=== PATIENT | male | born 1940 | race Hispanic/Latino ===

== ENCOUNTER 2017-03-30 19:59 | Inpatient (IN) | payer MEDICARE, BC ==
[2017-03-30 22:00] VITALS: BMI 27.8
[2017-03-31] MEDS ORDERED: Oxycodone/Acetaminophen 5/325 mg Tab PO PRN (00:30)
[2017-03-31] MEDS ORDERED: Albuterol-Ipratrop 3 mg / 0.5 (3 ml) UD IH SCH (02:15)
[2017-03-31] MEDS: Albuterol-Ipratrop 3 mg / 0.5 (3 ml) UD IH SCH ×5 (03:10→19:28)
[2017-03-31 06:35] LABS: MEAN CELL VOLUME 83.4 fl (80.0-94.0); MEAN CORPUSCULAR HEMOGLOBIN 27.3 pg (27.0-31.0); MEAN CORPUSCULAR HGB CONC 32.7 g/dL (33.0-37.0); RED CELL DISTRIBUTION WIDTH 19.2 % (11.5-14.5); WHITE BLOOD COUNT 9.2 K/uL (4.8-10.8)
[2017-03-31] MEDS: Santyl Collagenase OINTMENT TOP SCH ×2 (06:41→08:56)
[2017-03-31] MEDS: Insulin Lispro (humaLOG) 100 Units/ml Inj SC SCH ×4 (06:42→21:25)
[2017-03-31] MEDS: Pantoprazole 40 mg EC Tab PO SCH (08:59)
[2017-03-31] MEDS ORDERED: Patient's Own Med (Dorzolamide Hcl/Timolol Maleat [Dorzolamide-Timolol Eye Drops] 1 DROP) OU SCH (09:00)
[2017-03-31] MEDS: Dorzolamide 2% Ophth Soln OU SCH ×3 (09:02→16:52)
[2017-03-31] MEDS: Pilocarpine 1% Opht Soln OU SCH ×4 (09:03→21:26)
--- NOTE | 2017-03-31 17:15 | CP.PCM.HP ---
History of Present Illness - History of Present Illness History of Present Illness: CC: Unable to sit and transfer by himsel, and Generalized Weakness History of Present Illness: A 76yoM H/O Incarcerated hernia S/P 2 surgeries with an Ileostomy, and the hospital course was complicated with septic shock with Acute Respiratory failure requiring Intubation. 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 Unable to elevate B/L shoulders partly due to stiffness and partly pain. Currently patient C/O Feeling down and not fully cooperating for blood test and participating in PT. Has done some OT today Denied Chest pain, cough, fever or chills. Present on Admission - Present on Admission Any Indicators Present on Admission: Yes History of DVT/PE: No History of Uncontrolled Diabetes: No Urinary Catheter: No Decubitus Ulcer Present: No Decubitus Ulcer Stage: II Review of Systems - Review of Systems All systems: reviewed and no additional remarkable complaints except Past Patient History - Infectious Disease Hx of Infectious Diseases: None, C.diff - Past Medical History & Family History Past Medical History?: Yes Past Family History: Reviewed and not pertinent - Past Social History Smoking Status: Never Smoked Alcohol: None Drugs: Denies - CARDIAC Hx Cardiac Disorders: Yes Hx Hypertension: Yes - PULMONARY Hx Respiratory Disorders: No - NEUROLOGICAL HX Cerebrovascular Accident: Yes - HEENT Hx HEENT Problems: No Hx Glaucoma: Yes - RENAL Hx Chronic Kidney Disease: No - ENDOCRINE/METABOLIC Hx Diabetes Mellitus Type 2: Yes - HEMATOLOGICAL/ONCOLOGICAL Hx AIDS: No Hx Human Immunodeficiency Virus (HIV): No - INTEGUMENTARY Other/Comment: RIGHT TEMPORAL LESION - MUSCULOSKELETAL/RHEUMATOLOGICAL Hx Falls: No - GASTROINTESTINAL Hx Gastrointestinal Disorders: Yes Hx Bowel Surgery: Yes Hx Colostomy: Yes Other/Comment: 03/17/2017 - exploratory lap, small bowel resection. 03/18/2017 - returned to OR for washout, end ileostomy, abdominal closure with bridging strattice mesh. h/o abdominal hernia - GENITOURINARY/GYNECOLOGICAL Hx Genitourinary Disorders: No - PSYCHIATRIC Hx Anxiety: Yes Hx Depression: Yes Hx Substance Use: No - SURGICAL HISTORY Hx Coronary Stent: Yes Other/Comment: RIGHT HIP FX with surgery - ANESTHESIA Hx Anesthesia: Yes Hx Anesthesia Reactions: No Hx Malignant Hyperthermia: No Meds Allergies/Adverse Reactions: Allergies Allergy/AdvReac Type Severity Reaction Status Date / Time Penicillins Allergy URTICARIA Verified 03/30/17 22:34 Sulfa (Sulfonamide Allergy URTICARIA Verified 03/30/17 22:34 Antibiotics) Physical Exam - Constitutional Appears: Well - Head Exam Head Exam: ATRAUMATIC, NORMAL INSPECTION, NORMOCEPHALIC - Eye Exam Eye Exam: EOMI, Normal appearance, PERRL Pupil Exam: NORMAL ACCOMODATION, PERRL - ENT Exam ENT Exam: Mucous Membranes Moist, Normal Exam - Neck Exam Neck exam: Positive for: Normal Inspection - Respiratory Exam Respiratory Exam: Clear to Auscultation Bilateral, NORMAL BREATHING PATTERN - Cardiovascular Exam Cardiovascular Exam: REGULAR RHYTHM, +S1, +S2 - GI/Abdominal Exam GI & Abdominal Exam: Normal Bowel Sounds, Soft. absent: Tenderness - Extremities Exam Extremities exam: Positive for: normal inspection - Back Exam Back exam: NORMAL INSPECTION. absent: CVA tenderness (L), CVA tenderness (R) - Neurological Exam Neurological exam: Alert, CN II-XII Intact, Normal Gait, Oriented x3, Reflexes Normal - Psychiatric Exam Psychiatric exam: Normal Affect, Normal Mood - Skin Skin Exam: Dry, Intact, Normal Color, Warm Results - Vital Signs Recent Vital Signs: Last Vital Signs Temp 97.7 F 03/31/17 08:44 Pulse 68 03/31/17 13:48 Resp 19 03/31/17 08:44 BP 131/77 03/31/17 09:01 Pulse Ox 98 03/31/17 13:48 - Labs Result Diagrams: 04/03/17 05:36 04/01/17 06:00 Labs: Laboratory Results - last 24 hr 03/31/17 03/31/17 03/31/17 05:10 05:10 12:49 WBC 9.2 RBC 3.48 L Hgb 9.5 L Hct 29.0 L MCV 83.4 MCH 27.3 MCHC 32.7 L RDW 19.2 H Plt Count 557 H POC Glucose (mg/dL) 92 103 Assessment & Plan (1) Shoulder pain, bilateral Status: Acute
[2017-03-31] MEDS ORDERED: Silver Sulfadiazine 1% Cream (20 gm) TOP SCH (19:15)
--- NOTE | 2017-03-31 19:18 | CP.PCM.PN ---
Subjective - Date & Time of Evaluation Date of Evaluation: 03/31/17 Time of Evaluation: 19:17 - Subjective Subjective: debility Objective - Vital Signs/Intake and Output Vital Signs (last 24 hours): Temp Pulse Resp BP Pulse Ox 97.7 F 68 19 131/77 98 03/31/17 08:44 03/31/17 13:48 03/31/17 08:44 03/31/17 09:01 03/31/17 13:48 - Medications Medications: Current Medications Acetaminophen (Tylenol 325mg Tab) 650 mg PO Q6H PRN PRN Reason: Pain, moderate (4-7) Last Admin: 03/31/17 06:46 Dose: 650 mg Albuterol/Ipratropium (Duoneb 3 Mg/0.5 Mg (3 Ml) Ud) 3 ml IH RQ4 [facility] Last Admin: 03/31/17 15:52 Dose: Not Given Alprazolam (Xanax) 0.25 mg PO HS PRN PRN Reason: Anxiety Stop: 04/07/17 00:32 Last Admin: 03/31/17 11:32 Dose: 0.25 mg Atorvastatin Calcium (Lipitor) 50 mg PO HS [facility] Dorzolamide HCl (Trusopt) 1 drop OU TID [facility] Last Admin: 03/31/17 16:52 Dose: 1 drop Enoxaparin Sodium (Lovenox) 40 mg SC DAILY [facility] PRN Reason: Protocol Escitalopram Oxalate (Lexapro) 10 mg PO HS [facility] Furosemide (Lasix) 20 mg PO DAILY [facility] Insulin Human Lispro (Humalog) 0 units SC ACHS [facility] PRN Reason: Protocol Last Admin: 03/31/17 16:52 Dose: Not Given Latanoprost (Xalatan Opht) 1 drop OU HS [facility] Lisinopril (Zestril) 5 mg PO HS [facility] Metoprolol Tartrate (Lopressor) 50 mg PO DAILY [facility] Last Admin: 03/31/17 09:01 Dose: 50 mg Miconazole Nitrate (Critic-Aid Clear Af) 1 applic TOP BID [facility] Oxycodone/Acetaminophen (Percocet 5/325 Mg Tab) 1 tab PO Q6 PRN PRN Reason: Pain, severe (8-10) Stop: 04/03/17 00:31 Pantoprazole Sodium (Protonix Ec Tab) 40 mg PO DAILY [facility] Last Admin: 03/31/17 08:59 Dose: 40 mg Pilocarpine HCl (Isopto Carpine 1% Opht Soln) 1 drop OU QID [facility] Last Admin: 03/31/17 16:52 Dose: 1 drop Silver Sulfadiazine (Silvadene 1% 20 Gm) 1 ea TOP QSHIFT [facility] Timolol Maleate (Timoptic 0.5% Ophth Soln) 1 drop OU BID [facility] Last Admin: 03/31/17 16:52 Dose: 1 drop - Labs Labs: 03/31/17 05:10 Physiatry Overall Plan of Care - Overall Plan of Care Estimated Length of Stay in Weeks: 3 Rehab Impairment: Mobility, Gait, Balance, Coordination Etiologic Diagnosis: Other Rehab/Medical Prognosis: Guarded - Anticipated Interventions Physical Therapy:: Yes Occupational Therapy:: Yes Speech Therapy:: Yes Recreational Therapy:: Yes - Therapy Goals Bed Mobility: Contact Guard Ambulation: Contact Guard Functional Positional Changes:: Contact Guard - Discharge Plan Discharge Destination: Subacute
--- NOTE | 2017-03-31 19:21 | CP.PCM.CON ---
History of Present Illness - History of Present Illness History of Present Illness: Dr Campa PMR consultation on Clarence Roberts, born 1940, who has been admitted to [facility] for acute inpatient rehabilitation following SBO with surgery and ileostomy and drain with abdominal closure. Multiple medical comorbidities Had a CVA last year, with left HP, but was able to get around with a walker Review of Systems - Review of Systems Systems not reviewed;Unavailable: Other (weak) - Constitutional Constitutional: Anorexia, Fatigue, Weakness - Cardiovascular Cardiovascular: absent: Chest Pain - Respiratory Respiratory: absent: Dyspnea - Gastrointestinal Gastrointestinal: absent: Bloating - Musculoskeletal Musculoskeletal: Back Pain (pain is on sacral wound) - Neurological Neurological: Focal Weakness (left HP). absent: Abnormal Movements - Psychiatric Psychiatric: Depression Past Patient History - Infectious Disease Hx of Infectious Diseases: None, C.diff - Past Medical History & Family History Past Medical History?: Yes - Past Social History Smoking Status: Never Smoked Home Situation {Lives}: With Family (outside steps) - CARDIAC Hx Cardiac Disorders: Yes Hx Hypertension: Yes - PULMONARY Hx Respiratory Disorders: No - NEUROLOGICAL HX Cerebrovascular Accident: Yes - HEENT Hx HEENT Problems: No Hx Glaucoma: Yes - RENAL Hx Chronic Kidney Disease: No - ENDOCRINE/METABOLIC Hx Diabetes Mellitus Type 2: Yes - HEMATOLOGICAL/ONCOLOGICAL Hx AIDS: No Hx Human Immunodeficiency Virus (HIV): No - INTEGUMENTARY Other/Comment: RIGHT TEMPORAL LESION - MUSCULOSKELETAL/RHEUMATOLOGICAL Hx Falls: No - GASTROINTESTINAL Hx Gastrointestinal Disorders: Yes Hx Bowel Surgery: Yes Hx Colostomy: Yes Other/Comment: 03/17/2017 - exploratory lap, small bowel resection. 03/18/2017 - returned to OR for washout, end ileostomy, abdominal closure with bridging strattice mesh. h/o abdominal hernia - GENITOURINARY/GYNECOLOGICAL Hx Genitourinary Disorders: No - PSYCHIATRIC Hx Anxiety: Yes Hx Depression: Yes Hx Substance Use: No - SURGICAL HISTORY Hx Coronary Stent: Yes Other/Comment: RIGHT HIP FX with surgery - ANESTHESIA Hx Anesthesia: Yes Hx Anesthesia Reactions: No Hx Malignant Hyperthermia: No Meds Allergies/Adverse Reactions: Allergies Allergy/AdvReac Type Severity Reaction Status Date / Time Penicillins Allergy URTICARIA Verified 03/30/17 22:34 Sulfa (Sulfonamide Allergy URTICARIA Verified 03/30/17 22:34 Antibiotics) - Medications Medications: Current Medications Acetaminophen (Tylenol 325mg Tab) 650 mg PO Q6H PRN PRN Reason: Pain, moderate (4-7) Last Admin: 03/31/17 06:46 Dose: 650 mg Albuterol/Ipratropium (Duoneb 3 Mg/0.5 Mg (3 Ml) Ud) 3 ml IH RQ4 [facility] Last Admin: 03/31/17 15:52 Dose: Not Given Alprazolam (Xanax) 0.25 mg PO HS PRN PRN Reason: Anxiety Stop: 04/07/17 00:32 Last Admin: 03/31/17 11:32 Dose: 0.25 mg Atorvastatin Calcium (Lipitor) 50 mg PO HS [facility] Dorzolamide HCl (Trusopt) 1 drop OU TID [facility] Last Admin: 03/31/17 16:52 Dose: 1 drop Enoxaparin Sodium (Lovenox) 40 mg SC DAILY [facility] PRN Reason: Protocol Escitalopram Oxalate (Lexapro) 10 mg PO HS [facility] Furosemide (Lasix) 20 mg PO DAILY [facility] Insulin Human Lispro (Humalog) 0 units SC ACHS [facility] PRN Reason: Protocol Last Admin: 03/31/17 16:52 Dose: Not Given Latanoprost (Xalatan Opht) 1 drop OU HS [facility] Lisinopril (Zestril) 5 mg PO HS [facility] Metoprolol Tartrate (Lopressor) 50 mg PO DAILY [facility] Last Admin: 03/31/17 09:01 Dose: 50 mg Miconazole Nitrate (Critic-Aid Clear Af) 1 applic TOP BID [facility] Oxycodone/Acetaminophen (Percocet 5/325 Mg Tab) 1 tab PO Q6 PRN PRN Reason: Pain, severe (8-10) Stop: 04/03/17 00:31 Pantoprazole Sodium (Protonix Ec Tab) 40 mg PO DAILY [facility] Last Admin: 03/31/17 08:59 Dose: 40 mg Pilocarpine HCl (Isopto Carpine 1% Opht Soln) 1 drop OU QID [facility] Last Admin: 03/31/17 16:52 Dose: 1 drop Silver Sulfadiazine (Silvadene 1% 20 Gm) 1 ea TOP QSHIFT [facility] Timolol Maleate (Timoptic 0.5% Ophth Soln) 1 drop OU BID [facility] Last Admin: 03/31/17 16:52 Dose: 1 drop Physical Exam - Constitutional Appears: Non-toxic, Chronically Ill - Head Exam Head Exam: ATRAUMATIC, NORMAL INSPECTION - Eye Exam Eye Exam: EOMI - Respiratory Exam Respiratory Exam: NORMAL BREATHING PATTERN - Cardiovascular Exam Cardiovascular Exam: REGULAR RHYTHM - GI/Abdominal Exam GI & Abdominal Exam: absent: Firm (has long central incision. + ileostomy and drain) - Extremities Exam Extremities exam: Negative for: calf tenderness (no significant swelling. has heel cushions in place) - Neurological Exam Neurological exam: Alert, CN II-XII Intact, Oriented x3 - Psychiatric Exam Psychiatric exam: Depressed - Skin Skin Exam: Warm (has larger sacral erythema with a central sacral unstageable area that is approx 3cm) Results - Vital Signs Recent Vital Signs: Last Vital Signs Temp 97.7 F 03/31/17 08:44 Pulse 68 03/31/17 13:48 Resp 19 03/31/17 08:44 BP 131/77 03/31/17 09:01 Pulse Ox 98 03/31/17 13:48 - Labs Result Diagrams: 03/31/17 05:10 Labs: Laboratory Results - last 24 hr 03/31/17 03/31/17 03/31/17 05:10 05:10 12:49 WBC 9.2 RBC 3.48 L Hgb 9.5 L Hct 29.0 L MCV 83.4 MCH 27.3 MCHC 32.7 L RDW 19.2 H Plt Count 557 H POC Glucose (mg/dL) 92 103 Assessment & Plan - Assessment and Plan (Free Text) Assessment: PT/OT to continue to help increase functional independence Team conference for d/c planning Pain: controlled Vascular: no evidence of DVT GI: has ileosomty Skin: Will use critic aid AF cream on periwound and collagenase on the unstageable aspect impairment code: 16 Patient is an excellent acute rehabilitation candidate and will have focused pain management, wound care, PT, OT and recreational therapy to help facilitate a safe and appropriate d/c plan
[2017-03-31] MEDS ORDERED: Latanoprost 0.005% Opht SOUTION OU SCH (22:00)
[2017-04-01] MEDS: Albuterol-Ipratrop 3 mg / 0.5 (3 ml) UD IH SCH ×6 (00:07→23:55)
[2017-04-01] MEDS: Insulin Lispro (humaLOG) 100 Units/ml Inj SC SCH ×4 (07:03→22:03)
[2017-04-01 08:34] LABS: BLOOD UREA NITROGEN 13 mg/dl (9-20); CALCIUM 8.2 mg/dL (8.4-10.2); CARBON DIOXIDE 25 mmol/L (22-30); CHLORIDE 104 mmol/L (98-107); GFR AFRICAN-AMERICAN > 60; GLUCOSE,RANDOM 86 mg/dL (75-110); POTASSIUM 4.1 MMOL/L (3.6-5.0); SODIUM 137 mmol/l (132-148)
[2017-04-01] MEDS: Dorzolamide 2% Ophth Soln OU SCH ×3 (09:09→16:45)
[2017-04-01] MEDS: Critic-Aid Clear AF TOP SCH ×2 (09:09→16:43)
[2017-04-01] MEDS: Pilocarpine 1% Opht Soln OU SCH ×3 (09:09→16:44)
[2017-04-01] MEDS: Pantoprazole 40 mg EC Tab PO SCH (09:10)
[2017-04-01] MEDS: Santyl Collagenase OINTMENT TOP SCH (09:10)
[2017-04-01] MEDS: Enoxaparin 40 mg Syringe SC SCH ×2 (11:52→11:53)
--- NOTE | 2017-04-01 13:39 | CP.PCM.PN ---
Subjective - Date & Time of Evaluation Date of Evaluation: 04/01/17 Time of Evaluation: 13:38 - Subjective Subjective: Patient seen in room with family present well positioned anxious denies CP or fever continue with current care Objective - Vital Signs/Intake and Output Vital Signs (last 24 hours): Temp Pulse Resp BP Pulse Ox 96.6 F L 82 18 109/57 L 97 04/01/17 07:33 04/01/17 10:29 04/01/17 07:33 04/01/17 10:29 04/01/17 10:17 Intake and Output: 04/01/17 04/01/17 06:59 18:59 Output Total 420 Balance -420 - Medications Medications: Current Medications Acetaminophen (Tylenol 325mg Tab) 650 mg PO Q6H PRN PRN Reason: Pain, moderate (4-7) Last Admin: 04/01/17 02:24 Dose: 650 mg Albuterol/Ipratropium (Duoneb 3 Mg/0.5 Mg (3 Ml) Ud) 3 ml IH RQ4 [facility] Last Admin: 04/01/17 11:35 Dose: Not Given Alprazolam (Xanax) 0.25 mg PO HS PRN PRN Reason: Anxiety Stop: 04/07/17 00:32 Last Admin: 03/31/17 11:32 Dose: 0.25 mg Atorvastatin Calcium (Lipitor) 50 mg PO HS [facility] Last Admin: 03/31/17 23:09 Dose: 50 mg Collagenase (Santyl) 1 applic TOP DAILY [facility] Last Admin: 04/01/17 09:10 Dose: 1 oin Dorzolamide HCl (Trusopt) 1 drop OU TID [facility] Last Admin: 04/01/17 13:36 Dose: 1 drop Enoxaparin Sodium (Lovenox) 40 mg SC DAILY [facility] PRN Reason: Protocol Last Admin: 04/01/17 11:53 Dose: Not Given Escitalopram Oxalate (Lexapro) 10 mg PO HS [facility] Last Admin: 03/31/17 23:09 Dose: 10 mg Furosemide (Lasix) 20 mg PO DAILY [facility] Insulin Human Lispro (Humalog) 0 units SC ACHS [facility] PRN Reason: Protocol Last Admin: 04/01/17 11:10 Dose: Not Given Latanoprost (Xalatan Opht) 1 drop OU HS [facility] Last Admin: 03/31/17 21:26 Dose: 1 drop Lisinopril (Zestril) 5 mg PO HS [facility] Metoprolol Tartrate (Lopressor) 50 mg PO DAILY [facility] Miconazole Nitrate (Critic-Aid Clear Af) 1 applic TOP BID [facility] Last Admin: 04/01/17 09:09 Dose: 1 applic Nystatin (Nystop Topical Powder) 1 applic TOP TID [facility] Last Admin: 04/01/17 13:27 Dose: 1 pow Oxycodone/Acetaminophen (Percocet 5/325 Mg Tab) 1 tab PO Q6 PRN PRN Reason: Pain, severe (8-10) Stop: 04/03/17 00:31 Pantoprazole Sodium (Protonix Ec Tab) 40 mg PO DAILY [facility] Last Admin: 04/01/17 09:10 Dose: 40 mg Pilocarpine HCl (Isopto Carpine 1% Opht Soln) 1 drop OU QID [facility] Last Admin: 04/01/17 13:36 Dose: 1 drop Timolol Maleate (Timoptic 0.5% Ophth Soln) 1 drop OU BID [facility] Last Admin: 04/01/17 09:12 Dose: 1 drop - Labs Labs: 03/31/17 05:10 04/01/17 06:00
--- NOTE | 2017-04-02 00:20 | CP.PCM.PN ---
Subjective - Date & Time of Evaluation Date of Evaluation: 04/01/17 Time of Evaluation: 18:00 Objective - Vital Signs/Intake and Output Vital Signs (last 24 hours): Temp Pulse Resp BP Pulse Ox 97.4 F L 91 H 20 112/70 99 04/01/17 21:20 04/01/17 22:10 04/01/17 21:20 04/01/17 22:10 04/01/17 21:20 Intake and Output: 04/01/17 04/02/17 18:59 06:59 Output Total 650 Balance -650 - Medications Medications: Current Medications Acetaminophen (Tylenol 325mg Tab) 650 mg PO Q6H PRN PRN Reason: Pain, moderate (4-7) Last Admin: 04/01/17 02:24 Dose: 650 mg Albuterol/Ipratropium (Duoneb 3 Mg/0.5 Mg (3 Ml) Ud) 3 ml IH RQ4 [facility] Last Admin: 04/01/17 23:55 Dose: Not Given Alprazolam (Xanax) 0.25 mg PO HS PRN PRN Reason: Anxiety Stop: 04/07/17 00:32 Last Admin: 03/31/17 11:32 Dose: 0.25 mg Atorvastatin Calcium (Lipitor) 50 mg PO HS [facility] Last Admin: 04/01/17 22:05 Dose: 50 mg Collagenase (Santyl) 1 applic TOP DAILY [facility] Last Admin: 04/01/17 09:10 Dose: 1 oin Enoxaparin Sodium (Lovenox) 40 mg SC DAILY [facility] PRN Reason: Protocol Last Admin: 04/01/17 11:53 Dose: Not Given Escitalopram Oxalate (Lexapro) 10 mg PO HS [facility] Last Admin: 04/01/17 22:05 Dose: 10 mg Furosemide (Lasix) 20 mg PO DAILY [facility] Insulin Human Lispro (Humalog) 0 units SC [facility] PRN Reason: Protocol Last Admin: 04/01/17 22:03 Dose: Not Given Lisinopril (Zestril) 5 mg PO HS [facility] Last Admin: 04/01/17 22:10 Dose: 5 mg Metoprolol Tartrate (Lopressor) 50 mg PO DAILY [facility] Miconazole Nitrate (Critic-Aid Clear Af) 1 applic TOP BID [facility] Last Admin: 04/01/17 16:43 Dose: 1 applic Mupirocin (Bactroban Ointment) 1 applic TOP 0630,1700 [facility] Nystatin (Nystop Topical Powder) 1 applic TOP TID [facility] Last Admin: 04/01/17 16:44 Dose: 1 pow Oxycodone/Acetaminophen (Percocet 5/325 Mg Tab) 1 tab PO Q6 PRN PRN Reason: Pain, severe (8-10) Stop: 04/03/17 00:31 Pantoprazole Sodium (Protonix Ec Tab) 40 mg PO DAILY [facility] Last Admin: 04/01/17 09:10 Dose: 40 mg - Labs Labs: 03/31/17 05:10 04/01/17 06:00
[2017-04-02] MEDS: Albuterol-Ipratrop 3 mg / 0.5 (3 ml) UD IH SCH ×6 (04:43→19:40)
[2017-04-02] MEDS ORDERED: Bacitracin OINT 15GM TOP SCH (06:30)
[2017-04-02] MEDS: Insulin Lispro (humaLOG) 100 Units/ml Inj SC SCH ×4 (06:46→21:17)
[2017-04-02] MEDS: Santyl Collagenase OINTMENT TOP SCH (08:22)
[2017-04-02] MEDS: Pantoprazole 40 mg EC Tab PO SCH (08:22)
[2017-04-02] MEDS: Critic-Aid Clear AF TOP SCH ×2 (08:26→19:20)
[2017-04-02] MEDS: Enoxaparin 40 mg Syringe SC SCH (08:26)
--- NOTE | 2017-04-02 17:27 | CP.PCM.PN ---
Subjective - Date & Time of Evaluation Date of Evaluation: 04/02/17 Time of Evaluation: 17:20 Objective - Vital Signs/Intake and Output Vital Signs (last 24 hours): Temp Pulse Resp BP Pulse Ox 98.1 F 88 20 108/64 99 04/02/17 07:39 04/02/17 08:21 04/02/17 07:39 04/02/17 08:21 04/02/17 07:39 Intake and Output: 04/02/17 04/02/17 06:59 18:59 Intake Total 400 Output Total 660 Balance -260 - Medications Medications: Current Medications Acetaminophen (Tylenol 325mg Tab) 650 mg PO Q6H PRN PRN Reason: Pain, moderate (4-7) Last Admin: 04/01/17 02:24 Dose: 650 mg Albuterol/Ipratropium (Duoneb 3 Mg/0.5 Mg (3 Ml) Ud) 3 ml IH RQ4 [facility] Last Admin: 04/02/17 15:40 Dose: 3 ml Alprazolam (Xanax) 0.25 mg PO HS PRN PRN Reason: Anxiety Stop: 04/07/17 00:32 Last Admin: 03/31/17 11:32 Dose: 0.25 mg Atorvastatin Calcium (Lipitor) 50 mg PO HS [facility] Last Admin: 04/01/17 22:05 Dose: 50 mg Collagenase (Santyl) 1 applic TOP DAILY [facility] Last Admin: 04/02/17 08:22 Dose: 1 oin Enoxaparin Sodium (Lovenox) 40 mg SC DAILY [facility] PRN Reason: Protocol Last Admin: 04/02/17 08:26 Dose: 40 mg Escitalopram Oxalate (Lexapro) 10 mg PO HS [facility] Last Admin: 04/01/17 22:05 Dose: 10 mg Furosemide (Lasix) 20 mg PO DAILY [facility] Last Admin: 04/02/17 08:20 Dose: Not Given Insulin Human Lispro (Humalog) 0 units SC [facility] PRN Reason: Protocol Last Admin: 04/02/17 16:41 Dose: Not Given Lisinopril (Zestril) 5 mg PO HS [facility] Last Admin: 04/01/17 22:10 Dose: 5 mg Metoprolol Tartrate (Lopressor) 50 mg PO DAILY [facility] Last Admin: 04/02/17 08:21 Dose: Not Given Miconazole Nitrate (Critic-Aid Clear Af) 1 applic TOP BID [facility] Last Admin: 04/02/17 08:26 Dose: 1 applic Mupirocin (Bactroban Ointment) 1 applic TOP 0630,1700 [facility] Last Admin: 04/02/17 06:56 Dose: 1 applic Nystatin (Nystop Topical Powder) 1 applic TOP TID [facility] Last Admin: 04/02/17 12:42 Dose: 1 pow Oxycodone/Acetaminophen (Percocet 5/325 Mg Tab) 1 tab PO Q6 PRN PRN Reason: Pain, severe (8-10) Stop: 04/03/17 00:31 Pantoprazole Sodium (Protonix Ec Tab) 40 mg PO DAILY [facility] Last Admin: 04/02/17 08:22 Dose: 40 mg - Labs Labs: 03/31/17 05:10 04/01/17 06:00
[2017-04-02] MEDS ORDERED: Oxycodone/Acetaminophen 5/325 mg Tab PO PRN (18:00)
[2017-04-03] MEDS: Albuterol-Ipratrop 3 mg / 0.5 (3 ml) UD IH SCH ×8 (00:19→23:52)
[2017-04-03 05:44] LABS: BASO # 0.1 K/uL (0.0-0.2); BASO % 1.5 % (0.0-2.0); EOS # 0.3 K/uL (0.0-0.7); EOS % 4.1 % (0.0-4.0); HEMATOCRIT 28.5 % (35.0-51.0); LYMPH % 12.5 % (20.0-40.0); MEAN CELL VOLUME 83.4 fl (80.0-94.0); MEAN CORPUSCULAR HEMOGLOBIN 26.5 pg (27.0-31.0); MEAN CORPUSCULAR HGB CONC 31.7 g/dL (33.0-37.0); MEAN PLATELET VOLUME 7.3 fl (7.2-11.7); NEUT # 5.6 K/uL (1.8-7.0); NEUT % 69.9 % (50.0-75.0); RED CELL DISTRIBUTION WIDTH 18.6 % (11.5-14.5)
[2017-04-03] MEDS: Insulin Lispro (humaLOG) 100 Units/ml Inj SC SCH ×4 (06:33→21:26)
[2017-04-03] MEDS: Critic-Aid Clear AF TOP SCH ×2 (08:59→17:09)
[2017-04-03] MEDS: Pantoprazole 40 mg EC Tab PO SCH (09:01)
[2017-04-03] MEDS: Santyl Collagenase OINTMENT TOP SCH (09:02)
[2017-04-03] MEDS: Enoxaparin 40 mg Syringe SC SCH (09:41)
--- NOTE | 2017-04-03 15:20 | CP.PCM.PN ---
Subjective - Date & Time of Evaluation Date of Evaluation: 04/03/17 Time of Evaluation: 11:00 - Subjective Subjective: patient is very anxious, no acute other complaints at present Objective - Vital Signs/Intake and Output Vital Signs (last 24 hours): Temp Pulse Resp BP Pulse Ox 97.9 F 83 22 98/62 L 99 04/03/17 08:59 04/03/17 12:41 04/03/17 08:59 04/03/17 12:11 04/03/17 08:59 Intake and Output: 04/03/17 04/03/17 06:59 18:59 Intake Total 200 Output Total 660 Balance -460 - Medications Medications: Current Medications Acetaminophen (Tylenol 325mg Tab) 650 mg PO Q6H PRN PRN Reason: Pain, moderate (4-7) Last Admin: 04/03/17 14:45 Dose: 650 mg Albuterol/Ipratropium (Duoneb 3 Mg/0.5 Mg (3 Ml) Ud) 3 ml IH RQ4 [facility] Last Admin: 04/03/17 11:52 Dose: 3 ml Alprazolam (Xanax) 0.25 mg PO BID PRN PRN Reason: Anxiety Stop: 04/09/17 18:01 Last Admin: 04/03/17 01:29 Dose: 0.25 mg Atorvastatin Calcium (Lipitor) 50 mg PO HS [facility] Last Admin: 04/02/17 21:11 Dose: 50 mg Collagenase (Santyl) 1 applic TOP DAILY [facility] Last Admin: 04/03/17 09:02 Dose: 1 oin Enoxaparin Sodium (Lovenox) 40 mg SC DAILY [facility] PRN Reason: Protocol Last Admin: 04/03/17 09:41 Dose: 40 mg Escitalopram Oxalate (Lexapro) 10 mg PO [facility] Last Admin: 04/02/17 21:11 Dose: 10 mg Furosemide (Lasix) 20 mg PO DAILY [facility] Last Admin: 04/03/17 10:56 Dose: Not Given Insulin Human Lispro (Humalog) 0 units SC [facility] PRN Reason: Protocol Last Admin: 04/03/17 12:05 Dose: Not Given Lisinopril (Zestril) 5 mg PO [facility] Last Admin: 04/02/17 21:18 Dose: 5 mg Metoprolol Tartrate (Lopressor) 50 mg PO DAILY [facility] Last Admin: 04/03/17 10:58 Dose: Not Given Miconazole Nitrate (Critic-Aid Clear Af) 1 applic TOP BID [facility] Last Admin: 04/03/17 08:59 Dose: 1 applic Mupirocin (Bactroban Ointment) 1 applic TOP 0630,1700 [facility] Last Admin: 04/03/17 06:32 Dose: 1 applic Nystatin (Nystop Topical Powder) 1 applic TOP TID [facility] Last Admin: 04/03/17 12:20 Dose: 1 pow Oxycodone/Acetaminophen (Percocet 5/325 Mg Tab) 1 tab PO Q6 PRN PRN Reason: Pain, severe (8-10) Stop: 04/05/17 18:01 Pantoprazole Sodium (Protonix Ec Tab) 40 mg PO DAILY@0630 [facility] - Labs Labs: 04/03/17 05:36 04/01/17 06:00 - Head Exam Head Exam: ATRAUMATIC, NORMAL INSPECTION, NORMOCEPHALIC - Eye Exam Eye Exam: EOMI, Normal appearance, PERRL Pupil Exam: NORMAL ACCOMODATION - ENT Exam ENT Exam: Mucous Membranes Moist, Normal Exam - Respiratory Exam Respiratory Exam: NORMAL BREATHING PATTERN - Cardiovascular Exam Cardiovascular Exam: REGULAR RHYTHM - GI/Abdominal Exam GI & Abdominal Exam: Normal Bowel Sounds - Rectal Exam Rectal Exam: NORMAL INSPECTION - Exam External exam: NORMAL EXTERNAL EXAM - Extremities Exam Extremities Exam: Full ROM, Normal Capillary Refill - Back Exam Back Exam: NORMAL INSPECTION - Neurological Exam Neurological Exam: Alert, Awake Neuro motor strength exam: Left Upper Extremity: 3, Right Upper Extremity: 3, Left Lower Extremity: 3, Right Lower Extremity: 3 - Psychiatric Exam Psychiatric exam: Normal Affect, Normal Mood - Skin Skin Exam: Dry, Intact Assessment and Plan (1) Anemia Status: Acute (2) Bradycardia Status: Acute (3) CHF (congestive heart failure) Status: Acute (4) Edema Status: Acute (5) Left knee pain Status: Acute (6) PVD (peripheral vascular disease) Status: Acute (7) Pneumonia Status: Acute (8) Small bowel obstruction Assessment & Plan: plan for physical, occupational, rec therapy consider psychology, psychiarty for anxiety Status: Acute
--- NOTE | 2017-04-03 17:12 | CP.PCM.PN ---
Subjective - Date & Time of Evaluation Date of Evaluation: 04/03/17 Time of Evaluation: 15:10 Objective - Vital Signs/Intake and Output Vital Signs (last 24 hours): Temp Pulse Resp BP Pulse Ox 97.9 F 83 22 98/62 L 99 04/03/17 08:59 04/03/17 12:41 04/03/17 08:59 04/03/17 12:11 04/03/17 08:59 Intake and Output: 04/03/17 04/03/17 06:59 18:59 Intake Total 200 Output Total 660 Balance -460 - Medications Medications: Current Medications Acetaminophen (Tylenol 325mg Tab) 650 mg PO Q6H PRN PRN Reason: Pain, moderate (4-7) Last Admin: 04/03/17 14:45 Dose: 650 mg Albuterol/Ipratropium (Duoneb 3 Mg/0.5 Mg (3 Ml) Ud) 3 ml IH RQ4 [facility] Last Admin: 04/03/17 15:39 Dose: 3 ml Alprazolam (Xanax) 0.25 mg PO BID PRN PRN Reason: Anxiety Stop: 04/09/17 18:01 Last Admin: 04/03/17 01:29 Dose: 0.25 mg Atorvastatin Calcium (Lipitor) 50 mg PO HS [facility] Last Admin: 04/02/17 21:11 Dose: 50 mg Collagenase (Santyl) 1 applic TOP DAILY [facility] Last Admin: 04/03/17 09:02 Dose: 1 oin Enoxaparin Sodium (Lovenox) 40 mg SC DAILY [facility] PRN Reason: Protocol Last Admin: 04/03/17 09:41 Dose: 40 mg Escitalopram Oxalate (Lexapro) 10 mg PO HS [facility] Last Admin: 04/02/17 21:11 Dose: 10 mg Furosemide (Lasix) 20 mg PO DAILY [facility] Last Admin: 04/03/17 10:56 Dose: Not Given Insulin Human Lispro (Humalog) 0 units SC [facility] PRN Reason: Protocol Last Admin: 04/03/17 12:05 Dose: Not Given Lisinopril (Zestril) 5 mg PO HS [facility] Last Admin: 04/02/17 21:18 Dose: 5 mg Metoprolol Tartrate (Lopressor) 50 mg PO DAILY [facility] Last Admin: 04/03/17 10:58 Dose: Not Given Miconazole Nitrate (Critic-Aid Clear Af) 1 applic TOP BID [facility] Last Admin: 04/03/17 08:59 Dose: 1 applic Mupirocin (Bactroban Ointment) 1 applic TOP 0630,1700 [facility] Last Admin: 04/03/17 06:32 Dose: 1 applic Nystatin (Nystop Topical Powder) 1 applic TOP TID [facility] Last Admin: 04/03/17 12:20 Dose: 1 pow Oxycodone/Acetaminophen (Percocet 5/325 Mg Tab) 1 tab PO Q6 PRN PRN Reason: Pain, severe (8-10) Stop: 04/05/17 18:01 Pantoprazole Sodium (Protonix Ec Tab) 40 mg PO DAILY@0630 [facility] - Labs Labs: 04/03/17 05:36 04/01/17 06:00
[2017-04-04] MEDS: Albuterol-Ipratrop 3 mg / 0.5 (3 ml) UD IH SCH ×6 (05:37→23:07)
[2017-04-04] MEDS: Insulin Lispro (humaLOG) 100 Units/ml Inj SC SCH ×2 (06:09→21:13)
[2017-04-04] MEDS: Pantoprazole 40 mg EC Tab PO SCH (06:36)
[2017-04-04] MEDS: Critic-Aid Clear AF TOP SCH ×2 (08:48→16:13)
[2017-04-04] MEDS: Enoxaparin 40 mg Syringe SC SCH (08:49)
[2017-04-04] MEDS: Santyl Collagenase OINTMENT TOP SCH (08:50)
--- NOTE | 2017-04-04 13:17 | CP.PCM.CON ---
History of Present Illness - History of Present Illness History of Present Illness: Psychiatry consult called for worsening paranoia and depression Patient was a poor historian, most history was obtained from the chart. CC: "I can't live like this." HPI: 76yoM H/O Incarcerated hernia S/P 2 surgeries with an Ileostomy, and the hospital course was complicated with septic shock with Acute Respiratory failure requiring Intubation. 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 Patient now reports feeling upset and depressed due to his chronic medical condition. He also has been expressing various paranoia beliefs, like that people are out of harm him and other bizarre statements towards staff. No SI/HI. Patient does express passive ideation to w/o current plan or intent to harm himself. PPHx: As per chart- No prior psychiatric history prior to initial consultation w / Dr. Smith in Dec 2016. Patient was seen by Dr. 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 Hx of tx w/ Lexapro, Klonopin, Atarax, and Ritalin. PMHx: Incarcerated hernia S/P 2 surgeries with an Ileostomy, and the hospital course was complicated with septic shock with Acute Respiratory failure requiring Intubation. 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 Hip replacement. All: PCN, Sulfa FHx: No family h/o mental illness. He Also Has 2 Sisters One Who of a Heart Attack 10 Years Ago and Another Who about 1 Years Ago Also Heart Attack. His Father of a Neurologic Problem in 1984 of ALS Which He Suffered from for 2 Years. His Mother in Her 80s and 1986 of "Old Age" SHx: No significant h/o drugs/etoh. He at age 19 and 1 to his Viola who is the same age. for 56 years. The couple have 2 daughters born in 1962 in 1964, both of described as well. The older is and has 2 children and lives in [facility] this separation is being "heartbreaking". He described himself as having been a better than average student who graduated from high school. 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 The patient is [place] where he grew up. MSE: Calm, cooperative, Thought process- non linear, thought content- +Paranoid delusions. No SI/HI. NO AH/VH. Poor insight/judgment. Impression: 76 yo male w/ h/o adjustment d/o w/ mixed depression and anxiety, h/ o possible somatic delusions, now acutely paranoid w/ reports of depressed mood ; patient's paranoia seems to be of new onset, could be MDD w/ psychotic features vs. psychosis 2/2 general medication condition vs acute delirium. Recommendations: -Continue Lexapro 10 mg PO Daily -Start Seroquel 50 mg PO Daily@1700 -Consider neurology consult given that his acute psychotic symptoms could be secondary to delirium vs acute medical or neurological condition -Avoid benzodiazepines as they can increase confusion and risks of falls Past Patient History - Infectious Disease Hx of Infectious Diseases: None, C.diff - Past Medical History & Family History Past Medical History?: Yes - Past Social History Smoking Status: Never Smoked Home Situation {Lives}: With Family (outside steps) - CARDIAC Hx Cardiac Disorders: Yes Hx Hypertension: Yes - PULMONARY Hx Respiratory Disorders: No - NEUROLOGICAL HX Cerebrovascular Accident: Yes - HEENT Hx HEENT Problems: No Hx Glaucoma: Yes - RENAL Hx Chronic Kidney Disease: No - ENDOCRINE/METABOLIC Hx Diabetes Mellitus Type 2: Yes - HEMATOLOGICAL/ONCOLOGICAL Hx AIDS: No Hx Human Immunodeficiency Virus (HIV): No - INTEGUMENTARY Other/Comment: RIGHT TEMPORAL LESION - MUSCULOSKELETAL/RHEUMATOLOGICAL Hx Falls: No - GASTROINTESTINAL Hx Gastrointestinal Disorders: Yes Hx Bowel Surgery: Yes Hx Colostomy: Yes Other/Comment: 03/17/2017 - exploratory lap, small bowel resection. 03/18/2017 - returned to OR for washout, end ileostomy, abdominal closure with bridging strattice mesh. h/o abdominal hernia - GENITOURINARY/GYNECOLOGICAL Hx Genitourinary Disorders: No - PSYCHIATRIC Hx Anxiety: Yes Hx Depression: Yes Hx Substance Use: No - SURGICAL HISTORY Hx Coronary Stent: Yes Other/Comment: RIGHT HIP FX with surgery - ANESTHESIA Hx Anesthesia: Yes Hx Anesthesia Reactions: No Hx Malignant Hyperthermia: No Meds Allergies/Adverse Reactions: Allergies Allergy/AdvReac Type Severity Reaction Status Date / Time Penicillins Allergy URTICARIA Verified 03/30/17 22:34 Sulfa (Sulfonamide Allergy URTICARIA Verified 03/30/17 22:34 Antibiotics) - Medications Medications: Current Medications Acetaminophen (Tylenol 325mg Tab) 650 mg PO Q6H PRN PRN Reason: Pain, moderate (4-7) Last Admin: 04/03/17 14:45 Dose: 650 mg Albuterol/Ipratropium (Duoneb 3 Mg/0.5 Mg (3 Ml) Ud) 3 ml IH RQ4 [facility] Last Admin: 04/04/17 11:19 Dose: Not Given Alprazolam (Xanax) 0.25 mg PO BID PRN PRN Reason: Anxiety Stop: 04/09/17 18:01 Last Admin: 04/04/17 11:25 Dose: 0.25 mg Atorvastatin Calcium (Lipitor) 50 mg PO HS [facility] Last Admin: 04/03/17 21:18 Dose: 50 mg Collagenase (Santyl) 1 applic TOP DAILY [facility] Last Admin: 04/04/17 08:50 Dose: 1 oin Enoxaparin Sodium (Lovenox) 40 mg SC DAILY [facility] PRN Reason: Protocol Last Admin: 04/04/17 08:49 Dose: 40 mg Escitalopram Oxalate (Lexapro) 10 mg PO HS [facility] Last Admin: 04/03/17 21:19 Dose: 10 mg Ferrous Gluconate (Fergon) 324 mg PO TID [facility] Last Admin: 04/04/17 12:20 Dose: 324 mg Furosemide (Lasix) 20 mg PO DAILY [facility] Last Admin: 04/04/17 08:49 Dose: Not Given Insulin Human Lispro (Humalog) 0 units SC 0630,2100 [facility] PRN Reason: Protocol Last Admin: 04/04/17 06:09 Dose: Not Given Lisinopril (Zestril) 5 mg PO HS [facility] Last Admin: 04/03/17 21:19 Dose: 5 mg Metoprolol Tartrate (Lopressor) 50 mg PO DAILY [facility] Last Admin: 04/04/17 08:49 Dose: Not Given Miconazole Nitrate (Critic-Aid Clear Af) 1 applic TOP BID [facility] Last Admin: 04/04/17 08:48 Dose: 1 applic Mupirocin (Bactroban Ointment) 1 applic TOP 0630,1700 [facility] Last Admin: 04/04/17 06:08 Dose: 1 applic Nystatin (Nystop Topical Powder) 1 applic TOP TID [facility] Last Admin: 04/04/17 12:21 Dose: 1 pow Oxycodone/Acetaminophen (Percocet 5/325 Mg Tab) 1 tab PO Q6 PRN PRN Reason: Pain, severe (8-10) Stop: 04/05/17 18:01 Pantoprazole Sodium (Protonix Ec Tab) 40 mg PO DAILY@0630 [facility] Last Admin: 04/04/17 06:36 Dose: 40 mg Results - Vital Signs Recent Vital Signs: Last Vital Signs Temp 98.4 F 04/04/17 08:47 Pulse 86 04/04/17 08:49 Resp 20 04/04/17 08:47 BP 109/69 04/04/17 08:49 Pulse Ox 97 04/04/17 08:47 - Labs Result Diagrams: 04/03/17 05:36 04/01/17 06:00 Labs: Laboratory Results - last 24 hr 04/03/17 04/03/17 16:56 21:23 POC Glucose (mg/dL) 111 H 90
[2017-04-05] MEDS: Albuterol-Ipratrop 3 mg / 0.5 (3 ml) UD IH SCH ×5 (04:35→19:00)
[2017-04-05] MEDS: Pantoprazole 40 mg EC Tab PO SCH (06:15)
[2017-04-05] MEDS: Insulin Lispro (humaLOG) 100 Units/ml Inj SC SCH ×2 (06:16→21:16)
[2017-04-05] MEDS: Critic-Aid Clear AF TOP SCH ×2 (08:29→17:22)
[2017-04-05] MEDS: Enoxaparin 40 mg Syringe SC SCH (08:31)
[2017-04-05] MEDS: Santyl Collagenase OINTMENT TOP SCH (08:32)
--- NOTE | 2017-04-05 10:33 | CP.PCM.PN ---
Subjective - Date & Time of Evaluation Date of Evaluation: 04/04/17 Time of Evaluation: 19:50 - Subjective Subjective: Matilde and examined at the bed side. participated leatha a therapy, and d/w the irector of rehab and RN to call his elevator repairer helper and lower the parameters for the BP for rehab. Objective - Vital Signs/Intake and Output Vital Signs (last 24 hours): Temp Pulse Resp BP Pulse Ox 98.2 F 76 20 90/66 L 100 04/05/17 08:33 04/05/17 08:33 04/05/17 08:33 04/05/17 08:33 04/05/17 08:33 Intake and Output: 04/05/17 04/05/17 06:59 18:59 Intake Total 400 Output Total 1340 210 Balance -940 -210 - Medications Medications: Current Medications Acetaminophen (Tylenol 325mg Tab) 650 mg PO Q6H PRN PRN Reason: Pain, moderate (4-7) Last Admin: 04/04/17 23:03 Dose: 650 mg Albuterol/Ipratropium (Duoneb 3 Mg/0.5 Mg (3 Ml) Ud) 3 ml IH RQ4 [facility] Last Admin: 04/05/17 08:09 Dose: 3 ml Atorvastatin Calcium (Lipitor) 50 mg PO HS [facility] Last Admin: 04/04/17 21:14 Dose: 50 mg Collagenase (Santyl) 1 applic TOP DAILY [facility] Last Admin: 04/05/17 08:32 Dose: 1 oin Enoxaparin Sodium (Lovenox) 40 mg SC DAILY [facility] PRN Reason: Protocol Last Admin: 04/05/17 08:31 Dose: 40 mg Escitalopram Oxalate (Lexapro) 10 mg PO HS [facility] Last Admin: 04/04/17 21:14 Dose: 10 mg Ferrous Gluconate (Fergon) 324 mg PO TID [facility] Last Admin: 04/05/17 08:29 Dose: 324 mg Furosemide (Lasix) 20 mg PO DAILY [facility] Last Admin: 04/05/17 08:31 Dose: Not Given Insulin Human Lispro (Humalog) 0 units SC 0630,2100 [facility] PRN Reason: Protocol Last Admin: 04/05/17 06:16 Dose: Not Given Lisinopril (Zestril) 5 mg PO HS [facility] Last Admin: 04/04/17 21:15 Dose: Not Given Metoprolol Tartrate (Lopressor) 50 mg PO DAILY [facility] Last Admin: 04/05/17 08:31 Dose: Not Given Miconazole Nitrate (Critic-Aid Clear Af) 1 applic TOP BID [facility] Last Admin: 04/05/17 08:29 Dose: 1 applic Mupirocin (Bactroban Ointment) 1 applic TOP 0630,1700 [facility] Last Admin: 04/05/17 06:17 Dose: 1 applic Nystatin (Nystop Topical Powder) 1 applic TOP TID [facility] Last Admin: 04/05/17 08:32 Dose: 1 pow Oxycodone/Acetaminophen (Percocet 5/325 Mg Tab) 1 tab PO Q6 PRN PRN Reason: Pain, severe (8-10) Stop: 04/05/17 18:01 Pantoprazole Sodium (Protonix Ec Tab) 40 mg PO DAILY@0630 [facility] Last Admin: 04/05/17 06:15 Dose: 40 mg Quetiapine Fumarate (Seroquel) 50 mg PO DAILY@1700 [facility] - Labs Labs: 04/03/17 05:36 04/01/17 06:00 - Constitutional Appears: Well, No Acute Distress - Head Exam Head Exam: ATRAUMATIC, NORMAL INSPECTION, NORMOCEPHALIC - Eye Exam Eye Exam: EOMI, Normal appearance, PERRL Pupil Exam: NORMAL ACCOMODATION, PERRL - ENT Exam ENT Exam: Mucous Membranes Moist, Normal Exam - Neck Exam Neck Exam: Full ROM, Normal Inspection. absent: Lymphadenopathy - Respiratory Exam Respiratory Exam: Clear to Ausculation Bilateral, NORMAL BREATHING PATTERN - Cardiovascular Exam Cardiovascular Exam: REGULAR RHYTHM, +S1, +S2. absent: Murmur - GI/Abdominal Exam GI & Abdominal Exam: Soft, Normal Bowel Sounds. absent: Tenderness - Extremities Exam Extremities Exam: Full ROM, Normal Capillary Refill, Normal Inspection. absent : Joint Swelling, Pedal Edema - Back Exam Back Exam: NORMAL INSPECTION - Neurological Exam Neurological Exam: Alert, Awake, CN II-XII Intact, Normal Gait, Oriented x3 - Psychiatric Exam Psychiatric exam: Normal Affect, Normal Mood - Skin Skin Exam: Dry, Intact, Normal Color, Warm Assessment and Plan (1) Anemia Assessment & Plan: Ferrous Gluconate Status: Acute (2) CHF (congestive heart failure) Assessment & Plan: Continue Lisinopril and metoprolol Status: Acute (3) Small bowel obstruction Assessment & Plan: S/P Bowel Resection and Diversion Colostomy Continue Current Care. Status: Acute (4) Shoulder pain, bilateral Assessment & Plan: Knee pain Pain medication PRN Status: Acute
--- NOTE | 2017-04-05 12:06 | PSY.TMCNF ---
Nursing - Vital Signs Vital Signs (Last 8 hours): Vital Signs 04/05/17 04/05/17 04/05/17 08:31 08:33 11:10 Temperature 98.2 F 98.2 F Pulse Rate 76 76 76 Respiratory 20 20 Rate Blood Pressure 90/66 L 90/66 L 90/66 L O2 Sat by Pulse 100 Oximetry Pain: 2 - Precautions: Precautions: Fall Prevention, Cardiac/Pulmonary, Pressure Ulcer - Medications/Other Issues Comment: Wound care, Hypotension - Consults Comment: Dr. Campa - Skin Incision Site: MID ABDOMEN Drainage: Serous Dressing Status: Clean, Dry, Intact Incision: [facility], [place] Intact Incision Line Treatment: APPLY BACTROBAN AND COVER WITH DRY DRESSING - Toileting Toileting: Dependent - Bladder Management Bladder Pattern: Normal Voiding Method: Urinal, Diaper Bladder Management: Maximal Assistance - Bowel Management Bowel Pattern: Fecal Management System - Transfers Transfers: Maximal Assistance - ADL's ADL's: Maximal Assistance - Pain Management Comments: Denies pain - Patient/Family Teaching Comments: Safety, Wound care - Goals/Time Frame Comments: Per IPOC Physical Therapy - Bed Mobility Bed Mobility: Moderate Assistance, Maximum Assistance Comment: -mod A of 2 (max A for bed/mat mobiltiy). -sitting balacne fluctuates at EOB from min A of 1 to total A of 2 pending patient's motion into extension and willingness to actively participate in session - Transfers Wheelchair to Mat: Maximum Assistance Sit to Stand: Dependent Comment: -max A of 2 for slide board transfers. -D for sit to/from stand; unable to attain 50% stand from edge of chair despite assist of 2 - Ambulation Level of Assistance: Not Tested, Dependent Comment: not appropriate for patient at this time - Stair Negotiation Stairs: Level of Assistance: Not Tested, Dependent Comment: not appropriate for patient at this time - Standing Balance Static Stand: Unable to perform Dynamic Stand: Unable to assess/perform - Pain Management Techniques: Medication, Position Change, Inactivity Comment: total body aches - Insight/Carryover Insight/Carryover: Poor - Patient/Family Education Comment: -patient is resistant to educated provided on benefits of therapy and has poor participation with periods of paranoia/anxiety noted during session. - educated on therapy schedule, therapy goals, POC, safety, use of call dailey, pain management, participation in therapy sessions - Assessment/Plan Assessment: Pt receives daily room visits for social support and encouragement to participate in sessions. Pt refuses to participate in sessions at bedside and will c/o multiple areas of pain or discomfort. Pt would benefit from recreation therapy for diversion; however, pt's participation is limited by fatigue, weakness, and decrease leisure awareness level. - Goals Timeframe: 7 days Goals: -rolling with mod A of 1. -supine to/from sit with mod A of 1. - transfer with slide board with max A of 1 and SBA of 2nd person for safety. - forward flexion in WC for pressure relief with mod A of 1. -sitting balance with consistent min A of 1 person at edge of bed x 10 minutes. -tolerate upright position against gravity with stable vital signs x 60 minutes - Provider License Number: [id number] Occupational Therapy - Arousal/Attention/Orientation Patient Orientation: Person, Place, Appropriate to Age, Appropriate to Situation - ADL/IADL Self Feeding: Dependent Grooming: Dependent Bathing-Upper Extremity: Dependent Bathing-Lower Extremity: Dependent Dressing-Upper Extremity: Dependent Dressing-Lower Extremity: Dependent Homemaking: Dependent - Sitting Balance Static Sitting: Maximal Assistance Dynamic Sitting: Maximal Assistance Comment: Pt fluctuates with static sitting from close S to total A x1 caregiver - Transfers Wheelchair to Bed Transfers: Dependent - Wheelchair Management Level of Assistance: Dependent Distance (ft.): 0 - Upper Extremity Status Right Upper Extremity Comment: R shoulder impaired, pt with limited shoulder flexion or scapular movement, pt appears to be guarding secondary to idea of pain. Left Upper Extremity Comment: LUE grossly impaired, pt unable to fully open L hand - Pain Alleviating Techniques: Medication, Position Change, Inactivity Comment: total body aches - Insight/Carryover Insight/Carryover: Poor - Patient/Family Education Comment: -patient is resistant to educated provided on benefits of therapy and has poor participation with periods of paranoia/anxiety noted during session. - educated on therapy schedule, therapy goals, POC, safety, use of call dailey, pain management, participation in therapy sessions - Assessment/Plan Assessment: Pt receives daily room visits for social support and encouragement to participate in sessions. Pt refuses to participate in sessions at bedside and will c/o multiple areas of pain or discomfort. Pt would benefit from recreation therapy for diversion; however, pt's participation is limited by fatigue, weakness, and decrease leisure awareness level. - Goals Timeframe: 7 days Goals: -rolling with mod A of 1. -supine to/from sit with mod A of 1. - transfer with slide board with max A of 1 and SBA of 2nd person for safety. - forward flexion in WC for pressure relief with mod A of 1. -sitting balance with consistent min A of 1 person at edge of bed x 10 minutes. -tolerate upright position against gravity with stable vital signs x 60 minutes - Provider Therapist: Lupe Guzman Speech Therapy - Plan Assessment: Pt receives daily room visits for social support and encouragement to participate in sessions. Pt refuses to participate in sessions at bedside and will c/o multiple areas of pain or discomfort. Pt would benefit from recreation therapy for diversion; however, pt's participation is limited by fatigue, weakness, and decrease leisure awareness level. Recreational Therapy - Participation Participation: Monitors His/Her Own Leisure Time - Attendance Attendance: Daily - Activities Leisure Activities: Television - Socialization Level of Socialization: Initiates/interacts freely with care givers and peer - Assessment Assessment/Plan: Pt receives daily room visits for social support and encouragement to participate in sessions. Pt refuses to participate in sessions at bedside and will c/o multiple areas of pain or discomfort. Pt would benefit from recreation therapy for diversion; however, pt's participation is limited by fatigue, weakness, and decrease leisure awareness level. Problems Currently Limiting Participation: pain, anxiety, discomfort, decrease leisure awareness level, decrease arousal level Goals and Time Frame: Pt will be encouraged to participate in 1:1 and group recreation therapy sessions 3-5x week to improve arousal level, mood state, pt' s sitting tolerance in wheelchair, and for diversion. - Provider Therapist: Zita Negro, [employer] #[id number] Nutrition - Current Diet Current Diet/ Supplement/ Feedings: Moderate consistent CHO Heart healthy: 2 gram Na diet prostat sugar free 2 per day(200 kcal and 30 grams of protein) - Appetite Percent Meal Consumed: 50-74% - Comments Comments: Safety, Wound care - Assessment/Goals/Time Frame Assessment/Goals/Time Frame: Wound care, Hypotension - Provider Provider: Anna Marie Carbajal RD Case Management - Discharge Plan Discharge Plan: Home with significant other/family Rehabilitation Plan - Treatment Plan Treatment Plan: Physical Therapy, Occupational Therapy, Speech, Dietary, Patient /Family Education - Recommendation Recommendation: Physical Therapy, Occupational Therapy, Speech, Dietary, Patient /Family Education - Discharge Plan Discharge to: Home (27 for dc)
[2017-04-05] MEDS ORDERED: Oxycodone/Acetaminophen 5/325 mg Tab PO PRN (12:24)
--- NOTE | 2017-04-05 13:30 | CP.PCM.PN ---
Subjective - Date & Time of Evaluation Date of Evaluation: 04/05/17 Time of Evaluation: 07:00 - Subjective Subjective: no acute complaints at present Objective - Vital Signs/Intake and Output Vital Signs (last 24 hours): Temp Pulse Resp BP Pulse Ox 98.2 F 76 20 90/66 L 100 04/05/17 11:10 04/05/17 11:10 04/05/17 11:10 04/05/17 11:10 04/05/17 08:33 Intake and Output: 04/05/17 04/05/17 06:59 18:59 Intake Total 400 Output Total 1340 210 Balance -940 -210 - Medications Medications: Current Medications Acetaminophen (Tylenol 325mg Tab) 650 mg PO Q6H PRN PRN Reason: Pain, moderate (4-7) Last Admin: 04/04/17 23:03 Dose: 650 mg Albuterol/Ipratropium (Duoneb 3 Mg/0.5 Mg (3 Ml) Ud) 3 ml IH RQ4 [facility] Last Admin: 04/05/17 11:03 Dose: Not Given Atorvastatin Calcium (Lipitor) 50 mg PO [facility] Last Admin: 04/04/17 21:14 Dose: 50 mg Collagenase (Santyl) 1 applic TOP DAILY [facility] Last Admin: 04/05/17 08:32 Dose: 1 oin Enoxaparin Sodium (Lovenox) 40 mg SC DAILY [facility] PRN Reason: Protocol Last Admin: 04/05/17 08:31 Dose: 40 mg Escitalopram Oxalate (Lexapro) 10 mg PO HS [facility] Last Admin: 04/04/17 21:14 Dose: 10 mg Ferrous Gluconate (Fergon) 324 mg PO TID [facility] Last Admin: 04/05/17 12:38 Dose: 324 mg Furosemide (Lasix) 20 mg PO DAILY [facility] Last Admin: 04/05/17 08:31 Dose: Not Given Home Med (Patient's Own Medication) 1 unit PO 0630,1700 [facility] Insulin Human Lispro (Humalog) 0 units SC 0630,2100 [facility] PRN Reason: Protocol Last Admin: 04/05/17 06:16 Dose: Not Given Lisinopril (Zestril) 5 mg PO HS [facility] Last Admin: 04/04/17 21:15 Dose: Not Given Metoprolol Tartrate (Lopressor) 50 mg PO DAILY [facility] Last Admin: 04/05/17 08:31 Dose: Not Given Miconazole Nitrate (Critic-Aid Clear Af) 1 applic TOP BID [facility] Last Admin: 04/05/17 08:29 Dose: 1 applic Mupirocin (Bactroban Ointment) 1 applic TOP 0630,1700 [facility] Last Admin: 04/05/17 06:17 Dose: 1 applic Nystatin (Nystop Topical Powder) 1 applic TOP TID [facility] Last Admin: 04/05/17 12:38 Dose: 1 pow Oxycodone/Acetaminophen (Percocet 5/325 Mg Tab) 1 tab PO Q6 PRN PRN Reason: Pain, severe (8-10) Stop: 04/08/17 12:25 Quetiapine Fumarate (Seroquel) 50 mg PO DAILY@1700 [facility] - Labs Labs: 04/03/17 05:36 04/01/17 06:00 - Head Exam Head Exam: ATRAUMATIC, NORMAL INSPECTION, NORMOCEPHALIC - Eye Exam Eye Exam: EOMI, Normal appearance, PERRL Pupil Exam: NORMAL ACCOMODATION - ENT Exam ENT Exam: Mucous Membranes Moist, Normal Exam - Neck Exam Neck Exam: Normal Inspection - Respiratory Exam Respiratory Exam: NORMAL BREATHING PATTERN - Cardiovascular Exam Cardiovascular Exam: REGULAR RHYTHM - GI/Abdominal Exam GI & Abdominal Exam: Normal Bowel Sounds - Rectal Exam Rectal Exam: NORMAL INSPECTION - Exam External exam: NORMAL EXTERNAL EXAM - Extremities Exam Extremities Exam: Normal Capillary Refill, Normal Inspection - Back Exam Back Exam: NORMAL INSPECTION - Neurological Exam Neurological Exam: Alert, Awake Neuro motor strength exam: Left Upper Extremity: 3, Right Upper Extremity: 3, Left Lower Extremity: 3, Right Lower Extremity: 3 - Psychiatric Exam Psychiatric exam: Normal Affect, Normal Mood - Skin Skin Exam: Dry, Intact Assessment and Plan (1) Anemia Status: Acute (2) Bradycardia Status: Acute (3) CHF (congestive heart failure) Status: Acute (4) Edema Status: Acute (5) Left knee pain Assessment & Plan: plan for Pt, Ot , REc status post team conference discussed with family Status: Acute (6) PVD (peripheral vascular disease) Status: Acute (7) Pneumonia Status: Acute (8) Small bowel obstruction Status: Acute
[2017-04-05] MEDS ORDERED: RANITIDINE 150 MG PO SCH (17:00)
--- NOTE | 2017-04-05 23:20 | CP.PCM.PN ---
Subjective - Date & Time of Evaluation Date of Evaluation: 04/05/17 Time of Evaluation: 10:15 Objective - Vital Signs/Intake and Output Vital Signs (last 24 hours): Temp Pulse Resp BP Pulse Ox 98.2 F 90 20 102/66 100 04/05/17 11:10 04/05/17 21:40 04/05/17 11:10 04/05/17 21:40 04/05/17 08:33 Intake and Output: 04/05/17 04/06/17 18:59 06:59 Output Total 1230 Balance -1230 - Medications Medications: Current Medications Acetaminophen (Tylenol 325mg Tab) 650 mg PO Q6H PRN PRN Reason: Pain, moderate (4-7) Last Admin: 04/04/17 23:03 Dose: 650 mg Albuterol/Ipratropium (Duoneb 3 Mg/0.5 Mg (3 Ml) Ud) 3 ml IH RQ4 [facility] Last Admin: 04/05/17 19:00 Dose: Not Given Atorvastatin Calcium (Lipitor) 50 mg PO HS [facility] Last Admin: 04/05/17 21:21 Dose: 50 mg Collagenase (Santyl) 1 applic TOP DAILY [facility] Last Admin: 04/05/17 08:32 Dose: 1 oin Enoxaparin Sodium (Lovenox) 40 mg SC DAILY [facility] PRN Reason: Protocol Last Admin: 04/05/17 08:31 Dose: 40 mg Escitalopram Oxalate (Lexapro) 10 mg PO HS [facility] Last Admin: 04/05/17 21:20 Dose: 10 mg Famotidine (Pepcid) 20 mg PO 0630,1700 [facility] Ferrous Gluconate (Fergon) 324 mg PO TID [facility] Last Admin: 04/05/17 17:22 Dose: 324 mg Furosemide (Lasix) 20 mg PO DAILY [facility] Last Admin: 04/05/17 08:31 Dose: Not Given Insulin Human Lispro (Humalog) 0 units SC 0630,2100 [facility] PRN Reason: Protocol Last Admin: 04/05/17 21:16 Dose: Not Given Lisinopril (Zestril) 5 mg PO HS [facility] Last Admin: 04/05/17 21:40 Dose: Not Given Metoprolol Tartrate (Lopressor) 50 mg PO DAILY [facility] Last Admin: 04/05/17 08:31 Dose: Not Given Miconazole Nitrate (Critic-Aid Clear Af) 1 applic TOP BID [facility] Last Admin: 04/05/17 17:22 Dose: 1 applic Mupirocin (Bactroban Ointment) 1 applic TOP 0630,1700 [facility] Last Admin: 04/05/17 17:22 Dose: 1 applic Nystatin (Nystop Topical Powder) 1 applic TOP TID [facility] Last Admin: 04/05/17 17:23 Dose: 1 pow Oxycodone/Acetaminophen (Percocet 5/325 Mg Tab) 1 tab PO Q6 PRN PRN Reason: Pain, severe (8-10) Stop: 04/08/17 12:25 Quetiapine Fumarate (Seroquel) 50 mg PO DAILY@1700 [facility] Last Admin: 04/05/17 17:23 Dose: 50 mg - Labs Labs: 04/03/17 05:36 04/01/17 06:00 Assessment and Plan (1) Shoulder pain, bilateral Status: Acute
[2017-04-06] MEDS: Albuterol-Ipratrop 3 mg / 0.5 (3 ml) UD IH SCH ×4 (00:44→23:34)
[2017-04-06] MEDS: Insulin Lispro (humaLOG) 100 Units/ml Inj SC SCH ×2 (06:30→21:46)
[2017-04-06] MEDS: Santyl Collagenase OINTMENT TOP SCH (09:00)
[2017-04-06] MEDS ORDERED: Enoxaparin 40 mg Syringe ONE (09:00)
[2017-04-06] MEDS: Critic-Aid Clear AF TOP SCH ×2 (09:00→17:00)
[2017-04-06] MEDS: Enoxaparin 40 mg Syringe SC SCH (09:00)
[2017-04-07] MEDS: Albuterol-Ipratrop 3 mg / 0.5 (3 ml) UD IH SCH ×6 (03:38→23:11)
[2017-04-07] MEDS: Insulin Lispro (humaLOG) 100 Units/ml Inj SC SCH ×2 (06:33→21:00)
[2017-04-07] MEDS: Critic-Aid Clear AF TOP SCH ×2 (08:42→16:53)
[2017-04-07] MEDS: Enoxaparin 40 mg Syringe SC SCH (08:46)
[2017-04-07] MEDS: Santyl Collagenase OINTMENT TOP SCH (08:47)
--- NOTE | 2017-04-07 10:28 | CP.PCM.CON ---
History of Present Illness - History of Present Illness History of Present Illness: Pt is a 76 year old male admitted to the [facility] rehab and referred to the credit underwriter for evaluation. Med hx positive for hernia surgery, past CVA anxiety. See medical record for additional medical history and medications. Social History: pt lives with his of 50+ years. He has two children- in [place] and [place]. Pt reported positive relationships with family members. He also had a homemaker/caregiver in the home. 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 Psych: pt reported seeing Dr. Conway prior to surgery years ago with Ritalin prescribed. Xanax was prescribed by his PCP and taken daily over the last 1+ year. Note, patient reported depression when in the home since his increased medical issues. Pt denied a history of alcohol/substance abuse. On interview, pt reported the desire for increased strength, gains, and recovery. Negativity expressed and cognitive strategies introduced to reduce depression. MSE: pt alert, oriented x2, relevant/coherent, no psychosis, affect constricted , mood depressed (mood depressed for 1+ year), no psychosis, no si no hi ideation. Dx: Depression Recurrent Plan: Continued Sup therapy Psychiatric consultation Past Patient History - Infectious Disease Hx of Infectious Diseases: None, C.diff - Past Medical History & Family History Past Medical History?: Yes Past Family History: Reviewed and not pertinent - Past Social History Smoking Status: Never Smoked Alcohol: None Drugs: Denies - CARDIAC Hx Cardiac Disorders: Yes Hx Hypertension: Yes - PULMONARY Hx Respiratory Disorders: No - NEUROLOGICAL HX Cerebrovascular Accident: Yes - HEENT Hx HEENT Problems: No Hx Glaucoma: Yes - RENAL Hx Chronic Kidney Disease: No - ENDOCRINE/METABOLIC Hx Diabetes Mellitus Type 2: Yes - HEMATOLOGICAL/ONCOLOGICAL Hx AIDS: No Hx Human Immunodeficiency Virus (HIV): No - INTEGUMENTARY Other/Comment: RIGHT TEMPORAL LESION - MUSCULOSKELETAL/RHEUMATOLOGICAL Hx Falls: No - GASTROINTESTINAL Hx Gastrointestinal Disorders: Yes Hx Bowel Surgery: Yes Hx Colostomy: Yes Other/Comment: 03/17/2017 - exploratory lap, small bowel resection. 03/18/2017 - returned to OR for washout, end ileostomy, abdominal closure with bridging strattice mesh. h/o abdominal hernia - GENITOURINARY/GYNECOLOGICAL Hx Genitourinary Disorders: No - PSYCHIATRIC Hx Anxiety: Yes Hx Depression: Yes Hx Substance Use: No - SURGICAL HISTORY Hx Coronary Stent: Yes Other/Comment: RIGHT HIP FX with surgery - ANESTHESIA Hx Anesthesia: Yes Hx Anesthesia Reactions: No Hx Malignant Hyperthermia: No Meds Allergies/Adverse Reactions: Allergies Allergy/AdvReac Type Severity Reaction Status Date / Time Penicillins Allergy URTICARIA Verified 03/30/17 22:34 Sulfa (Sulfonamide Allergy URTICARIA Verified 03/30/17 22:34 Antibiotics) - Medications Medications: Current Medications Acetaminophen (Tylenol 325mg Tab) 650 mg PO Q6H PRN PRN Reason: Pain, moderate (4-7) Last Admin: 04/04/17 23:03 Dose: 650 mg Albuterol/Ipratropium (Duoneb 3 Mg/0.5 Mg (3 Ml) Ud) 3 ml IH RQ4 [facility] Last Admin: 04/07/17 09:40 Dose: Not Given Atorvastatin Calcium (Lipitor) 50 mg PO HS [facility] Last Admin: 04/06/17 21:51 Dose: 50 mg Collagenase (Santyl) 1 applic TOP DAILY [facility] Last Admin: 04/07/17 08:47 Dose: 1 oin Enoxaparin Sodium (Lovenox) 40 mg SC DAILY [facility] PRN Reason: Protocol Last Admin: 04/07/17 08:46 Dose: 40 mg Escitalopram Oxalate (Lexapro) 10 mg PO HS [facility] Last Admin: 04/06/17 22:30 Dose: 10 mg Famotidine (Pepcid) 20 mg PO 0630,1700 [facility] Last Admin: 04/07/17 06:33 Dose: 20 mg Ferrous Gluconate (Fergon) 324 mg PO TID [facility] Last Admin: 04/07/17 08:43 Dose: 324 mg Furosemide (Lasix) 20 mg PO DAILY [facility] Last Admin: 04/07/17 08:44 Dose: Not Given Insulin Human Lispro (Humalog) 0 units SC 0630,2100 [facility] PRN Reason: Protocol Last Admin: 04/07/17 06:33 Dose: Not Given Lisinopril (Zestril) 5 mg PO HS [facility] Last Admin: 04/06/17 21:55 Dose: Not Given Metoprolol Tartrate (Lopressor) 50 mg PO DAILY [facility] Last Admin: 04/07/17 08:44 Dose: Not Given Miconazole Nitrate (Critic-Aid Clear Af) 1 applic TOP BID [facility] Last Admin: 04/07/17 08:42 Dose: 1 applic Mupirocin (Bactroban Ointment) 1 applic TOP 0630,1700 [facility] Last Admin: 04/07/17 06:33 Dose: 1 applic Nystatin (Nystop Topical Powder) 1 applic TOP TID [facility] Last Admin: 04/07/17 08:46 Dose: 1 pow Oxycodone/Acetaminophen (Percocet 5/325 Mg Tab) 1 tab PO Q6 PRN PRN Reason: Pain, severe (8-10) Stop: 04/08/17 12:25 Quetiapine Fumarate (Seroquel) 50 mg PO DAILY@1700 [facility] Last Admin: 04/06/17 17:00 Dose: 50 mg Results - Vital Signs Recent Vital Signs: Last Vital Signs Temp 98.2 F 04/07/17 07:48 Pulse 87 04/07/17 08:44 Resp 18 04/07/17 07:48 BP 103/59 L 04/07/17 08:44 Pulse Ox 97 04/07/17 07:48 - Labs Result Diagrams: 04/03/17 05:36 04/01/17 06:00 Labs: Laboratory Results - last 24 hr 04/06/17 21:19 POC Glucose (mg/dL) 97
--- NOTE | 2017-04-07 10:39 | PN ---
DATE: 04/07/2017 The patient seen and examined. Interim events noted. Chart reviewed. The patient seen for Dr. Cheoc aguilar while he is away. The patient remains in acute rehab unit. The patient feels okay. No specific c omplaint. No chest pain, no shortness of breath, but patient does feel overall generalized weakness. PHYSICAL EXAMINATION: GENERAL: The patient is in no acute distress. VITAL SIGNS: Stable. HEART: S1, S2 normal, regular. LUNGS: Good bilateral air entry. ABDOMEN: Soft, nontender. EXTREMITIES: No calf swelling, no tenderness, no acute ischemia. CENTRAL NERVOUS SYSTEM: Essentially unchanged. catheter is in good position and functioning. DIAGNOSTIC DATA: Available reviewed. Overall, patient's general medical condition is stable. PLAN: As ordered. Eros Chowdary MD cc: [id number] TT: 04/07/2017 10:38:24 Confirmation # [id number] Dictation # [id number] en
--- NOTE | 2017-04-07 13:06 | PCM.PYCHPN ---
Psychiatric Progress Note - Psychiatric Progress Note Patient seen today, length of contact: Patient evaluated, case discussed w/ patient's daughter, chart reviewed, 35 Patient Chief Complaint: "I'm in pain" Problems Identified/Issues Discussed: Patient reports that he has low energy and is in chronic pain. He feels upset at his decline in functioning. The patient's daughter was in the room and stated that he is having a difficult time accepting all of his medical problems and limited and often says mean thing to people as a reaction. He denied current paranoid ideation. No AH/VH/SI/HI. As per staff, the patient seems more tired than usual and is not motivated to engage in physical therapy. Medication Change: Yes (Increase Lexapro to 20 mg PO HS, Lower Seroquel to 25 mg PO HS) Medical Record Reviewed: Yes Mental Status Examination - Cognitive Function Orientation: Person, Place, Situation, Time Memory: Impaired (Patient is a poor historian at times, likely has dementia) Association: Loose Decription of patient's judgement and insights: Fair I/J - Mood Mood: Depressed - Affect Affect: Constricted, Depressed - Speech Speech: Appropriate - Formal Thought Process Formal Thought Process: No Impairment Psychotic Thoughts and Behaviors: No AH/VH/paranoia - Suicidal Ideation Suicidal Ideation: No - Homicidal Ideation Homicidal Ideation: No Goal/Treatment Plan - Goal/Treatment Plan Need for Continued Stay: Severe functional impairment Progress Toward Problem(s) and Goals/Treatment Plan: Impression: 76 yo male w/ h/o adjustment d/o w/ mixed depression and anxiety, h/ o possible somatic delusions, continues to report depressed mood w/o any psychosis or paranoia at this time, patient has MDD and likely dementia. Recommendations: -Increase Lexapro to 20 mg PO HS (patient has taken this dosage in the past, as per records) -Lower Seroquel to 25 mg PO HS to reduce risk of sedation -Consider neurology consult as patient may be having periods of confusion and likely has dementia -Avoid benzodiazepines as they can increase confusion and risks of falls
--- NOTE | 2017-04-07 13:46 | CP.PCM.PN ---
Subjective - Date & Time of Evaluation Date of Evaluation: 04/07/17 Time of Evaluation: 10:00 - Subjective Subjective: anna claims he is very tired no complaints of pain Objective - Vital Signs/Intake and Output Vital Signs (last 24 hours): Temp Pulse Resp BP Pulse Ox 98.2 F 87 18 103/59 L 97 04/07/17 07:48 04/07/17 08:44 04/07/17 07:48 04/07/17 08:44 04/07/17 07:48 Intake and Output: 04/07/17 04/07/17 06:59 18:59 Intake Total 400 Output Total 1020 Balance -620 - Medications Medications: Current Medications Acetaminophen (Tylenol 325mg Tab) 650 mg PO Q6H PRN PRN Reason: Pain, moderate (4-7) Last Admin: 04/04/17 23:03 Dose: 650 mg Albuterol/Ipratropium (Duoneb 3 Mg/0.5 Mg (3 Ml) Ud) 3 ml IH RQ4 [facility] Last Admin: 04/07/17 12:00 Dose: 3 ml Atorvastatin Calcium (Lipitor) 50 mg PO [facility] Last Admin: 04/06/17 21:51 Dose: 50 mg Collagenase (Santyl) 1 applic TOP DAILY [facility] Last Admin: 04/07/17 08:47 Dose: 1 oin Enoxaparin Sodium (Lovenox) 40 mg SC DAILY [facility] PRN Reason: Protocol Last Admin: 04/07/17 08:46 Dose: 40 mg Escitalopram Oxalate (Lexapro) 20 mg PO HS [facility] Famotidine (Pepcid) 20 mg PO 0630,1700 [facility] Last Admin: 04/07/17 06:33 Dose: 20 mg Ferrous Gluconate (Fergon) 324 mg PO TID [facility] Last Admin: 04/07/17 12:29 Dose: 324 mg Furosemide (Lasix) 20 mg PO DAILY [facility] Last Admin: 04/07/17 08:44 Dose: Not Given Insulin Human Lispro (Humalog) 0 units SC 0630,2100 [facility] PRN Reason: Protocol Last Admin: 04/07/17 06:33 Dose: Not Given Lisinopril (Zestril) 5 mg PO [facility] Last Admin: 04/06/17 21:55 Dose: Not Given Metoprolol Tartrate (Lopressor) 50 mg PO DAILY [facility] Last Admin: 04/07/17 08:44 Dose: Not Given Miconazole Nitrate (Critic-Aid Clear Af) 1 applic TOP BID [facility] Last Admin: 04/07/17 08:42 Dose: 1 applic Mupirocin (Bactroban Ointment) 1 applic TOP 0630,1700 [facility] Last Admin: 04/07/17 06:33 Dose: 1 applic Nystatin (Nystop Topical Powder) 1 applic TOP TID [facility] Last Admin: 04/07/17 12:30 Dose: 1 pow Oxycodone/Acetaminophen (Percocet 5/325 Mg Tab) 1 tab PO Q6 PRN PRN Reason: Pain, severe (8-10) Stop: 04/08/17 12:25 Quetiapine Fumarate (Seroquel) 25 mg PO HS [facility] - Labs Labs: 04/03/17 05:36 04/01/17 06:00 - Head Exam Head Exam: ATRAUMATIC, NORMAL INSPECTION, NORMOCEPHALIC - Eye Exam Eye Exam: EOMI, Normal appearance, PERRL Pupil Exam: NORMAL ACCOMODATION - ENT Exam ENT Exam: Mucous Membranes Moist, Normal Exam - Respiratory Exam Respiratory Exam: NORMAL BREATHING PATTERN - Cardiovascular Exam Cardiovascular Exam: REGULAR RHYTHM - GI/Abdominal Exam GI & Abdominal Exam: Normal Bowel Sounds - Rectal Exam Rectal Exam: NORMAL INSPECTION - Extremities Exam Extremities Exam: Normal Capillary Refill - Back Exam Back Exam: NORMAL INSPECTION - Neurological Exam Neurological Exam: Alert, Awake Neuro motor strength exam: Left Upper Extremity: 3, Right Upper Extremity: 3, Left Lower Extremity: 3, Right Lower Extremity: 3 - Psychiatric Exam Psychiatric exam: Normal Affect, Normal Mood - Skin Skin Exam: Dry, Intact Assessment and Plan (1) Anemia Status: Acute (2) Bradycardia Status: Acute (3) CHF (congestive heart failure) Status: Acute (4) Edema Status: Acute (5) Left knee pain Assessment & Plan: covering for Dr Katheryn castillo to continue with physcial, occupational and rec therapy Status: Acute (6) PVD (peripheral vascular disease) Status: Acute (7) Pneumonia Status: Acute (8) Small bowel obstruction Status: Acute
[2017-04-07 14:44] LABS: HEMATOCRIT 30.6 % (35.0-51.0); MEAN CELL VOLUME 82.7 fl (80.0-94.0); MEAN CORPUSCULAR HEMOGLOBIN 26.6 pg (27.0-31.0); MEAN CORPUSCULAR HGB CONC 32.2 g/dL (33.0-37.0); RED CELL DISTRIBUTION WIDTH 18.8 % (11.5-14.5); WHITE BLOOD COUNT 11.6 K/uL (4.8-10.8)
[2017-04-08] MEDS: Albuterol-Ipratrop 3 mg / 0.5 (3 ml) UD IH SCH ×6 (03:35→23:18)
[2017-04-08] MEDS: Insulin Lispro (humaLOG) 100 Units/ml Inj SC SCH ×2 (06:13→21:33)
[2017-04-08 08:17] LABS: HEMATOCRIT 29.2 % (35.0-51.0); MEAN CELL VOLUME 81.9 fl (80.0-94.0); MEAN CORPUSCULAR HEMOGLOBIN 26.8 pg (27.0-31.0); MEAN CORPUSCULAR HGB CONC 32.8 g/dL (33.0-37.0); RED CELL DISTRIBUTION WIDTH 18.1 % (11.5-14.5); WHITE BLOOD COUNT 12.8 K/uL (4.8-10.8)
[2017-04-08 08:23] LABS: ALB/GLOB RATIO 0.8 (1.0-2.1); ALKALINE PHOSPHATASE 104 U/L (38-126); ALT/SGPT 26 U/L (21-72); AST/SGOT 45 U/L (17-59); BILIRUBIN,TOTAL 1.2 mg/dl (0.2-1.3); BLOOD UREA NITROGEN 25 mg/dl (9-20); CALCIUM 8.5 mg/dL (8.4-10.2); CARBON DIOXIDE 26 mmol/L (22-30); CHLORIDE 100 mmol/L (98-107); GFR AFRICAN-AMERICAN > 60; GLUCOSE,RANDOM 87 mg/dL (75-110); POTASSIUM 4.1 MMOL/L (3.6-5.0); SODIUM 135 mmol/l (132-148); TOTAL PROTEIN 6.3 G/DL (6.3-8.2)
[2017-04-08 08:52] LABS: THYROID STIMULATING HORMONE 2.36 mIU/ML (0.46-4.68)
[2017-04-08] MEDS: Enoxaparin 40 mg Syringe SC SCH (09:25)
[2017-04-08] MEDS: Santyl Collagenase OINTMENT TOP SCH (09:28)
[2017-04-08] MEDS: Critic-Aid Clear AF TOP SCH ×2 (09:29→16:58)
--- NOTE | 2017-04-08 18:21 | PN ---
DATE: 04/08/2017 The patient seen and examined. Interim events noted. Consults noted, appreciated. and psychi atric consults and followup noted and appreciated. The patient remains in acute rehab unit. The pat ient feels okay. No specific complaint of chest pain or shortness of breath. PHYSICAL EXAMINATION: GENERAL: The patient is in no acute distress. VITAL SIGNS: Stable. Physical exam is essentially unchanged. DIAGNOSTIC DATA: Available diagnostic data reviewed. Overall, the patient's general medical condition is stable. PLAN: As ordered. Eros Chowdary MD cc: [id number] TT: 04/08/2017 18:20:56 Confirmation # [id number] Dictation # [id number] mn
[2017-04-09] MEDS: Albuterol-Ipratrop 3 mg / 0.5 (3 ml) UD IH SCH ×5 (05:08→21:54)
[2017-04-09] MEDS: Insulin Lispro (humaLOG) 100 Units/ml Inj SC SCH ×2 (06:19→21:17)
[2017-04-09 07:46] LABS: HEMATOCRIT 29.7 % (35.0-51.0); MEAN CORPUSCULAR HEMOGLOBIN 26.3 pg (27.0-31.0); MEAN CORPUSCULAR HGB CONC 32.1 g/dL (33.0-37.0); RED CELL DISTRIBUTION WIDTH 18.2 % (11.5-14.5)
[2017-04-09 08:25] LABS: WHITE BLOOD COUNT 15.6 K/uL (4.8-10.8)
[2017-04-09] MEDS: Santyl Collagenase OINTMENT TOP SCH (09:02)
[2017-04-09] MEDS: Enoxaparin 40 mg Syringe SC SCH (09:03)
[2017-04-09] MEDS: Critic-Aid Clear AF TOP SCH ×2 (09:05→16:23)
--- NOTE | 2017-04-09 10:03 | PN ---
DATE: 04/09/2017 The patient is seen and examined. Interim events noted. Podiatry intervention noted and appreciated . The patient remains in acute rehab unit. Feels okay. Denies any specific medical complaint. No chest pain or shortness of breath. PHYSICAL EXAMINATION: GENERAL: The patient is in no acute distress. VITAL SIGNS: Stable. HEART: S1, S2 normal, regular. LUNGS: Good bilateral air exchange. ABDOMEN: Soft, nontender. EXTREMITIES: No calf swelling, no tenderness. No acute ischemia. CENTRAL NERVOUS SYSTEM: Essentially unchanged. DIAGNOSTIC DATA: Available diagnostic data reviewed. Overall, the patient's general medical condition is stable. PLAN: As ordered. Eros Chowdary MD cc: [id number] TT: 04/09/2017 10:02:58 Confirmation # [id number] Dictation # [id number] saba
[2017-04-10] MEDS: Albuterol-Ipratrop 3 mg / 0.5 (3 ml) UD IH SCH ×6 (00:41→19:13)
[2017-04-10] MEDS: Insulin Lispro (humaLOG) 100 Units/ml Inj SC SCH ×2 (06:24→21:30)
[2017-04-10 07:30] LABS: HEMATOCRIT 30.9 % (35.0-51.0); MEAN CELL VOLUME 82.6 fl (80.0-94.0); MEAN CORPUSCULAR HEMOGLOBIN 26.2 pg (27.0-31.0); MEAN CORPUSCULAR HGB CONC 31.7 g/dL (33.0-37.0); RED CELL DISTRIBUTION WIDTH 17.7 % (11.5-14.5); WHITE BLOOD COUNT 12.9 K/uL (4.8-10.8)
--- NOTE | 2017-04-10 07:57 | PN ---
DATE: 04/10/2017 The patient seen and examined. Interim events noted. The patient remains in acute rehab unit. Feel s okay. Denies any specific complaint. No chest pain, no shortness of breath. PHYSICAL EXAMINATION: GENERAL: The patient is in no acute distress. VITAL SIGNS: Stable. Physical exam is essentially unchanged. DIAGNOSTIC DATA: Available reviewed. Overall, patient's general medical condition is stable. PLAN: As ordered. Eros Chowdary MD cc: [id number] TT: 04/10/2017 07:56:53 Confirmation # [id number] Dictation # [id number] en
[2017-04-10] MEDS: Critic-Aid Clear AF TOP SCH (08:28)
[2017-04-10] MEDS: Enoxaparin 40 mg Syringe SC SCH (08:29)
[2017-04-10] MEDS: Santyl Collagenase OINTMENT TOP SCH (08:30)
--- NOTE | 2017-04-10 14:03 | PCM.PYCHPN ---
Psychiatric Progress Note - Psychiatric Progress Note Patient seen today, length of contact: Patient evaluated, case discussed w/ patient's daughter, chart reviewed Patient Chief Complaint: "I want some water" Problems Identified/Issues Discussed: Patient was focused on discussing his niece that got . No hallucinations. Patient told that he talks outloud to himself and he seemed surprised that anyone noticed that. He was pleasant on interview. He denied current paranoid ideation. No AH/VH/SI/HI. Patient has low motivation to participate in physical therapy at times. Medication Change: Yes (Increase Seroquel to 50 mg PO Daily@1700) Medical Record Reviewed: Yes Mental Status Examination - Cognitive Function Orientation: Person, Place, Situation Memory: Impaired (Patient is a poor historian at times, likely has dementia) Association: Loose Decription of patient's judgement and insights: Fair I/J - Mood Mood: Depressed - Affect Affect: Constricted - Speech Speech: Appropriate - Formal Thought Process Formal Thought Process: No Impairment Psychotic Thoughts and Behaviors: No AH/VH/paranoia - Suicidal Ideation Suicidal Ideation: No - Homicidal Ideation Homicidal Ideation: No Goal/Treatment Plan - Goal/Treatment Plan Need for Continued Stay: Severe functional impairment Progress Toward Problem(s) and Goals/Treatment Plan: Impression: 76 yo male w/ h/o adjustment d/o w/ mixed depression and anxiety, continues to report depressed mood w/o any psychosis or paranoia at this time, patient has MDD and likely dementia. *This is the third psychiatric evaluation by this report writer. He does not seem acutely psychotic to the report writer, but may have periods of altered mental status or fluctuations in mentation due to dementia. Recommend a neurology consult prior to calling for psychiatric reevaluation. -Continue Lexapro 20 mg PO HS (recent increase); Increase Seroquel to 50 mg PO Daily @1700, in case patient is "sundowning" (late day confusion). -Avoid benzodiazepines as they can increase confusion and risks of falls
[2017-04-11] MEDS: Albuterol-Ipratrop 3 mg / 0.5 (3 ml) UD IH SCH ×6 (00:10→19:55)
[2017-04-11] MEDS: Insulin Lispro (humaLOG) 100 Units/ml Inj SC SCH ×2 (06:55→21:36)
[2017-04-11] MEDS: Enoxaparin 40 mg Syringe SC SCH (08:53)
--- NOTE | 2017-04-11 12:36 | CP.PCM.PN ---
Subjective - Date & Time of Evaluation Date of Evaluation: 04/11/17 Time of Evaluation: 08:00 - Subjective Subjective: no acute complaints at present , just verbal and asking to go to bed Objective - Vital Signs/Intake and Output Vital Signs (last 24 hours): Temp Pulse Resp BP Pulse Ox 96.6 F L 99 H 20 95/48 L 99 04/11/17 08:13 04/11/17 08:23 04/11/17 08:13 04/11/17 08:23 04/11/17 08:13 Intake and Output: 04/11/17 04/11/17 06:59 18:59 Intake Total 350 Output Total 555 Balance -205 - Medications Medications: Current Medications Acetaminophen (Tylenol 325mg Tab) 650 mg PO Q6H PRN PRN Reason: Pain, moderate (4-7) Last Admin: 04/11/17 06:53 Dose: 650 mg Albuterol/Ipratropium (Duoneb 3 Mg/0.5 Mg (3 Ml) Ud) 3 ml IH RQ4 [facility] Last Admin: 04/11/17 12:02 Dose: Not Given Atorvastatin Calcium (Lipitor) 50 mg PO [facility] Last Admin: 04/10/17 21:29 Dose: 50 mg Enoxaparin Sodium (Lovenox) 40 mg SC DAILY [facility] PRN Reason: Protocol Last Admin: 04/11/17 08:53 Dose: 40 mg Escitalopram Oxalate (Lexapro) 20 mg PO HS [facility] Last Admin: 04/10/17 21:29 Dose: 20 mg Famotidine (Pepcid) 20 mg PO 0630,1700 [facility] Last Admin: 04/11/17 06:55 Dose: 20 mg Ferrous Gluconate (Fergon) 324 mg PO TID [facility] Last Admin: 04/11/17 08:52 Dose: 324 mg Furosemide (Lasix) 20 mg PO DAILY [facility] Last Admin: 04/11/17 08:22 Dose: Not Given Insulin Human Lispro (Humalog) 0 units SC 0630,2100 [facility] PRN Reason: Protocol Last Admin: 04/11/17 06:55 Dose: Not Given Lisinopril (Zestril) 5 mg PO [facility] Last Admin: 04/10/17 22:01 Dose: Not Given Metoprolol Tartrate (Lopressor) 50 mg PO DAILY [facility] Last Admin: 04/11/17 08:23 Dose: Not Given Mupirocin (Bactroban Ointment) 1 applic TOP 0630,1700 [facility] Last Admin: 04/11/17 06:56 Dose: 1 applic Nystatin (Nystop Topical Powder) 1 applic TOP TID [facility] Last Admin: 04/11/17 08:53 Dose: 1 pow Quetiapine Fumarate (Seroquel) 50 mg PO DAILY@1700 [facility] Last Admin: 04/10/17 16:30 Dose: 50 mg - Labs Labs: 04/10/17 06:30 04/08/17 05:30 - Head Exam Head Exam: ATRAUMATIC, NORMAL INSPECTION, NORMOCEPHALIC - Eye Exam Eye Exam: EOMI, Normal appearance, PERRL Pupil Exam: NORMAL ACCOMODATION - ENT Exam ENT Exam: Mucous Membranes Moist, Normal Exam - Respiratory Exam Respiratory Exam: NORMAL BREATHING PATTERN - Cardiovascular Exam Cardiovascular Exam: REGULAR RHYTHM - Exam External exam: NORMAL EXTERNAL EXAM - Extremities Exam Extremities Exam: Normal Capillary Refill - Back Exam Back Exam: NORMAL INSPECTION - Neurological Exam Neurological Exam: Alert, Awake Neuro motor strength exam: Left Upper Extremity: 2/1, Right Upper Extremity: 3, Left Lower Extremity: 2/1, Right Lower Extremity: 3 - Psychiatric Exam Psychiatric exam: Normal Affect, Normal Mood - Skin Skin Exam: Dry, Intact Assessment and Plan (1) Anemia Status: Acute (2) Bradycardia Status: Acute (3) CHF (congestive heart failure) Status: Acute (4) Edema Status: Acute (5) Left knee pain Assessment & Plan: plan for physical, occupatonal, and rec therapy for team conference Status: Acute (6) PVD (peripheral vascular disease) Status: Acute (7) Pneumonia Status: Acute (8) Small bowel obstruction Status: Acute
--- NOTE | 2017-04-11 16:04 | CP.PCM.CON ---
History of Present Illness - History of Present Illness History of Present Illness: Mr. 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 Over the last year, the patient has developed a progressive cognitive dementia for which he is being evaluated for by psychiatry. According to the records, he has been taking Xanax on a daily basis for over one year and has been depressed for about that time. Neurology was consulted to assist with the management and care. The patient complained of pain in the right shoulder and weakness of the left side of the body from the previous stroke. He was slightly agitated, but denied any other discomfort or complaints. He asked to go back to his bed. Review of Systems - Review of Systems All systems: reviewed and no additional remarkable complaints except Past Patient History - Infectious Disease Hx of Infectious Diseases: None, C.diff - Past Medical History & Family History Past Medical History?: Yes Past Family History: Reviewed and not pertinent - Past Social History Smoking Status: Never Smoked Alcohol: None Drugs: Denies - CARDIAC Hx Cardiac Disorders: Yes Hx Hypertension: Yes - PULMONARY Hx Respiratory Disorders: No - NEUROLOGICAL HX Cerebrovascular Accident: Yes - HEENT Hx HEENT Problems: No Hx Glaucoma: Yes - RENAL Hx Chronic Kidney Disease: No - ENDOCRINE/METABOLIC Hx Diabetes Mellitus Type 2: Yes - HEMATOLOGICAL/ONCOLOGICAL Hx AIDS: No Hx Human Immunodeficiency Virus (HIV): No - INTEGUMENTARY Other/Comment: RIGHT TEMPORAL LESION - MUSCULOSKELETAL/RHEUMATOLOGICAL Hx Falls: No - GASTROINTESTINAL Hx Gastrointestinal Disorders: Yes Hx Bowel Surgery: Yes Hx Colostomy: Yes Other/Comment: 03/17/2017 - exploratory lap, small bowel resection. 03/18/2017 - returned to OR for washout, end ileostomy, abdominal closure with bridging strattice mesh. h/o abdominal hernia - GENITOURINARY/GYNECOLOGICAL Hx Genitourinary Disorders: No - PSYCHIATRIC Hx Anxiety: Yes Hx Depression: Yes Hx Substance Use: No - SURGICAL HISTORY Hx Coronary Stent: Yes Other/Comment: RIGHT HIP FX with surgery - ANESTHESIA Hx Anesthesia: Yes Hx Anesthesia Reactions: No Hx Malignant Hyperthermia: No Meds Allergies/Adverse Reactions: Allergies Allergy/AdvReac Type Severity Reaction Status Date / Time Penicillins Allergy URTICARIA Verified 03/30/17 22:34 Sulfa (Sulfonamide Allergy URTICARIA Verified 03/30/17 22:34 Antibiotics) - Medications Medications: Current Medications Acetaminophen (Tylenol 325mg Tab) 650 mg PO Q6H PRN PRN Reason: Pain, moderate (4-7) Last Admin: 04/11/17 06:53 Dose: 650 mg Albuterol/Ipratropium (Duoneb 3 Mg/0.5 Mg (3 Ml) Ud) 3 ml IH RQ4 [facility] Last Admin: 04/11/17 12:02 Dose: Not Given Atorvastatin Calcium (Lipitor) 50 mg PO [facility] Last Admin: 04/10/17 21:29 Dose: 50 mg Enoxaparin Sodium (Lovenox) 40 mg SC DAILY [facility] PRN Reason: Protocol Last Admin: 04/11/17 08:53 Dose: 40 mg Escitalopram Oxalate (Lexapro) 20 mg PO [facility] Last Admin: 04/10/17 21:29 Dose: 20 mg Famotidine (Pepcid) 20 mg PO 0630,1700 [facility] Last Admin: 04/11/17 06:55 Dose: 20 mg Ferrous Gluconate (Fergon) 324 mg PO TID [facility] Last Admin: 04/11/17 12:37 Dose: 324 mg Furosemide (Lasix) 20 mg PO DAILY [facility] Last Admin: 04/11/17 08:22 Dose: Not Given Insulin Human Lispro (Humalog) 0 units SC 0630,2100 [facility] PRN Reason: Protocol Last Admin: 04/11/17 06:55 Dose: Not Given Lisinopril (Zestril) 5 mg PO [facility] Last Admin: 04/10/17 22:01 Dose: Not Given Metoprolol Tartrate (Lopressor) 50 mg PO DAILY [facility] Last Admin: 04/11/17 08:23 Dose: Not Given Mupirocin (Bactroban Ointment) 1 applic TOP 0630,1700 [facility] Last Admin: 04/11/17 06:56 Dose: 1 applic Nystatin (Nystop Topical Powder) 1 applic TOP TID [facility] Last Admin: 04/11/17 12:37 Dose: 1 pow Quetiapine Fumarate (Seroquel) 50 mg PO DAILY@1700 [facility] Last Admin: 04/10/17 16:30 Dose: 50 mg Physical Exam - Constitutional Appears: Cachectic, Chronically Ill - Head Exam Head Exam: ATRAUMATIC, NORMAL INSPECTION, NORMOCEPHALIC - Eye Exam Eye Exam: EOMI, Normal appearance, PERRL - ENT Exam ENT Exam: Mucous Membranes Moist, Normal Exam - Neck Exam Neck exam: Positive for: Normal Inspection - Respiratory Exam Respiratory Exam: Clear to Auscultation Bilateral, NORMAL BREATHING PATTERN - Cardiovascular Exam Cardiovascular Exam: REGULAR RHYTHM, +S1, +S2 - GI/Abdominal Exam GI & Abdominal Exam: Normal Bowel Sounds, Soft. absent: Tenderness - Rectal Exam Rectal Exam: Deferred - Extremities Exam Extremities exam: Positive for: joint swelling - Neurological Exam Neurological exam: Abnormal Gait, CN II-XII Intact Additional comments: Oriented to person, but does not recall his age and gave the wrong date for his date of , he could not spell WORLD backward, he could not complete the subtraction task, he recalled 1/3 objects. 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 Reflexes are brisk throughout. Plantar response is upgoing on the left and equivocal on the right. Gait was not assessed. Romberg could not be assessed. Sensation was intact to LT/P on the right and diminished on the left. 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 I recommend obtaining a CT scan of the head to rule out any overt new injury, and will consider an MRI of the brain based on those results. Furthermore, a work-up should include B12, TSH, heavy metal screen, vitamin D and urinalysis. Status: Acute
[2017-04-12] MEDS: Albuterol-Ipratrop 3 mg / 0.5 (3 ml) UD IH SCH ×7 (00:10→23:42)
[2017-04-12] MEDS: Sodium Chloride 0.9% 500 ML IV SCH ×2 (01:10→02:10)
[2017-04-12] MEDS: Insulin Lispro (humaLOG) 100 Units/ml Inj SC SCH ×2 (07:12→21:13)
[2017-04-12 07:46] LABS: HEMATOCRIT 29.8 % (35.0-51.0); MEAN CELL VOLUME 82.9 fl (80.0-94.0); MEAN CORPUSCULAR HEMOGLOBIN 26.4 pg (27.0-31.0); MEAN CORPUSCULAR HGB CONC 31.8 g/dL (33.0-37.0); RED CELL DISTRIBUTION WIDTH 17.6 % (11.5-14.5)
[2017-04-12 08:00] LABS: ALB/GLOB RATIO 0.8 (1.0-2.1); BILIRUBIN,TOTAL 1.1 mg/dl (0.2-1.3); CALCIUM 8.6 mg/dL (8.4-10.2); POTASSIUM 4.6 MMOL/L (3.6-5.0); TOTAL PROTEIN 7.1 G/DL (6.3-8.2)
[2017-04-12] MEDS: Enoxaparin 40 mg Syringe SC SCH (09:05)
--- NOTE | 2017-04-12 09:38 | CT ---
PROCEDURE: CT HEAD WITHOUT CONTRAST. HISTORY: dementia, previous stroke COMPARISON: None available. TECHNIQUE: Axial computed tomography images were obtained through the head/brain without intravenous contrast. Study slightly limited by motion artifact. Radiation dose: Total exam DLP = 1204.82 mGy-cm. This CT exam was performed using one or more of the following dose reduction techniques: Automated exposure control, adjustment of the mA and/or kV according to patient size, and/or use of iterative reconstruction technique. FINDINGS: HEMORRHAGE: No acute parenchymal, subarachnoid nor extra-axial hemorrhage. BRAIN: There is a chronic infarct involving distal branches of the right MCA. In addition, there is mild chronic periventricular white matter ischemic changes. Chronic ischemic changes are also seen within right basal ganglia. Associated ex vacuo dilatation of the the entire right ventricle. In addition, there is underlying mild to moderate generalized volume loss not withstanding the encephalomalacia and enlarged the right ventricle. Vascular calcifications of the carotid siphons and the vertebral arteries noted. VENTRICLES: No evidence of obstructive hydrocephalus not withstanding ex vacuo dilatation right ventricle. . CALVARIUM: No acute calvarial fractures. PARANASAL SINUSES: Unremarkable as visualized. No significant inflammatory changes. MASTOID AIR CELLS: Unremarkable as visualized. No inflammatory changes. OTHER FINDINGS: None. IMPRESSION: Slightly limited motion degraded study. No acute intracranial hemorrhage. Chronic infarct involving distal branches right MCA. There is also ischemic changes seen involving right basal ganglia. Mild chronic periventricular white matter ischemic changes. Ex vacuo dilatation entire right ventricle with underlying mild to moderate generalized volume loss.
--- NOTE | 2017-04-12 10:25 | PN ---
DATE: 04/12/2017 SUBJECTIVE: The patient seen and examined. noted. Consults noted and appreciated. Neurology followup and intervention noted and appreciated. The patient remains in acute rehab unit. The patient is awake, responsive, feels okay. No specific pain, no chest pain or shortness of breath. PHYSICAL EXAMINATION: GENERAL: The patient is in no acute distress. VITAL SIGNS: Stable. HEART: S1, S2 normal, regular. LUNGS: Good bilateral air entry. ABDOMEN: Soft, nontender. EXTREMITIES: No calf swelling, no tenderness, no acute ischemia. CENTRAL NERVOUS SYSTEM: Essentially unchanged. DIAGNOSTIC DATA: Available diagnostic data reviewed. WBC count is high. IMPRESSION: Overall, the patient is medically stable and does not look septic. PLAN: As ordered. Eros Chowdary MD cc: [id number] TT: 04/12/2017 10:24:39 Confirmation # [id number] Dictation # [id number] kassie SALVADOR
--- NOTE | 2017-04-12 12:01 | CP.PCM.PN ---
Subjective - Date & Time of Evaluation Date of Evaluation: 04/08/17 Time of Evaluation: 13:00 - Subjective Subjective: no acute complaints at present Objective - Vital Signs/Intake and Output Vital Signs (last 24 hours): Temp Pulse Resp BP Pulse Ox 98.1 F 89 18 96/60 L 98 04/12/17 08:09 04/12/17 08:59 04/12/17 08:09 04/12/17 08:59 04/12/17 08:09 Intake and Output: 04/12/17 04/12/17 06:59 18:59 Intake Total 1450 Output Total 655 Balance 795 - Medications Medications: Current Medications Acetaminophen (Tylenol 325mg Tab) 650 mg PO Q6H PRN PRN Reason: Pain, moderate (4-7) Last Admin: 04/11/17 06:53 Dose: 650 mg Albuterol/Ipratropium (Duoneb 3 Mg/0.5 Mg (3 Ml) Ud) 3 ml IH RQ4 [facility] Last Admin: 04/12/17 11:22 Dose: Not Given Atorvastatin Calcium (Lipitor) 50 mg PO [facility] Last Admin: 04/11/17 21:36 Dose: 50 mg Enoxaparin Sodium (Lovenox) 40 mg SC DAILY [facility] PRN Reason: Protocol Last Admin: 04/12/17 09:05 Dose: 40 mg Escitalopram Oxalate (Lexapro) 20 mg PO HS [facility] Last Admin: 04/11/17 21:35 Dose: 20 mg Famotidine (Pepcid) 20 mg PO 0630,1700 [facility] Last Admin: 04/12/17 06:58 Dose: 20 mg Ferrous Gluconate (Fergon) 324 mg PO TID [facility] Last Admin: 04/12/17 09:04 Dose: 324 mg Furosemide (Lasix) 20 mg PO DAILY [facility] Last Admin: 04/12/17 08:59 Dose: Not Given Insulin Human Lispro (Humalog) 0 units SC 0630,2100 [facility] PRN Reason: Protocol Last Admin: 04/12/17 07:12 Dose: Not Given Lisinopril (Zestril) 5 mg PO HS [facility] Last Admin: 04/11/17 22:20 Dose: Not Given Metoprolol Tartrate (Lopressor) 50 mg PO DAILY [facility] Last Admin: 04/12/17 08:59 Dose: Not Given Mupirocin (Bactroban Ointment) 1 applic TOP 0630,1700 [facility] Last Admin: 04/12/17 06:58 Dose: 1 applic Nystatin (Nystop Topical Powder) 1 applic TOP TID [facility] Last Admin: 04/12/17 09:05 Dose: 1 pow Quetiapine Fumarate (Seroquel) 50 mg PO DAILY@1700 [facility] Last Admin: 04/11/17 17:28 Dose: 50 mg - Labs Labs: 04/12/17 06:40 04/12/17 06:40 - Head Exam Head Exam: ATRAUMATIC, NORMAL INSPECTION, NORMOCEPHALIC - Eye Exam Eye Exam: EOMI, Normal appearance, PERRL Pupil Exam: NORMAL ACCOMODATION - ENT Exam ENT Exam: Mucous Membranes Moist, Normal Exam - Respiratory Exam Respiratory Exam: NORMAL BREATHING PATTERN - Cardiovascular Exam Cardiovascular Exam: REGULAR RHYTHM - GI/Abdominal Exam GI & Abdominal Exam: Normal Bowel Sounds - Extremities Exam Extremities Exam: Normal Capillary Refill - Back Exam Back Exam: NORMAL INSPECTION - Neurological Exam Neurological Exam: Alert, Awake Neuro motor strength exam: Left Upper Extremity: 3, Right Upper Extremity: 4, Left Lower Extremity: 3, Right Lower Extremity: 4 - Psychiatric Exam Psychiatric exam: Normal Affect, Normal Mood - Skin Skin Exam: Dry, Intact, Normal Color Assessment and Plan (1) Anemia Status: Acute (2) Bradycardia Status: Acute (3) CHF (congestive heart failure) Assessment & Plan: physical, occupational and rec therapy follow up with wound care Status: Acute (4) Edema Status: Acute (5) Left knee pain Status: Acute (6) PVD (peripheral vascular disease) Status: Acute (7) Pneumonia Status: Acute (8) Small bowel obstruction Status: Acute
--- NOTE | 2017-04-12 12:20 | PSY.TMCNF ---
Nursing - Vital Signs Vital Signs (Last 8 hours): Vital Signs 04/12/17 04/12/17 08:09 08:59 Temperature 98.1 F Pulse Rate 89 89 Respiratory 18 Rate Blood Pressure 96/60 L 96/60 L O2 Sat by Pulse 98 Oximetry Pain: 5 - Precautions: Precautions: Fall Prevention, Aspiration, Pressure Ulcer - Medications/Other Issues Comment: Pt at moderate nutritional risk. goals: 1. Pt to consume 75-100% of meals. 2. Blood glucoses to be between 70-180 mg/ld. Follow-up due on 2016 - Consults Comment: Dr. Campa - Skin Incision Site: abdominal Drainage: Serous Dressing Status: Changed Incision: Healing Well Incision Line Treatment: apply with Bactroban and cover with dry dressing. - Toileting Toileting: Maximal Assistance - Bladder Management Bladder Pattern: Incontinent Voiding Method: Urinal, Diaper - Bowel Management Bowel Pattern: Normal Comment: illeostomy Bowel Management: Dependent - Transfers Transfers: Maximal Assistance - ADL's ADL's: Dependent - Pain Management Comments: Denies pain - Patient/Family Teaching Comments: Safety, Wound care - Goals/Time Frame Comments: Per IPOC Physical Therapy - Bed Mobility Bed Mobility: Moderate Assistance, Maximum Assistance Comment: -mod A for rolling pending patient's willingness to participate. -max A of 2 for supine to/from sit - Transfers Wheelchair to Mat: Maximum Assistance Sit to Stand: Maximum Assistance Comment: no device - Ambulation Level of Assistance: Not Tested, Dependent Orthoses: n/a Comment: pt is non-ambulatory - Stair Negotiation Stairs: Level of Assistance: Not Tested Comment: recommend patient have medical transport to enter/exit home to asc/ desc steps - Standing Balance Static Stand: Maximal Assistance Dynamic Stand: Maximal Assistance, Dependent Comment: -stood on Saturday 04/07 with therapist and RN with use of RW with max A - Pain Pain (assessed during therapy session): 7 Management Techniques: Position Change, Distraction, Inactivity Comment: buttock discomfort - Insight/Carryover Insight/Carryover: Poor - Patient/Family Education Comment: -therapy schedule, importance of OOB mobility, transfers, position changes, therapy goals, POC. - and daughter trained/educated on: POC, therapy schedule, therapy goals, recommended discharge recommendations, recommended DME - Assessment/Plan Assessment: Pt continues to be engaged in independent leisure tasks or rest in bed. Pt c/o pain and discomfort and is seen resting in bed throughout afternoon or mornings. Pt did allow therapy to play music in background of his favorite artist to decrease anxiety as pt reports he feels nervous. Pt has yet to participate in 1:1 bedside leisure task 2' fatigue, discomfort, decrease arousal , or no interest. - Goals Timeframe: 7 days Goals: -rolling with min A of 1. -supine to/from sit with mod A of 1. - transfer with slide board with max A of 1 and SBA of 2nd person for safety. - forward flexion in WC for pressure relief with mod A of 1. -sitting balance with consistent min A of 1 person at edge of bed x 10 minutes. -tolerate upright position against gravity with stable vital signs x 60 minutes - Provider Therapist: Daniel torres PT License Number: [id number] Occupational Therapy - Arousal/Attention/Orientation Patient Orientation: Person, Place - ADL/IADL Self Feeding: Maximum Assistance Grooming: Maximum Assistance Bathing-Upper Extremity: Maximum Assistance Bathing-Lower Extremity: Dependent Dressing-Upper Extremity: Dependent Dressing-Lower Extremity: Dependent - Sitting Balance Static Sitting: Independent without upper extremity support Dynamic Sitting: Maximal Assistance - Transfers Wheelchair to Bed Transfers: Dependent - Wheelchair Management Level of Assistance: Maximum Assistance - Upper Extremity Status Right Upper Extremity Comment: R shoulder impaired, pt with limited shoulder flexion or scapular movement, pt appears to be guarding secondary to idea of pain. Left Upper Extremity Comment: LUE grossly impaired, pt unable to fully open L hand - Pain Pain (assessed during therapy session): 7 Alleviating Techniques: Position Change, Distraction, Inactivity Comment: buttock discomfort - Insight/Carryover Insight/Carryover: Poor - Patient/Family Education Comment: -therapy schedule, importance of OOB mobility, transfers, position changes, therapy goals, POC. - and daughter trained/educated on: POC, therapy schedule, therapy goals, recommended discharge recommendations, recommended DME - Assessment/Plan Assessment: Pt continues to be engaged in independent leisure tasks or rest in bed. Pt c/o pain and discomfort and is seen resting in bed throughout afternoon or mornings. Pt did allow therapy to play music in background of his favorite artist to decrease anxiety as pt reports he feels nervous. Pt has yet to participate in 1:1 bedside leisure task 2' fatigue, discomfort, decrease arousal , or no interest. - Goals Timeframe: 7 days Goals: -rolling with min A of 1. -supine to/from sit with mod A of 1. - transfer with slide board with max A of 1 and SBA of 2nd person for safety. - forward flexion in WC for pressure relief with mod A of 1. -sitting balance with consistent min A of 1 person at edge of bed x 10 minutes. -tolerate upright position against gravity with stable vital signs x 60 minutes - Provider Therapist: Lupe Guzman Speech Therapy - Consult Information Patient on Program: No - Plan Assessment: Pt continues to be engaged in independent leisure tasks or rest in bed. Pt c/o pain and discomfort and is seen resting in bed throughout afternoon or mornings. Pt did allow therapy to play music in background of his favorite artist to decrease anxiety as pt reports he feels nervous. Pt has yet to participate in 1:1 bedside leisure task 2' fatigue, discomfort, decrease arousal , or no interest. Recreational Therapy - Participation Participation: Monitors His/Her Own Leisure Time - Attendance Attendance: Daily - Activities Leisure Activities: Television - Socialization Level of Socialization: Initiates/interacts with caregivers but not with peer - Assessment Assessment/Plan: Pt continues to be engaged in independent leisure tasks or rest in bed. Pt c/o pain and discomfort and is seen resting in bed throughout afternoon or mornings. Pt did allow therapy to play music in background of his favorite artist to decrease anxiety as pt reports he feels nervous. Pt has yet to participate in 1:1 bedside leisure task 2' fatigue, discomfort, decrease arousal, or no interest. Problems Currently Limiting Participation: pain, anxiety, discomfort, decrease leisure awareness level, decrease arousal level Goals and Time Frame: Pt will be encouraged to participate in 1:1 and group recreation therapy sessions 3-5x week to improve arousal level, mood state, pt' s sitting tolerance in wheelchair, and for diversion. - Provider Therapist: Zita Negro, ABALONE FISHERMAN #[id number] Nutrition - Current Diet Current Diet/ Supplement/ Feedings: Moderate consistent CHO 2 gram Na glucerna shake 8 ounces 2 per day. (440 kcal and 20 grams of protein) - Appetite Percent Meal Consumed: 25-49% - Comments Comments: Safety, Wound care - Assessment/Goals/Time Frame Assessment/Goals/Time Frame: Pt at moderate nutritional risk. goals: 1. Pt to consume 75-100% of meals. 2. Blood glucoses to be between 70-180 mg/ld. Follow-up due on 04/13/2017 - Provider Provider: Anna Marie Carbajal RD Case Management - Psychosocial Assessment Support Systems: - Discharge Plan Discharge Plan: Home with significant other/family Rehabilitation Plan - Treatment Plan Treatment Plan: Physical Therapy, Occupational Therapy, Dietary, Patient/Family Education - Recommendation Recommendation: Physical Therapy, Occupational Therapy, Dietary, Patient/Family Education - Discharge Plan Discharge to: Home (27)
--- NOTE | 2017-04-12 12:33 | CP.PCM.PN ---
Subjective - Date & Time of Evaluation Date of Evaluation: 04/12/17 Time of Evaluation: 09:00 - Subjective Subjective: no acute complaints at present, still with anxiety Objective - Vital Signs/Intake and Output Vital Signs (last 24 hours): Temp Pulse Resp BP Pulse Ox 98.1 F 89 18 96/60 L 98 04/12/17 08:09 04/12/17 08:59 04/12/17 08:09 04/12/17 08:59 04/12/17 08:09 Intake and Output: 04/12/17 04/12/17 06:59 18:59 Intake Total 1450 Output Total 655 Balance 795 - Medications Medications: Current Medications Acetaminophen (Tylenol 325mg Tab) 650 mg PO Q6H PRN PRN Reason: Pain, moderate (4-7) Last Admin: 04/11/17 06:53 Dose: 650 mg Albuterol/Ipratropium (Duoneb 3 Mg/0.5 Mg (3 Ml) Ud) 3 ml IH RQ4 [facility] Last Admin: 04/12/17 11:22 Dose: Not Given Atorvastatin Calcium (Lipitor) 50 mg PO [facility] Last Admin: 04/11/17 21:36 Dose: 50 mg Enoxaparin Sodium (Lovenox) 40 mg SC DAILY [facility] PRN Reason: Protocol Last Admin: 04/12/17 09:05 Dose: 40 mg Escitalopram Oxalate (Lexapro) 20 mg PO HS [facility] Last Admin: 04/11/17 21:35 Dose: 20 mg Famotidine (Pepcid) 20 mg PO 0630,1700 [facility] Last Admin: 04/12/17 06:58 Dose: 20 mg Ferrous Gluconate (Fergon) 324 mg PO TID [facility] Last Admin: 04/12/17 09:04 Dose: 324 mg Furosemide (Lasix) 20 mg PO DAILY [facility] Last Admin: 04/12/17 08:59 Dose: Not Given Insulin Human Lispro (Humalog) 0 units SC 0630,2100 [facility] PRN Reason: Protocol Last Admin: 04/12/17 07:12 Dose: Not Given Lisinopril (Zestril) 5 mg PO [facility] Last Admin: 04/11/17 22:20 Dose: Not Given Metoprolol Tartrate (Lopressor) 50 mg PO DAILY [facility] Last Admin: 04/12/17 08:59 Dose: Not Given Mupirocin (Bactroban Ointment) 1 applic TOP 0630,1700 [facility] Last Admin: 04/12/17 06:58 Dose: 1 applic Nystatin (Nystop Topical Powder) 1 applic TOP TID [facility] Last Admin: 04/12/17 09:05 Dose: 1 pow Quetiapine Fumarate (Seroquel) 50 mg PO DAILY@1700 [facility] Last Admin: 04/11/17 17:28 Dose: 50 mg - Labs Labs: 04/12/17 06:40 04/12/17 06:40 - Head Exam Head Exam: ATRAUMATIC, NORMAL INSPECTION, NORMOCEPHALIC - Eye Exam Eye Exam: EOMI, Normal appearance, PERRL Pupil Exam: NORMAL ACCOMODATION - ENT Exam ENT Exam: Mucous Membranes Moist, Normal Exam - Respiratory Exam Respiratory Exam: NORMAL BREATHING PATTERN - Cardiovascular Exam Cardiovascular Exam: REGULAR RHYTHM - GI/Abdominal Exam GI & Abdominal Exam: Normal Bowel Sounds - Rectal Exam Rectal Exam: NORMAL INSPECTION - Exam External exam: NORMAL EXTERNAL EXAM - Extremities Exam Extremities Exam: Normal Capillary Refill, Normal Inspection - Back Exam Back Exam: NORMAL INSPECTION - Neurological Exam Neurological Exam: Alert, Awake Neuro motor strength exam: Left Upper Extremity: 2/1, Right Upper Extremity: 3, Left Lower Extremity: 2/1, Right Lower Extremity: 3 - Psychiatric Exam Psychiatric exam: Normal Affect, Normal Mood - Skin Skin Exam: Dry Assessment and Plan (1) Anemia Status: Acute (2) Bradycardia Status: Acute (3) CHF (congestive heart failure) Status: Acute (4) Edema Status: Acute (5) Left knee pain Status: Acute (6) PVD (peripheral vascular disease) Assessment & Plan: status post team conference, monitor BUN and Creatinine Pt, Ot and rec therapy monitor the pressure ulcer Status: Acute (7) Pneumonia Status: Acute (8) Small bowel obstruction Status: Acute
[2017-04-12] MEDS: Sodium Chloride 0.9% 1,000 ML IV SCH ×2 (15:10→23:47)
[2017-04-13] MEDS: Albuterol-Ipratrop 3 mg / 0.5 (3 ml) UD IH SCH ×5 (04:26→19:56)
[2017-04-13] MEDS: Insulin Lispro (humaLOG) 100 Units/ml Inj SC SCH ×2 (06:46→22:15)
--- NOTE | 2017-04-13 07:40 | PN ---
DATE: 04/13/2017 The patient seen and examined. Interim events noted. Consults noted, appreciated. The patient juliana ins in acute rehab unit. The patient is awake, responsive; not a good historian. Denies any chest p ain or shortness of breath. PHYSICAL EXAMINATION: GENERAL: The patient is in no acute distress. VITAL SIGNS: Stable. HEART: S1, S2 normal, regular. LUNGS: Good bilateral air entry. ABDOMEN: Soft, nontender. Colostomy is in good position. There is a significant amount of ____. EXTREMITIES: No calf swelling, no tenderness, no acute ischemia. CENTRAL NERVOUS SYSTEM: Essentially unchanged. SKIN: Shows the patient has a sacral wound that is 4 x 4 x 2 with some tunneling and serous minimal discharge. Overall, patient's general medical condition is stable. PLAN: As ordered. Eros Chowdary MD cc: [id number] TT: 04/13/2017 07:40:03 Confirmation # [id number] Dictation # [id number] mn
[2017-04-13 07:56] LABS: HEMATOCRIT 29.4 % (35.0-51.0); MEAN CELL VOLUME 82.9 fl (80.0-94.0); MEAN CORPUSCULAR HEMOGLOBIN 26.2 pg (27.0-31.0); MEAN CORPUSCULAR HGB CONC 31.6 g/dL (33.0-37.0); WHITE BLOOD COUNT 17.4 K/uL (4.8-10.8)
[2017-04-13 08:04] LABS: CALCIUM 8.7 mg/dL (8.4-10.2); POTASSIUM 4.7 MMOL/L (3.6-5.0)
[2017-04-13] MEDS: Enoxaparin 40 mg Syringe SC SCH (08:31)
[2017-04-13] MEDS: Sodium Chloride 0.9% 1,000 ML IV SCH ×2 (08:32→18:09)
[2017-04-13 09:11] VITALS: RESP 20
--- NOTE | 2017-04-13 14:53 | RAD ---
HISTORY: to r/o pulmonary infection COMPARISON: No prior. FINDINGS: LUNGS: Poor inspiration with low lung volumes, crowded bronchovascular markings and mild bibasilar atelectasis however more patchy opacity noted in the left lung base that could represent concomitant at infiltrate. There is also slight blunting left CP angle which could be due to patient positioning however small effusion not excluded. . PLEURA: No apparent pneumothorax. CARDIOVASCULAR: Cardiomegaly. OSSEOUS STRUCTURES: Degenerative changes right shoulder girdle with high-riding humeral head consistent with chronic rotator cuff injury. VISUALIZED UPPER ABDOMEN: Normal. OTHER FINDINGS: None. IMPRESSION: Poor inspiration with low lung volumes, crowded bronchovascular markings and mild bibasilar atelectasis however more patchy opacity noted in the left lung base that could represent concomitant at infiltrate. There is also slight blunting left CP angle which could be due to patient positioning however small effusion not excluded. .
--- NOTE | 2017-04-13 14:54 | CP.PCM.PN ---
Subjective - Date & Time of Evaluation Date of Evaluation: 04/13/17 Time of Evaluation: 11:00 - Subjective Subjective: Mr. Roberts was seen and examined today at bedside. He was found in NAD and had no new complaints. There were no acute events overnight. I reviewed the results of the CT head with him. Objective - Vital Signs/Intake and Output Vital Signs (last 24 hours): Temp Pulse Resp BP Pulse Ox 97.3 F L 79 20 105/66 97 04/13/17 09:10 04/13/17 09:10 04/13/17 09:10 04/13/17 09:10 04/13/17 09:10 Intake and Output: 04/13/17 04/13/17 06:59 18:59 Intake Total 1440 Output Total 650 Balance 790 - Medications Medications: Current Medications Acetaminophen (Tylenol 325mg Tab) 650 mg PO Q6H PRN PRN Reason: Pain, moderate (4-7) Last Admin: 04/11/17 06:53 Dose: 650 mg Albuterol/Ipratropium (Duoneb 3 Mg/0.5 Mg (3 Ml) Ud) 3 ml IH RQ4 [facility] Last Admin: 04/13/17 11:09 Dose: 3 ml Atorvastatin Calcium (Lipitor) 50 mg PO HS [facility] Last Admin: 04/12/17 21:12 Dose: 50 mg Enoxaparin Sodium (Lovenox) 40 mg SC DAILY [facility] PRN Reason: Protocol Last Admin: 04/13/17 08:31 Dose: 40 mg Escitalopram Oxalate (Lexapro) 20 mg PO HS [facility] Last Admin: 04/12/17 21:12 Dose: 20 mg Famotidine (Pepcid) 20 mg PO 0630,1700 [facility] Last Admin: 04/13/17 06:46 Dose: 20 mg Ferrous Gluconate (Fergon) 324 mg PO TID [facility] Last Admin: 04/13/17 13:22 Dose: 324 mg Furosemide (Lasix) 20 mg PO DAILY [facility] Last Admin: 04/13/17 08:31 Dose: Not Given Insulin Human Lispro (Humalog) 0 units SC 0630,2100 [facility] PRN Reason: Protocol Last Admin: 04/13/17 06:46 Dose: Not Given Lisinopril (Zestril) 5 mg PO HS [facility] Last Admin: 04/12/17 21:29 Dose: Not Given Metoprolol Tartrate (Lopressor) 50 mg PO DAILY [facility] Last Admin: 04/13/17 08:31 Dose: Not Given Mupirocin (Bactroban Ointment) 1 applic TOP 0630,1700 [facility] Last Admin: 04/13/17 06:45 Dose: 1 applic Nystatin (Nystop Topical Powder) 1 applic TOP TID [facility] Last Admin: 04/13/17 13:22 Dose: 1 pow Quetiapine Fumarate (Seroquel) 50 mg PO DAILY@1700 [facility] Last Admin: 04/12/17 17:10 Dose: 50 mg - Labs Labs: 04/13/17 05:30 04/13/17 05:30 - Neurological Exam Additional comments: Neurologically unchanged compared with previous examination. Assessment and Plan (1) Dementia Assessment & Plan: Continue current medications along with the physical therapy plan and regimen. No further recommendations at this time. Status: Acute
[2017-04-13 17:54] LABS: RBC URINE 7 /hpf (0-3); URINE BACTERIA OCC (<OCC); URINE BILIRUBIN NEGATIVE (NEGATIVE); URINE BLOOD SMALL (NEGATIVE); URINE COLOR YELLOW (YELLOW); URINE GLUCOSE (UA) NEG (Normal); URINE KETONE NEGATIVE (NEGATIVE); URINE LEUKOCYTE ESTERASE NEG Leu/uL (Negative); URINE PROTEIN NEGATIVE (NEGATIVE); URINE UROBILINOGEN 0.2-1.0 mg/dL (0.2-1.0); WBC URINE 6 /hpf (0-5)
[2017-04-13] MEDS ORDERED: Moxifloxacin IV 400mg/250ml NS 400 MG/250 ML BAG IVPB SCH (22:30)
[2017-04-14] MEDS: Albuterol-Ipratrop 3 mg / 0.5 (3 ml) UD IH SCH ×7 (00:24→15:12)
[2017-04-14] MEDS: Sodium Chloride 0.9% 1,000 ML IV SCH ×2 (03:00→14:06)
[2017-04-14] MEDS: Insulin Lispro (humaLOG) 100 Units/ml Inj SC SCH (06:54)
[2017-04-14 07:31] LABS: HEMATOCRIT 27.4 % (35.0-51.0); MEAN CORPUSCULAR HEMOGLOBIN 26.8 pg (27.0-31.0); MEAN CORPUSCULAR HGB CONC 32.7 g/dL (33.0-37.0); RED CELL DISTRIBUTION WIDTH 17.5 % (11.5-14.5); WHITE BLOOD COUNT 16.6 K/uL (4.8-10.8)
--- NOTE | 2017-04-14 07:50 | CP.PCM.CON ---
History of Present Illness - History of Present Illness History of Present Illness: Pt seen for supportive therapy 7:30-7:50. Pt reported decline in his depression , and affect was brighter. Pt spoke of therapy progress though not confirmed/ substantiated by nursing. Pt denied overall distress, pt less negativistic, cognitive status increasingly compromised today. plan: Continued Sup therapy/monitoring Past Patient History - Infectious Disease Hx of Infectious Diseases: None, C.diff - Past Medical History & Family History Past Medical History?: Yes Past Family History: Reviewed and not pertinent - Past Social History Smoking Status: Never Smoked Alcohol: None Drugs: Denies - CARDIAC Hx Cardiac Disorders: Yes Hx Hypertension: Yes - PULMONARY Hx Respiratory Disorders: No - NEUROLOGICAL HX Cerebrovascular Accident: Yes - HEENT Hx HEENT Problems: No Hx Glaucoma: Yes - RENAL Hx Chronic Kidney Disease: No - ENDOCRINE/METABOLIC Hx Diabetes Mellitus Type 2: Yes - HEMATOLOGICAL/ONCOLOGICAL Hx AIDS: No Hx Human Immunodeficiency Virus (HIV): No - INTEGUMENTARY Other/Comment: RIGHT TEMPORAL LESION - MUSCULOSKELETAL/RHEUMATOLOGICAL Hx Falls: No - GASTROINTESTINAL Hx Gastrointestinal Disorders: Yes Hx Bowel Surgery: Yes Hx Colostomy: Yes Other/Comment: 03/17/2017 - exploratory lap, small bowel resection. 03/18/2017 - returned to OR for washout, end ileostomy, abdominal closure with bridging strattice mesh. h/o abdominal hernia - GENITOURINARY/GYNECOLOGICAL Hx Genitourinary Disorders: No - PSYCHIATRIC Hx Anxiety: Yes Hx Depression: Yes Hx Substance Use: No - SURGICAL HISTORY Hx Coronary Stent: Yes Other/Comment: RIGHT HIP FX with surgery - ANESTHESIA Hx Anesthesia: Yes Hx Anesthesia Reactions: No Hx Malignant Hyperthermia: No Meds Allergies/Adverse Reactions: Allergies Allergy/AdvReac Type Severity Reaction Status Date / Time Penicillins Allergy URTICARIA Verified 03/30/17 22:34 Sulfa (Sulfonamide Allergy URTICARIA Verified 03/30/17 22:34 Antibiotics) - Medications Medications: Current Medications Acetaminophen (Tylenol 325mg Tab) 650 mg PO Q6H PRN PRN Reason: Pain, moderate (4-7) Last Admin: 04/11/17 06:53 Dose: 650 mg Albuterol/Ipratropium (Duoneb 3 Mg/0.5 Mg (3 Ml) Ud) 3 ml IH RQ4 [facility] Last Admin: 04/14/17 05:25 Dose: 3 ml Atorvastatin Calcium (Lipitor) 50 mg PO [facility] Last Admin: 04/13/17 22:33 Dose: 50 mg Enoxaparin Sodium (Lovenox) 40 mg SC DAILY [facility] PRN Reason: Protocol Last Admin: 04/13/17 08:31 Dose: 40 mg Escitalopram Oxalate (Lexapro) 20 mg PO [facility] Last Admin: 04/13/17 22:14 Dose: 20 mg Famotidine (Pepcid) 20 mg PO 0630,1700 [facility] Last Admin: 04/14/17 06:53 Dose: 20 mg Ferrous Gluconate (Fergon) 324 mg PO TID [facility] Last Admin: 04/13/17 17:17 Dose: 324 mg Furosemide (Lasix) 20 mg PO DAILY [facility] Last Admin: 04/13/17 08:31 Dose: Not Given Sodium Chloride (Sodium Chloride 0.9%) 1,000 mls @ 100 mls/hr IV .Q10H [facility] Last Admin: 04/14/17 03:00 Dose: 100 mls/hr Moxifloxacin HCl (Avelox Iv 400mg/250ml Ns) 400 mg in 250 mls @ 250 mls/hr IVPB DAILY@2200 [facility] Last Admin: 04/13/17 22:42 Dose: 250 mls/hr Insulin Human Lispro (Humalog) 0 units SC 0630,2100 [facility] PRN Reason: Protocol Last Admin: 04/14/17 06:54 Dose: Not Given Lisinopril (Zestril) 5 mg PO [facility] Last Admin: 04/13/17 22:22 Dose: Not Given Metoprolol Tartrate (Lopressor) 50 mg PO DAILY [facility] Last Admin: 04/13/17 08:31 Dose: Not Given Mupirocin (Bactroban Ointment) 1 applic TOP 0630,1700 [facility] Last Admin: 04/14/17 06:53 Dose: 1 applic Nystatin (Nystop Topical Powder) 1 applic TOP TID [facility] Last Admin: 04/13/17 17:17 Dose: 1 pow Quetiapine Fumarate (Seroquel) 50 mg PO DAILY@1700 [facility] Last Admin: 04/13/17 17:16 Dose: 50 mg Results - Vital Signs Recent Vital Signs: Last Vital Signs Temp 98.1 F 04/13/17 20:00 Pulse 84 04/13/17 22:22 Resp 20 04/13/17 20:00 BP 92/58 L 04/13/17 22:22 Pulse Ox 100 04/13/17 20:00 - Labs Result Diagrams: 04/14/17 05:45 04/13/17 05:30 Labs: Laboratory Results - last 24 hr 04/13/17 04/13/17 04/13/17 05:30 05:30 14:00 WBC 17.4 H RBC 3.55 L Hgb 9.3 L Hct 29.4 L MCV 82.9 MCH 26.2 L MCHC 31.6 L RDW 18.0 H Plt Count 348 Sodium 135 Potassium 4.7 Chloride 100 Carbon Dioxide 20 L Anion Gap 20 BUN 64 H Creatinine 2.8 H Est GFR ( Amer) 27 Est GFR (Non-Af Amer) 22 POC Glucose (mg/dL) Random Glucose 90 Calcium 8.7 Urine Color Urine Clarity Urine pH Ur Specific [place] Urine Protein Urine Glucose (UA) Urine Ketones Urine Blood Urine Nitrate Urine Bilirubin Urine Urobilinogen Ur Leukocyte Esterase Urine RBC (Auto) Urine Microscopic WBC Urine Bacteria Urine Yeast (Budding) Urine Osmolality 455 Ur Random Sodium 34 Ur Random Potassium 65.9 04/13/17 04/13/17 04/14/17 17:23 20:37 05:11 WBC RBC Hgb Hct MCV MCH MCHC RDW Plt Count Sodium Potassium Chloride Carbon Dioxide Anion Gap BUN Creatinine Est GFR ( Amer) Est GFR (Non-Af Amer) POC Glucose (mg/dL) 110 103 Random Glucose Calcium Urine Color Yellow Urine Clarity Clear Urine pH 5.0 Ur Specific [place] 1.010 Urine Protein Negative Urine Glucose (UA) Neg Urine Ketones Negative Urine Blood Small Urine Nitrate Negative Urine Bilirubin Negative Urine Urobilinogen 0.2-1.0 Ur Leukocyte Esterase Neg Urine RBC (Auto) 7 H Urine Microscopic WBC 6 H Urine Bacteria Occ H Urine Yeast (Budding) Many H Urine Osmolality Ur Random Sodium Ur Random Potassium 04/14/17 05:45 WBC 16.6 H RBC 3.34 L Hgb 9.0 L Hct 27.4 L MCV 82.0 MCH 26.8 L MCHC 32.7 L RDW 17.5 H Plt Count 302 Sodium Potassium Chloride Carbon Dioxide Anion Gap BUN Creatinine Est GFR ( Amer) Est GFR (Non-Af Amer) POC Glucose (mg/dL) Random Glucose Calcium Urine Color Urine Clarity Urine pH Ur Specific [place] Urine Protein Urine Glucose (UA) Urine Ketones Urine Blood Urine Nitrate Urine Bilirubin Urine Urobilinogen Ur Leukocyte Esterase Urine RBC (Auto) Urine Microscopic WBC Urine Bacteria Urine Yeast (Budding) Urine Osmolality Ur Random Sodium Ur Random Potassium
[2017-04-14 07:52] LABS: CALCIUM 8.4 mg/dL (8.4-10.2); POTASSIUM 4.1 MMOL/L (3.6-5.0)
--- NOTE | 2017-04-14 08:15 | CP.PCM.CON ---
History of Present Illness - History of Present Illness History of Present Illness: pt seen and examined, full consult is dictated # 1. VIPIN, sec to volume depletion and dehydration 2. dehydration 3. Cardiomayopathy 4. s/p abd surgery and ileostomy 5. hypotension c/w with ivf ns at 100 ml /hr until bmp is available, encourage po intake Past Patient History - Infectious Disease Hx of Infectious Diseases: None, C.diff - Past Medical History & Family History Past Medical History?: Yes Past Family History: Reviewed and not pertinent - Past Social History Smoking Status: Never Smoked Alcohol: None Drugs: Denies - CARDIAC Hx Cardiac Disorders: Yes Hx Hypertension: Yes - PULMONARY Hx Respiratory Disorders: No - NEUROLOGICAL HX Cerebrovascular Accident: Yes - HEENT Hx HEENT Problems: No Hx Glaucoma: Yes - RENAL Hx Chronic Kidney Disease: No - ENDOCRINE/METABOLIC Hx Diabetes Mellitus Type 2: Yes - HEMATOLOGICAL/ONCOLOGICAL Hx AIDS: No Hx Human Immunodeficiency Virus (HIV): No - INTEGUMENTARY Other/Comment: RIGHT TEMPORAL LESION - MUSCULOSKELETAL/RHEUMATOLOGICAL Hx Falls: No - GASTROINTESTINAL Hx Gastrointestinal Disorders: Yes Hx Bowel Surgery: Yes Hx Colostomy: Yes Other/Comment: 03/17/2017 - exploratory lap, small bowel resection. 03/18/2017 - returned to OR for washout, end ileostomy, abdominal closure with bridging strattice mesh. h/o abdominal hernia - GENITOURINARY/GYNECOLOGICAL Hx Genitourinary Disorders: No - PSYCHIATRIC Hx Anxiety: Yes Hx Depression: Yes Hx Substance Use: No - SURGICAL HISTORY Hx Coronary Stent: Yes Other/Comment: RIGHT HIP FX with surgery - ANESTHESIA Hx Anesthesia: Yes Hx Anesthesia Reactions: No Hx Malignant Hyperthermia: No Meds Allergies/Adverse Reactions: Allergies Allergy/AdvReac Type Severity Reaction Status Date / Time Penicillins Allergy URTICARIA Verified 03/30/17 22:34 Sulfa (Sulfonamide Allergy URTICARIA Verified 03/30/17 22:34 Antibiotics) - Medications Medications: Current Medications Acetaminophen (Tylenol 325mg Tab) 650 mg PO Q6H PRN PRN Reason: Pain, moderate (4-7) Last Admin: 04/11/17 06:53 Dose: 650 mg Albuterol/Ipratropium (Duoneb 3 Mg/0.5 Mg (3 Ml) Ud) 3 ml IH RQ4 [facility] Last Admin: 04/14/17 05:25 Dose: 3 ml Atorvastatin Calcium (Lipitor) 50 mg PO HS [facility] Last Admin: 04/13/17 22:33 Dose: 50 mg Enoxaparin Sodium (Lovenox) 40 mg SC DAILY [facility] PRN Reason: Protocol Last Admin: 04/13/17 08:31 Dose: 40 mg Escitalopram Oxalate (Lexapro) 20 mg PO [facility] Last Admin: 04/13/17 22:14 Dose: 20 mg Famotidine (Pepcid) 20 mg PO 0630,1700 [facility] Last Admin: 04/14/17 06:53 Dose: 20 mg Ferrous Gluconate (Fergon) 324 mg PO TID [facility] Last Admin: 04/13/17 17:17 Dose: 324 mg Furosemide (Lasix) 20 mg PO DAILY [facility] Last Admin: 04/13/17 08:31 Dose: Not Given Sodium Chloride (Sodium Chloride 0.9%) 1,000 mls @ 100 mls/hr IV .Q10H [facility] Last Admin: 04/14/17 03:00 Dose: 100 mls/hr Moxifloxacin HCl (Avelox Iv 400mg/250ml Ns) 400 mg in 250 mls @ 250 mls/hr IVPB DAILY@2200 [facility] Last Admin: 04/13/17 22:42 Dose: 250 mls/hr Insulin Human Lispro (Humalog) 0 units SC 0630,2100 [facility] PRN Reason: Protocol Last Admin: 04/14/17 06:54 Dose: Not Given Lisinopril (Zestril) 5 mg PO [facility] Last Admin: 04/13/17 22:22 Dose: Not Given Metoprolol Tartrate (Lopressor) 50 mg PO DAILY [facility] Last Admin: 04/13/17 08:31 Dose: Not Given Mupirocin (Bactroban Ointment) 1 applic TOP 0630,1700 [facility] Last Admin: 04/14/17 06:53 Dose: 1 applic Nystatin (Nystop Topical Powder) 1 applic TOP TID [facility] Last Admin: 04/13/17 17:17 Dose: 1 pow Quetiapine Fumarate (Seroquel) 50 mg PO DAILY@1700 [facility] Last Admin: 04/13/17 17:16 Dose: 50 mg Results - Vital Signs Recent Vital Signs: Last Vital Signs Temp 98.1 F 04/13/17 20:00 Pulse 84 04/13/17 22:22 Resp 20 04/13/17 20:00 BP 92/58 L 04/13/17 22:22 Pulse Ox 100 04/13/17 20:00 - Labs Result Diagrams: 04/14/17 05:45 04/14/17 05:45 Labs: Laboratory Results - last 24 hr 04/13/17 04/13/17 04/13/17 14:00 17:23 20:37 WBC RBC Hgb Hct MCV MCH MCHC RDW Plt Count Sodium Potassium Chloride Carbon Dioxide Anion Gap BUN Creatinine Est GFR ( Amer) Est GFR (Non-Af Amer) POC Glucose (mg/dL) 110 Random Glucose Calcium Urine Color Yellow Urine Clarity Clear Urine pH 5.0 Ur Specific [place] 1.010 Urine Protein Negative Urine Glucose (UA) Neg Urine Ketones Negative Urine Blood Small Urine Nitrate Negative Urine Bilirubin Negative Urine Urobilinogen 0.2-1.0 Ur Leukocyte Esterase Neg Urine RBC (Auto) 7 H Urine Microscopic WBC 6 H Urine Bacteria Occ H Urine Yeast (Budding) Many H Urine Osmolality 455 Ur Random Sodium 34 Ur Random Potassium 65.9 04/14/17 04/14/17 04/14/17 05:11 05:45 05:45 WBC 16.6 H RBC 3.34 L Hgb 9.0 L Hct 27.4 L MCV 82.0 MCH 26.8 L MCHC 32.7 L RDW 17.5 H Plt Count 302 Sodium 135 Potassium 4.1 Chloride 102 Carbon Dioxide 20 L Anion Gap 17 BUN 58 H Creatinine 2.2 H Est GFR ( Amer) 35 Est GFR (Non-Af Amer) 29 POC Glucose (mg/dL) 103 Random Glucose 85 Calcium 8.4 Urine Color Urine Clarity Urine pH Ur Specific [place] Urine Protein Urine Glucose (UA) Urine Ketones Urine Blood Urine Nitrate Urine Bilirubin Urine Urobilinogen Ur Leukocyte Esterase Urine RBC (Auto) Urine Microscopic WBC Urine Bacteria Urine Yeast (Budding) Urine Osmolality Ur Random Sodium Ur Random Potassium
[2017-04-14] MEDS ORDERED: Moxifloxacin IV 400mg/250ml NS 400 MG/250 ML BAG IVPB SCH (09:00)
[2017-04-14] MEDS: Enoxaparin 40 mg Syringe SC SCH (09:15)
[2017-04-14 09:17] VITALS: BP 98/56
[2017-04-14 10:48] VITALS: PULSE 82; TEMP 98.6; O2SAT 99
--- NOTE | 2017-04-14 11:34 | CP.PCM.PN ---
Subjective - Date & Time of Evaluation Date of Evaluation: 04/14/17 Time of Evaluation: 07:00 - Subjective Subjective: no acute complaints at present, although still anxious Objective - Vital Signs/Intake and Output Vital Signs (last 24 hours): Temp Pulse Resp BP Pulse Ox 98.6 F 82 20 98/56 L 99 04/14/17 10:00 04/14/17 10:00 04/14/17 10:00 04/14/17 10:00 04/14/17 10:00 Intake and Output: 04/14/17 04/14/17 06:59 18:59 Intake Total 1450 Output Total 800 Balance 650 - Medications Medications: Current Medications Acetaminophen (Tylenol 325mg Tab) 650 mg PO Q6H PRN PRN Reason: Pain, moderate (4-7) Last Admin: 04/11/17 06:53 Dose: 650 mg Albuterol/Ipratropium (Duoneb 3 Mg/0.5 Mg (3 Ml) Ud) 3 ml IH RQ4 [facility] Last Admin: 04/14/17 11:25 Dose: Not Given Atorvastatin Calcium (Lipitor) 50 mg PO [facility] Last Admin: 04/13/17 22:33 Dose: 50 mg Enoxaparin Sodium (Lovenox) 40 mg SC DAILY [facility] PRN Reason: Protocol Last Admin: 04/14/17 09:15 Dose: 40 mg Escitalopram Oxalate (Lexapro) 20 mg PO HS [facility] Last Admin: 04/13/17 22:14 Dose: 20 mg Famotidine (Pepcid) 20 mg PO 0630,1700 [facility] Last Admin: 04/14/17 06:53 Dose: 20 mg Ferrous Gluconate (Fergon) 324 mg PO TID [facility] Last Admin: 04/14/17 09:16 Dose: 324 mg Furosemide (Lasix) 20 mg PO DAILY [facility] [place] Last Admin: 04/14/17 09:16 Dose: Not Given Sodium Chloride (Sodium Chloride 0.9%) 1,000 mls @ 100 mls/hr IV .Q10H [facility] Last Admin: 04/14/17 03:00 Dose: 100 mls/hr Moxifloxacin HCl (Avelox Iv 400mg/250ml Ns) 400 mg in 250 mls @ 250 mls/hr IVPB DAILY@2200 [facility] Last Admin: 04/13/17 22:42 Dose: 250 mls/hr Insulin Human Lispro (Humalog) 0 units SC 0630,2100 [facility] PRN Reason: Protocol Last Admin: 04/14/17 06:54 Dose: Not Given Lisinopril (Zestril) 5 mg PO HS [facility] Last Admin: 04/13/17 22:22 Dose: Not Given Metoprolol Tartrate (Lopressor) 50 mg PO DAILY [facility] Last Admin: 04/14/17 09:16 Dose: Not Given Mupirocin (Bactroban Ointment) 1 applic TOP 0630,1700 [facility] Last Admin: 04/14/17 06:53 Dose: 1 applic Nystatin (Nystop Topical Powder) 1 applic TOP TID [facility] Last Admin: 04/14/17 09:17 Dose: 1 pow Quetiapine Fumarate (Seroquel) 50 mg PO DAILY@1700 [facility] Last Admin: 04/13/17 17:16 Dose: 50 mg - Labs Labs: 04/14/17 05:45 04/14/17 05:45 - Head Exam Head Exam: ATRAUMATIC, NORMAL INSPECTION, NORMOCEPHALIC - Eye Exam Eye Exam: EOMI, Normal appearance, PERRL Pupil Exam: NORMAL ACCOMODATION - ENT Exam ENT Exam: Mucous Membranes Moist, Normal Exam - Respiratory Exam Respiratory Exam: NORMAL BREATHING PATTERN - Cardiovascular Exam Cardiovascular Exam: REGULAR RHYTHM - GI/Abdominal Exam GI & Abdominal Exam: Normal Bowel Sounds - Rectal Exam Rectal Exam: NORMAL INSPECTION - Exam External exam: NORMAL EXTERNAL EXAM - Extremities Exam Extremities Exam: Normal Capillary Refill, Normal Inspection - Back Exam Back Exam: NORMAL INSPECTION - Neurological Exam Neurological Exam: Alert, Awake Neuro motor strength exam: Left Upper Extremity: 3, Right Upper Extremity: 3, Left Lower Extremity: 3, Right Lower Extremity: 3 - Psychiatric Exam Psychiatric exam: Normal Affect, Normal Mood Assessment and Plan (1) Anemia Status: Acute (2) Bradycardia Status: Acute (3) CHF (congestive heart failure) Status: Acute (4) Edema Status: Acute (5) Left knee pain Status: Acute (6) PVD (peripheral vascular disease) Assessment & Plan: plan for physical, occupational, rec therapy, consider medical transfer if needed discussed with Tonio Land, on avelox, Iv treatment,Dr Ny is following up Status: Acute (7) Pneumonia Status: Acute (8) Small bowel obstruction Status: Acute
[2017-04-14] MEDS ORDERED: Santyl Collagenase OINTMENT TOP SCH (12:00)
--- NOTE | 2017-04-14 12:50 | CP.PCM.CON ---
History of Present Illness - History of Present Illness History of Present Illness: admitted to [facility] for acute inpatient rehabilitation following SBO with surgery and ileostomy WAS BEDRIDDEN AAT HOME PRIOR TO [facility] ANDF HAD DECUBITUS ON ADMISSION IN FEBRUARY AT THAT TIME IN [facility] [place] WAS MORIBUND AND IN SEPTIC SHOCK ID CALLED TO EVAL FOR LEUKOCYTOSIS , R/O SEPSIS Multiple medical comorbidities: HTN, CAD, CHF WITH LVEF 20, CVA WITH LEFT WEAKNESS, OBS, HLD Review of Systems - Review of Systems Systems not reviewed;Unavailable: Altered Mental Status - Constitutional Constitutional: As Per HPI - EENT Eyes: absent: As Per HPI, Blind Spots, Blurred Vision, Change in Vision, Decreased Night Vision, Diplopia, Discharge, Dry Eye, Exophthalmos, Floaters, Irritation, Itchy Eyes, Loss of Peripheral Vision, Pain, Photophobia, Requires Corrective Lenses, Sees Flashes, Spots in Vision, Tunnel Vision, Other Visual Disturbances, Loss of Vision, Other Ears: absent: As Per HPI, Decreased Hearing, Ear Discharge, Ear Pain, Tinnitus, Abnormal Hearing, Disequilibrium, Dizziness, Other Nose/Mouth/Throat: absent: As Per HPI, Epistaxis, Nasal Congestion, Nasal Discharge, Nasal Obstruction, Nasal Trauma, Nose Pain, Post Nasal Drip, Sinus Pain, Sinus Pressure, Bleeding Gums, Change in Voice, Dental Pain, Dry Mouth, Dysphagia, Halitosis, Hoarsness, Lip Swelling, Mouth Lesions, Mouth Pain, Odynophagia, Sore Throat, Throat Swelling, Tongue Swelling, Facial Pain, Neck Pain, Neck Mass, Other - Cardiovascular Cardiovascular: absent: As Per HPI, Acrocyanosis, Chest Pain, Chest Pain at Rest , Chest Pain with Activity, Claudication, Diaphoresis, Dyspnea, Dyspnea on Exertion, Edema, Irregular Heart Rhythm, Pain Radiating to Arm/Neck/Jaw, Leg Edema, Leg Ulcers, Lightheadedness, Orthopnea, Palpitations, Paroxysmal Nocturnal Dyspnea, Pedal Edema, Radiating Pain, Rapid Heart Rate, Slow Heart Rate, Syncope, Other - Respiratory Respiratory: absent: As Per HPI, Cough, Dyspnea, Hemoptysis, Dyspnea on Exertion , Wheezing, Snoring, Stridor, Pain on Inspiration, Chest Congestion, Excessive Mucous Production, Change in Mucous Color, Pain with Coughing, Other - Gastrointestinal Gastrointestinal: absent: As Per HPI, Abdominal Pain, Belching, Bloating, Change in Bowel Habits, Change in Stool Character, Coffee Ground Emesis, Constipation, Cramping, Diarrhea, Dyspepsia, Dysphagia, Early Satiety, Excessive Flatus, Fecal Incontinence, Heartburn, Hematemesis, Hematochezia, Loose Stools, Melena, Nausea, Odynophagia, Temesmus, Vomiting, Other - Genitourinary Genitourinary: absent: As Per HPI, Change in Urinary Stream, Difficulty Urinating, Dysuria, Flank Pain, Hematuria, Pyuria, Nocturia, Urinary Incontinence, Urinary Frequency, Urinary Hesitance, Urinary Urgency, Voiding Freq/Small Amts, Freq UTI, Hx Renal/Bladder Calculi, Hx /Renal Surgery, Bladder Distension, Other - Musculoskeletal Musculoskeletal: absent: As Per HPI, Abnormal Gait, Arthralgias, Atrophy, Back Pain, Deformity, Joint Swelling, Limited Range of Motion, Loss of Height, Muscle Cramps, Muscle Weakness, Myalgias, Neck Pain, Numbness, Radiating Pain into Limb, Stiffness, Tingling, Other - Integumentary Integumentary: absent: As Per HPI, Acne, Alopecia, Bleeding Lesions, Change in Hair, Change in Nails, Change in Pigmentation, Changing Lesions, Dry Skin, Erythema, Furuncle, Hirsutism, Lesions, New Lesions, Non-Healing Lesions, Photosensitivity, Pruritus, Rash, Skin Pain, Skin Ulcer, Sores, Striae, Swelling , Unusual Bruising, Wounds, Jaundice, Other - Neurological Neurological: absent: As Per HPI, Abnormal Gait, Abnormal Hearing, Abnormal Movements, Abnormal Speech, Behavioral Changes, Burning Sensations, Confusion, Convulsions, Disequilibrium, Dizziness, Numbness, Focal Weakness, Frequent Falls , Headaches, Lack of Coordination, Loss of Vision, Memory Loss, Paresthesias, Radicular Pain, Restless Legs, Sensory Deficit, Syncope, Tingling, Tremor, Vertigo, Weakness, Other Visual Disturbances, Other - Psychiatric Psychiatric: absent: As Per HPI, Abnormal Sleep Pattern, Anhedonia, Anxiety, Auditory Hallucinations, Behavioral Changes, Change in Appetite, Change in Libido, Confusion, Depression, Difficulty Concentrating, Hallucinations, Homicidal Ideation, Hopelessness, Irritability, Memory Loss, Mood Swings, Panic Attacks, Paranoia, Suicidal Ideation, Visual Hallucinations, Tactile Hallucinations, Other - Endocrine Endocrine: absent: As Per HPI, Change in Body Appearance, Change in Libido, Cold Intolorance, Deepening of Voice, Excessive Sweating, Fatigue, Flushing, Heat Intolorance, Increase in Ring/Shoe/Hat Size, Palpitations, Polydipsia, Polyphagia, Polyuria, Other - Hematologic/Lymphatic Hematologic: absent: As Per HPI, Easy Bleeding, Easy Bruising, Lymphadenopathy, Other Past Patient History - Infectious Disease Hx of Infectious Diseases: None, C.diff - Past Medical History & Family History Past Medical History?: Yes Past Family History: Reviewed and not pertinent - Past Social History Smoking Status: Never Smoked Alcohol: None Drugs: Denies - CARDIAC Hx Cardiac Disorders: Yes Hx Hypertension: Yes - PULMONARY Hx Respiratory Disorders: No - NEUROLOGICAL HX Cerebrovascular Accident: Yes - HEENT Hx HEENT Problems: No Hx Glaucoma: Yes - RENAL Hx Chronic Kidney Disease: No - ENDOCRINE/METABOLIC Hx Diabetes Mellitus Type 2: Yes - HEMATOLOGICAL/ONCOLOGICAL Hx AIDS: No Hx Human Immunodeficiency Virus (HIV): No - INTEGUMENTARY Other/Comment: RIGHT TEMPORAL LESION - MUSCULOSKELETAL/RHEUMATOLOGICAL Hx Falls: No - GASTROINTESTINAL Hx Gastrointestinal Disorders: Yes Hx Bowel Surgery: Yes Hx Colostomy: Yes Other/Comment: 03/17/2017 - exploratory lap, small bowel resection. 03/18/2017 - returned to OR for washout, end ileostomy, abdominal closure with bridging strattice mesh. h/o abdominal hernia - GENITOURINARY/GYNECOLOGICAL Hx Genitourinary Disorders: No - PSYCHIATRIC Hx Anxiety: Yes Hx Depression: Yes Hx Substance Use: No - SURGICAL HISTORY Hx Coronary Stent: Yes Other/Comment: RIGHT HIP FX with surgery - ANESTHESIA Hx Anesthesia: Yes Hx Anesthesia Reactions: No Hx Malignant Hyperthermia: No Meds Allergies/Adverse Reactions: Allergies Allergy/AdvReac Type Severity Reaction Status Date / Time Penicillins Allergy URTICARIA Verified 03/30/17 22:34 Sulfa (Sulfonamide Allergy URTICARIA Verified 03/30/17 22:34 Antibiotics) - Medications Medications: Current Medications Acetaminophen (Tylenol 325mg Tab) 650 mg PO Q6H PRN PRN Reason: Pain, moderate (4-7) Last Admin: 04/11/17 06:53 Dose: 650 mg Albuterol/Ipratropium (Duoneb 3 Mg/0.5 Mg (3 Ml) Ud) 3 ml IH RQ4 [facility] Last Admin: 04/14/17 11:25 Dose: Not Given Atorvastatin Calcium (Lipitor) 50 mg PO [facility] Last Admin: 04/13/17 22:33 Dose: 50 mg Collagenase (Santyl) 1 applic TOP DAILY [facility] Enoxaparin Sodium (Lovenox) 40 mg SC DAILY [facility] PRN Reason: Protocol Last Admin: 04/14/17 09:15 Dose: 40 mg Escitalopram Oxalate (Lexapro) 20 mg PO [facility] Last Admin: 04/13/17 22:14 Dose: 20 mg Famotidine (Pepcid) 20 mg PO 0630,1700 [facility] Last Admin: 04/14/17 06:53 Dose: 20 mg Ferrous Gluconate (Fergon) 324 mg PO TID [facility] Last Admin: 04/14/17 09:16 Dose: 324 mg Furosemide (Lasix) 20 mg PO DAILY [facility] Last Admin: 04/14/17 09:16 Dose: Not Given Sodium Chloride (Sodium Chloride 0.9%) 1,000 mls @ 100 mls/hr IV .Q10H [facility] Last Admin: 04/14/17 03:00 Dose: 100 mls/hr Moxifloxacin HCl (Avelox Iv 400mg/250ml Ns) 400 mg in 250 mls @ 250 mls/hr IVPB DAILY@2200 [facility] Last Admin: 04/13/17 22:42 Dose: 250 mls/hr Insulin Human Lispro (Humalog) 0 units SC 0630,2100 [facility] PRN Reason: Protocol Last Admin: 04/14/17 06:54 Dose: Not Given Lisinopril (Zestril) 5 mg PO [facility] Last Admin: 04/13/17 22:22 Dose: Not Given Metoprolol Tartrate (Lopressor) 50 mg PO DAILY [facility] Last Admin: 04/14/17 09:16 Dose: Not Given Miconazole Nitrate (Critic-Aid Clear Af) 1 applic TOP DAILY [facility] Mupirocin (Bactroban Ointment) 1 applic TOP 0630,1700 [facility] Last Admin: 04/14/17 06:53 Dose: 1 applic Nystatin (Nystop Topical Powder) 1 applic TOP TID [facility] Last Admin: 04/14/17 09:17 Dose: 1 pow Quetiapine Fumarate (Seroquel) 50 mg PO DAILY@1700 [facility] Last Admin: 04/13/17 17:16 Dose: 50 mg Physical Exam - Constitutional Appears: Confused, Cachectic, Chronically Ill - Head Exam Head Exam: ATRAUMATIC, NORMAL INSPECTION, NORMOCEPHALIC - Eye Exam Eye Exam: PERRL. absent: Scleral icterus - ENT Exam ENT Exam: Mucous Membranes Dry, Normal External Ear Exam - Neck Exam Neck exam: Negative for: Lymphadenopathy, Thyromegaly - Respiratory Exam Respiratory Exam: Decreased Breath Sounds, Rhonchi - Cardiovascular Exam Cardiovascular Exam: REGULAR RHYTHM, +S1, +S2 - GI/Abdominal Exam GI & Abdominal Exam: Diminished Bowel Sounds, Distended, Soft. absent: Guarding , Rebound, Rigid, Tenderness Additional comments: ILEOSTOMY + - Rectal Exam Rectal Exam: Deferred Additional comments: LARGE UNSTAGEABLE SACRAL DECUBITUS - Exam Exam: NORMAL INSPECTION - Extremities Exam Extremities exam: Positive for: pedal pulses present. Negative for: calf tenderness, pedal edema, tenderness - Back Exam Back exam: absent: CVA tenderness (L), CVA tenderness (R), paraspinal tenderness - Neurological Exam Neurological exam: Alert, Altered, CN II-XII Intact - Psychiatric Exam Psychiatric exam: Normal Mood - Skin Skin Exam: Dry, Intact Results - Vital Signs Recent Vital Signs: Last Vital Signs Temp 98.6 F 04/14/17 10:00 Pulse 82 04/14/17 10:00 Resp 20 04/14/17 10:00 BP 98/56 L 04/14/17 10:00 Pulse Ox 99 04/14/17 10:00 - Labs Result Diagrams: 04/14/17 05:45 04/14/17 05:45 Labs: Laboratory Results - last 24 hr 04/13/17 04/13/17 04/13/17 14:00 17:23 20:37 WBC RBC Hgb Hct MCV MCH MCHC RDW Plt Count Sodium Potassium Chloride Carbon Dioxide Anion Gap BUN Creatinine Est GFR ( Amer) Est GFR (Non-Af Amer) POC Glucose (mg/dL) 110 Random Glucose Calcium Urine Color Yellow Urine Clarity Clear Urine pH 5.0 Ur Specific [place] 1.010 Urine Protein Negative Urine Glucose (UA) Neg Urine Ketones Negative Urine Blood Small Urine Nitrate Negative Urine Bilirubin Negative Urine Urobilinogen 0.2-1.0 Ur Leukocyte Esterase Neg Urine RBC (Auto) 7 H Urine Microscopic WBC 6 H Urine Bacteria Occ H Urine Yeast (Budding) Many H Urine Osmolality 455 Ur Random Sodium 34 Ur Random Potassium 65.9 04/14/17 04/14/17 04/14/17 05:11 05:45 05:45 WBC 16.6 H RBC 3.34 L Hgb 9.0 L Hct 27.4 L MCV 82.0 MCH 26.8 L MCHC 32.7 L RDW 17.5 H Plt Count 302 Sodium 135 Potassium 4.1 Chloride 102 Carbon Dioxide 20 L Anion Gap 17 BUN 58 H Creatinine 2.2 H Est GFR ( Amer) 35 Est GFR (Non-Af Amer) 29 POC Glucose (mg/dL) 103 Random Glucose 85 Calcium 8.4 Urine Color Urine Clarity Urine pH Ur Specific [place] Urine Protein Urine Glucose (UA) Urine Ketones Urine Blood Urine Nitrate Urine Bilirubin Urine Urobilinogen Ur Leukocyte Esterase Urine RBC (Auto) Urine Microscopic WBC Urine Bacteria Urine Yeast (Budding) Urine Osmolality Ur Random Sodium Ur Random Potassium Assessment & Plan (1) Dementia Status: Acute (2) CHF (congestive heart failure) Status: Acute (3) PVD (peripheral vascular disease) Status: Acute - Assessment and Plan (Free Text) Assessment: SEPTIC WORK UP PENDING IV RX IN PROGRESS AWIT CULTURES POSSIBLE PNEUMONIA MAY NEED ACUTE CARE WITH PULM EVAL
[2017-04-14] MEDS ORDERED: metroNIDAZOLE 500mg/100ml NS 100 ML IVPB SCH (14:00)
--- NOTE | 2017-04-14 19:19 | PN ---
DATE: 04/14/2017 HISTORY OF PRESENT ILLNESS: The patient seen and examined. Interim events noted. Consults noted, ap preciated. The patient remains in acute rehab unit. Denies any specific complaints, although the renard william is not a good historian. PHYSICAL EXAMINATION: GENERAL: The patient is in no acute distress. VITAL SIGNS: Stable. HEART: S1, S2 normal, regular. LUNGS: Good bilateral air exchange. ABDOMEN: Soft, nontender. EXTREMITIES: No edema, no calf swelling, no tenderness, no acute ischemia. CENTRAL NERVOUS SYSTEM: Unchanged. ASSESSMENT: Colostomy is functioning fine. The patient has poor urinary output. PLAN: As ordered. Eros Chowdary MD cc: [id number] TT: 04/14/2017 19:18:53 Confirmation # [id number] Dictation # [id number]
--- NOTE | 2017-04-14 22:58 | CON ---
DATE: 04/14/2017 REQUESTING PHYSICIAN: Dr. Cleveland Wiseman. REASON FOR RENAL CONSULTATION: Acute renal failure for further evaluation. 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 Subseq uently the patient was admitted to [facility] 1 week later with abdominal pain, nause a, vomiting, and underwent exploratory lap and small bowel resection on 03/17/2017. On 03/18/2017 jammie ent underwent again surgery for an abdominal washout and ileostomy placement. From there, the patinegrito t was sent to the acute rehabilitation for debility and physical therapy. Now renal consult is reque sted for acute renal failure. The patient denies any chest pain, palpitation. The patient has decre ased p.o. intake and poor appetite. Denies any chest pain, palpitation. Denies any nausea, vomiting . Denies any abdominal pain. Denies any dysuria or frequency. PAST MEDICAL HISTORY: Significant for hypertension, longstanding coronary artery disease, CVA, CHF a nd cardiomyopathy, ejection fraction about 24%. PAST SURGICAL HISTORY: Status post small bowel surgery, exploratory lap and ileostomy. ALLERGIES: PENICILLIN AND SULFA. SOCIAL HISTORY: Denies any smoking, alcohol or drugs. PERSONAL HISTORY: Not significant. FAMILY HISTORY: Not significant. REVIEW OF SYSTEMS: Significant for decreased p.o. intake and dehydration and poor appetite. All oth er review of systems are reviewed and are negative. PHYSICAL EXAMINATION: VITAL SIGNS: This morning, blood pressure is 98/56, pulse 82, respiration 20, temperature 98.6, satu ration 99% on 2 liters nasal cannula. Height 5 feet 6 inches and weight is 127 pounds, BMI 20.5 kg/m 2. GENERAL: In summary, the patient is a 76-year-old elderly male, very cachectic, thin build, not in d istress. HEENT: Pupils normal, reactive to light and accommodation. Conjunctivae pink. Sclerae anicteric. Tongue is dry. NECK: Trachea is midline. LUNGS: Symmetric on both sides. Bilateral breath sounds present. Clear on auscultation. CARDIOVASCULAR: [place] at the fifth intercostal space midclavicular line. S1 and S2 audible. No murm ur, no gallop. ABDOMEN: Normal in appearance, soft, tympanic. The patient has ileostomy. CENTRAL NERVOUS SYSTEM: The patient is awake, following commands appropriately. Cranial nerves II-X II grossly intact. Sensory and motor system is within normal limits. EXTREMITIES: No cyanosis, no clubbing, no edema. SKIN: Turgor is very poor. CURRENT MEDICATIONS: Include as follows Approximately 400 mg daily, Bactroban ointment topical b.i.d ., DuoNeb inhaler q. 4 hours, ferrous gluconate 324 mg p.o. t.i.d. and Flagyl 500 mg IV q. 8 hours an d Humalog for sliding scale, Lasix 20 mg p.o. daily, Lexapro 20 mg p.o. at bedtime, Lipitor 50 mg p.o . at bedtime, Lopressor 50 mg p.o. daily, Lovenox 40 mg subQ daily, Pepcid 20 mg p.o. b.i.d., Seroque l 50 mg p.o. daily, IV fluids normal saline at 100 mL per hour, and Zestril 5 mg p.o. daily on hold s yenny yesterday. LABORATORY DATA: Include as follows as of 04/13/2017: WBC 17.4, hemoglobin 9.3, hematocrit is 29.4, platelets 348. Sodium 135, potassium 4.7, chloride 100, CO2 20, BUN 64, creatinine 2.8, glucose 90, calcium 8.7. Urinalysis: Yellow, clear, pH 5, specific gravity 1.010, protein negative, glucose neg ative, ketones negative, blood small, nitrites negative, urobilinogen is negative and leukocyte pat ase negative, RBC 7, WBC 6 and bacteria occasional, yeast is many, urine osmolality 455. Urine sodiu m is 34, urine potassium 65.9. As of 04/14/2017 WBC 16.6, hemoglobin 9, hematocrit is 27.4, platelets 302. Sodium 135, potassium 4.1, chloride 102, CO2 20, BUN 58, creatinine 2.2, glucose 85, calcium 8 .4. His other laboratory data as of 04/08/2017 BUN and creatinine 25/1.2 and TSH is 2.36 and B12 is m ore than 1000. SUMMARY: The patient is a 76-year-old elderly male, very cachectic with a history of hypert ension, diabetes, congestive heart failure, coronary artery disease, cardiomyopathy, cerebrovascular accident with left-sided mild residual weakness, hernias and small bowel obstruction, status post galo jayson, exploratory lap and ileostomy, questionable depression, was admitted from [facility] to acute rehab on 03/30/2017 for debility and physical therapy and now the patient was found to have increased BUN and creatinine with decreased p.o. intake, on Lasix and MENDEZ inhibitor. 1. Nonoliguric acute renal failure, most likely secondary to intravascular volume depletion secondar y to decreased p.o. intake, on Lasix and MENDEZ inhibitors. 2. Hypotension secondary to dehydration. 3. Cardiomyopathy. 4. Hypertension. 5. Diabetes. 6. Depression. 7. Status post exploratory lap with ileostomy. PLAN: Continue IV fluids, normal saline at 100 mL per hour and monitor for volume overload and repea t BMP in a.m. and monitor I's and O's. Renal function is slightly better today and hold Lasix and ho ld MENDEZ inhibitors at this time. We will follow with you. Thank you for allowing me to participate in your patient's care. Grzegorz Mulligan MD cc: [id number] TT: 04/14/2017 22:58:22 Confirmation # [id number] Dictation # [id number] saba
[2017-04-15] MEDS ORDERED: Critic-Aid Clear AF TOP SCH (09:00)
== END 2017-04-14 16:20 | disposition home or self-care (01) | DRG 948 ==
PROVIDERS: ADMIT Internal Medicine; ATTEND Internal Medicine
DX: R53.1 Weakness (principal); L89.152 Pressure ulcer of sacral region, stage 2; N17.9 Acute kidney failure, unspecified; R64 Cachexia; I95.9 Hypotension, unspecified; I11.0 Hypertensive heart disease with heart failure; I42.9 Cardiomyopathy, unspecified; F33.9 Major depressive disorder, recurrent, unspecified; I69.354 Hemiplegia and hemiparesis following cerebral infarction affecting left non-dominant side; I50.9 Heart failure, unspecified; F03.90 Unspecified dementia, unspecified severity, without behavioral disturbance, psychotic disturbance, mood disturbance, and anxiety; E11.9 Type 2 diabetes mellitus without complications; E86.0 Dehydration; I25.10 Atherosclerotic heart disease of native coronary artery without angina pectoris; H40.9 Unspecified glaucoma; Z93.3 Colostomy status; F41.9 Anxiety disorder, unspecified; F22 Delusional disorders; Z95.5 Presence of coronary angioplasty implant and graft; Z96.641 Presence of right artificial hip joint; Z88.0 Allergy status to penicillin; Z88.2 Allergy status to sulfonamides; M25.511 Pain in right shoulder; M25.512 Pain in left shoulder; Z93.2 Ileostomy status; G89.29 Other chronic pain; L98.9 Disorder of the skin and subcutaneous tissue, unspecified; I73.9 Peripheral vascular disease, unspecified; Z82.49 Family history of ischemic heart disease and other diseases of the circulatory system; Z82.0 Family history of epilepsy and other diseases of the nervous system; Z68.20 Body mass index [BMI] 20.0-20.9, adult

== ENCOUNTER 2017-04-14 16:16 | Inpatient (IN) | payer MEDICARE, BC ==
[2017-04-14 16:16] VITALS: BMI 27.8
--- NOTE | 2017-04-14 17:27 | ED PDOC ---
HPI: General Adult Time Seen by Provider: 04/14/17 16:26 Chief Complaint (Nursing): Abnormal Labs Chief Complaint (Provider): Dehydration History Per: Family () History/Exam Limitations: no limitations Have you had recent travel within the past 21 days to any of the following countries: [place], [place], [place] or [place]?: No Current Symptoms Are (Timing): Still Present Severity: Moderate Context: patient transferred from rehabilitation center for elevated blood results Similar Symptoms Previously: extensive past medical history, inclusive of hypertension Recently: Seen In ED, Treated By A Physician, Hospitalized Additional History Per: Prior Records Additional Complaint(s): Clarence Roberts is a 76 year old male, with a past medical history of hypertension who is brought from the 6th floor because of fever and elevated WBC since yesterday. As per PMD, his biggest issue is that he has a stage 4 decubitus ulcer. Patient was initially admitted at [facility]. Patient admits to having shortness of breath. Of note, patient is allergic to penicillin and sulfonamide. PMD: Cleveland Stearns Past Medical History Reviewed: Historical Data, Nursing Documentation, Vital Signs Vital Signs: Last Vital Signs Temp 101.1 F H 04/14/17 16:25 Pulse 100 H 04/14/17 16:25 Resp 18 04/14/17 16:25 BP 150/88 04/14/17 16:25 Pulse Ox 96 04/14/17 17:48 - Medical History PMH: Anemia, Anxiety, Arthritis, CAD, CHF, COPD, CVA, Depression, Diabetes ( type II), Fractures (R hip), GERD, HTN, Hypercholesterolemia, Hyperlipidemia, Kidney Stones, Peripheral Edema (LLE +1, pitting), Pneumonia Denies: HIV, Chronic Kidney Disease Other PMH: Myocardial Infarction, Ulcer (perforated), Glaucoma - Surgical History Surgical History: Coronary Stent, Hernia Repair (abdominal herniorrhaphy) Denies: Pacemaker Other surgeries: Colostomy, Small Bowel Resection, R Hip Replacement (x5-6 years ago), Exploratory Laparoscopy - Family History Family History: States: No Known Family Hx - Living Arrangements Living Arrangements: With Family (with ) - Social History Current smoker - smoking cessation education provided: No Ex-Smoker (has not smoked in the last 12 months): No Alcohol: None Drugs: Denies - Home Medications Home Medications: Ambulatory Orders Medication Instructions Recorded Metoprolol Tartrate [Lopressor] 50 mg PO DAILY #0 tab 12/27/16 Acetaminophen [Tylenol 325mg tab] 650 mg PO Q6H PRN 03/30/17 Atorvastatin [Lipitor] 50 mg PO HS 03/30/17 Collagenase [Santyl] 1 appl TOP DAILY 03/30/17 Enoxaparin [Lovenox] 40 mg SQ DAILY 03/30/17 Albuterol/Ipratropium [Duoneb 3 3 ml IH Q4H 03/31/17 MG/3 Ml-0.5 MG/3 Ml 3 Ml] Escitalopram [Lexapro] 20 mg PO HS 04/14/17 Famotidine [Pepcid] 20 mg PO 0630,17004/14/17 Ferrous Gluconate [Fergon] 324 mg PO TID 04/14/17 Furosemide [Lasix] 20 mg PO DAILY 04/14/17 Insulin Lispro [humALOG] See Protocol SC 0630,2100 04/14/17 Lisinopril [Zestril] 5 mg PO HS 04/14/17 Miconazole Nitrate [Critic-Aid 1 appl TOP DAILY 04/14/17 Clear AF] Moxifloxacin IV 400mg/250ml NS 400 mg IV DAILY@2200 04/14/17 [Avelox IV 400mg/250ml NS] Mupirocin 2% Ointment [Bactroban 1 appl TOP 0630,17004/14/17 Ointment] Nystatin [Nystop Topical Powder] 1 appl TOP TID 04/14/17 QUEtiapine [SEROquel] 50 mg PO DAILY@17004/14/17 metroNIDAZOLE 500mg/100ml NS 500 mg IV Q8H 04/14/17 [Flagyl 500MG/100ML NS] - Allergies Allergies/Adverse Reactions: Allergies Allergy/AdvReac Type Severity Reaction Status Date / Time Penicillins Allergy URTICARIA Verified 03/30/17 22:34 Sulfa (Sulfonamide Allergy URTICARIA Verified 03/30/17 22:34 Antibiotics) Review of Systems ROS Statement: Except As Marked, All Systems Reviewed And Found Negative Constitutional: Positive for: Other (dehydration) Respiratory: Positive for: Shortness of Breath Physical Exam - Reviewed Nursing Documentation Reviewed: Yes Vital Signs Reviewed: Yes - Physical Exam Appears: Positive for: Non-toxic, No Acute Distress Head Exam: Positive for: ATRAUMATIC, NORMOCEPHALIC Skin: Positive for: Warm, Dry, Pallor (mild) ENT: Positive for: Normal ENT Inspection, Other (dry mucous membranes, dry lips) . Negative for: Pharyngeal Erythema, Tonsillar Exudate, Tonsillar Swelling Cardiovascular/Chest: Positive for: Regular Rate, Rhythm, Murmur (3/6 systolic murmur to L sternal border radiating to aorta) Respiratory: Positive for: Normal Breath Sounds. Negative for: Accessory Muscle Use, Wheezing, Respiratory Distress Gastrointestinal/Abdominal: Positive for: Normal Exam, Soft, Other (colostomy placed to R side, which is draining normal stool; midline scar down abdominal wall, proximal incision is dehiscence). Negative for: Tenderness, Distended Extremity: Positive for: Normal ROM, Other (upper and lower extremities are extraordinarily thin and emaciated appearing). Negative for: Tenderness, Swelling Neurologic/Psych: Positive for: Alert, Oriented - ECG O2 Sat by Pulse Oximetry: 96 (RA) Pulse Ox Interpretation: Normal Medical Decision Making Medical Decision Makin:26 Initial Impression: Dehydration r/o renal insufficiency Initial Plan: * Chest X-Ray * Venous Blood Gas Shock Panel * Urine Dip * Urinalysis * Blood Culture * Urine Culture * Reevaluation Scribe Attestation: Documented by Wade Shultz, acting as a scribe for Brianna Cline MD. Provider Scribe Attestation: All medical record entries made by the Scribe were at my direction and personally dictated by me. I have reviewed the chart and agree that the record accurately reflects my personal performance of the history, physical exam, medical decision making, and the department course for this patient. I have also personally directed, reviewed, and agree with the discharge instructions and disposition. Disposition - Clinical Impression Clinical Impression: Fever - Patient ED Disposition Is Patient to be Admitted: Yes Doctor Will See Patient In The: Hospital - Disposition Disposition: Transfer of Care Disposition Time: 17:50 Condition: GUARDED - Pt Status Changed To: Hospital Disposition Of: Inpatient - Admit Certification Admit to Inpatient:: After my assessment, the patient will require hospitalization for at least two midnights. This is because of the severity of symptoms shown, intensity of services needed, and/or the medical risk in this patient being treated as an outpatient. - POA Present On Arrival: None
[2017-04-14 17:46] LABS: VENOUS BLOOD GAS BASE EXCESS -3.4 mmol/L (0.0-2.0); VENOUS BLOOD GAS PCO2 22 mmHg (40-60); VENOUS BLOOD PH 7.52 (7.32-7.43)
[2017-04-14] MEDS ORDERED: Hydrogen Peroxide 3% Soln (480ml) TP ONE (17:53)
[2017-04-14 17:56] LABS: RBC URINE 1 /hpf (0-3); URINE BACTERIA RARE (<OCC); URINE BILIRUBIN NEGATIVE (NEGATIVE); URINE BLOOD SMALL (NEGATIVE); URINE COLOR YELLOW (YELLOW); URINE GLUCOSE (UA) NEG (Normal); URINE KETONE NEGATIVE (NEGATIVE); URINE LEUKOCYTE ESTERASE SMALL Leu/uL (Negative); URINE PROTEIN 30 mg/dL (NEGATIVE); URINE UROBILINOGEN 0.2-1.0 mg/dL (0.2-1.0); WBC URINE 7 /hpf (0-5)
--- NOTE | 2017-04-14 18:12 | RAD ---
HISTORY: Fever. COMPARISON: April 13, 2017. FINDINGS: LUNGS: No active pulmonary disease. PLEURA: No significant pleural effusion identified, no pneumothorax apparent. CARDIOVASCULAR: No radiographic findings to suggest acute or significant cardiovascular disease. OSSEOUS STRUCTURES: No significant abnormalities. VISUALIZED UPPER ABDOMEN: Normal. OTHER FINDINGS: None. IMPRESSION: No active disease. No significant interval change compared to the prior examination(s).
[2017-04-14] MEDS: Sodium Chloride 0.9% 1,000 ML IV SCH (21:40)
[2017-04-15] MEDS: Aztreonam 1 GM in Sodium Chloride 0.9% 100 ML IVPB SCH ×4 (02:37→16:43)
[2017-04-15] MEDS: Enoxaparin 30 mg Syringe SC SCH (08:58)
--- NOTE | 2017-04-15 09:14 | HP ---
The patient is not able to provide any informative history or review of systems. History is obtained from chart. CHIEF COMPLAINT: The patient was transferred from acute rehab unit for suspected sepsis. HISTORY OF PRESENT ILLNESS: This is a 76-year-old man, known case of hypertension, coronary artery d isease, status post CVA, who also underwent recent surgery for incarcerated hernia and ileostomy, dur ing which patient also developed septic shock, acute respiratory failure requiring mechanical ventila tion after which the patient was transferred to acute rehab unit for recuperation where the patient's condition started getting worse, so patient was sent to the Emergency Room and was admitted for furt her management. REVIEW OF SYSTEMS: Positive for agitation, fever and generalized weakness. Review of systems otherw ise is very hard to obtain from this patient, but is negative for headache, dizziness, syncope, loss of consciousness, chest pain, shortness of breath, nausea, vomiting, diarrhea, constipation, any new joint or extremity pain, although as mentioned earlier, review of systems is not reliable. PAST MEDICAL HISTORY: Significant for hypertension, coronary artery disease, CVA, recent hospitaliza tion for incarcerated hernia. PAST SURGICAL HISTORY: Remarkable for recent ileostomy and incarcerated hernia. PERSONAL HISTORY: The patient is nonsmoker, nondrinker, no substance abuse. MEDICATIONS: The patient is on multiple medications which are as per reconciliation sheet, which was reviewed in order. ALLERGIES: THE PATIENT IS ALLERGIC TO PENICILLIN AND SULFA. FAMILY HISTORY: Noncontributory. PHYSICAL EXAMINATION: GENERAL: Elderly sick-looking male in no acute distress. VITAL SIGNS: Temperature 97.5, pulse 85, respirations 18, blood pressure 111/63. HEENT: Pupils reacting to light. No JVD, no thyromegaly, no lymphadenopathy, no nystagmus. Normoce phalic, atraumatic skull. HEART: S1, S2 tachycardic. No significant murmur, gallop or rub is heard. LUNGS: Show good bilateral air exchange. No rales or rhonchi. ABDOMEN: Soft, nontender, no organomegaly, no fluid. Bowel sounds are plus. The patient has a righ t lower quadrant ileostomy which seems to be functioning fine with liquidy stool. EXTREMITIES: No edema, no calf swelling, no tenderness, no acute ischemia. CENTRAL NERVOUS SYSTEM: Essentially unchanged from patient's usual exam and there is no sign of any acute gross focal motor or sensory neurological deficit, although thorough PRESSURE STEAMER TENDER exam is not possible t o be done on this patient. SKIN: The patient has sacral unstageable decubitus. DIAGNOSTIC DATA: Available diagnostic data reviewed. Urinalysis shows 7 WBC. Venous blood gas show s pH 7.52, pCO2 of 35, pCO2 of 22. WBC is done in acute rehab, shows white count of 16.6, hemoglobin 9, hematocrit 27, platelets 302. Sodium 135, potassium 4.1, chloride 102, bicarb 20, BUN 58, creati nine 2.2. ADMITTING IMPRESSION: Sepsis syndrome, infected decubitus, prerenal azotemia secondary to sepsis. I leostomy status, hypertension, coronary artery disease, status post cerebrovascular accident, dementi a. PLAN: As ordered. Case and plan discussed with patient. Eros Chowdary MD cc: [id number] TT: 04/15/2017 09:13:46 tn
[2017-04-15] MEDS: Insulin Lispro (humaLOG) 100 Units/ml Inj SC SCH ×3 (15:56→22:02)
[2017-04-15] MEDS: Sodium Chloride 0.9% 1,000 ML IV SCH (17:40)
[2017-04-16] MEDS: Aztreonam 1 GM in Sodium Chloride 0.9% 100 ML IVPB SCH ×3 (01:07→16:05)
--- NOTE | 2017-04-16 05:06 | PCM.RRTMUL ---
QUALITY CONTROL ASSOCIATE Nurse Assessment - Vital Signs Blood Pressure:: 108/52 Pulse Rate:: 45 Respiratory Rate:: 16 Temperature:: 97.9 F I.Reason for QUALITY CONTROL ASSOCIATE - A) Acute Change in Patient: (Select all that apply): Acute change in heart rate less than 50 or greater than 120, Acute change in SBP below Subjective: QUALITY CONTROL ASSOCIATE Reason: QUALITY CONTROL ASSOCIATE called by RN beause patient with low blood pressure QUALITY CONTROL ASSOCIATE Location: [facility] QUALITY CONTROL ASSOCIATE Vitals: T-97.9 BP-108/52 HR-45 RR-16 O2- 96% Repeat BP shows 83/53 CC/HPI: Pt. examined at bedside. Pt. is not responding to verbal, tactile, or painful stimuli. Pt. is however noted to be opening eye spontaneously. Pt. with no apparent complaints at this time. ROS: Unable to assess General: No apparent distress Resp: CTAB Cardio: s1-s2, RRR Abdomen: soft, non-tender Neuro: Unable to asses QUALITY CONTROL ASSOCIATE Intervention: 1- I.V. Bolus NS of 1000cc 2- CBC, CMP, Lactic Acid, Blood cultures QUALITY CONTROL ASSOCIATE Outcome: A/P: 76 y.o. male with multiple co-morbid conditions with Hypotension 1- Transfer to ICU 2- Continue I.V. Bolus NS 3- Follow labs - B) Neurological Status (Select all that apply): Responsive. absent: Alert, Oriented - C) Respiratory Oxygen Delivery Method: Room Air - Constitutional Appears: No Acute Distress - Head Head Exam: ATRAUMATIC, NORMOCEPHALIC - Eyes Eye Exam: PERRL. absent: Scleral icterus - Respiratory Exam Respiratory Exam: Clear to Ausculation Bilateral, NORMAL BREATHING PATTERN - Cardiovascular Exam Cardiovascular Exam: REGULAR RHYTHM, +S1, +S2 - GI/Abdominal Exam GI & Abdominal Exam: Soft, Hypoactive Bowel Sounds. absent: Tenderness - Neurological Exam Neurological Exam: absent: Alert, Awake, Oriented x3 - Extremities Exam Extremities Exam: absent: Calf Tenderness
[2017-04-16 05:08] LABS: HEMATOCRIT 29.5 % (35.0-51.0); MEAN CORPUSCULAR HEMOGLOBIN 26.2 pg (27.0-31.0); MEAN CORPUSCULAR HGB CONC 31.2 g/dL (33.0-37.0); RED CELL DISTRIBUTION WIDTH 17.9 % (11.5-14.5); WHITE BLOOD COUNT 26.1 K/uL (4.8-10.8)
[2017-04-16 05:16] LABS: ALB/GLOB RATIO 0.8 (1.0-2.1); CALCIUM 8.5 mg/dL (8.4-10.2); POTASSIUM 3.9 MMOL/L (3.6-5.0); TOTAL PROTEIN 6.5 G/DL (6.3-8.2)
[2017-04-16] MEDS ORDERED: Sodium Chloride 0.9% 500 ML IV ONE ×3 (06:16→15:00)
[2017-04-16] MEDS: Sodium Chloride 0.9% 1,000 ML IV SCH ×2 (06:38→14:00)
[2017-04-16] MEDS: Insulin Lispro (humaLOG) 100 Units/ml Inj SC SCH ×4 (06:42→22:20)
[2017-04-16] MEDS: Enoxaparin 30 mg Syringe SC SCH (08:45)
--- NOTE | 2017-04-16 09:51 | PN ---
DATE: 04/16/2017 The patient seen and examined. Interim events noted. 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 Currently, patient is in intensive care unit. The patient is not able to provide any informative history or review of systems. PHYSICAL EXAMINATION: GENERAL: The patient is in intensive care unit, not in any acute distress. VITAL SIGNS: Stable. Blood pressure 138/72. HEENT: Pupils reacting to light. HEART: S1, S2 normal, regular. LUNGS: Good bilateral air exchange. ABDOMEN: Soft, nontender. Ileostomy tube is in good position and functioning. EXTREMITIES: No calf swelling, no tenderness, no acute ischemia. CENTRAL NERVOUS SYSTEM: Essentially unchanged. The patient does seem a little less responsive than yesterday. SKIN: The patient has unstageable sacral decubitus present on admission. DIAGNOSTIC DATA: Available reviewed. Telemetry monitoring does not reveal significant arrhythmia. Overall, patient's general condition is , but hemodynamically stable at this time. PLAN: As ordered. Eros Chowdary MD cc: [id number] TT: 04/16/2017 09:50:20 Confirmation # [id number] Dictation # [id number]
--- NOTE | 2017-04-16 14:58 | CP.PCM.CON ---
History of Present Illness - History of Present Illness History of Present Illness: 76 year old male, with a complex PMH who is brought from the 6th floor because of fever and elevated WBC since yesterday.Recently d/c'd from [facility] s/p Ileostomy for incarcerated hernia with septic shock / peritonitis at [facility]. Had decubiti on adm to [facility] as per ER report Recently transferred here for rehab which had been successful but pt recently became septic and was transferreed to ICU via ER Of note, patient is allergic to penicillin and sulfonamide. PMD: [place] [facility] - Medical History PMH: Anemia, Anxiety, Arthritis, CAD, CHF, COPD, CVA, Depression, Diabetes ( type II), Fractures (R hip), GERD, HTN, Hypercholesterolemia, Hyperlipidemia, Kidney Stones, Peripheral Edema (LLE +1, pitting), Pneumonia Denies: HIV, Chronic Kidney Disease Other PMH: Myocardial Infarction, Ulcer (perforated), Glaucoma Review of Systems - Review of Systems Systems not reviewed;Unavailable: Altered Mental Status - Constitutional Constitutional: As Per HPI - EENT Eyes: absent: As Per HPI, Blind Spots, Blurred Vision, Change in Vision, Decreased Night Vision, Diplopia, Discharge, Dry Eye, Exophthalmos, Floaters, Irritation, Itchy Eyes, Loss of Peripheral Vision, Pain, Photophobia, Requires Corrective Lenses, Sees Flashes, Spots in Vision, Tunnel Vision, Other Visual Disturbances, Loss of Vision, Other Ears: absent: As Per HPI, Decreased Hearing, Ear Discharge, Ear Pain, Tinnitus, Abnormal Hearing, Disequilibrium, Dizziness, Other Nose/Mouth/Throat: absent: As Per HPI, Epistaxis, Nasal Congestion, Nasal Discharge, Nasal Obstruction, Nasal Trauma, Nose Pain, Post Nasal Drip, Sinus Pain, Sinus Pressure, Bleeding Gums, Change in Voice, Dental Pain, Dry Mouth, Dysphagia, Halitosis, Hoarsness, Lip Swelling, Mouth Lesions, Mouth Pain, Odynophagia, Sore Throat, Throat Swelling, Tongue Swelling, Facial Pain, Neck Pain, Neck Mass, Other - Cardiovascular Cardiovascular: absent: As Per HPI, Acrocyanosis, Chest Pain, Chest Pain at Rest , Chest Pain with Activity, Claudication, Diaphoresis, Dyspnea, Dyspnea on Exertion, Edema, Irregular Heart Rhythm, Pain Radiating to Arm/Neck/Jaw, Leg Edema, Leg Ulcers, Lightheadedness, Orthopnea, Palpitations, Paroxysmal Nocturnal Dyspnea, Pedal Edema, Radiating Pain, Rapid Heart Rate, Slow Heart Rate, Syncope, Other - Respiratory Respiratory: absent: As Per HPI, Cough, Dyspnea, Hemoptysis, Dyspnea on Exertion , Wheezing, Snoring, Stridor, Pain on Inspiration, Chest Congestion, Excessive Mucous Production, Change in Mucous Color, Pain with Coughing, Other - Gastrointestinal Gastrointestinal: absent: As Per HPI, Abdominal Pain, Belching, Bloating, Change in Bowel Habits, Change in Stool Character, Coffee Ground Emesis, Constipation, Cramping, Diarrhea, Dyspepsia, Dysphagia, Early Satiety, Excessive Flatus, Fecal Incontinence, Heartburn, Hematemesis, Hematochezia, Loose Stools, Melena, Nausea, Odynophagia, Temesmus, Vomiting, Other - Genitourinary Genitourinary: absent: As Per HPI, Change in Urinary Stream, Difficulty Urinating, Dysuria, Flank Pain, Hematuria, Pyuria, Nocturia, Urinary Incontinence, Urinary Frequency, Urinary Hesitance, Urinary Urgency, Voiding Freq/Small Amts, Freq UTI, Hx Renal/Bladder Calculi, Hx /Renal Surgery, Bladder Distension, Other - Musculoskeletal Musculoskeletal: absent: As Per HPI, Abnormal Gait, Arthralgias, Atrophy, Back Pain, Deformity, Joint Swelling, Limited Range of Motion, Loss of Height, Muscle Cramps, Muscle Weakness, Myalgias, Neck Pain, Numbness, Radiating Pain into Limb, Stiffness, Tingling, Other - Integumentary Integumentary: As Per HPI, Skin Pain, Wounds - Neurological Neurological: absent: As Per HPI, Abnormal Gait, Abnormal Hearing, Abnormal Movements, Abnormal Speech, Behavioral Changes, Burning Sensations, Confusion, Convulsions, Disequilibrium, Dizziness, Numbness, Focal Weakness, Frequent Falls , Headaches, Lack of Coordination, Loss of Vision, Memory Loss, Paresthesias, Radicular Pain, Restless Legs, Sensory Deficit, Syncope, Tingling, Tremor, Vertigo, Weakness, Other Visual Disturbances, Other - Psychiatric Psychiatric: absent: As Per HPI, Abnormal Sleep Pattern, Anhedonia, Anxiety, Auditory Hallucinations, Behavioral Changes, Change in Appetite, Change in Libido, Confusion, Depression, Difficulty Concentrating, Hallucinations, Homicidal Ideation, Hopelessness, Irritability, Memory Loss, Mood Swings, Panic Attacks, Paranoia, Suicidal Ideation, Visual Hallucinations, Tactile Hallucinations, Other - Endocrine Endocrine: absent: As Per HPI, Change in Body Appearance, Change in Libido, Cold Intolorance, Deepening of Voice, Excessive Sweating, Fatigue, Flushing, Heat Intolorance, Increase in Ring/Shoe/Hat Size, Palpitations, Polydipsia, Polyphagia, Polyuria, Other - Hematologic/Lymphatic Hematologic: absent: As Per HPI, Easy Bleeding, Easy Bruising, Lymphadenopathy, Other Past Patient History - Infectious Disease Hx of Infectious Diseases: None - Past Medical History & Family History Past Medical History?: Yes - Past Social History Smoking Status: Never Smoked - CARDIAC Hx Cardiac Disorders: Yes Hx Congestive Heart Failure: Yes Hx Hypercholesterolemia: Yes Hx Hypertension: Yes Hx Pacemaker: No Hx Peripheral Edema: Yes (LLE +1, pitting) - PULMONARY Hx Respiratory Disorders: Yes Hx Chronic Obstructive Pulmonary Disease (COPD): Yes Hx Pneumonia: Yes - NEUROLOGICAL Hx Neurological Disorder: Yes (CVA) HX Cerebrovascular Accident: Yes - HEENT Hx HEENT Problems: Yes Hx Glaucoma: Yes - RENAL Hx Chronic Kidney Disease: Yes Hx Kidney Stones: Yes - ENDOCRINE/METABOLIC Hx Endocrine Disorders: Yes (DM) Hx Diabetes Mellitus Type 1: Yes - HEMATOLOGICAL/ONCOLOGICAL Hx Anemia: Yes Hx Human Immunodeficiency Virus (HIV): No - INTEGUMENTARY Hx Dermatological Problems: Yes (sacral ulcer) - MUSCULOSKELETAL/RHEUMATOLOGICAL Hx Musculoskeletal Disorders: Yes Hx Arthritis: Yes Hx Falls: No Hx Fractures: Yes (R hip) - GASTROINTESTINAL Hx Gastrointestinal Disorders: Yes Hx Bowel Surgery: Yes Hx Colostomy: Yes Other/Comment: 03/17/2017 - exploratory lap, small bowel resection. 03/18/2017 - returned to OR for washout, end ileostomy, abdominal closure with bridging strattice mesh. h/o abdominal hernia - GENITOURINARY/GYNECOLOGICAL Hx Genitourinary Disorders: No - PSYCHIATRIC Hx Psychophysiologic Disorder: Yes Hx Anxiety: Yes Hx Depression: Yes - SURGICAL HISTORY Hx Surgeries: Yes Hx Coronary Stent: Yes Hx Joint Replacement: Yes (hip) - ANESTHESIA Hx Anesthesia: Yes Hx Anesthesia Reactions: No (took 1 week to wake up from sx per child) Hx Malignant Hyperthermia: No Meds Allergies/Adverse Reactions: Allergies Allergy/AdvReac Type Severity Reaction Status Date / Time Penicillins Allergy URTICARIA Verified 03/30/17 22:34 Sulfa (Sulfonamide Allergy URTICARIA Verified 03/30/17 22:34 Antibiotics) - Medications Medications: Current Medications Acetaminophen (Tylenol 325mg Tab) 650 mg PO Q6 PRN PRN Reason: Pain, moderate (4-7) Last Admin: 04/15/17 00:41 Dose: 650 mg Alprazolam (Xanax) 0.25 mg PO Q12 PRN PRN Reason: Anxiety Stop: 04/21/17 20:22 Last Admin: 04/15/17 13:20 Dose: 0.25 mg Atorvastatin Calcium (Lipitor) 50 mg PO DAILY [facility] Last Admin: 04/16/17 08:50 Dose: Not Given Enoxaparin Sodium (Lovenox) 30 mg SC DAILY [facility] PRN Reason: Protocol Last Admin: 04/16/17 08:45 Dose: 30 mg Famotidine (Pepcid) 20 mg PO BID [facility] Last Admin: 04/16/17 08:50 Dose: Not Given Ferrous Gluconate (Fergon) 324 mg PO TID [facility] Last Admin: 04/16/17 12:22 Dose: Not Given Aztreonam 1 gm/ Sodium (Chloride) 100 mls @ 100 mls/hr IVPB Q8 [facility] Last Admin: 04/16/17 08:26 Dose: 100 mls/hr Sodium Chloride (Sodium Chloride 0.9%) 1,000 mls @ 150 mls/hr IV .Q6H40M [facility] Stop: 04/16/17 19:49 Last Admin: 04/16/17 06:38 Dose: 150 mls/hr Vancomycin HCl 1,000 mg/ (Sodium Chloride) 250 mls @ 250 mls/hr IVPB Q24H [facility] Insulin Human Lispro (Humalog) 0 units SC ACHS [facility] PRN Reason: Protocol Last Admin: 04/16/17 12:17 Dose: Not Given Lisinopril (Zestril) 5 mg PO DAILY [facility] Last Admin: 04/16/17 08:46 Dose: Not Given Metoprolol Tartrate (Lopressor) 50 mg PO DAILY [facility] Last Admin: 04/16/17 08:26 Dose: Not Given Quetiapine Fumarate (Seroquel) 50 mg PO HS [facility] Last Admin: 04/15/17 22:01 Dose: 50 mg Physical Exam - Constitutional Appears: Toxic, Confused, Cachectic, Chronically Ill - Head Exam Head Exam: ATRAUMATIC, NORMAL INSPECTION, NORMOCEPHALIC - Eye Exam Eye Exam: absent: Scleral icterus - ENT Exam ENT Exam: Mucous Membranes Dry, Normal External Ear Exam, Normal Oropharynx - Neck Exam Neck exam: Negative for: Lymphadenopathy, Thyromegaly - Respiratory Exam Respiratory Exam: Decreased Breath Sounds, Rhonchi - Cardiovascular Exam Cardiovascular Exam: REGULAR RHYTHM, +S1, +S2 - GI/Abdominal Exam GI & Abdominal Exam: Diminished Bowel Sounds, Distended, Guarding, Soft. absent : Hernia, Rebound, Rigid, Tenderness Additional comments: + ileostomy - Rectal Exam Rectal Exam: Deferred - Exam Exam: NORMAL INSPECTION - Extremities Exam Extremities exam: Positive for: pedal edema, pedal pulses present. Negative for : calf tenderness, tenderness - Back Exam Back exam: absent: CVA tenderness (L), CVA tenderness (R), paraspinal tenderness - Neurological Exam Neurological exam: Altered, CN II-XII Intact - Psychiatric Exam Psychiatric exam: Depressed - Skin Additional comments: as noted - large sacral decub unstageable Results - Vital Signs Recent Vital Signs: Last Vital Signs Temp 98.1 F 04/16/17 12:01 Pulse 87 04/16/17 12:01 Resp 30 H 04/16/17 12:01 BP 94/67 L 04/16/17 12:01 Pulse Ox 98 04/16/17 12:01 - Labs Result Diagrams: 04/16/17 05:04 04/16/17 05:04 Labs: Laboratory Results - last 24 hr 04/15/17 04/15/17 04/16/17 16:03 21:40 05:04 WBC 26.1 H D RBC 3.52 L Hgb 9.2 L Hct 29.5 L MCV 84.0 D MCH 26.2 L MCHC 31.2 L RDW 17.9 H Plt Count 353 Sodium Potassium Chloride Carbon Dioxide Anion Gap BUN Creatinine Est GFR ( Amer) Est GFR (Non-Af Amer) POC Glucose (mg/dL) 95 136 H Random Glucose Lactic Acid Calcium Total Bilirubin AST ALT Alkaline Phosphatase Total Protein Albumin Globulin Albumin/Globulin Ratio 04/16/17 04/16/17 04/16/17 05:04 05:04 06:33 WBC RBC Hgb Hct MCV MCH MCHC RDW Plt Count Sodium 140 Potassium 3.9 Chloride 107 Carbon Dioxide 16 L Anion Gap 21 H BUN 65 H Creatinine 2.6 H Est GFR ( Amer) 29 Est GFR (Non-Af Amer) 24 POC Glucose (mg/dL) 152 H Random Glucose 125 H Lactic Acid 1.5 Calcium 8.5 Total Bilirubin 1.0 AST 30 ALT 33 Alkaline Phosphatase 128 H Total Protein 6.5 Albumin 2.9 L Globulin 3.6 Albumin/Globulin Ratio 0.8 L 04/16/17 10:58 WBC RBC Hgb Hct MCV MCH MCHC RDW Plt Count Sodium Potassium Chloride Carbon Dioxide Anion Gap BUN Creatinine Est GFR ( Amer) Est GFR (Non-Af Amer) POC Glucose (mg/dL) 125 H Random Glucose Lactic Acid Calcium Total Bilirubin AST ALT Alkaline Phosphatase Total Protein Albumin Globulin Albumin/Globulin Ratio Assessment & Plan (1) Septic shock Status: Acute (2) Bacteremia Status: Acute (3) Bacteremia Status: Acute (4) Fever Status: Acute (5) CHF (congestive heart failure) Status: Acute (6) Dementia Status: Acute (7) PVD (peripheral vascular disease) Status: Acute - Assessment and Plan (Free Text) Assessment: cont iv antibiotics, pressors and wound care poor prognosis
[2017-04-16] MEDS ORDERED: Micafungin 100 MG in Sodium Chloride 0.9% 100 ML IV SCH ×2 (15:15→18:00)
--- NOTE | 2017-04-16 15:48 | CP.CCUPN ---
CCU Subjective - Physician Review Events Since Last Encounter (Free Text): 04/16/17 15:46 Patient lethargic, respond only to touch, no fever, no vomiting, on O2 supple by nasal canula, sat 100%, no distress, events reviewed CCU Objective - Vital Signs / Intake & Output Vital Signs (Last 4 hours): Vital Signs Temp Pulse Resp BP Pulse Ox 04/16/17 12:01 98.1 F 87 30 H 94/67 L 98 Intake and Output (Last 8hrs): Intake & Output 04/16/17 04/16/17 04/16/17 06:59 14:59 22:59 Intake Total 1500 1000 Output Total 250 500 Balance 1250 500 Intake: IV 1500 900 Intake, Piggyback 100 Output: Gastric Amount 200 Right Lower Stomach 200 Drainage 300 Right Lower Abdomen 300 Stool 250 - Physical Exam Head: Positive for: Atraumatic, Normocephalic Pupils: Positive for: PERRL Conjunctiva: Positive for: Normal Mouth: Positive for: Dry Nose (External): Positive for: Atraumatic Neck: Positive for: Normal Range of Motion Respiratory/Chest: Positive for: Clear to Auscultation Cardiovascular: Positive for: Regular Rate and Rhythm Abdomen: Positive for: Other (iliostomy) Back: Positive for: Other (decubitus ulcer) Upper Extremity: Positive for: Normal Inspection Lower Extremity: Positive for: Normal Inspection Psychiatric: Positive for: Lethargic, Other (respond only to touch) - Medications Active Medications: Active Medications Generic Name Dose Route Start Last Admin Trade Name Freq PRN Reason Stop Dose Admin Acetaminophen 650 mg 04/14/17 20:25 04/15/17 00:41 Tylenol 325mg Tab PO 650 mg Q6 PRN Administration Pain, moderate (4-7) Alprazolam 0.25 mg 04/14/17 20:21 04/15/17 13:20 Xanax PO 04/21/17 20:22 0.25 mg Q12 PRN Administration Anxiety Atorvastatin Calcium 50 mg 04/15/17 09:00 04/16/17 08:50 Lipitor PO Not Given DAILY [facility] Enoxaparin Sodium 30 mg 04/15/17 09:00 04/16/17 08:45 Lovenox SC 30 mg DAILY [facility] Administration Protocol Famotidine 20 mg 04/15/17 09:00 04/16/17 08:50 Pepcid PO Not Given BID [facility] Ferrous Gluconate 324 mg 04/15/17 09:00 04/16/17 12:22 Fergon PO Not Given TID [facility] Aztreonam 1 gm/ Sodium 100 mls @ 100 mls/hr 04/14/17 23:00 04/16/17 08:26 Chloride IVPB 100 mls/hr Q8 [facility] Administration Sodium Chloride 1,000 mls @ 150 mls/hr 04/16/17 06:30 04/16/17 06:38 Sodium Chloride 0.9% IV 04/16/17 19:49 150 mls/hr .Q6H40M [facility] Administration Vancomycin HCl 1 gm/ Sodium 250 mls @ 166.667 mls/hr 04/16/17 15:00 Chloride IVPB Q24H [facility] Micafungin Sodium 100 mg/ 100 mls @ 100 mls/hr 04/16/17 15:15 Sodium Chloride IV 04/16/17 16:14 DAILY [facility] Insulin Human Lispro 0 units 04/15/17 07:30 04/16/17 12:17 Humalog SC Not Given ACHS [facility] Protocol Lisinopril 5 mg 04/15/17 21:00 04/16/17 08:46 Zestril PO Not Given DAILY [facility] Metoprolol Tartrate 50 mg 04/15/17 09:00 04/16/17 08:26 Lopressor PO Not Given DAILY [facility] Quetiapine Fumarate 50 mg 04/15/17 17:00 04/15/17 22:01 Seroquel PO 50 mg HS [facility] Administration - Patient Studies Lab Studies: Microbiology Studies 04/14/17 17:30 S.aureus & Coag-Neg Staph PNA FISH - Final Blood Blood Culture - Preliminary Gram Positive Cocci Gram Stain - Final Lab Studies 04/16/17 04/16/17 04/16/17 Range/Units 10:58 06:33 05:04 WBC (4.8-10.8) K/uL RBC (4.40-5.90) Mil/uL Hgb (12.0-18.0) g/dL Hct (35.0-51.0) % MCV (80.0-94.0) fl MCH (27.0-31.0) pg MCHC (33.0-37.0) g/dL RDW (11.5-14.5) % Plt Count (130-400) K/uL Sodium (132-148) mmol/l Potassium (3.6-5.0) MMOL/L Chloride (98-107) mmol/L Carbon Dioxide (22-30) mmol/L Anion Gap (10-20) BUN (9-20) mg/dl Creatinine (0.8-1.5) mg/dL Est GFR ( Amer) Est GFR (Non-Af Amer) POC Glucose (mg/dL) 125 H 152 H (65-110) mg/dL Random Glucose (75-110) mg/dL Lactic Acid 1.5 (0.7-2.1) MMOL/L Calcium (8.4-10.2) mg/dL Total Bilirubin (0.2-1.3) mg/dl AST (17-59) U/L ALT (21-72) U/L Alkaline Phosphatase (38-126) U/L Total Protein (6.3-8.2) G/DL Albumin (3.5-5.0) g/dL Globulin (2.2-3.9) gm/dL Albumin/Globulin Ratio (1.0-2.1) 04/16/17 04/16/17 04/15/17 Range/Units 05:04 05:04 21:40 WBC 26.1 H D (4.8-10.8) K/uL RBC 3.52 L (4.40-5.90) Mil/uL Hgb 9.2 L (12.0-18.0) g/dL Hct 29.5 L (35.0-51.0) % MCV 84.0 D (80.0-94.0) fl MCH 26.2 L (27.0-31.0) pg MCHC 31.2 L (33.0-37.0) g/dL RDW 17.9 H (11.5-14.5) % Plt Count 353 (130-400) K/uL Sodium 140 (132-148) mmol/l Potassium 3.9 (3.6-5.0) MMOL/L Chloride 107 (98-107) mmol/L Carbon Dioxide 16 L (22-30) mmol/L Anion Gap 21 H (10-20) BUN 65 H (9-20) mg/dl Creatinine 2.6 H (0.8-1.5) mg/dL Est GFR ( Amer) 29 Est GFR (Non-Af Amer) 24 POC Glucose (mg/dL) 136 H (65-110) mg/dL Random Glucose 125 H (75-110) mg/dL Lactic Acid (0.7-2.1) MMOL/L Calcium 8.5 (8.4-10.2) mg/dL Total Bilirubin 1.0 (0.2-1.3) mg/dl AST 30 (17-59) U/L ALT 33 (21-72) U/L Alkaline Phosphatase 128 H (38-126) U/L Total Protein 6.5 (6.3-8.2) G/DL Albumin 2.9 L (3.5-5.0) g/dL Globulin 3.6 (2.2-3.9) gm/dL Albumin/Globulin Ratio 0.8 L (1.0-2.1) // Range/Units 16:03 WBC (4.8-10.8) K/uL RBC (4.40-5.90) Mil/uL Hgb (12.0-18.0) g/dL Hct (35.0-51.0) % MCV (80.0-94.0) fl MCH (27.0-31.0) pg MCHC (33.0-37.0) g/dL RDW (11.5-14.5) % Plt Count (130-400) K/uL Sodium (132-148) mmol/l Potassium (3.6-5.0) MMOL/L Chloride (98-107) mmol/L Carbon Dioxide (22-30) mmol/L Anion Gap (10-20) BUN (9-20) mg/dl Creatinine (0.8-1.5) mg/dL Est GFR ( Amer) Est GFR (Non-Af Amer) POC Glucose (mg/dL) 95 (65-110) mg/dL Random Glucose (75-110) mg/dL Lactic Acid (0.7-2.1) MMOL/L Calcium (8.4-10.2) mg/dL Total Bilirubin (0.2-1.3) mg/dl AST (17-59) U/L ALT (21-72) U/L Alkaline Phosphatase (38-126) U/L Total Protein (6.3-8.2) G/DL Albumin (3.5-5.0) g/dL Globulin (2.2-3.9) gm/dL Albumin/Globulin Ratio (1.0-2.1) Laboratory Results - last 24 hr 04/15/17 04/15/17 04/16/17 16:03 21:40 05:04 WBC 26.1 H D RBC 3.52 L Hgb 9.2 L Hct 29.5 L MCV 84.0 D MCH 26.2 L MCHC 31.2 L RDW 17.9 H Plt Count 353 Sodium Potassium Chloride Carbon Dioxide Anion Gap BUN Creatinine Est GFR ( Amer) Est GFR (Non-Af Amer) POC Glucose (mg/dL) 95 136 H Random Glucose Lactic Acid Calcium Total Bilirubin AST ALT Alkaline Phosphatase Total Protein Albumin Globulin Albumin/Globulin Ratio 04/16/17 04/16/17 04/16/17 05:04 05:04 06:33 WBC RBC Hgb Hct MCV MCH MCHC RDW Plt Count Sodium 140 Potassium 3.9 Chloride 107 Carbon Dioxide 16 L Anion Gap 21 H BUN 65 H Creatinine 2.6 H Est GFR ( Amer) 29 Est GFR (Non-Af Amer) 24 POC Glucose (mg/dL) 152 H Random Glucose 125 H Lactic Acid 1.5 Calcium 8.5 Total Bilirubin 1.0 AST 30 ALT 33 Alkaline Phosphatase 128 H Total Protein 6.5 Albumin 2.9 L Globulin 3.6 Albumin/Globulin Ratio 0.8 L 04/16/17 10:58 WBC RBC Hgb Hct MCV MCH MCHC RDW Plt Count Sodium Potassium Chloride Carbon Dioxide Anion Gap BUN Creatinine Est GFR ( Amer) Est GFR (Non-Af Amer) POC Glucose (mg/dL) 125 H Random Glucose Lactic Acid Calcium Total Bilirubin AST ALT Alkaline Phosphatase Total Protein Albumin Globulin Albumin/Globulin Ratio Fingerstick Blood Sugar Results: 125 Assessment/Plan - Assessment and Plan (Free Text) Assessment: A/P Hypotension, CAD, h/o CHF, sepsis, decubitus ulcer, COPD, GERD, CVA, DM, dehydration, s/p iliostomy, renal insufficiency - IV fluid - Antibiotics - ID follow up - O2 supplement - Mac culture - Poor prognosis Critical care 40 min
[2017-04-17] MEDS: Aztreonam 1 GM in Sodium Chloride 0.9% 100 ML IVPB SCH ×3 (00:49→16:58)
[2017-04-17] MEDS ORDERED: Sodium Chloride 0.9% 500 ML IV ONE (03:13)
[2017-04-17 05:57] LABS: BASO % 0.1 % (0.0-2.0); EOS # 0.1 K/uL (0.0-0.7); EOS % 0.3 % (0.0-4.0); HEMATOCRIT 27.7 % (35.0-51.0); LYMPH # 0.8 K/uL (1.0-4.3); LYMPH % 3.1 % (20.0-40.0); MEAN CELL VOLUME 83.2 fl (80.0-94.0); MEAN CORPUSCULAR HEMOGLOBIN 26.2 pg (27.0-31.0); MEAN CORPUSCULAR HGB CONC 31.5 g/dL (33.0-37.0); MEAN PLATELET VOLUME 7.4 fl (7.2-11.7); MONO # 1.3 K/uL (0.0-0.8); NEUT # 24.4 K/uL (1.8-7.0); NEUT % 91.5 % (50.0-75.0); PLATELET COUNT 308 K/uL (130-400); RED CELL DISTRIBUTION WIDTH 17.7 % (11.5-14.5); WHITE BLOOD COUNT 26.7 K/uL (4.8-10.8)
[2017-04-17 06:10] LABS: ALB/GLOB RATIO 0.8 (1.0-2.1); BILIRUBIN,TOTAL 0.7 mg/dl (0.2-1.3); CALCIUM 8.3 mg/dL (8.4-10.2); POTASSIUM 3.4 MMOL/L (3.6-5.0); TOTAL PROTEIN 6.4 G/DL (6.3-8.2)
[2017-04-17 06:42] LABS: NEUTROPHIL 91 % (42-75); TOTAL CELLS COUNTED 100
[2017-04-17] MEDS: Insulin Lispro (humaLOG) 100 Units/ml Inj SC SCH ×4 (07:30→21:54)
[2017-04-17] MEDS: Enoxaparin 30 mg Syringe SC SCH (09:58)
--- NOTE | 2017-04-17 11:44 | PN ---
DATE: 04/17/2017 SUBJECTIVE: The patient is seen and examined. Interim events noted. Consults noted and appreciated . The patient remains in intensive care, not able to provide informative history or review of system s. Case was discussed with the patient's daughter yesterday ____. PHYSICAL EXAMINATION: GENERAL: The patient remains in intensive care unit, essentially noncommunicative, in no acute respi ratory distress. VITAL SIGNS: Temperature afebrile, pulse 80, respirations 18, blood pressure ____/77. HEENT: Pupils reacting to light. HEART: S1, S2 normal, regular. LUNGS: Good bilateral air exchange. ABDOMEN: Soft, nontender. EXTREMITIES: No edema, no calf swelling, no tenderness, no acute ischemia. CENTRAL NERVOUS SYSTEM: Exam is essentially unchanged. SKIN: The patient's ____. Sacral decubitus remains essentially unchanged. DIAGNOSTIC DATA: Available diagnostic data reviewed. Telemetry monitoring does not reveal significa nt arrhythmias. ____ positive. The patient probably has ____ edema and ischemia. The patient's prognosis is poor. Case, plan, and prognosis were discussed with the patient's family yesterday. PLAN: As ordered. Eros Chowdary MD cc: [id number] TT: 04/17/2017 10:47:12 Confirmation # [id number] Dictation # [id number] saba
[2017-04-17] MEDS ORDERED: DOPamine 400mg/250ml D5W 400 MG/250 ML BAG IV ONE (13:39)
--- NOTE | 2017-04-17 13:39 | CP.PCM.CON ---
History of Present Illness - History of Present Illness History of Present Illness: I was asked to see patient by Dr. Chowdary. Patient is a 76 year old male who is s/p recent intrabdominal surgery. The patient has an ileoostomy bag. He was on the rehab floor, but developed dyspnea and hypotension. He was transferred to ICU. The patient does not givne a hisotry. Troponin is elevated. Review of Systems - Review of Systems Systems not reviewed;Unavailable: Dementia, Uncooperative - Respiratory Respiratory: Wheezing Past Patient History - Infectious Disease Hx of Infectious Diseases: None - Past Medical History & Family History Past Medical History?: Yes - Past Social History Smoking Status: Never Smoked - CARDIAC Hx Cardiac Disorders: Yes Hx Congestive Heart Failure: Yes Hx Hypercholesterolemia: Yes Hx Hypertension: Yes Hx Pacemaker: No Hx Peripheral Edema: Yes (LLE +1, pitting) - PULMONARY Hx Respiratory Disorders: Yes Hx Chronic Obstructive Pulmonary Disease (COPD): Yes Hx Pneumonia: Yes - NEUROLOGICAL Hx Neurological Disorder: Yes (CVA) HX Cerebrovascular Accident: Yes - HEENT Hx HEENT Problems: Yes Hx Glaucoma: Yes - RENAL Hx Chronic Kidney Disease: Yes Hx Kidney Stones: Yes - ENDOCRINE/METABOLIC Hx Endocrine Disorders: Yes (DM) Hx Diabetes Mellitus Type 1: Yes - HEMATOLOGICAL/ONCOLOGICAL Hx Anemia: Yes Hx Human Immunodeficiency Virus (HIV): No - INTEGUMENTARY Hx Dermatological Problems: Yes (sacral ulcer) - MUSCULOSKELETAL/RHEUMATOLOGICAL Hx Musculoskeletal Disorders: Yes Hx Arthritis: Yes Hx Falls: No Hx Fractures: Yes (R hip) - GASTROINTESTINAL Hx Gastrointestinal Disorders: Yes Hx Bowel Surgery: Yes Hx Colostomy: Yes Other/Comment: 03/17/2017 - exploratory lap, small bowel resection. 03/18/2017 - returned to OR for washout, end ileostomy, abdominal closure with bridging strattice mesh. h/o abdominal hernia - GENITOURINARY/GYNECOLOGICAL Hx Genitourinary Disorders: No - PSYCHIATRIC Hx Psychophysiologic Disorder: Yes Hx Anxiety: Yes Hx Depression: Yes - SURGICAL HISTORY Hx Surgeries: Yes Hx Coronary Stent: Yes Hx Joint Replacement: Yes (hip) - ANESTHESIA Hx Anesthesia: Yes Hx Anesthesia Reactions: No (took 1 week to wake up from sx per child) Hx Malignant Hyperthermia: No Meds Allergies/Adverse Reactions: Allergies Allergy/AdvReac Type Severity Reaction Status Date / Time Penicillins Allergy URTICARIA Verified 03/30/17 22:34 Sulfa (Sulfonamide Allergy URTICARIA Verified 03/30/17 22:34 Antibiotics) - Medications Medications: Current Medications Acetaminophen (Tylenol 325mg Tab) 650 mg PO Q6 PRN PRN Reason: Pain, moderate (4-7) Last Admin: 04/15/17 00:41 Dose: 650 mg Alprazolam (Xanax) 0.25 mg PO Q12 PRN PRN Reason: Anxiety Stop: 04/21/17 20:22 Last Admin: 04/15/17 13:20 Dose: 0.25 mg Aspirin (Aspirin) 325 mg PO DAILY [facility] Last Admin: 04/17/17 09:55 Dose: Not Given Aspirin (Aspirin) 325 mg PO DAILY [facility] Last Admin: 04/17/17 09:56 Dose: Not Given Atorvastatin Calcium (Lipitor) 50 mg PO DAILY [facility] Last Admin: 04/17/17 09:57 Dose: Not Given Enoxaparin Sodium (Lovenox) 30 mg SC DAILY [facility] PRN Reason: Protocol Last Admin: 04/17/17 09:58 Dose: 30 mg Famotidine (Pepcid) 20 mg PO BID [facility] Last Admin: 04/17/17 09:58 Dose: Not Given Ferrous Gluconate (Fergon) 324 mg PO TID [facility] Last Admin: 04/17/17 12:21 Dose: 324 mg Aztreonam 1 gm/ Sodium (Chloride) 100 mls @ 100 mls/hr IVPB Q8 [facility] Last Admin: 04/17/17 09:56 Dose: 100 mls/hr Vancomycin HCl 1 gm/ Sodium (Chloride) 250 mls @ 166.667 mls/hr IVPB DAILY@ 1800 [facility] Last Admin: 04/16/17 18:30 Dose: 166.667 mls/hr Insulin Human Lispro (Humalog) 0 units SC ACHS [facility] PRN Reason: Protocol Last Admin: 04/17/17 12:21 Dose: Not Given Lisinopril (Zestril) 5 mg PO DAILY [facility] Last Admin: 04/17/17 09:58 Dose: Not Given Metoprolol Tartrate (Lopressor) 50 mg PO DAILY [facility] Last Admin: 04/17/17 09:57 Dose: Not Given Quetiapine Fumarate (Seroquel) 50 mg PO [facility] Physical Exam - Constitutional Appears: Cachectic - Head Exam Head Exam: NORMAL INSPECTION - Eye Exam Eye Exam: Normal appearance - ENT Exam ENT Exam: Mucous Membranes Dry - Neck Exam Neck exam: Positive for: Normal Inspection - Respiratory Exam Respiratory Exam: Decreased Breath Sounds - Cardiovascular Exam Cardiovascular Exam: REGULAR RHYTHM - GI/Abdominal Exam GI & Abdominal Exam: Diminished Bowel Sounds Additional comments: ostomy bag CDI - Rectal Exam Rectal Exam: Deferred - Extremities Exam Additional comments: erythema of the legs bilaterally - Psychiatric Exam Psychiatric exam: Flat Affect - Skin Skin Exam: Normal Color Results - Vital Signs Recent Vital Signs: Last Vital Signs Temp 98.2 F 04/17/17 12:00 Pulse 88 04/17/17 12:00 Resp 21 04/17/17 12:00 BP 65/38 L 04/17/17 12:00 Pulse Ox 94 L 04/17/17 12:00 - Labs Result Diagrams: 04/17/17 05:41 04/17/17 05:41 Labs: Laboratory Results - last 24 hr 04/16/17 04/16/17 04/16/17 16:12 16:45 17:04 WBC RBC Hgb Hct MCV MCH MCHC RDW Plt Count MPV Neut % (Auto) Lymph % (Auto) Wood % (Auto) Eos % (Auto) Baso % (Auto) Neut # Lymph # Wood # Eos # Baso # Neutrophils % (Manual) Lymphocytes % (Manual) Monocytes % (Manual) Platelet Estimate Hypochromasia (manual) Anisocytosis (manual) Macrocytosis (manual) Sodium Potassium Chloride Carbon Dioxide Anion Gap BUN Creatinine Est GFR ( Amer) Est GFR (Non-Af Amer) POC Glucose (mg/dL) 145 H 151 H Random Glucose Lactic Acid Calcium Total Bilirubin AST ALT Alkaline Phosphatase Troponin I Total Protein Albumin Globulin Albumin/Globulin Ratio Random Vancomycin C. difficile Ag & Toxin Negative 04/16/17 04/16/17 04/17/17 17:15 22:02 01:09 WBC RBC Hgb Hct MCV MCH MCHC RDW Plt Count MPV Neut % (Auto) Lymph % (Auto) Wood % (Auto) Eos % (Auto) Baso % (Auto) Neut # Lymph # Wood # Eos # Baso # Neutrophils % (Manual) Lymphocytes % (Manual) Monocytes % (Manual) Platelet Estimate Hypochromasia (manual) Anisocytosis (manual) Macrocytosis (manual) Sodium Potassium Chloride Carbon Dioxide Anion Gap BUN Creatinine Est GFR ( Amer) Est GFR (Non-Af Amer) POC Glucose (mg/dL) 115 H Random Glucose Lactic Acid Calcium Total Bilirubin AST ALT Alkaline Phosphatase Troponin I 0.2360 H* 0.2580 H* Total Protein Albumin Globulin Albumin/Globulin Ratio Random Vancomycin C. difficile Ag & Toxin 04/17/17 04/17/17 04/17/17 04:30 05:24 05:41 WBC 26.7 H RBC 3.33 L Hgb 8.7 L Hct 27.7 L MCV 83.2 MCH 26.2 L MCHC 31.5 L RDW 17.7 H Plt Count 308 MPV 7.4 Neut % (Auto) 91.5 H Lymph % (Auto) 3.1 L Wood % (Auto) 5.0 Eos % (Auto) 0.3 Baso % (Auto) 0.1 Neut # 24.4 H Lymph # 0.8 L Wood # 1.3 H Eos # 0.1 Baso # 0.0 Neutrophils % (Manual) 91 H Lymphocytes % (Manual) 4 L Monocytes % (Manual) 5 Platelet Estimate Normal Hypochromasia (manual) Slight Anisocytosis (manual) Slight Macrocytosis (manual) Slight Sodium Potassium Chloride Carbon Dioxide Anion Gap BUN Creatinine Est GFR ( Amer) Est GFR (Non-Af Amer) POC Glucose (mg/dL) 106 Random Glucose Lactic Acid 0.9 Calcium Total Bilirubin AST ALT Alkaline Phosphatase Troponin I Total Protein Albumin Globulin Albumin/Globulin Ratio Random Vancomycin C. difficile Ag & Toxin 04/17/17 04/17/17 04/17/17 05:41 05:41 12:02 WBC RBC Hgb Hct MCV MCH MCHC RDW Plt Count MPV Neut % (Auto) Lymph % (Auto) Wood % (Auto) Eos % (Auto) Baso % (Auto) Neut # Lymph # Wood # Eos # Baso # Neutrophils % (Manual) Lymphocytes % (Manual) Monocytes % (Manual) Platelet Estimate Hypochromasia (manual) Anisocytosis (manual) Macrocytosis (manual) Sodium 142 Potassium 3.4 L Chloride 111 H Carbon Dioxide 16 L Anion Gap 18 BUN 66 H Creatinine 3.1 H Est GFR ( Amer) 24 Est GFR (Non-Af Amer) 20 POC Glucose (mg/dL) 106 Random Glucose 99 Lactic Acid Calcium 8.3 L Total Bilirubin 0.7 AST 79 H D ALT 41 Alkaline Phosphatase 136 H Troponin I Total Protein 6.4 Albumin 2.8 L Globulin 3.7 Albumin/Globulin Ratio 0.8 L Random Vancomycin 21.5 C. difficile Ag & Toxin - EKG Data EKG Interpreted by: Myself Assessment & Plan (1) Elevated troponin Assessment and Plan: The patient's likely has a small amount of myocardial necrosis from hypoperfusion due to septic shock. conservative therapy. would no start anticoagulation at this time. Status: Acute (2) Septic shock Assessment and Plan: antibiotic therapy. may need pressor support. Status: Acute
[2017-04-17] MEDS ORDERED: Sodium Chloride 0.9% 1,000 ML IV SCH (13:45)
--- NOTE | 2017-04-17 13:59 | CP.PCM.PN ---
Subjective - Date & Time of Evaluation Date of Evaluation: 04/17/17 Time of Evaluation: 07:00 - Subjective Subjective: lethargic but arousable responds when name called weak/ NAD Objective - Vital Signs/Intake and Output Vital Signs (last 24 hours): Temp Pulse Resp BP Pulse Ox 98.2 F 88 21 65/38 L 94 L 04/17/17 12:00 04/17/17 12:00 04/17/17 12:00 04/17/17 12:00 04/17/17 12:00 Intake and Output: 04/17/17 04/17/17 06:59 18:59 Intake Total 1800 340 Output Total 1200 400 Balance 600 -60 - Medications Medications: Current Medications Acetaminophen (Tylenol 325mg Tab) 650 mg PO Q6 PRN PRN Reason: Pain, moderate (4-7) Last Admin: 04/15/17 00:41 Dose: 650 mg Alprazolam (Xanax) 0.25 mg PO Q12 PRN PRN Reason: Anxiety Stop: 04/21/17 20:22 Last Admin: 04/15/17 13:20 Dose: 0.25 mg Aspirin (Aspirin) 325 mg PO DAILY [facility] Last Admin: 04/17/17 09:55 Dose: Not Given Aspirin (Aspirin) 325 mg PO DAILY [facility] Last Admin: 04/17/17 09:56 Dose: Not Given Atorvastatin Calcium (Lipitor) 50 mg PO DAILY [facility] Last Admin: 04/17/17 09:57 Dose: Not Given Enoxaparin Sodium (Lovenox) 30 mg SC DAILY [facility] PRN Reason: Protocol Last Admin: 04/17/17 09:58 Dose: 30 mg Famotidine (Pepcid) 20 mg PO BID [facility] Last Admin: 04/17/17 09:58 Dose: Not Given Ferrous Gluconate (Fergon) 324 mg PO TID [facility] Last Admin: 04/17/17 12:21 Dose: 324 mg Aztreonam 1 gm/ Sodium (Chloride) 100 mls @ 100 mls/hr IVPB Q8 [facility] Last Admin: 04/17/17 09:56 Dose: 100 mls/hr Vancomycin HCl 1 gm/ Sodium (Chloride) 250 mls @ 166.667 mls/hr IVPB DAILY@ 1800 [facility] Last Admin: 04/16/17 18:30 Dose: 166.667 mls/hr Dopamine HCl/Dextrose (Dopamine 400mg/250ml D5w) 400 mg in 250 mls @ 4.32 mls/ hr IV .Q24H ONE; 2 MCG/KG/MIN PRN Reason: Protocol Stop: 04/17/17 13:40 Sodium Chloride (Sodium Chloride 0.9%) 1,000 mls @ 100 mls/hr IV .Q10H [facility] Stop: 04/18/17 13:40 Insulin Human Lispro (Humalog) 0 units SC ACHS [facility] PRN Reason: Protocol Last Admin: 04/17/17 12:21 Dose: Not Given Lisinopril (Zestril) 5 mg PO DAILY [facility] Last Admin: 04/17/17 09:58 Dose: Not Given Metoprolol Tartrate (Lopressor) 50 mg PO DAILY [facility] Last Admin: 04/17/17 09:57 Dose: Not Given Quetiapine Fumarate (Seroquel) 50 mg PO HS [facility] - Labs Labs: 04/17/17 05:41 04/17/17 05:41 - Constitutional Appears: Cachectic, Chronically Ill - Head Exam Head Exam: ATRAUMATIC, NORMAL INSPECTION, NORMOCEPHALIC - Eye Exam Eye Exam: PERRL. absent: Scleral icterus - ENT Exam ENT Exam: Mucous Membranes Dry, Normal External Ear Exam - Neck Exam Neck Exam: absent: Lymphadenopathy - Respiratory Exam Respiratory Exam: Decreased Breath Sounds, Rhonchi - Cardiovascular Exam Cardiovascular Exam: REGULAR RHYTHM, +S1, +S2 - GI/Abdominal Exam GI & Abdominal Exam: Distended, Soft - Rectal Exam Rectal Exam: Deferred - Extremities Exam Extremities Exam: absent: Pedal Edema - Back Exam Back Exam: absent: CVA tenderness (L), CVA tenderness (R) - Neurological Exam Neurological Exam: Alert, Altered, Awake - Psychiatric Exam Psychiatric exam: Depressed - Skin Additional comments: large sacral decubitus Assessment and Plan (1) Septic shock Status: Acute (2) Bacteremia Status: Acute (3) Bacteremia Status: Acute (4) Fever Status: Acute (5) CHF (congestive heart failure) Status: Acute (6) Dementia Status: Acute (7) PVD (peripheral vascular disease) Status: Acute - Assessment and Plan (Free Text) Assessment: renew iv rx check cultures
--- NOTE | 2017-04-17 14:34 | CP.CCUPN ---
CCU Subjective - Physician Review Events Since Last Encounter (Free Text): 04/17/17 The Patient was seen and examined at the bedside, Medical records reviewed, all clinical/lab/hemodynamic/radiographic data were reviewed and management issues were discussed and formulated, Events reviewed 76-year-old male with a pertinent medical history of Anemia, Anxiety, Arthritis , CAD, CHF, COPD, CVA, Depression, Diabetes (type II), Fractures (R hip), GERD, HTN, Hypercholesterolemia, Hyperlipidemia, Kidney Stones, Peripheral Edema), Pneumonia and stage 4 Decubitus ulcer Who was initially admitted from the Rehab on 6th floor because of fever and elevated WBC on 04/14, Patient was transferred to ICU after RAIL SWITCH OPERATOR called by RN because patient with low blood pressure, received I.V. Bolus NS of 1000cc Continued on IV hydrations and Antibiotics with IV Vancomycin, Micafungin and Aztreonam Awake, does not follow commands Afebrile overnight, Persistant leucocytosis Remains hypotensive, and he started on Dopamine drip, BP better now with MAP>60 Still with low urine output. On O2 supple by nasal cannula, sat 100% Patient awake, confused and no distress. Poor PO intake, only sips of water and some pudding taken, will be seen by gas pumping station supervisor today. Last 24H I&O 4550/3000 (+1.5L) CCU Objective - Vital Signs / Intake & Output Vital Signs (Last 4 hours): Vital Signs Temp Pulse Resp BP Pulse Ox 04/17/17 14:00 99 H 29 H 67/45 L 97 04/17/17 12:00 98.2 F 88 21 65/38 L 94 L Intake and Output (Last 8hrs): Intake & Output 04/16/17 04/17/17 04/17/17 22:59 06:59 14:59 Intake Total 1750 1500 340 Output Total 1400 600 525 Balance 350 900 -185 Intake: IV 1100 1400 Intake, Piggyback 250 100 100 Oral 400 240 Output: Drainage 1400 600 Right Lower Abdomen 1400 600 Urine 25 Urine, Voided 25 Stool 500 - Physical Exam Physical Exam Limitations: Positive for: Altered Mental Status Head: Positive for: Atraumatic, Normocephalic Pupils: Positive for: PERRL Extroacular Muscles: Positive for: EOMI Conjunctiva: Positive for: Normal. Negative for: Injected, Icteric Mouth: Positive for: Moist Mucous Membranes. Negative for: Dry, Drooling Pharnyx: Positive for: Normal. Negative for: ERYTHEMA Nose (External): Positive for: Atraumatic. Negative for: Abrasion, Contusion Neck: Positive for: Normal Range of Motion Respiratory/Chest: Positive for: Clear to Auscultation, Good Air Exchange. Negative for: Respiratory Distress, Accessory Muscle Use, Rales, Rhonchi, Tachypneic, Tender to Palpation Cardiovascular: Positive for: Regular Rate and Rhythm, Normal S1, S2, Peripheal Pulses Present. Negative for: Murmurs, Tachycardic, Bradycardic Abdomen: Positive for: Distention, Normal Bowel Sounds, Ostomy Tubes, Other ( iliostomy). Negative for: Tenderness Back: Positive for: Other (Stage 4 decubitus ulcer) Upper Extremity: Positive for: Normal Inspection Lower Extremity: Positive for: Normal Inspection Psychiatric: Positive for: Alert, Lethargic, Other (respond only to touch). Negative for: Anxious, Agitated - Medications Active Medications: Active Medications Generic Name Dose Route Start Last Admin Trade Name Freq PRN Reason Stop Dose Admin Acetaminophen 650 mg 04/14/17 20:25 04/15/17 00:41 Tylenol 325mg Tab PO 650 mg Q6 PRN Administration Pain, moderate (4-7) Alprazolam 0.25 mg 04/14/17 20:21 04/15/17 13:20 Xanax PO 04/21/17 20:22 0.25 mg Q12 PRN Administration Anxiety Aspirin 325 mg 04/17/17 09:00 04/17/17 09:55 Aspirin PO Not Given DAILY [facility] Aspirin 325 mg 04/16/17 18:15 04/17/17 09:56 Aspirin PO Not Given DAILY [facility] Atorvastatin Calcium 50 mg 04/15/17 09:00 04/17/17 09:57 Lipitor PO Not Given DAILY [facility] Enoxaparin Sodium 30 mg 04/15/17 09:00 04/17/17 09:58 Lovenox SC 30 mg DAILY [facility] Administration Protocol Famotidine 20 mg 04/15/17 09:00 04/17/17 09:58 Pepcid PO Not Given BID [facility] Ferrous Gluconate 324 mg 04/15/17 09:00 04/17/17 12:21 Fergon PO 324 mg TID SUBHASH Administration Aztreonam 1 gm/ Sodium 100 mls @ 100 mls/hr 04/14/17 23:00 04/17/17 09:56 Chloride IVPB 100 mls/hr Q8 SUBHASH Administration Dopamine HCl/Dextrose 400 mg in 250 mls @ 4.32 mls/hr 04/17/17 13:39 Dopamine 400mg/250ml D5w IV 04/17/17 13:40 .Q24H ONE Protocol 2 MCG/KG/MIN Sodium Chloride 1,000 mls @ 100 mls/hr 04/17/17 13:45 Sodium Chloride 0.9% IV 04/18/17 13:40 .Q10H SUBHASH Insulin Human Lispro 0 units 04/15/17 07:30 04/17/17 12:21 Humalog SC Not Given ACHS [facility] Protocol Lisinopril 5 mg 04/15/17 21:00 04/17/17 09:58 Zestril PO Not Given DAILY [facility] Metoprolol Tartrate 50 mg 04/15/17 09:00 04/17/17 09:57 Lopressor PO Not Given DAILY [facility] Quetiapine Fumarate 50 mg 04/17/17 22:00 Seroquel PO HS [facility] - Patient Studies Lab Studies: Microbiology Studies 04/16/17 11:00 MRSA Culture (Admit) - Final Naris MRSA NOT DETECTED 04/16/17 05:30 Blood Culture - Preliminary Blood-Venous NO GROWTH AFTER 24 HOURS 04/16/17 04:00 Blood Culture - Preliminary Blood-Venous NO GROWTH AFTER 24 HOURS 04/14/17 17:30 Urine Culture - Final Urine,Catheterized Yeast Species 04/14/17 17:30 S.aureus & Coag-Neg Staph PNA FISH - Final Blood Blood Culture - Preliminary Gram Positive Cocci Gram Stain - Final Lab Studies 04/17/17 04/17/17 04/17/17 Range/Units 12:02 05:41 05:41 WBC (4.8-10.8) K/uL RBC (4.40-5.90) Mil/uL Hgb (12.0-18.0) g/dL Hct (35.0-51.0) % MCV (80.0-94.0) fl MCH (27.0-31.0) pg MCHC (33.0-37.0) g/dL RDW (11.5-14.5) % Plt Count (130-400) K/uL MPV (7.2-11.7) fl Neut % (Auto) (50.0-75.0) % Lymph % (Auto) (20.0-40.0) % Kinney % (Auto) (0.0-10.0) % Eos % (Auto) (0.0-4.0) % Baso % (Auto) (0.0-2.0) % Neut # (1.8-7.0) K/uL Lymph # (1.0-4.3) K/uL Kinney # (0.0-0.8) K/uL Eos # (0.0-0.7) K/uL Baso # (0.0-0.2) K/uL Neutrophils % (Manual) (42-75) % Lymphocytes % (Manual) (20-50) % Monocytes % (Manual) (0-10) % Platelet Estimate (NORMAL) Hypochromasia (manual) Anisocytosis (manual) Macrocytosis (manual) Sodium 142 (132-148) mmol/l Potassium 3.4 L (3.6-5.0) MMOL/L Chloride 111 H (98-107) mmol/L Carbon Dioxide 16 L (22-30) mmol/L Anion Gap 18 (10-20) BUN 66 H (9-20) mg/dl Creatinine 3.1 H (0.8-1.5) mg/dL Est GFR ( Amer) 24 Est GFR (Non-Af Amer) 20 POC Glucose (mg/dL) 106 (65-110) mg/dL Random Glucose 99 (75-110) mg/dL Lactic Acid (0.7-2.1) MMOL/L Calcium 8.3 L (8.4-10.2) mg/dL Total Bilirubin 0.7 (0.2-1.3) mg/dl AST 79 H D (17-59) U/L ALT 41 (21-72) U/L Alkaline Phosphatase 136 H (38-126) U/L Troponin I (0.00-0.120) ng/mL Total Protein 6.4 (6.3-8.2) G/DL Albumin 2.8 L (3.5-5.0) g/dL Globulin 3.7 (2.2-3.9) gm/dL Albumin/Globulin Ratio 0.8 L (1.0-2.1) Random Vancomycin 21.5 ug/mL C. difficile Ag & Toxin (NEGATIVE) 04/17/17 04/17/17 04/17/17 Range/Units 05:41 05:24 04:30 WBC 26.7 H (4.8-10.8) K/uL RBC 3.33 L (4.40-5.90) Mil/uL Hgb 8.7 L (12.0-18.0) g/dL Hct 27.7 L (35.0-51.0) % MCV 83.2 (80.0-94.0) fl MCH 26.2 L (27.0-31.0) pg MCHC 31.5 L (33.0-37.0) g/dL RDW 17.7 H (11.5-14.5) % Plt Count 308 (130-400) K/uL MPV 7.4 (7.2-11.7) fl Neut % (Auto) 91.5 H (50.0-75.0) % Lymph % (Auto) 3.1 L (20.0-40.0) % Kinney % (Auto) 5.0 (0.0-10.0) % Eos % (Auto) 0.3 (0.0-4.0) % Baso % (Auto) 0.1 (0.0-2.0) % Neut # 24.4 H (1.8-7.0) K/uL Lymph # 0.8 L (1.0-4.3) K/uL Kinney # 1.3 H (0.0-0.8) K/uL Eos # 0.1 (0.0-0.7) K/uL Baso # 0.0 (0.0-0.2) K/uL Neutrophils % (Manual) 91 H (42-75) % Lymphocytes % (Manual) 4 L (20-50) % Monocytes % (Manual) 5 (0-10) % Platelet Estimate Normal (NORMAL) Hypochromasia (manual) Slight Anisocytosis (manual) Slight Macrocytosis (manual) Slight Sodium (132-148) mmol/l Potassium (3.6-5.0) MMOL/L Chloride (98-107) mmol/L Carbon Dioxide (22-30) mmol/L Anion Gap (10-20) BUN (9-20) mg/dl Creatinine (0.8-1.5) mg/dL Est GFR ( Amer) Est GFR (Non-Af Amer) POC Glucose (mg/dL) 106 (65-110) mg/dL Random Glucose (75-110) mg/dL Lactic Acid 0.9 (0.7-2.1) MMOL/L Calcium (8.4-10.2) mg/dL Total Bilirubin (0.2-1.3) mg/dl AST (17-59) U/L ALT (21-72) U/L Alkaline Phosphatase (38-126) U/L Troponin I (0.00-0.120) ng/mL Total Protein (6.3-8.2) G/DL Albumin (3.5-5.0) g/dL Globulin (2.2-3.9) gm/dL Albumin/Globulin Ratio (1.0-2.1) Random Vancomycin ug/mL C. difficile Ag & Toxin (NEGATIVE) 04/17/17 04/16/17 04/16/17 Range/Units 01:09 22:02 17:15 WBC (4.8-10.8) K/uL RBC (4.40-5.90) Mil/uL Hgb (12.0-18.0) g/dL Hct (35.0-51.0) % MCV (80.0-94.0) fl MCH (27.0-31.0) pg MCHC (33.0-37.0) g/dL RDW (11.5-14.5) % Plt Count (130-400) K/uL MPV (7.2-11.7) fl Neut % (Auto) (50.0-75.0) % Lymph % (Auto) (20.0-40.0) % Kinney % (Auto) (0.0-10.0) % Eos % (Auto) (0.0-4.0) % Baso % (Auto) (0.0-2.0) % Neut # (1.8-7.0) K/uL Lymph # (1.0-4.3) K/uL Kinney # (0.0-0.8) K/uL Eos # (0.0-0.7) K/uL Baso # (0.0-0.2) K/uL Neutrophils % (Manual) (42-75) % Lymphocytes % (Manual) (20-50) % Monocytes % (Manual) (0-10) % Platelet Estimate (NORMAL) Hypochromasia (manual) Anisocytosis (manual) Macrocytosis (manual) Sodium (132-148) mmol/l Potassium (3.6-5.0) MMOL/L Chloride (98-107) mmol/L Carbon Dioxide (22-30) mmol/L Anion Gap (10-20) BUN (9-20) mg/dl Creatinine (0.8-1.5) mg/dL Est GFR ( Amer) Est GFR (Non-Af Amer) POC Glucose (mg/dL) 115 H (65-110) mg/dL Random Glucose (75-110) mg/dL Lactic Acid (0.7-2.1) MMOL/L Calcium (8.4-10.2) mg/dL Total Bilirubin (0.2-1.3) mg/dl AST (17-59) U/L ALT (21-72) U/L Alkaline Phosphatase (38-126) U/L Troponin I 0.2580 H* 0.2360 H* (0.00-0.120) ng/mL Total Protein (6.3-8.2) G/DL Albumin (3.5-5.0) g/dL Globulin (2.2-3.9) gm/dL Albumin/Globulin Ratio (1.0-2.1) Random Vancomycin ug/mL C. difficile Ag & Toxin (NEGATIVE) 04/16/17 04/16/17 04/16/17 Range/Units 17:04 16:45 16:12 WBC (4.8-10.8) K/uL RBC (4.40-5.90) Mil/uL Hgb (12.0-18.0) g/dL Hct (35.0-51.0) % MCV (80.0-94.0) fl MCH (27.0-31.0) pg MCHC (33.0-37.0) g/dL RDW (11.5-14.5) % Plt Count (130-400) K/uL MPV (7.2-11.7) fl Neut % (Auto) (50.0-75.0) % Lymph % (Auto) (20.0-40.0) % Kinney % (Auto) (0.0-10.0) % Eos % (Auto) (0.0-4.0) % Baso % (Auto) (0.0-2.0) % Neut # (1.8-7.0) K/uL Lymph # (1.0-4.3) K/uL Kinney # (0.0-0.8) K/uL Eos # (0.0-0.7) K/uL Baso # (0.0-0.2) K/uL Neutrophils % (Manual) (42-75) % Lymphocytes % (Manual) (20-50) % Monocytes % (Manual) (0-10) % Platelet Estimate (NORMAL) Hypochromasia (manual) Anisocytosis (manual) Macrocytosis (manual) Sodium (132-148) mmol/l Potassium (3.6-5.0) MMOL/L Chloride (98-107) mmol/L Carbon Dioxide (22-30) mmol/L Anion Gap (10-20) BUN (9-20) mg/dl Creatinine (0.8-1.5) mg/dL Est GFR ( Amer) Est GFR (Non-Af Amer) POC Glucose (mg/dL) 151 H 145 H (65-110) mg/dL Random Glucose (75-110) mg/dL Lactic Acid (0.7-2.1) MMOL/L Calcium (8.4-10.2) mg/dL Total Bilirubin (0.2-1.3) mg/dl AST (17-59) U/L ALT (21-72) U/L Alkaline Phosphatase (38-126) U/L Troponin I (0.00-0.120) ng/mL Total Protein (6.3-8.2) G/DL Albumin (3.5-5.0) g/dL Globulin (2.2-3.9) gm/dL Albumin/Globulin Ratio (1.0-2.1) Random Vancomycin ug/mL C. difficile Ag & Toxin Negative (NEGATIVE) Laboratory Results - last 24 hr 04/16/17 04/16/17 04/16/17 16:12 16:45 17:04 WBC RBC Hgb Hct MCV MCH MCHC RDW Plt Count MPV Neut % (Auto) Lymph % (Auto) Kinney % (Auto) Eos % (Auto) Baso % (Auto) Neut # Lymph # Kinney # Eos # Baso # Neutrophils % (Manual) Lymphocytes % (Manual) Monocytes % (Manual) Platelet Estimate Hypochromasia (manual) Anisocytosis (manual) Macrocytosis (manual) Sodium Potassium Chloride Carbon Dioxide Anion Gap BUN Creatinine Est GFR ( Amer) Est GFR (Non-Af Amer) POC Glucose (mg/dL) 145 H 151 H Random Glucose Lactic Acid Calcium Total Bilirubin AST ALT Alkaline Phosphatase Troponin I Total Protein Albumin Globulin Albumin/Globulin Ratio Random Vancomycin C. difficile Ag & Toxin Negative 04/16/17 04/16/17 04/17/17 17:15 22:02 01:09 WBC RBC Hgb Hct MCV MCH MCHC RDW Plt Count MPV Neut % (Auto) Lymph % (Auto) Kinney % (Auto) Eos % (Auto) Baso % (Auto) Neut # Lymph # Kinney # Eos # Baso # Neutrophils % (Manual) Lymphocytes % (Manual) Monocytes % (Manual) Platelet Estimate Hypochromasia (manual) Anisocytosis (manual) Macrocytosis (manual) Sodium Potassium Chloride Carbon Dioxide Anion Gap BUN Creatinine Est GFR ( Amer) Est GFR (Non-Af Amer) POC Glucose (mg/dL) 115 H Random Glucose Lactic Acid Calcium Total Bilirubin AST ALT Alkaline Phosphatase Troponin I 0.2360 H* 0.2580 H* Total Protein Albumin Globulin Albumin/Globulin Ratio Random Vancomycin C. difficile Ag & Toxin 04/17/17 04/17/17 04/17/17 04:30 05:24 05:41 WBC 26.7 H RBC 3.33 L Hgb 8.7 L Hct 27.7 L MCV 83.2 MCH 26.2 L MCHC 31.5 L RDW 17.7 H Plt Count 308 MPV 7.4 Neut % (Auto) 91.5 H Lymph % (Auto) 3.1 L Kinney % (Auto) 5.0 Eos % (Auto) 0.3 Baso % (Auto) 0.1 Neut # 24.4 H Lymph # 0.8 L Kinney # 1.3 H Eos # 0.1 Baso # 0.0 Neutrophils % (Manual) 91 H Lymphocytes % (Manual) 4 L Monocytes % (Manual) 5 Platelet Estimate Normal Hypochromasia (manual) Slight Anisocytosis (manual) Slight Macrocytosis (manual) Slight Sodium Potassium Chloride Carbon Dioxide Anion Gap BUN Creatinine Est GFR ( Amer) Est GFR (Non-Af Amer) POC Glucose (mg/dL) 106 Random Glucose Lactic Acid 0.9 Calcium Total Bilirubin AST ALT Alkaline Phosphatase Troponin I Total Protein Albumin Globulin Albumin/Globulin Ratio Random Vancomycin C. difficile Ag & Toxin 04/17/17 04/17/17 04/17/17 05:41 05:41 12:02 WBC RBC Hgb Hct MCV MCH MCHC RDW Plt Count MPV Neut % (Auto) Lymph % (Auto) Kinney % (Auto) Eos % (Auto) Baso % (Auto) Neut # Lymph # Kinney # Eos # Baso # Neutrophils % (Manual) Lymphocytes % (Manual) Monocytes % (Manual) Platelet Estimate Hypochromasia (manual) Anisocytosis (manual) Macrocytosis (manual) Sodium 142 Potassium 3.4 L Chloride 111 H Carbon Dioxide 16 L Anion Gap 18 BUN 66 H Creatinine 3.1 H Est GFR ( Amer) 24 Est GFR (Non-Af Amer) 20 POC Glucose (mg/dL) 106 Random Glucose 99 Lactic Acid Calcium 8.3 L Total Bilirubin 0.7 AST 79 H D ALT 41 Alkaline Phosphatase 136 H Troponin I Total Protein 6.4 Albumin 2.8 L Globulin 3.7 Albumin/Globulin Ratio 0.8 L Random Vancomycin 21.5 C. difficile Ag & Toxin Fingerstick Blood Sugar Results: 111 Review of Systems - Review of Systems Systems not reviewed;Unavailable: Acuity of Condition All systems: reviewed and no additional remarkable complaints except (lethargic , confused) Critical Care Progress Note - Extremities/Vascular Does the Patient have a Central Venous Catheter?: No Does the Patient need a Central Venous Catheter?: No Does the Patient have a Diaz Catheter?: No Does the Patient need a Diaz Catheter?: No Assessment/Plan (1) Septic shock Current Visit: Yes Status: Acute Priority: High Comment: Secondary to UTI or infected stage 4 decubitus ulcer Continue with Antibiotics with IV Vancomycin, Micafungin and Aztreonam Patient is allergic to penicillin and sulfonamide. Dopamine, Keep MAP 65-75 Frequent LABS/LYTES/CBC, XR, EKG IV HYDRATION Monitor Urine output (2) Bacteremia Current Visit: Yes Status: Acute Priority: High Comment: As per septic shock Trend WBC and temperature curve (3) Elevated troponin Current Visit: Yes Status: Acute Priority: High Comment: Demand ischemia Vs NSTEMI Cardiology evaluation appretiated Conservative measures No AC (4) CHF (congestive heart failure) Current Visit: No Status: Acute Priority: Medium Comment: Compensated ASA Strict I/O's Monitor Urine output (5) PVD (peripheral vascular disease) Current Visit: No Status: Acute Priority: Low (6) Dementia Current Visit: No Status: Acute Priority: Low (7) Decubitus skin ulcer Current Visit: Yes Status: Acute Priority: Medium Comment: Continue IV Antibiotics Local wound care Surgical consult for possible debridement - Assessment and Plan (Free Text) Assessment: Total critical care time 56 minute discussed with the family in details diagnosis, treatment plans and alternatives family is considering DNR
[2017-04-17] MEDS: Micafungin 100 MG in Sodium Chloride 0.9% 100 ML IVPB SCH (17:47)
[2017-04-18] MEDS: Aztreonam 1 GM in Sodium Chloride 0.9% 100 ML IVPB SCH ×3 (01:20→17:38)
[2017-04-18] MEDS: DOPamine 400mg/250ml D5W 400 MG/250 ML BAG IV ONE ×2 (05:15→18:43)
[2017-04-18 05:29] LABS: HEMATOCRIT 28.4 % (35.0-51.0); MEAN CELL VOLUME 84.9 fl (80.0-94.0); MEAN CORPUSCULAR HEMOGLOBIN 26.5 pg (27.0-31.0); MEAN CORPUSCULAR HGB CONC 31.2 g/dL (33.0-37.0); RED CELL DISTRIBUTION WIDTH 17.8 % (11.5-14.5); WHITE BLOOD COUNT 33.7 K/uL (4.8-10.8)
[2017-04-18 05:43] LABS: ALB/GLOB RATIO 0.8 (1.0-2.1); BILIRUBIN,TOTAL 0.8 mg/dl (0.2-1.3); CALCIUM 8.3 mg/dL (8.4-10.2); POTASSIUM 3.4 MMOL/L (3.6-5.0); TOTAL PROTEIN 6.3 G/DL (6.3-8.2)
[2017-04-18] MEDS: Insulin Lispro (humaLOG) 100 Units/ml Inj SC SCH ×4 (06:56→21:44)
[2017-04-18] MEDS: Enoxaparin 30 mg Syringe SC SCH (10:11)
[2017-04-18] MEDS ORDERED: Chlorhexidine Gluconate 1 APPL/PKT TP ONE (10:31)
--- NOTE | 2017-04-18 10:36 | CP.PCM.PN ---
Subjective - Date & Time of Evaluation Date of Evaluation: 04/18/17 Time of Evaluation: 08:00 - Subjective Subjective: remains hypotensive no new positive cultures consider CT abd when stable recc: SURGICAL EVAL FOR DEBRIDEMENT Objective - Vital Signs/Intake and Output Vital Signs (last 24 hours): Temp Pulse Resp BP Pulse Ox 98.5 F 109 H 23 91/67 L 96 04/18/17 07:41 04/18/17 09:00 04/18/17 09:00 04/18/17 09:00 04/18/17 09:00 Intake and Output: 04/18/17 04/18/17 06:59 18:59 Intake Total 1483 100 Output Total 1325 Balance 158 100 - Medications Medications: Current Medications Acetaminophen (Tylenol 325mg Tab) 650 mg PO Q6 PRN PRN Reason: Pain, moderate (4-7) Last Admin: 04/15/17 00:41 Dose: 650 mg Aspirin (Aspirin) 325 mg PO DAILY [facility] Last Admin: 04/18/17 09:59 Dose: Not Given Aspirin (Aspirin) 325 mg PO DAILY [facility] Last Admin: 04/18/17 09:59 Dose: Not Given Atorvastatin Calcium (Lipitor) 50 mg PO DAILY [facility] Last Admin: 04/18/17 10:10 Dose: Not Given Enoxaparin Sodium (Lovenox) 30 mg SC DAILY [facility] PRN Reason: Protocol Last Admin: 04/18/17 10:11 Dose: 30 mg Famotidine (Pepcid) 20 mg PO BID [facility] Last Admin: 04/18/17 10:12 Dose: Not Given Ferrous Gluconate (Fergon) 324 mg PO TID [facility] Last Admin: 04/18/17 10:10 Dose: Not Given Aztreonam 1 gm/ Sodium (Chloride) 100 mls @ 100 mls/hr IVPB Q8 [facility] Last Admin: 04/18/17 10:00 Dose: 100 mls/hr Sodium Chloride (Sodium Chloride 0.9%) 1,000 mls @ 100 mls/hr IV .Q10H [facility] Stop: 04/18/17 13:40 Last Admin: 04/17/17 14:35 Dose: 100 mls/hr Micafungin Sodium 100 mg/ (Sodium Chloride) 100 mls @ 100 mls/hr IVPB DAILY [facility] Last Admin: 04/17/17 17:47 Dose: 100 mls/hr Insulin Human Lispro (Humalog) 0 units SC ACHS [facility] PRN Reason: Protocol Last Admin: 04/18/17 06:56 Dose: 1 unit Quetiapine Fumarate (Seroquel) 50 mg PO HS [facility] Last Admin: 04/17/17 21:47 Dose: Not Given - Labs Labs: 04/18/17 04:45 04/18/17 04:45 - Constitutional Appears: Toxic, Cachectic, Chronically Ill - Head Exam Head Exam: NORMOCEPHALIC - Eye Exam Eye Exam: absent: Scleral icterus - ENT Exam ENT Exam: Mucous Membranes Dry - Neck Exam Neck Exam: absent: Lymphadenopathy - Respiratory Exam Respiratory Exam: Decreased Breath Sounds, Rhonchi - Cardiovascular Exam Cardiovascular Exam: Tachycardia, REGULAR RHYTHM, +S1, +S2 - GI/Abdominal Exam GI & Abdominal Exam: Distended, Soft Additional comments: ILEOSTOMY - Rectal Exam Rectal Exam: Deferred - Extremities Exam Extremities Exam: absent: Pedal Edema - Back Exam Back Exam: absent: CVA tenderness (L), CVA tenderness (R) - Neurological Exam Neurological Exam: Altered Assessment and Plan (1) Septic shock Status: Acute (2) Bacteremia Status: Acute (3) Bacteremia Status: Acute (4) Fever Status: Acute (5) CHF (congestive heart failure) Status: Acute (6) Dementia Status: Acute (7) PVD (peripheral vascular disease) Status: Acute
--- NOTE | 2017-04-18 10:54 | PQF GENQUE ---
Chronic systolic congestive heart failure, Compensated Dr. Beltran, Please clarify the Type and Acuity of CHF: (1) Acute or Chronic or Acute on Chronic (2) Systolic or Diastolic: if known ;or document type unknown OR:Other explanation of clinical finding Dr. Beltran: Critical Care progress note of 04/17: ) CHF (congestive heart failure ) Current Visit: NO-- Status: ACUTE-- Priority: Medium ---Comment: COMPENSATED ASA Strict I/O's Monitor Urine output 04/14:cxr: portable: Impresion: No active disease. No significant interval change compared to the prior examination(s). This form is a permanent part of the medical record Clarification of your documentation is requested to better reflect the severity of illness and intensity of treatment of your patient. Indicators present [] Specify: [] [] Specify: [] [] Specify: [] [] Specify: [] Location in the medical record that reflects the above clinical findings: [] Treatment Provided: [] PHYSICIAN'S RESPONSE Based on your medical judgment of the clinical indicators outlined above please clarify the following: [] Practitioner response [] If unable to determine, please check the box, sign and date. Present On Admission (POA) Indicator: [] Present at the time of admission [] Not present at the time of admission [] Clinically Undetermined In responding to this query, please exercise your independent professional judgment. The fact that a question is asked does not imply that any particular answer is desired or expected. Thank you for your clarification on this documentation. If you have any questions please call. * Thank you, Leticia Valenzuela RN BSN ext. #[phone] MTDD
[2017-04-18] MEDS: Micafungin 100 MG in Sodium Chloride 0.9% 100 ML IVPB SCH (11:00)
--- NOTE | 2017-04-18 11:05 | PN ---
DATE: 04/18/2017 The patient seen and examined. Interim events noted. Consults noted and appreciated. Intervention, coronary care unit nurse, infectious disease, cardiology consult and followup and interventions noted and appreci ated. The patient remains in intensive care unit. The patient is not able to provide informative hi story or review of systems. PHYSICAL EXAMINATION: GENERAL: The patient is in intensive care unit in no acute distress. VITAL SIGNS: Stable. HEART: S1, S2 normal, regular. LUNGS: Good bilateral air exchange. ABDOMEN: Soft, nontender. EXTREMITIES: No calf swelling, no tenderness, no acute ischemia. CENTRAL NERVOUS SYSTEM: Essentially unchanged. SKIN: The patient has a sacral decubitus which was ____ the source of infection. DIAGNOSTIC DATA: Available diagnostic data reviewed. Telemetry monitoring does not reveal significa nt arrhythmia. ____. WBC count is elevated to 33,000. The patient's overall medical condition is critically sick. Case and plan was discussed with the beatriz webb's family. PLAN: As ordered. Eros Chowdary MD cc: [id number] TT: 04/18/2017 11:05:02 Confirmation # [id number] Dictation # [id number] tn
--- NOTE | 2017-04-18 11:35 | PQF GENQUE ---
Dr. Chowdary, Please document suspected or confirmed causative organism of Sepsis if known after the work up is completed OR: Unable to determine 04/14/17: Blood culture report :coagulase negative staphylococcus: (by PNA FISH) 04/14/17: Urine culture:Yeast species 04/16/17@04:00: Blood culture: Preliminary: Gram stain-Final: Gram positive Bacilli: Anaerobic Bottle Positive only @05:30: Blood culture report: Preliminary: no growth after 24 hours 04/16/17:Naris:MRSA: not detected This form is a permanent part of the medical record Clarification of your documentation is requested to better reflect the severity of illness and intensity of treatment of your patient. Indicators present [] Specify: [] [] Specify: [] [] Specify: [] [] Specify: [] Location in the medical record that reflects the above clinical findings: [] Treatment Provided: [] PHYSICIAN'S RESPONSE Based on your medical judgment of the clinical indicators outlined above please clarify the following: [] Practitioner response [] If unable to determine, please check the box, sign and date. Present On Admission (POA) Indicator: [] Present at the time of admission [] Not present at the time of admission [] Clinically Undetermined In responding to this query, please exercise your independent professional judgment. The fact that a question is asked does not imply that any particular answer is desired or expected. Thank you for your clarification on this documentation. If you have any questions please call. * Thank you, Leticia Valenzuela RN BSN ext. #[phone] MTDD
--- NOTE | 2017-04-18 11:38 | CP.CCUPN ---
CCU Subjective - Physician Review Events Since Last Encounter (Free Text): 04/18/17 11:40 The Patient was seen and examined at the bedside, Medical records reviewed, all clinical/lab/hemodynamic/radiographic data were reviewed and management issues were discussed and formulated, Events reviewed 76-year-old male with a pertinent medical history of HTN, Hypercholesterolemia, Anemia, Anxiety, Arthritis, CAD, CHF, COPD, CVA, Depression, Diabetes (type II) , Fractures (R hip), GERD, Kidney Stones, Peripheral Edema), Pneumonia and stage 4 Decubitus ulcer Who was initially admitted from the Rehab on 6th floor because of fever and elevated WBC on 04/14, Patient was transferred to ICU after [employer] called by RN because patient with low blood pressure, He received I.V. Bolus NS of 1000cc Continued on IV hydrations and Antibiotics with IV Vancomycin, Micafungin and Aztreonam Yesterday he remained hypotensive, and he was started on Dopamine drip, BP better now with MAP mid 60s Still with low urine output. On O2 supple by nasal cannula, sat 100% Patient slightly more awake today, confused and no distress. Poor PO intake, only sips of water and some pudding taken, He was seen by cotton bag sewer, started on Glucerna Shake 8 oz 3 times per day Last 24H I&O 3525/1850 (+1.6 L) Scheduled for PICC line placement today, will possibly start Levophed since he is borderline hypotensive despite being on large dose of Dopmine Worsening of Evaluated by wound care and surgery today, CCU Objective - Vital Signs / Intake & Output Vital Signs (Last 4 hours): Vital Signs Temp Pulse Resp BP Pulse Ox 04/18/17 10:00 109 H 22 93/49 L 98 04/18/17 09:00 109 H 23 91/67 L 96 04/18/17 07:41 98.5 F 111 H 21 107/52 L 98 Intake and Output (Last 8hrs): Intake & Output 04/17/17 04/18/17 04/18/17 22:59 06:59 14:59 Intake Total 2174 1009 100 Output Total 350 975 Balance 1824 34 100 Intake: IV 2074 909 Intake, Piggyback 100 100 100 Output: Drainage 350 825 Right Lower Abdomen 350 825 Urine 150 Urine, Voided 150 Other: # Voids Urine, Voided 1 - Physical Exam Physical Exam Limitations: Positive for: Clinical Condition Head: Positive for: Atraumatic, Normocephalic Pupils: Positive for: PERRL Extroacular Muscles: Positive for: EOMI Conjunctiva: Positive for: Normal. Negative for: Injected, Icteric Mouth: Positive for: Moist Mucous Membranes. Negative for: Dry, Drooling Pharnyx: Positive for: Normal. Negative for: ERYTHEMA Nose (External): Positive for: Atraumatic. Negative for: Abrasion, Contusion Neck: Positive for: Normal Range of Motion Respiratory/Chest: Positive for: Clear to Auscultation, Good Air Exchange. Negative for: Respiratory Distress, Accessory Muscle Use, Rales, Rhonchi, Tachypneic, Tender to Palpation Cardiovascular: Positive for: Regular Rate and Rhythm, Normal S1, S2, Peripheal Pulses Present. Negative for: Murmurs, Tachycardic, Bradycardic Abdomen: Positive for: Distention, Normal Bowel Sounds, Ostomy Tubes, Other ( iliostomy). Negative for: Tenderness Back: Positive for: Other (Stage 4 decubitus ulcer) Upper Extremity: Positive for: Normal Inspection Lower Extremity: Positive for: Normal Inspection Psychiatric: Positive for: Alert, Oriented x 3, Lethargic, Other (respond only to touch). Negative for: Anxious, Agitated - Medications Active Medications: Active Medications Generic Name Dose Route Start Last Admin Trade Name Freq PRN Reason Stop Dose Admin Acetaminophen 650 mg 04/14/17 20:25 04/15/17 00:41 Tylenol 325mg Tab PO 650 mg Q6 PRN Administration Pain, moderate (4-7) Aspirin 325 mg 04/17/17 09:00 04/18/17 09:59 Aspirin PO Not Given DAILY [facility] Aspirin 325 mg 04/16/17 18:15 04/18/17 09:59 Aspirin PO Not Given DAILY [facility] Atorvastatin Calcium 50 mg 04/15/17 09:00 04/18/17 10:10 Lipitor PO Not Given DAILY [facility] Enoxaparin Sodium 30 mg 04/15/17 09:00 04/18/17 10:11 Lovenox SC 30 mg DAILY [facility] Administration Protocol Famotidine 20 mg 04/15/17 09:00 04/18/17 10:12 Pepcid PO Not Given BID [facility] Ferrous Gluconate 324 mg 04/15/17 09:00 04/18/17 10:10 Fergon PO Not Given TID [facility] Aztreonam 1 gm/ Sodium 100 mls @ 100 mls/hr 04/14/17 23:00 04/18/17 10:00 Chloride IVPB 100 mls/hr Q8 [facility] Administration Sodium Chloride 1,000 mls @ 100 mls/hr 04/17/17 13:45 04/17/17 14:35 Sodium Chloride 0.9% IV 04/18/17 13:40 100 mls/hr .Q10H [facility] Administration Micafungin Sodium 100 mg/ 100 mls @ 100 mls/hr 04/17/17 15:45 04/17/17 17:47 Sodium Chloride IVPB 100 mls/hr DAILY [facility] Administration Insulin Human Lispro 0 units 04/15/17 07:30 04/18/17 06:56 Humalog SC 1 unit ACHS [facility] Administration Protocol Quetiapine Fumarate 50 mg 04/17/17 22:00 04/17/17 21:47 Seroquel PO Not Given HS [facility] - Patient Studies Lab Studies: Microbiology Studies 04/16/17 05:30 Blood Culture - Preliminary Blood-Venous NO GROWTH AFTER 48 HOURS 04/16/17 04:00 Blood Culture - Preliminary Blood-Venous Gram Stain - Final 04/14/17 17:30 S.aureus & Coag-Neg Staph PNA FISH - Final Blood Blood Culture - Final Coagulase Neg Staphylococcus Gram Stain - Final 04/16/17 11:00 MRSA Culture (Admit) - Final Naris MRSA NOT DETECTED Lab Studies 04/18/17 04/18/17 04/18/17 Range/Units 11:15 06:48 04:45 WBC (4.8-10.8) K/uL RBC (4.40-5.90) Mil/uL Hgb (12.0-18.0) g/dL Hct (35.0-51.0) % MCV (80.0-94.0) fl MCH (27.0-31.0) pg MCHC (33.0-37.0) g/dL RDW (11.5-14.5) % Plt Count (130-400) K/uL Sodium (132-148) mmol/l Potassium (3.6-5.0) MMOL/L Chloride (98-107) mmol/L Carbon Dioxide (22-30) mmol/L Anion Gap (10-20) BUN (9-20) mg/dl Creatinine (0.8-1.5) mg/dL Est GFR ( Amer) Est GFR (Non-Af Amer) POC Glucose (mg/dL) 165 H 171 H (65-110) mg/dL Random Glucose (75-110) mg/dL Calcium (8.4-10.2) mg/dL Total Bilirubin (0.2-1.3) mg/dl AST (17-59) U/L ALT (21-72) U/L Alkaline Phosphatase (38-126) U/L Total Protein (6.3-8.2) G/DL Albumin (3.5-5.0) g/dL Globulin (2.2-3.9) gm/dL Albumin/Globulin Ratio (1.0-2.1) Random Vancomycin 17.5 ug/mL 04/18/17 04/18/17 04/17/17 Range/Units 04:45 04:45 21:52 WBC 33.7 H (4.8-10.8) K/uL RBC 3.34 L (4.40-5.90) Mil/uL Hgb 8.9 L (12.0-18.0) g/dL Hct 28.4 L (35.0-51.0) % MCV 84.9 (80.0-94.0) fl MCH 26.5 L (27.0-31.0) pg MCHC 31.2 L (33.0-37.0) g/dL RDW 17.8 H (11.5-14.5) % Plt Count 363 (130-400) K/uL Sodium 138 (132-148) mmol/l Potassium 3.4 L (3.6-5.0) MMOL/L Chloride 108 H (98-107) mmol/L Carbon Dioxide 14 L (22-30) mmol/L Anion Gap 19 (10-20) BUN 73 H (9-20) mg/dl Creatinine 3.1 H (0.8-1.5) mg/dL Est GFR ( Amer) 24 Est GFR (Non-Af Amer) 20 POC Glucose (mg/dL) 161 H (65-110) mg/dL Random Glucose 139 H (75-110) mg/dL Calcium 8.3 L (8.4-10.2) mg/dL Total Bilirubin 0.8 (0.2-1.3) mg/dl AST 89 H (17-59) U/L ALT 55 (21-72) U/L Alkaline Phosphatase 120 (38-126) U/L Total Protein 6.3 (6.3-8.2) G/DL Albumin 2.7 L (3.5-5.0) g/dL Globulin 3.6 (2.2-3.9) gm/dL Albumin/Globulin Ratio 0.8 L (1.0-2.1) Random Vancomycin ug/mL 04/17/17 04/17/17 04/17/17 Range/Units 20:09 15:56 12:02 WBC (4.8-10.8) K/uL RBC (4.40-5.90) Mil/uL Hgb (12.0-18.0) g/dL Hct (35.0-51.0) % MCV (80.0-94.0) fl MCH (27.0-31.0) pg MCHC (33.0-37.0) g/dL RDW (11.5-14.5) % Plt Count (130-400) K/uL Sodium (132-148) mmol/l Potassium (3.6-5.0) MMOL/L Chloride (98-107) mmol/L Carbon Dioxide (22-30) mmol/L Anion Gap (10-20) BUN (9-20) mg/dl Creatinine (0.8-1.5) mg/dL Est GFR ( Amer) Est GFR (Non-Af Amer) POC Glucose (mg/dL) 137 H 121 H 106 (65-110) mg/dL Random Glucose (75-110) mg/dL Calcium (8.4-10.2) mg/dL Total Bilirubin (0.2-1.3) mg/dl AST (17-59) U/L ALT (21-72) U/L Alkaline Phosphatase (38-126) U/L Total Protein (6.3-8.2) G/DL Albumin (3.5-5.0) g/dL Globulin (2.2-3.9) gm/dL Albumin/Globulin Ratio (1.0-2.1) Random Vancomycin ug/mL Laboratory Results - last 24 hr 04/17/17 04/17/17 04/17/17 12:02 15:56 20:09 WBC RBC Hgb Hct MCV MCH MCHC RDW Plt Count Sodium Potassium Chloride Carbon Dioxide Anion Gap BUN Creatinine Est GFR ( Amer) Est GFR (Non-Af Amer) POC Glucose (mg/dL) 106 121 H 137 H Random Glucose Calcium Total Bilirubin AST ALT Alkaline Phosphatase Total Protein Albumin Globulin Albumin/Globulin Ratio Random Vancomycin 04/17/17 04/18/17 04/18/17 21:52 04:45 04:45 WBC 33.7 H RBC 3.34 L Hgb 8.9 L Hct 28.4 L MCV 84.9 MCH 26.5 L MCHC 31.2 L RDW 17.8 H Plt Count 363 Sodium 138 Potassium 3.4 L Chloride 108 H Carbon Dioxide 14 L Anion Gap 19 BUN 73 H Creatinine 3.1 H Est GFR ( Amer) 24 Est GFR (Non-Af Amer) 20 POC Glucose (mg/dL) 161 H Random Glucose 139 H Calcium 8.3 L Total Bilirubin 0.8 AST 89 H ALT 55 Alkaline Phosphatase 120 Total Protein 6.3 Albumin 2.7 L Globulin 3.6 Albumin/Globulin Ratio 0.8 L Random Vancomycin 04/18/17 04/18/17 04/18/17 04:45 06:48 11:15 WBC RBC Hgb Hct MCV MCH MCHC RDW Plt Count Sodium Potassium Chloride Carbon Dioxide Anion Gap BUN Creatinine Est GFR ( Amer) Est GFR (Non-Af Amer) POC Glucose (mg/dL) 171 H 165 H Random Glucose Calcium Total Bilirubin AST ALT Alkaline Phosphatase Total Protein Albumin Globulin Albumin/Globulin Ratio Random Vancomycin 17.5 Fingerstick Blood Sugar Results: 171 Review of Systems - Review of Systems Systems not reviewed;Unavailable: Acuity of Condition Assessment/Plan (1) Septic shock Current Visit: Yes Status: Acute Priority: High Comment: Secondary to UTI or infected stage 4 decubitus ulcer Continue with Antibiotics with IV Vancomycin, Micafungin and Aztreonam Patient is allergic to penicillin and sulfonamide. Dopamine, transition to Levophed if needed, Keep MAP 65-75 Frequent LABS/LYTES/CBC, XR, EKG IV HYDRATION Monitor Urine output (2) Bacteremia Current Visit: Yes Status: Acute Priority: High Comment: As per septic shock Trend WBC and temperature curve (3) Elevated troponin Current Visit: Yes Status: Acute Priority: High Comment: Demand ischemia Vs NSTEMI Cardiology evaluation appretiated Conservative measures No AC (4) CHF (congestive heart failure) Current Visit: No Status: Acute Priority: Medium Comment: Compensated ASA Strict I/O's Monitor Urine output (5) PVD (peripheral vascular disease) Current Visit: No Status: Acute Priority: Low (6) Dementia Current Visit: No Status: Acute Priority: Low (7) Decubitus skin ulcer Current Visit: Yes Status: Acute Priority: Medium Comment: Continue IV Antibiotics Local wound care Surgical consult for possible debridement
[2017-04-18] MEDS ORDERED: Lidocaine 1% Inj (20ml) ONE (12:43)
--- NOTE | 2017-04-18 13:27 | PCM.SURG1 ---
Surgeon's Initial Post Op Note - Surgeon's Notes Surgeon: Nathan Yeung MD Resource Efficiency Manager: NONE Type of Anesthesia: Local Pre-Operative Diagnosis: Poor venous access Operative Findings: US showed patent left basilic vein. Post-Operative Diagnosis: Poor venous access Operation Performed: Dual lumen picc placement left basilic vein, 37 cm. Tip in SVC. Specimen/Specimens Removed: NONE Estimated Blood Loss: EBL {In ML}: 2 Blood Products Given: N/A Drains Used: No Drains Post-Op Condition: Fair Date of Surgery/Procedure: 04/18/17 Time of Surgery/Procedure: 13:25
--- NOTE | 2017-04-18 16:01 | CP.PCM.CON ---
<Abel Mcarthur - Last Filed: 04/18/17 15:56> History of Present Illness - History of Present Illness History of Present Illness: SURGERY CONSULT NOTE FOR DR. BECKER 76M presents to [facility] for rehab 20 days ago after spending two week at "[facility]" for an emergency repair of two abdominal incarcerated hernia. Patient currently has an ileostomy. History was taken from . She states while in rehab up at [place], the patients blood pressure began to decline and that was when patient was taken to ICU. Surgery is consulted for sacral decubitus stage 4. She states 20 days ago when he came here the nurse noted to her that the patient had early signs of sacral ulcer. She states it was a small circular size that was red on the sacral region. states she has not seen the ulcer seens (as not been checking it). She states patient is usually in the bed all day every since the operation which was done towards the end of February. PMH: HTN, CAD, CVA, incarcerated hernia PSH: Ileostomy (poss bowel resection) Social: denies tobacco, alcohol and illicit drugs Allergies: PCN, Sulfa Past Patient History - Infectious Disease Hx of Infectious Diseases: None - Past Medical History & Family History Past Medical History?: Yes - Past Social History Smoking Status: Never Smoked - CARDIAC Hx Cardiac Disorders: Yes Hx Congestive Heart Failure: Yes Hx Hypercholesterolemia: Yes Hx Hypertension: Yes Hx Pacemaker: No Hx Peripheral Edema: Yes (LLE +1, pitting) - PULMONARY Hx Respiratory Disorders: Yes Hx Chronic Obstructive Pulmonary Disease (COPD): Yes Hx Pneumonia: Yes - NEUROLOGICAL Hx Neurological Disorder: Yes (CVA) HX Cerebrovascular Accident: Yes - HEENT Hx HEENT Problems: Yes Hx Glaucoma: Yes - RENAL Hx Chronic Kidney Disease: Yes Hx Kidney Stones: Yes - ENDOCRINE/METABOLIC Hx Endocrine Disorders: Yes (DM) Hx Diabetes Mellitus Type 1: Yes - HEMATOLOGICAL/ONCOLOGICAL Hx Anemia: Yes Hx Human Immunodeficiency Virus (HIV): No - INTEGUMENTARY Hx Dermatological Problems: Yes (sacral ulcer) - MUSCULOSKELETAL/RHEUMATOLOGICAL Hx Musculoskeletal Disorders: Yes Hx Arthritis: Yes Hx Falls: No Hx Fractures: Yes (R hip) - GASTROINTESTINAL Hx Gastrointestinal Disorders: Yes Hx Bowel Surgery: Yes Hx Colostomy: Yes Other/Comment: 03/17/2017 - exploratory lap, small bowel resection. 03/18/2017 - returned to OR for washout, end ileostomy, abdominal closure with bridging strattice mesh. h/o abdominal hernia - GENITOURINARY/GYNECOLOGICAL Hx Genitourinary Disorders: No - PSYCHIATRIC Hx Psychophysiologic Disorder: Yes Hx Anxiety: Yes Hx Depression: Yes - SURGICAL HISTORY Hx Surgeries: Yes Hx Coronary Stent: Yes Hx Joint Replacement: Yes (hip) - ANESTHESIA Hx Anesthesia: Yes Hx Anesthesia Reactions: No (took 1 week to wake up from sx per child) Hx Malignant Hyperthermia: No Meds Allergies/Adverse Reactions: Allergies Allergy/AdvReac Type Severity Reaction Status Date / Time Penicillins Allergy URTICARIA Verified 03/30/17 22:34 Sulfa (Sulfonamide Allergy URTICARIA Verified 03/30/17 22:34 Antibiotics) - Medications Medications: Current Medications Acetaminophen (Tylenol 325mg Tab) 650 mg PO Q6 PRN PRN Reason: Pain, moderate (4-7) Last Admin: 04/15/17 00:41 Dose: 650 mg Aspirin (Aspirin) 325 mg PO DAILY [facility] Last Admin: 04/18/17 09:59 Dose: Not Given Aspirin (Aspirin) 325 mg PO DAILY [facility] Last Admin: 04/18/17 09:59 Dose: Not Given Atorvastatin Calcium (Lipitor) 50 mg PO DAILY [facility] Last Admin: 04/18/17 10:10 Dose: Not Given Enoxaparin Sodium (Lovenox) 30 mg SC DAILY [facility] PRN Reason: Protocol Last Admin: 04/18/17 10:11 Dose: 30 mg Famotidine (Pepcid) 20 mg PO BID [facility] Last Admin: 04/18/17 10:12 Dose: Not Given Ferrous Gluconate (Fergon) 324 mg PO TID [facility] Last Admin: 04/18/17 10:10 Dose: Not Given Aztreonam 1 gm/ Sodium (Chloride) 100 mls @ 100 mls/hr IVPB Q8 [facility] Last Admin: 04/18/17 10:00 Dose: 100 mls/hr Micafungin Sodium 100 mg/ (Sodium Chloride) 100 mls @ 100 mls/hr IVPB DAILY [facility] Last Admin: 04/17/17 17:47 Dose: 100 mls/hr Norepinephrine Bitartrate 4 mg (/ Dextrose) 254 mls @ 9.52 mls/hr IV .Q24H [facility] ; 2.5 MCG/MIN PRN Reason: Protocol Insulin Human Lispro (Humalog) 0 units SC ACHS [facility] PRN Reason: Protocol Last Admin: 04/18/17 06:56 Dose: 1 unit Quetiapine Fumarate (Seroquel) 50 mg PO HS [facility] Last Admin: 04/17/17 21:47 Dose: Not Given Sodium Hypochlorite (Dakins Solution 0.25%) 0 ml TOP DAILY [facility] Physical Exam - Constitutional Appears: Cachectic, Chronically Ill - Head Exam Head Exam: ATRAUMATIC - Eye Exam Eye Exam: EOMI, PERRL - ENT Exam ENT Exam: Mucous Membranes Moist - Respiratory Exam Respiratory Exam: Clear to Auscultation Bilateral, NORMAL BREATHING PATTERN - Cardiovascular Exam Cardiovascular Exam: REGULAR RHYTHM, +S1, +S2 - GI/Abdominal Exam GI & Abdominal Exam: Soft. absent: Distended, Firm, Guarding, Rebound, Rigid, Tenderness Additional comments: ileostomy in place with bilious output. surgical scar noted - Extremities Exam Extremities exam: Negative for: pedal edema, tenderness, pedal pulses present Additional comments: Non palpable pulses bilaterally. Non doppler-able pulse bilaterally, heel ulcer. discolorations on lower leg - Back Exam Additional comments: stage 4 sacral decubitus, bone is exposed. - Neurological Exam Neurological exam: Alert, Oriented x3 - Psychiatric Exam Psychiatric exam: Normal Affect, Normal Mood - Skin Skin Exam: Dry, Intact, Normal Color, Warm Results - Vital Signs Recent Vital Signs: Last Vital Signs Temp 98 F 04/18/17 13:46 Pulse 111 H 04/18/17 13:46 Resp 20 04/18/17 13:46 BP 108/90 04/18/17 13:46 Pulse Ox 96 04/18/17 13:46 - Labs Result Diagrams: 04/18/17 04:45 04/18/17 04:45 Labs: Laboratory Results - last 24 hr 04/17/17 04/17/17 04/17/17 15:56 20:09 21:52 WBC RBC Hgb Hct MCV MCH MCHC RDW Plt Count Sodium Potassium Chloride Carbon Dioxide Anion Gap BUN Creatinine Est GFR ( Amer) Est GFR (Non-Af Amer) POC Glucose (mg/dL) 121 H 137 H 161 H Random Glucose Calcium Total Bilirubin AST ALT Alkaline Phosphatase Total Protein Albumin Globulin Albumin/Globulin Ratio Random Vancomycin 05/30/17 05/30/17 05/30/17 04:45 04:45 04:45 WBC 33.7 H RBC 3.34 L Hgb 8.9 L Hct 28.4 L MCV 84.9 MCH 26.5 L MCHC 31.2 L RDW 17.8 H Plt Count 363 Sodium 138 Potassium 3.4 L Chloride 108 H Carbon Dioxide 14 L Anion Gap 19 BUN 73 H Creatinine 3.1 H Est GFR ( Amer) 24 Est GFR (Non-Af Amer) 20 POC Glucose (mg/dL) Random Glucose 139 H Calcium 8.3 L Total Bilirubin 0.8 AST 89 H ALT 55 Alkaline Phosphatase 120 Total Protein 6.3 Albumin 2.7 L Globulin 3.6 Albumin/Globulin Ratio 0.8 L Random Vancomycin 17.5 04/18/17 04/18/17 06:48 11:15 WBC RBC Hgb Hct MCV MCH MCHC RDW Plt Count Sodium Potassium Chloride Carbon Dioxide Anion Gap BUN Creatinine Est GFR ( Amer) Est GFR (Non-Af Amer) POC Glucose (mg/dL) 171 H 165 H Random Glucose Calcium Total Bilirubin AST ALT Alkaline Phosphatase Total Protein Albumin Globulin Albumin/Globulin Ratio Random Vancomycin Assessment & Plan - Assessment and Plan (Free Text) Assessment: 76M with stage 4 sacral decubitus and severe PVD Plan: - Antibiotics, fluids, pain control - LE arterial PVR/GAMA - Patient booked and consented for debridement of sacral ulcer tomorrow Discussed with Dr. Rosita Mcarthur, PGY1 <Adolfo Becker - Last Filed: 04/23/17 18:30> Meds - Medications Medications: Current Medications Acetaminophen (Tylenol 325mg Tab) 650 mg PO Q6 PRN PRN Reason: Pain, moderate (4-7) Last Admin: 04/22/17 17:07 Dose: 650 mg Albuterol/Ipratropium (Duoneb 3 Mg/0.5 Mg (3 Ml) Ud) 3 ml INH RQ6 [facility] Last Admin: 04/23/17 13:00 Dose: 3 ml Aspirin (Aspirin) 325 mg PO DAILY [facility] Last Admin: 04/23/17 09:38 Dose: 325 mg Atorvastatin Calcium (Lipitor) 50 mg PO DAILY [facility] Last Admin: 04/23/17 09:42 Dose: 50 mg Famotidine (Pepcid) 20 mg PO BID [facility] Last Admin: 06/04/17 17:05 Dose: Not Given Ferrous Gluconate (Fergon) 324 mg PO TID [facility] Last Admin: 04/23/17 17:03 Dose: Not Given Aztreonam 1 gm/ Sodium (Chloride) 100 mls @ 100 mls/hr IVPB Q8 [facility] Last Admin: 04/23/17 17:03 Dose: 100 mls/hr Micafungin Sodium 100 mg/ (Sodium Chloride) 100 mls @ 100 mls/hr IVPB DAILY [facility] Last Admin: 04/23/17 09:42 Dose: 100 mls/hr Metronidazole (Flagyl 500mg/100ml Ns) 100 mls @ 100 mls/hr IVPB Q8 [facility] Last Admin: 04/23/17 17:04 Dose: 100 mls/hr Vancomycin HCl 1 gm/ Sodium (Chloride) 250 mls @ 250 mls/hr IVPB Q24H [facility] Last Admin: 04/22/17 17:17 Dose: 250 mls/hr Lacosamide 200mg/20ml 100 mg/ (Sodium Chloride) 110 mls @ 110 mls/hr IVPB BID [facility] Last Admin: 04/23/17 17:47 Dose: 110 mls/hr Norepinephrine Bitartrate 8 mg (/ Dextrose) 508 mls @ 38.1 mls/hr IV .[id number] ONE; 10 MCG/MIN PRN Reason: Protocol Stop: 04/23/17 21:38 Last Admin: 04/23/17 09:40 Dose: 7.5 mcg/min, 28.57 mls/hr Insulin Human Lispro (Humalog) 0 units SC ACHS [facility] PRN Reason: Protocol Last Admin: 04/23/17 17:04 Dose: Not Given Loperamide HCl (Imodium) 2 mg PO QID PRN PRN Reason: profuse ileostomy output Last Admin: 04/23/17 09:40 Dose: 2 mg Lorazepam (Ativan) 1 mg IVP Q6 PRN PRN Reason: seizures Pantoprazole Sodium (Protonix Ec Tab) 40 mg PO DAILY [facility] Last Admin: 04/23/17 09:42 Dose: 40 mg Results - Vital Signs Recent Vital Signs: Last Vital Signs Temp 97.8 F 04/23/17 16:00 Pulse 78 04/23/17 18:00 Resp 27 H 04/23/17 18:00 BP 99/63 L 04/23/17 18:00 Pulse Ox 100 04/23/17 18:00 - Labs Result Diagrams: 04/23/17 05:30 04/23/17 05:30 Labs: Laboratory Results - last 24 hr 04/22/17 04/23/17 04/23/17 20:45 05:30 05:30 WBC 19.1 H RBC 2.91 L Hgb 8.3 L Hct 25.2 L MCV 86.8 MCH 28.6 MCHC 32.9 L RDW 17.0 H Plt Count 348 Sodium 135 Potassium 4.1 Chloride 110 H Carbon Dioxide 15 L Anion Gap 14 BUN 89 H Creatinine 1.6 H Est GFR ( Amer) 51 Est GFR (Non-Af Amer) 42 POC Glucose (mg/dL) 125 H Random Glucose 103 Calcium 8.3 L Total Bilirubin 0.6 AST 33 ALT 36 Alkaline Phosphatase 95 Total Protein 5.6 L Albumin 2.3 L Globulin 3.4 Albumin/Globulin Ratio 0.7 L 04/23/17 04/23/17 04/23/17 06:00 10:13 16:16 WBC RBC Hgb Hct MCV MCH MCHC RDW Plt Count Sodium Potassium Chloride Carbon Dioxide Anion Gap BUN Creatinine Est GFR ( Amer) Est GFR (Non-Af Amer) POC Glucose (mg/dL) 107 110 108 Random Glucose Calcium Total Bilirubin AST ALT Alkaline Phosphatase Total Protein Albumin Globulin Albumin/Globulin Ratio Attending/Attestation - Attestation I have personally seen and examined this patient.: Yes I have fully participated in the care of the patient.: Yes I have reviewed all pertinent clinical information: Yes Notes (Text): 04/23/17 18:28 Pt was seen and examined at bedside on 04/19/17 Agree with above note and assessment Pt with sepsis and Stage 4 Sacral decubitus ulcer OR for Excisional debridement and wound vac placement Consent NPO, IVF Labs and radiology reviewed Plan d/w pt in detail Risk and benefit explained in detail. .
[2017-04-18] MEDS: Dakin's Topical 0.25%-Half Strength (480 ml) TOP SCH (17:39)
[2017-04-18] MEDS: Sodium Chloride 0.9% 1,000 ML IV SCH (17:52)
--- NOTE | 2017-04-18 18:47 | CP.PCM.PN ---
Subjective - Date & Time of Evaluation Date of Evaluation: 04/18/17 Time of Evaluation: 17:10 - Subjective Subjective: patient seen/examined. is at the bedside. Objective - Vital Signs/Intake and Output Vital Signs (last 24 hours): Temp Pulse Resp BP Pulse Ox 98.2 F 109 H 25 H 79/24 L 100 04/18/17 16:00 04/18/17 18:00 04/18/17 18:00 04/18/17 18:00 04/18/17 18:00 Intake and Output: 04/18/17 04/18/17 06:59 18:59 Intake Total 1483 2194 Output Total 1325 500 Balance 158 1694 - Medications Medications: Current Medications Acetaminophen (Tylenol 325mg Tab) 650 mg PO Q6 PRN PRN Reason: Pain, moderate (4-7) Last Admin: 04/15/17 00:41 Dose: 650 mg Aspirin (Aspirin) 325 mg PO DAILY [facility] Last Admin: 04/18/17 09:59 Dose: Not Given Aspirin (Aspirin) 325 mg PO DAILY [facility] Last Admin: 04/18/17 09:59 Dose: Not Given Atorvastatin Calcium (Lipitor) 50 mg PO DAILY [facility] Last Admin: 04/18/17 10:10 Dose: Not Given Enoxaparin Sodium (Lovenox) 30 mg SC DAILY [facility] PRN Reason: Protocol Last Admin: 04/18/17 10:11 Dose: 30 mg Famotidine (Pepcid) 20 mg PO BID [facility] Last Admin: 04/18/17 17:46 Dose: 20 mg Ferrous Gluconate (Fergon) 324 mg PO TID [facility] Last Admin: 04/18/17 17:39 Dose: 324 mg Aztreonam 1 gm/ Sodium (Chloride) 100 mls @ 100 mls/hr IVPB Q8 [facility] Last Admin: 04/18/17 17:38 Dose: 100 mls/hr Micafungin Sodium 100 mg/ (Sodium Chloride) 100 mls @ 100 mls/hr IVPB DAILY [facility] Last Admin: 04/18/17 11:00 Dose: 100 mls/hr Norepinephrine Bitartrate 4 mg (/ Dextrose) 254 mls @ 9.52 mls/hr IV .Q24H [facility] ; 2.5 MCG/MIN PRN Reason: Protocol Last Admin: 04/18/17 17:44 Dose: 2.5 mcg/min, 9.52 mls/hr Sodium Chloride (Sodium Chloride 0.9%) 1,000 mls @ 100 mls/hr IV .Q10H [facility] Stop: 04/19/17 16:20 Last Admin: 04/18/17 17:52 Dose: 100 mls/hr Insulin Human Lispro (Humalog) 0 units SC ACHS [facility] PRN Reason: Protocol Last Admin: 04/18/17 17:40 Dose: Not Given Quetiapine Fumarate (Seroquel) 50 mg PO HS [facility] Last Admin: 04/17/17 21:47 Dose: Not Given Sodium Hypochlorite (Dakins Solution 0.25%) 0 ml TOP DAILY [facility] Last Admin: 04/18/17 17:39 Dose: 1 applic - Labs Labs: 04/18/17 04:45 04/18/17 04:45 - Constitutional Appears: Toxic - Head Exam Head Exam: NORMAL INSPECTION - Eye Exam Eye Exam: Normal appearance - ENT Exam ENT Exam: Mucous Membranes Dry - Neck Exam Neck Exam: absent: Lymphadenopathy - Respiratory Exam Respiratory Exam: Decreased Breath Sounds - Cardiovascular Exam Cardiovascular Exam: Irregular Rhythm - GI/Abdominal Exam GI & Abdominal Exam: Hypoactive Bowel Sounds - Rectal Exam Rectal Exam: Deferred - Extremities Exam Extremities Exam: absent: Pedal Edema Additional comments: extremities erythematous - Skin Skin Exam: Normal Color Assessment and Plan (1) Elevated troponin Assessment & Plan: conservative therapy Status: Acute (2) Septic shock Assessment & Plan: pressor support is necessary. consider the addition of neosynephrine Status: Acute
[2017-04-19] MEDS: Aztreonam 1 GM in Sodium Chloride 0.9% 100 ML IVPB SCH ×3 (00:47→18:02)
[2017-04-19] MEDS: Albuterol-Ipratrop 3 mg / 0.5 (3 ml) UD INH SCH ×4 (01:01→19:46)
[2017-04-19] MEDS ORDERED: DOPamine 400mg/250ml D5W 400 MG/250 ML BAG IV ONE (02:10)
[2017-04-19] MEDS: Insulin Lispro (humaLOG) 100 Units/ml Inj SC SCH ×4 (06:33→23:14)
[2017-04-19 06:56] LABS: HEMATOCRIT 28.2 % (35.0-51.0); MEAN CELL VOLUME 83.7 fl (80.0-94.0); MEAN CORPUSCULAR HEMOGLOBIN 26.3 pg (27.0-31.0); MEAN CORPUSCULAR HGB CONC 31.5 g/dL (33.0-37.0); RED CELL DISTRIBUTION WIDTH 17.8 % (11.5-14.5); WHITE BLOOD COUNT 34.5 K/uL (4.8-10.8)
[2017-04-19 07:08] LABS: PARTIAL THROMBOPLASTIN TIME 46.9 SECONDS (23.3-32.5)
[2017-04-19 07:19] LABS: ALB/GLOB RATIO 0.7 (1.0-2.1); CALCIUM 8.4 mg/dL (8.4-10.2); POTASSIUM 3.5 MMOL/L (3.6-5.0); TOTAL PROTEIN 6.6 G/DL (6.3-8.2)
--- NOTE | 2017-04-19 08:51 | CP.PCM.PN ---
<Woodrow Lee - Last Filed: 04/19/17 08:49> Subjective - Date & Time of Evaluation Date of Evaluation: 04/19/17 Time of Evaluation: 08:49 - Subjective Subjective: General Surgery Progress Note for Dr. Becker This 76M was seen and examined by me this AM at bedside. Nurse reports no acute events overnight. Patient is drowsy and only responds to noxious stimuli. Patient was tachycardic at 126 bpm. Patient remains on levophed and dopamine drip. Objective - Vital Signs/Intake and Output Vital Signs (last 24 hours): Temp Pulse Resp BP Pulse Ox 98.9 F 122 H 23 94/56 L 100 04/19/17 08:00 04/19/17 08:00 04/19/17 08:00 04/19/17 08:00 04/19/17 08:00 Intake and Output: 04/19/17 04/19/17 06:59 18:59 Intake Total 1645 Output Total 300 Balance 1345 - Medications Medications: Current Medications Acetaminophen (Tylenol 325mg Tab) 650 mg PO Q6 PRN PRN Reason: Pain, moderate (4-7) Last Admin: 04/15/17 00:41 Dose: 650 mg Albuterol/Ipratropium (Duoneb 3 Mg/0.5 Mg (3 Ml) Ud) 3 ml INH RQ6 [facility] Last Admin: 04/19/17 07:53 Dose: 3 ml Aspirin (Aspirin) 325 mg PO DAILY [facility] Last Admin: 04/18/17 09:59 Dose: Not Given Aspirin (Aspirin) 325 mg PO DAILY [facility] Last Admin: 04/18/17 09:59 Dose: Not Given Atorvastatin Calcium (Lipitor) 50 mg PO DAILY [facility] Last Admin: 04/18/17 10:10 Dose: Not Given Enoxaparin Sodium (Lovenox) 30 mg SC DAILY [facility] PRN Reason: Protocol Last Admin: 04/18/17 10:11 Dose: 30 mg Famotidine (Pepcid) 20 mg PO BID [facility] Last Admin: 04/18/17 17:46 Dose: 20 mg Ferrous Gluconate (Fergon) 324 mg PO TID [facility] Last Admin: 04/18/17 17:39 Dose: 324 mg Aztreonam 1 gm/ Sodium (Chloride) 100 mls @ 100 mls/hr IVPB Q8 [facility] Last Admin: 04/19/17 00:47 Dose: 100 mls/hr Micafungin Sodium 100 mg/ (Sodium Chloride) 100 mls @ 100 mls/hr IVPB DAILY [facility] Last Admin: 04/18/17 11:00 Dose: 100 mls/hr Norepinephrine Bitartrate 4 mg (/ Dextrose) 254 mls @ 9.52 mls/hr IV .Q24H [facility] ; 2.5 MCG/MIN PRN Reason: Protocol Last Titration: 04/19/17 06:25 Dose: 15 mcg/min, 57.15 mls/hr Sodium Chloride (Sodium Chloride 0.9%) 1,000 mls @ 100 mls/hr IV .Q10H [facility] Stop: 04/19/17 16:20 Last Admin: 04/18/17 17:52 Dose: 100 mls/hr Insulin Human Lispro (Humalog) 0 units SC ACHS [facility] PRN Reason: Protocol Last Admin: 04/19/17 06:33 Dose: 1 unit Quetiapine Fumarate (Seroquel) 50 mg PO HS [facility] Last Admin: 04/18/17 21:03 Dose: 50 mg Sodium Hypochlorite (Dakins Solution 0.25%) 0 ml TOP DAILY [facility] Last Admin: 04/18/17 17:39 Dose: 1 applic - Labs Labs: 04/19/17 06:00 04/19/17 06:00 PT 15.1 SECONDS (9.6-11.2) H 04/19/17 06:00 INR 1.45 (0.92-1.08) H 04/19/17 06:00 APTT 46.9 SECONDS (23.3-32.5) H 04/19/17 06:00 - Constitutional Appears: Non-toxic, No Acute Distress - Head Exam Head Exam: ATRAUMATIC - Eye Exam Eye Exam: EOMI - ENT Exam ENT Exam: Mucous Membranes Moist - Respiratory Exam Respiratory Exam: NORMAL BREATHING PATTERN - Cardiovascular Exam Cardiovascular Exam: REGULAR RHYTHM - GI/Abdominal Exam Additional comments: Midline inscison well aproximated non erythematous, iliostomy patent with maroon liquid fluid output. Assessment and Plan - Assessment and Plan (Free Text) Assessment: This is a 76M with a stage 4 decubitous ulcer F/U PVR, GAMA NPO OR at 3pm continue medical managment per primary team Will Discuss with Dr. Rosita Lee PGY-1 <Adolfo Becker B - Last Filed: 04/23/17 18:35> Objective - Vital Signs/Intake and Output Vital Signs (last 24 hours): Temp Pulse Resp BP Pulse Ox 97.8 F 78 27 H 99/63 L 100 04/23/17 16:00 04/23/17 18:00 04/23/17 18:00 04/23/17 18:00 04/23/17 18:00 Intake and Output: 04/23/17 04/23/17 06:59 18:59 Intake Total 2192 2256 Output Total 1550 1720 Balance 642 536 - Medications Medications: Current Medications Acetaminophen (Tylenol 325mg Tab) 650 mg PO Q6 PRN PRN Reason: Pain, moderate (4-7) Last Admin: 04/22/17 17:07 Dose: 650 mg Albuterol/Ipratropium (Duoneb 3 Mg/0.5 Mg (3 Ml) Ud) 3 ml INH RQ6 [facility] Last Admin: 04/23/17 13:00 Dose: 3 ml Aspirin (Aspirin) 325 mg PO DAILY [facility] Last Admin: 04/23/17 09:38 Dose: 325 mg Atorvastatin Calcium (Lipitor) 50 mg PO DAILY [facility] Last Admin: 04/23/17 09:42 Dose: 50 mg Famotidine (Pepcid) 20 mg PO BID [facility] Last Admin: 04/23/17 17:05 Dose: Not Given Ferrous Gluconate (Fergon) 324 mg PO TID [facility] Last Admin: 04/23/17 17:03 Dose: Not Given Aztreonam 1 gm/ Sodium (Chloride) 100 mls @ 100 mls/hr IVPB Q8 [facility] Last Admin: 04/23/17 17:03 Dose: 100 mls/hr Micafungin Sodium 100 mg/ (Sodium Chloride) 100 mls @ 100 mls/hr IVPB DAILY [facility] Last Admin: 04/23/17 09:42 Dose: 100 mls/hr Metronidazole (Flagyl 500mg/100ml Ns) 100 mls @ 100 mls/hr IVPB Q8 [facility] Last Admin: 04/23/17 17:04 Dose: 100 mls/hr Vancomycin HCl 1 gm/ Sodium (Chloride) 250 mls @ 250 mls/hr IVPB Q24H [facility] Last Admin: 04/22/17 17:17 Dose: 250 mls/hr Lacosamide 200mg/20ml 100 mg/ (Sodium Chloride) 110 mls @ 110 mls/hr IVPB BID [facility] Last Admin: 04/23/17 17:47 Dose: 110 mls/hr Norepinephrine Bitartrate 8 mg (/ Dextrose) 508 mls @ 38.1 mls/hr IV .[id number] ONE; 10 MCG/MIN PRN Reason: Protocol Stop: 04/23/17 21:38 Last Admin: 04/23/17 09:40 Dose: 7.5 mcg/min, 28.57 mls/hr Insulin Human Lispro (Humalog) 0 units SC ACHS [facility] PRN Reason: Protocol Last Admin: 04/23/17 17:04 Dose: Not Given Loperamide HCl (Imodium) 2 mg PO QID PRN PRN Reason: profuse ileostomy output Last Admin: 04/23/17 09:40 Dose: 2 mg Lorazepam (Ativan) 1 mg IVP Q6 PRN PRN Reason: seizures Pantoprazole Sodium (Protonix Ec Tab) 40 mg PO DAILY [facility] Last Admin: 04/23/17 09:42 Dose: 40 mg - Labs Labs: 04/23/17 05:30 04/23/17 05:30 PT 15.3 SECONDS (9.6-11.2) H 04/22/17 05:30 INR 1.47 (0.92-1.08) H 04/22/17 05:30 APTT 41.8 SECONDS (23.3-32.5) H 04/22/17 05:30 Attending/Attestation - Attestation I have personally seen and examined this patient.: Yes I have fully participated in the care of the patient.: Yes I have reviewed all pertinent clinical information, including history, physical exam and plan: Yes Notes (Text): 04/23/17 18:35 Pt was seen and examined at bedside on 04/19/17 Agree with above note and assessment Pt with sepsis and Stage 4 Sacral decubitus ulcer OR for Excisional debridement and wound vac placement Consent NPO, IVF Labs and radiology reviewed Plan d/w pt in detail Risk and benefit explained in detail.
--- NOTE | 2017-04-19 09:41 | CARD ---
APPROVED REPORT EKG Measurement Heart [id number] <Conclusion> Atrial fibrillation with rapid ventricular response (?? Multifacal Atrial Tach) Possible Inferior infarct, age undetermined Cannot rule out Anterior infarct, age undetermined ST & T wave abnormality, consider lateral ischemia Abnormal ECG
--- NOTE | 2017-04-19 09:53 | CP.PCM.PN ---
Subjective - Date & Time of Evaluation Date of Evaluation: 04/19/17 Time of Evaluation: 09:51 - Subjective Subjective: d/w attending. no overnight events. denies pain. Feeling tired. NPO currently for OR today for surgical debridement. Objective - Vital Signs/Intake and Output Vital Signs (last 24 hours): Temp Pulse Resp BP Pulse Ox 98.9 F 122 H 23 94/56 L 100 04/19/17 08:00 04/19/17 08:00 04/19/17 08:00 04/19/17 08:00 04/19/17 08:00 Intake and Output: 04/19/17 04/19/17 06:59 18:59 Intake Total 1645 Output Total 300 Balance 1345 - Medications Medications: Current Medications Acetaminophen (Tylenol 325mg Tab) 650 mg PO Q6 PRN PRN Reason: Pain, moderate (4-7) Last Admin: 04/15/17 00:41 Dose: 650 mg Albuterol/Ipratropium (Duoneb 3 Mg/0.5 Mg (3 Ml) Ud) 3 ml INH RQ6 [facility] Last Admin: 04/19/17 07:53 Dose: 3 ml Aspirin (Aspirin) 325 mg PO DAILY [facility] Last Admin: 04/18/17 09:59 Dose: Not Given Aspirin (Aspirin) 325 mg PO DAILY [facility] Last Admin: 04/18/17 09:59 Dose: Not Given Atorvastatin Calcium (Lipitor) 50 mg PO DAILY [facility] Last Admin: 04/18/17 10:10 Dose: Not Given Enoxaparin Sodium (Lovenox) 30 mg SC DAILY [facility] PRN Reason: Protocol Last Admin: 04/18/17 10:11 Dose: 30 mg Famotidine (Pepcid) 20 mg PO BID [facility] Last Admin: 04/18/17 17:46 Dose: 20 mg Ferrous Gluconate (Fergon) 324 mg PO TID [facility] Last Admin: 04/18/17 17:39 Dose: 324 mg Aztreonam 1 gm/ Sodium (Chloride) 100 mls @ 100 mls/hr IVPB Q8 [facility] Last Admin: 04/19/17 00:47 Dose: 100 mls/hr Micafungin Sodium 100 mg/ (Sodium Chloride) 100 mls @ 100 mls/hr IVPB DAILY [facility] Last Admin: 04/18/17 11:00 Dose: 100 mls/hr Norepinephrine Bitartrate 4 mg (/ Dextrose) 254 mls @ 9.52 mls/hr IV .Q24H [facility] ; 2.5 MCG/MIN PRN Reason: Protocol Last Titration: 04/19/17 06:25 Dose: 15 mcg/min, 57.15 mls/hr Sodium Chloride (Sodium Chloride 0.9%) 1,000 mls @ 100 mls/hr IV .Q10H [facility] Stop: 04/19/17 16:20 Last Admin: 04/18/17 17:52 Dose: 100 mls/hr Insulin Human Lispro (Humalog) 0 units SC ACHS [facility] PRN Reason: Protocol Last Admin: 04/19/17 06:33 Dose: 1 unit Sodium Hypochlorite (Dakins Solution 0.25%) 0 ml TOP DAILY [facility] Last Admin: 04/18/17 17:39 Dose: 1 applic - Labs Labs: 04/19/17 06:00 04/19/17 06:00 PT 15.1 SECONDS (9.6-11.2) H 04/19/17 06:00 INR 1.45 (0.92-1.08) H 04/19/17 06:00 APTT 46.9 SECONDS (23.3-32.5) H 04/19/17 06:00 - Constitutional Appears: Non-toxic, No Acute Distress - Head Exam Head Exam: NORMAL INSPECTION - Eye Exam Eye Exam: Normal appearance - ENT Exam ENT Exam: Mucous Membranes Moist - Neck Exam Neck Exam: Normal Inspection - Respiratory Exam Respiratory Exam: Clear to Ausculation Bilateral, NORMAL BREATHING PATTERN - Cardiovascular Exam Cardiovascular Exam: REGULAR RHYTHM (regularly irregular) - GI/Abdominal Exam GI & Abdominal Exam: Soft - Extremities Exam Extremities Exam: Normal Inspection. absent: Pedal Edema - Neurological Exam Neurological Exam: Alert, Awake - Skin Skin Exam: Dry, Warm Assessment and Plan (1) Bacteremia Status: Acute (2) Septic shock Status: Acute (3) CHF (congestive heart failure) Status: Acute (4) Dementia Status: Acute (5) PVD (peripheral vascular disease) Status: Acute (6) Hypokalemia Status: Acute - Assessment and Plan (Free Text) Assessment: -Blood cx: s. aureus -urine cx: yeast -NPO -surgical debridement today -c/w IV abx -c/w pressors -monitor/replete electrolytes -c/w home meds -surgery on board, appreciate input -ID on board, appreciate input -Cardio on board, appreciate input -machine milker on board, appreciate input
--- NOTE | 2017-04-19 10:06 | CARD ---
APPROVED REPORT EKG Measurement Heart [id number] <Conclusion> Atrial fibrillation with rapid ventricular response Possible Inferior infarct, age undetermined Cannot rule out Anterior infarct, age undetermined ST & T wave abnormality, consider lateral ischemia Abnormal ECG
[2017-04-19] MEDS: Dakin's Topical 0.25%-Half Strength (480 ml) TOP SCH (10:09)
--- NOTE | 2017-04-19 10:37 | CARD ---
APPROVED REPORT EKG Measurement Heart [id number] IN 200P [id number] <Conclusion> Sinus tachycardia Incomplete LBBB Inferior infarct, age undetermined T wave abnormality, consider lateral ischemia Abnormal ECG
[2017-04-19] MEDS: Micafungin 100 MG in Sodium Chloride 0.9% 100 ML IVPB SCH (11:14)
[2017-04-19] MEDS ORDERED: Sodium Chloride 0.9% 1,000 ML IV SCH (11:15)
[2017-04-19] MEDS: Sodium Chloride 0.9% 1,000 ML IV SCH (14:05)
--- NOTE | 2017-04-19 14:46 | CP.PCM.PN ---
Subjective - Date & Time of Evaluation Date of Evaluation: 04/19/17 Time of Evaluation: 08:00 - Subjective Subjective: OBTUNDED CONFUSED MOTTLED LOWER EXTREM Objective - Vital Signs/Intake and Output Vital Signs (last 24 hours): Temp Pulse Resp BP Pulse Ox 98.2 F 102 H 25 H 105/61 100 04/19/17 12:00 04/19/17 14:00 04/19/17 14:00 04/19/17 14:00 04/19/17 14:00 Intake and Output: 04/19/17 04/19/17 06:59 18:59 Intake Total 1645 1825 Output Total 300 400 Balance 1345 1425 - Medications Medications: Current Medications Acetaminophen (Tylenol 325mg Tab) 650 mg PO Q6 PRN PRN Reason: Pain, moderate (4-7) Last Admin: 04/15/17 00:41 Dose: 650 mg Albuterol/Ipratropium (Duoneb 3 Mg/0.5 Mg (3 Ml) Ud) 3 ml INH RQ6 [facility] Last Admin: 04/19/17 13:36 Dose: 3 ml Aspirin (Aspirin) 325 mg PO DAILY [facility] Last Admin: 04/18/17 09:59 Dose: Not Given Aspirin (Aspirin) 325 mg PO DAILY [facility] Last Admin: 04/18/17 09:59 Dose: Not Given Atorvastatin Calcium (Lipitor) 50 mg PO DAILY [facility] Last Admin: 04/19/17 10:10 Dose: Not Given Enoxaparin Sodium (Lovenox) 30 mg SC DAILY [facility] PRN Reason: Protocol Last Admin: 04/18/17 10:11 Dose: 30 mg Famotidine (Pepcid) 20 mg PO BID [facility] Last Admin: 04/19/17 10:10 Dose: Not Given Ferrous Gluconate (Fergon) 324 mg PO TID [facility] Last Admin: 04/19/17 12:52 Dose: Not Given Aztreonam 1 gm/ Sodium (Chloride) 100 mls @ 100 mls/hr IVPB Q8 [facility] Last Admin: 04/19/17 10:00 Dose: 100 mls/hr Micafungin Sodium 100 mg/ (Sodium Chloride) 100 mls @ 100 mls/hr IVPB DAILY [facility] Last Admin: 04/19/17 11:14 Dose: 100 mls/hr Norepinephrine Bitartrate 4 mg (/ Dextrose) 254 mls @ 9.52 mls/hr IV .Q24H [facility] ; 2.5 MCG/MIN PRN Reason: Protocol Last Titration: 04/19/17 12:52 Dose: 22.5 mcg/min, 85.72 mls/hr Sodium Chloride (Sodium Chloride 0.9%) 1,000 mls @ 100 mls/hr IV .Q10H [facility] Stop: 04/19/17 16:20 Last Admin: 04/19/17 14:05 Dose: 100 mls/hr Insulin Human Lispro (Humalog) 0 units SC ACHS [facility] PRN Reason: Protocol Last Admin: 04/19/17 12:52 Dose: Not Given Potassium Chloride (K-Dur 20 Meq Er Tab) 20 meq PO ONCE [facility] Stop: 04/19/17 17:01 Sodium Hypochlorite (Dakins Solution 0.25%) 0 ml TOP DAILY [facility] Last Admin: 04/19/17 10:09 Dose: 1 applic - Labs Labs: 04/19/17 06:00 04/19/17 06:00 PT 15.1 SECONDS (9.6-11.2) H 04/19/17 06:00 INR 1.45 (0.92-1.08) H 04/19/17 06:00 APTT 46.9 SECONDS (23.3-32.5) H 04/19/17 06:00 - Constitutional Appears: Toxic, Cachectic, Chronically Ill - Head Exam Head Exam: NORMOCEPHALIC - Eye Exam Eye Exam: absent: Scleral icterus - ENT Exam ENT Exam: Mucous Membranes Dry - Neck Exam Neck Exam: absent: Lymphadenopathy - Respiratory Exam Respiratory Exam: Decreased Breath Sounds, Rhonchi - Cardiovascular Exam Cardiovascular Exam: REGULAR RHYTHM, +S1, +S2 - GI/Abdominal Exam GI & Abdominal Exam: Distended, Soft. absent: Tenderness - Rectal Exam Rectal Exam: Deferred - Exam Exam: NORMAL INSPECTION - Extremities Exam Extremities Exam: absent: Pedal Edema - Back Exam Back Exam: absent: CVA tenderness (L), CVA tenderness (R) - Neurological Exam Neurological Exam: Alert, Altered, Awake - Psychiatric Exam Psychiatric exam: Depressed - Skin Skin Exam: Dry, Intact Assessment and Plan (1) Septic shock Status: Acute (2) Bacteremia Status: Acute (3) Bacteremia Status: Acute (4) Fever Status: Acute (5) CHF (congestive heart failure) Status: Acute (6) Dementia Status: Acute (7) PVD (peripheral vascular disease) Status: Acute - Assessment and Plan (Free Text) Assessment: POOR PROGNOSIS CONSIDER SURGICAL DEBRIDEMENT AND VASCULAR EVAL
[2017-04-19] MEDS ORDERED: Bupivacaine 0.5% Inj(30mL) ONE (16:09)
[2017-04-19] MEDS ORDERED: Lidocaine 1% Inj (20ml) ONE (16:09)
--- NOTE | 2017-04-19 16:24 | CP.CCUPN ---
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 Ongoing IVF challenges given. Dopamine stopped due to excessive tachycardia. Returned from OR procedure today for debridement of decubitus wounds / ulcers and placement of a wound vac; done under local. Ileostomy continues to leak significant amounts of brown stool. Afebrile, no fever spikes; BP 120/62 HR 89, 100% SPO2 on nasal cannula. 24H I/O's= 1925/400ml ROS: as above, no other pertinent negs or positives on 10 system review. PMFSH: all nursing and historical notes reviewed, no new pertinent data relevant to current problems. No other distress noted: EXAM- HEENT: no icterus, pupils equal and reactive NECK: no visible JVD, supple, carotids equal upstroke bilat/no bruits CHEST: decreased BS bases, no wheezes HEART: regular, distant, S1S2, no murmur audible, no rubs. ABD: soft, no increased distention, no focal tenderness, no HSM. BS hypoactive , EXT: LUE PICC; no edema, multiple bilateral areas of pressure-induced appearing - skin ulcerated wounds that some are located circumferentially and along the anterior tibial line, no peripheral/ digital cyanosis, no calf tenderness or palpable cords, distal pulses (PT and DP) non-palpable. NEURO: no gross focal motor deficits SKIN: no rashes LABS: WBC= 34.5 HGB= 8.9 PLTs= 434K INR= 1.45, PTT= 46.9 Na= 135 K= 3.5 HCO3= 17 BUN/Cr= 98/2.9 BS= 176 Trops positive x2 on 04/16- + Cultures; Blood with Corynebacterium, Urine with yeast blood with coag neg staph. CXR: (my interp) chronic interstitial changes RLL, small bore catheter seen traversing R basilar lung area. Even smaller catheter seen traversing along outer apical lung periphery area, ending in an unforeseen catheter port that is not visualizable. Dual pacer lead PPM seen overlying L chest. EKG: sinus tachy 104 with PACs, old IWMI, T inversions I, L MAJOR PROBLEMS NOW: 1. Septic Shock with Gram + bacteremia 2 Skin Wounds 2. s/p Ileostomy after repair of Incarc hernia 3. ACS, r/o NSTEMI 4. Azotemia, r/o acute on CKD, versus VIPIN 5. Multiple Decubiti / Pressure Wounds / Cellulitis of LEs 6. Anemia of chronic Disease PLAN: 1. Dopamine stopped for excessive tachycardia, now on Levophed solely, fluid challenges prn for oliguria / hypotension. Check ECHO for LV fx, check SVO2. Monitor serial Lactates if hypotensive. 2. Empiric abx coverage noted. Consider changing Diaz. 3. Consider PRBCs given vasopressor dependency. 4. BUN elevation noted out of proportion to Cr, r/o occult GI bleed. 5. Check for any Advance Directives.
[2017-04-19] MEDS ORDERED: Lidocaine 1% Inj (20ml) IJ ONE (16:27)
[2017-04-19] MEDS ORDERED: Bupivacaine 0.5% 50 ML IJ ONE (16:27)
[2017-04-19] MEDS ORDERED: Liquid Adhesive TOP ONE (16:31)
--- NOTE | 2017-04-19 16:49 | PCM.SURG1 ---
Surgeon's Initial Post Op Note - Surgeon's Notes Surgeon: Dr. Becker Director Of [employer] Applications: Dr. Lee PGY-1 Type of Anesthesia: Local Pre-Operative Diagnosis: Stage 4 Sacral Decubitous with Sepsis Operative Findings: See operative note Post-Operative Diagnosis: Stage 4 Sacral Decubitous with Sepsis Operation Performed: Sacral decubitous ulcer debribment and wound vac placement Specimen/Specimens Removed: Necrotic tissue Estimated Blood Loss: EBL {In ML}: 5 Blood Products Given: N/A Drains Used: No Drains Post-Op Condition: Poor Date of Surgery/Procedure: 04/19/17 Time of Surgery/Procedure: 16:49
[2017-04-19] MEDS ORDERED: Potassium Chloride 20 mEq ER Tab PO ONE (17:00)
[2017-04-19] MEDS: metroNIDAZOLE 500mg/100ml NS 100 ML IVPB SCH (18:03)
--- NOTE | 2017-04-19 19:05 | OP ---
PROCEDURE DATE: 04/19/2017 PREOPERATIVE DIAGNOSES: 1. Stage IV sacral decubitus ulcer. 2. Sepsis and septic shock. PROCEDURES: 1. Excisional debridement of sacral decubitus ulcer of approximately 10 x 8 x 4 cm in size. 2. Incision and drainage of underlying multiple abscesses. 3. Negative pressure wound VAC therapy > 50 cm square area. SURGEON: Adolfo Becker MD. SPECIMEN BOSS: Ian Bustamante, PGY 1 ANESTHESIA: Local plus standby sedation. ESTIMATED BLOOD LOSS: Around 10 mL. DRAINS: The wound VAC was placed as a drain. PATHOLOGY: The debrided tissue was sent for pathology. COMPLICATIONS: None. INTRAOPERATIVE FINDINGS: The patient had approximately 10 x 8 x 4 cm sacral wound with exposed sacral bone. The patient also had necrotic tissue as well as the underlying pus. INTRAOPERATIVE STEPS: This is a 76-year-old male who was diagnosed with stage IV sacral decubitus ulcer with sepsis and the patient was consented for the excisional debridement of the sacral decubitus ulcer. Brought to the OR, placed in the left lateral position. The sacral area was prepped and draped in a usual sterile fashion. An incision was made surrounding the necrotic tissue as well as normal tissue after injecting local anesthesia. The wound was debrided up to the bone with knife as well as with electrocautery. The tissue was sent to the table for the pathology. The wound was extended superiorly, there was underlying pus and the pus was drained and more debridement was done for the necrotic tissue. After proper debridement, the irrigation of the wound was done and the wound was dressed with negative pressure wound VAC and foam was placed and attached to suction. After proper seal of the wound VAC, the patient was sent to the ICU for further treatment. Adolfo Becker MD cc: [id number] TT: 04/19/2017 19:05:21 [id number] [id number]
[2017-04-19] MEDS ORDERED: Norepinephrine 8 MG in Dextrose 5% In Water 500 ML IV ONE (20:30)
[2017-04-19] MEDS: Norepinephrine 8 MG in Dextrose 5% In Water 500 ML IV ONE (21:38)
[2017-04-20] MEDS: Albuterol-Ipratrop 3 mg / 0.5 (3 ml) UD INH SCH ×4 (01:05→18:59)
[2017-04-20] MEDS: metroNIDAZOLE 500mg/100ml NS 100 ML IVPB SCH ×3 (01:36→16:17)
[2017-04-20] MEDS: Aztreonam 1 GM in Sodium Chloride 0.9% 100 ML IVPB SCH ×3 (01:36→16:17)
[2017-04-20] MEDS: Norepinephrine 8 MG in Dextrose 5% In Water 500 ML IV ONE ×3 (03:34→18:23)
[2017-04-20 05:29] LABS: HEMATOCRIT 21.2 % (35.0-51.0); MEAN CELL VOLUME 83.1 fl (80.0-94.0); MEAN CORPUSCULAR HEMOGLOBIN 25.9 pg (27.0-31.0); MEAN CORPUSCULAR HGB CONC 31.2 g/dL (33.0-37.0); RED CELL DISTRIBUTION WIDTH 17.3 % (11.5-14.5); WHITE BLOOD COUNT 24.9 K/uL (4.8-10.8)
[2017-04-20 05:48] LABS: ALB/GLOB RATIO 0.7 (1.0-2.1); BILIRUBIN,TOTAL 0.7 mg/dl (0.2-1.3); CALCIUM 7.7 mg/dL (8.4-10.2); POTASSIUM 3.1 MMOL/L (3.6-5.0); TOTAL PROTEIN 5.6 G/DL (6.3-8.2)
--- NOTE | 2017-04-20 08:54 | CP.PCM.PN ---
<Vidya Chand - Last Filed: 04/20/17 09:00> Subjective - Date & Time of Evaluation Date of Evaluation: 04/20/17 Time of Evaluation: 08:51 - Subjective Subjective: Pt s/e at bedside in the ICU. NAEO. Afebrile, VSS on 22.5mcg/min of levophed. Wound vac functioning well. Patient denies any complaints or concerns except for itching in the wound vac area. Denies leg pain, chest pain, nausea, vomiting , fevers, or any other symptoms. Objective - Vital Signs/Intake and Output Vital Signs (last 24 hours): Temp Pulse Resp BP Pulse Ox 98.4 F 103 H 23 113/74 100 04/20/17 08:00 04/20/17 08:00 04/20/17 08:00 04/20/17 08:00 04/20/17 08:00 Intake and Output: 04/20/17 04/20/17 06:59 18:59 Intake Total 508 426 Output Total 500 600 Balance 8 -174 - Medications Medications: Current Medications Acetaminophen (Tylenol 325mg Tab) 650 mg PO Q6 PRN PRN Reason: Pain, moderate (4-7) Last Admin: 04/15/17 00:41 Dose: 650 mg Albuterol/Ipratropium (Duoneb 3 Mg/0.5 Mg (3 Ml) Ud) 3 ml INH RQ6 [facility] Last Admin: 04/20/17 07:55 Dose: 3 ml Aspirin (Aspirin) 325 mg PO DAILY [facility] Last Admin: 04/18/17 09:59 Dose: Not Given Aspirin (Aspirin) 325 mg PO DAILY [facility] Last Admin: 04/18/17 09:59 Dose: Not Given Atorvastatin Calcium (Lipitor) 50 mg PO DAILY [facility] Last Admin: 04/19/17 10:10 Dose: Not Given Enoxaparin Sodium (Lovenox) 30 mg SC DAILY [facility] PRN Reason: Protocol Last Admin: 04/18/17 10:11 Dose: 30 mg Famotidine (Pepcid) 20 mg PO BID [facility] Last Admin: 04/19/17 18:20 Dose: 20 mg Ferrous Gluconate (Fergon) 324 mg PO TID [facility] Last Admin: 04/19/17 18:03 Dose: 324 mg Aztreonam 1 gm/ Sodium (Chloride) 100 mls @ 100 mls/hr IVPB Q8 [facility] Last Admin: 04/20/17 01:36 Dose: 100 mls/hr Micafungin Sodium 100 mg/ (Sodium Chloride) 100 mls @ 100 mls/hr IVPB DAILY [facility] Last Admin: 04/19/17 11:14 Dose: 100 mls/hr Norepinephrine Bitartrate 4 mg (/ Dextrose) 254 mls @ 9.52 mls/hr IV .Q24H [facility] ; 2.5 MCG/MIN PRN Reason: Protocol Last Admin: 04/19/17 18:10 Dose: 22.5 mcg/min, 85.72 mls/hr Metronidazole (Flagyl 500mg/100ml Ns) 100 mls @ 100 mls/hr IVPB Q8 [facility] Last Admin: 04/20/17 01:36 Dose: 100 mls/hr Insulin Human Lispro (Humalog) 0 units SC ACHS [facility] PRN Reason: Protocol Last Admin: 04/19/17 23:14 Dose: Not Given Sodium Hypochlorite (Dakins Solution 0.25%) 0 ml TOP DAILY [facility] Last Admin: 04/19/17 10:09 Dose: 1 applic - Labs Labs: 04/20/17 04:50 04/20/17 04:50 PT 15.1 SECONDS (9.6-11.2) H 04/19/17 06:00 INR 1.45 (0.92-1.08) H 04/19/17 06:00 APTT 46.9 SECONDS (23.3-32.5) H 04/19/17 06:00 - Constitutional Appears: No Acute Distress, Older Than Stated Age - Head Exam Head Exam: ATRAUMATIC, NORMOCEPHALIC - Eye Exam Eye Exam: Normal appearance. absent: Conjunctival injection, Scleral icterus - ENT Exam ENT Exam: Mucous Membranes Moist, Normal Oropharynx - Respiratory Exam Respiratory Exam: NORMAL BREATHING PATTERN. absent: Accessory Muscle Use, Respiratory Distress - Cardiovascular Exam Cardiovascular Exam: Tachycardia, REGULAR RHYTHM - GI/Abdominal Exam GI & Abdominal Exam: absent: Distended - Extremities Exam Extremities Exam: Normal Capillary Refill. absent: Calf Tenderness, Pedal Edema Additional comments: Multiple red patches of skin breakdown on lower extremities BL. Pedal pulses non -palpable - Back Exam Back Exam: absent: CVA tenderness (L), CVA tenderness (R) Additional comments: Wound vac present over sacral decubitus ulcer intact with good suction. Some Sanguinous output draining from the inferior pole - Neurological Exam Neurological Exam: Alert, Awake, Oriented x3 - Psychiatric Exam Psychiatric exam: Normal Affect, Normal Mood - Skin Skin Exam: Warm Additional comments: see extremity exam and back exam Assessment and Plan - Assessment and Plan (Free Text) Assessment: This is a 76M with a stage 4 decubitous ulcer and shock possibly septic in nature Sacral wound vac functioning well Hgb 6.6 down from 8.9 yesterday--two units of PRBC's ordered to be administered WBC trending down: 24.9 down from 34 yesterday Plan: PVR/GAMA of BL LE's pending Heart healthy diet Administer 2 units PRBC continue medical management per primary team Continue ABx per ID management Discussed with Dr. Rosita Chand, PGY1 <Adolfo Becker - Last Filed: 04/23/17 18:39> Objective - Vital Signs/Intake and Output Vital Signs (last 24 hours): Temp Pulse Resp BP Pulse Ox 97.8 F 78 27 H 99/63 L 100 04/23/17 16:00 04/23/17 18:00 04/23/17 18:00 04/23/17 18:00 04/23/17 18:00 Intake and Output: 04/23/17 04/23/17 06:59 18:59 Intake Total 2192 2256 Output Total 1550 1720 Balance 642 536 - Medications Medications: Current Medications Acetaminophen (Tylenol 325mg Tab) 650 mg PO Q6 PRN PRN Reason: Pain, moderate (4-7) Last Admin: 04/22/17 17:07 Dose: 650 mg Albuterol/Ipratropium (Duoneb 3 Mg/0.5 Mg (3 Ml) Ud) 3 ml INH RQ6 [facility] Last Admin: 04/23/17 13:00 Dose: 3 ml Aspirin (Aspirin) 325 mg PO DAILY [facility] Last Admin: 04/23/17 09:38 Dose: 325 mg Atorvastatin Calcium (Lipitor) 50 mg PO DAILY [facility] Last Admin: 04/23/17 09:42 Dose: 50 mg Famotidine (Pepcid) 20 mg PO BID [facility] Last Admin: 04/23/17 17:05 Dose: Not Given Ferrous Gluconate (Fergon) 324 mg PO TID [facility] Last Admin: 04/23/17 17:03 Dose: Not Given Aztreonam 1 gm/ Sodium (Chloride) 100 mls @ 100 mls/hr IVPB Q8 [facility] Last Admin: 04/23/17 17:03 Dose: 100 mls/hr Micafungin Sodium 100 mg/ (Sodium Chloride) 100 mls @ 100 mls/hr IVPB DAILY [facility] Last Admin: 04/23/17 09:42 Dose: 100 mls/hr Metronidazole (Flagyl 500mg/100ml Ns) 100 mls @ 100 mls/hr IVPB Q8 [facility] Last Admin: 04/23/17 17:04 Dose: 100 mls/hr Vancomycin HCl 1 gm/ Sodium (Chloride) 250 mls @ 250 mls/hr IVPB Q24H [facility] Last Admin: 04/22/17 17:17 Dose: 250 mls/hr Lacosamide 200mg/20ml 100 mg/ (Sodium Chloride) 110 mls @ 110 mls/hr IVPB BID [facility] Last Admin: 04/23/17 17:47 Dose: 110 mls/hr Norepinephrine Bitartrate 8 mg (/ Dextrose) 508 mls @ 38.1 mls/hr IV .[id number] ONE; 10 MCG/MIN PRN Reason: Protocol Stop: 04/23/17 21:38 Last Admin: 04/23/17 09:40 Dose: 7.5 mcg/min, 28.57 mls/hr Insulin Human Lispro (Humalog) 0 units SC ACHS [facility] PRN Reason: Protocol Last Admin: 04/23/17 17:04 Dose: Not Given Loperamide HCl (Imodium) 2 mg PO QID PRN PRN Reason: profuse ileostomy output Last Admin: 04/23/17 09:40 Dose: 2 mg Lorazepam (Ativan) 1 mg IVP Q6 PRN PRN Reason: seizures Pantoprazole Sodium (Protonix Ec Tab) 40 mg PO DAILY [facility] Last Admin: 04/23/17 09:42 Dose: 40 mg - Labs Labs: 04/23/17 05:30 04/23/17 05:30 PT 15.3 SECONDS (9.6-11.2) H 04/22/17 05:30 INR 1.47 (0.92-1.08) H 04/22/17 05:30 APTT 41.8 SECONDS (23.3-32.5) H 04/22/17 05:30 Attending/Attestation - Attestation I have personally seen and examined this patient.: Yes I have fully participated in the care of the patient.: Yes I have reviewed all pertinent clinical information, including history, physical exam and plan: Yes Notes (Text): 04/23/17 18:38 Pt was seen and examined at bedside on 04/20/17 Agree with above note and assessment Pt is improving clinically C/w current mx
[2017-04-20] MEDS: Dakin's Topical 0.25%-Half Strength (480 ml) TOP SCH (09:34)
[2017-04-20] MEDS: Enoxaparin 30 mg Syringe SC SCH (09:36)
[2017-04-20] MEDS: Micafungin 100 MG in Sodium Chloride 0.9% 100 ML IVPB SCH (09:36)
[2017-04-20] MEDS: Insulin Lispro (humaLOG) 100 Units/ml Inj SC SCH ×3 (11:13→22:48)
--- NOTE | 2017-04-20 12:19 | CP.PCM.PN ---
Subjective - Date & Time of Evaluation Date of Evaluation: 04/20/17 Time of Evaluation: :17 - Subjective Subjective: Patient seen and examined at bedside with attending. Surgical team present as well. No acute events overnight. Afebrile. Wound vac in place. Denies pain at rest though worsened with movement. Denies leg pain, chest pain, nausea, vomiting, fevers, or chills. Objective - Vital Signs/Intake and Output Vital Signs (last 24 hours): Temp Pulse Resp BP Pulse Ox 98.4 F 92 H 20 124/73 100 04/20/17 08:00 04/20/17 11:00 04/20/17 11:00 04/20/17 11:00 04/20/17 11:00 Intake and Output: 04/20/17 04/20/17 06:59 18:59 Intake Total 508 922 Output Total 500 600 Balance 8 322 - Medications Medications: Current Medications Acetaminophen (Tylenol 325mg Tab) 650 mg PO Q6 PRN PRN Reason: Pain, moderate (4-7) Last Admin: 04/15/17 00:41 Dose: 650 mg Albuterol/Ipratropium (Duoneb 3 Mg/0.5 Mg (3 Ml) Ud) 3 ml INH RQ6 [facility] Last Admin: 04/20/17 07:55 Dose: 3 ml Aspirin (Aspirin) 325 mg PO DAILY [facility] Last Admin: 04/20/17 09:38 Dose: 325 mg Aspirin (Aspirin) 325 mg PO DAILY [facility] Last Admin: 04/20/17 11:17 Dose: Not Given Atorvastatin Calcium (Lipitor) 50 mg PO DAILY [facility] Last Admin: 04/20/17 09:35 Dose: 50 mg Enoxaparin Sodium (Lovenox) 30 mg SC DAILY [facility] PRN Reason: Protocol Last Admin: 04/20/17 09:36 Dose: 30 mg Famotidine (Pepcid) 20 mg PO BID [facility] Last Admin: 04/20/17 09:36 Dose: 20 mg Ferrous Gluconate (Fergon) 324 mg PO TID [facility] Last Admin: 04/20/17 09:35 Dose: 324 mg Aztreonam 1 gm/ Sodium (Chloride) 100 mls @ 100 mls/hr IVPB Q8 [facility] Last Admin: 04/20/17 09:34 Dose: 100 mls/hr Micafungin Sodium 100 mg/ (Sodium Chloride) 100 mls @ 100 mls/hr IVPB DAILY [facility] Last Admin: 04/20/17 09:36 Dose: 100 mls/hr Metronidazole (Flagyl 500mg/100ml Ns) 100 mls @ 100 mls/hr IVPB Q8 [facility] Last Admin: 04/20/17 09:35 Dose: 100 mls/hr Norepinephrine Bitartrate 8 mg (/ Dextrose) 508 mls @ 83.82 mls/hr IV .Q6H4M [facility] PRN Reason: 22 MCG/MIN Stop: 04/20/17 16:58 Last Admin: 04/20/17 11:09 Dose: 83.82 mls/hr Insulin Human Lispro (Humalog) 0 units SC ACHS [facility] PRN Reason: Protocol Last Admin: 04/20/17 11:13 Dose: 1 unit Sodium Hypochlorite (Dakins Solution 0.25%) 0 ml TOP DAILY [facility] Last Admin: 04/20/17 09:34 Dose: Not Given - Labs Labs: 04/20/17 04:50 04/20/17 04:50 PT 15.1 SECONDS (9.6-11.2) H 04/19/17 06:00 INR 1.45 (0.92-1.08) H 04/19/17 06:00 APTT 46.9 SECONDS (23.3-32.5) H 04/19/17 06:00 - Constitutional Appears: Well, Non-toxic, No Acute Distress - Head Exam Head Exam: ATRAUMATIC, NORMAL INSPECTION, NORMOCEPHALIC - Eye Exam Eye Exam: EOMI, Normal appearance, PERRL - Respiratory Exam Respiratory Exam: Clear to Ausculation Bilateral, NORMAL BREATHING PATTERN - Cardiovascular Exam Cardiovascular Exam: REGULAR RHYTHM, +S1, +S2. absent: Murmur - GI/Abdominal Exam GI & Abdominal Exam: Soft, Normal Bowel Sounds. absent: Tenderness - Back Exam Additional comments: Wound vac present over sacral decubitus ulcer intact with good suction. Some Sanguinous output draining from the inferior pole - Neurological Exam Neurological Exam: Alert, Awake - Psychiatric Exam Psychiatric exam: Normal Affect, Normal Mood - Skin Skin Exam: Dry, Intact, Normal Color, Warm Assessment and Plan (1) Decubitus skin ulcer Assessment & Plan: Surgery on board s/p debridement. Draining appropriately. Afebrile. C/w recommendations at this time including wound vac Status: Acute (2) Septic shock Assessment & Plan: WBC trending down: 24.9 down from 34 yesterday Afebrile Continue pressors per [employer] Continue ABx per ID management Status: Acute (3) Anemia Assessment & Plan: Hgb 6.6 Administer 2 units PRBC Status: Acute
--- NOTE | 2017-04-20 13:20 | CP.CCUPN ---
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 Afebrile, no fever spikes; BP 124/72 HR 92, 100% SPO2 on nasal cannula. 24H I/O's= 4805/1200ml ROS: as above, no other pertinent negs or positives on 10 system review. PMFSH: all nursing and historical notes reviewed, no new pertinent data relevant to current problems. No other distress noted: EXAM- HEENT: no icterus, pupils equal and reactive NECK: no visible JVD, supple, carotids equal upstroke bilat/no bruits CHEST: decreased BS bases, no wheezes HEART: regular, distant, S1S2, no murmur audible, no rubs. ABD: soft, no increased distention, no focal tenderness, no HSM. BS hypoactive , EXT: LUE PICC; no edema, multiple bilateral areas of pressure-induced appearing - skin ulcerated wounds that some are located circumferentially and along the anterior tibial line, no peripheral/ digital cyanosis, no calf tenderness or palpable cords, distal pulses (PT and DP) non-palpable. NEURO: no gross focal motor deficits SKIN: no rashes LABS: WBC= 24.9 HGB= 6.6 PLTs= 385K Na= 125 K= 3.1 HCO3= 16 BUN/Cr= 97/2.7 BS= 363 + Cultures; Blood with Corynebacterium, Urine with yeast blood with coag neg staph. MAJOR PROBLEMS NOW: 1. Septic Shock with Gram + bacteremia 2 Skin Wounds 2. s/p Ileostomy after repair of Incarc hernia 3. ACS, r/o NSTEMI 4. Azotemia, r/o acute on CKD, versus VIPIN 5. Multiple Decubiti / Pressure Wounds / Cellulitis of LEs 6. Anemia of chronic Disease PLAN: 1. Levophed weaned down to 22 mcg/min, will maintain hydration and fluid challenges prn since ileostomy output remains significantly high, so far 600ml over the last 2 hrs. 2. Ongoing wound and decub care, [place] bed. 3. Repeat CBC and T&&C ordered, PRBCs if Hgb has truly decreased, bit no obvious active bleeding evident. 4. No new organisms isolated with current abx regimen. 5. Check for any Advance Directives.
--- NOTE | 2017-04-20 14:35 | CP.PCM.PN ---
Subjective - Date & Time of Evaluation Date of Evaluation: 04/20/17 Time of Evaluation: 08:00 - Subjective Subjective: Patient is unchanged. Objective - Vital Signs/Intake and Output Vital Signs (last 24 hours): Temp Pulse Resp BP Pulse Ox 97.7 F 91 H 21 127/88 100 04/20/17 12:00 04/20/17 13:00 04/20/17 13:00 04/20/17 13:00 04/20/17 13:00 Intake and Output: 04/20/17 04/20/17 06:59 18:59 Intake Total 508 1413 Output Total 500 600 Balance 8 813 - Medications Medications: Current Medications Acetaminophen (Tylenol 325mg Tab) 650 mg PO Q6 PRN PRN Reason: Pain, moderate (4-7) Last Admin: 04/15/17 00:41 Dose: 650 mg Albuterol/Ipratropium (Duoneb 3 Mg/0.5 Mg (3 Ml) Ud) 3 ml INH RQ6 [facility] Last Admin: 04/20/17 13:16 Dose: 3 ml Aspirin (Aspirin) 325 mg PO DAILY [facility] Last Admin: 04/20/17 09:38 Dose: 325 mg Aspirin (Aspirin) 325 mg PO DAILY [facility] Last Admin: 04/20/17 11:17 Dose: Not Given Atorvastatin Calcium (Lipitor) 50 mg PO DAILY [facility] Last Admin: 04/20/17 09:35 Dose: 50 mg Enoxaparin Sodium (Lovenox) 30 mg SC DAILY [facility] PRN Reason: Protocol Last Admin: 04/20/17 09:36 Dose: 30 mg Famotidine (Pepcid) 20 mg PO BID [facility] Last Admin: 04/20/17 09:36 Dose: 20 mg Ferrous Gluconate (Fergon) 324 mg PO TID [facility] Last Admin: 04/20/17 13:17 Dose: 324 mg Aztreonam 1 gm/ Sodium (Chloride) 100 mls @ 100 mls/hr IVPB Q8 [facility] Last Admin: 04/20/17 09:34 Dose: 100 mls/hr Micafungin Sodium 100 mg/ (Sodium Chloride) 100 mls @ 100 mls/hr IVPB DAILY [facility] Last Admin: 04/20/17 09:36 Dose: 100 mls/hr Metronidazole (Flagyl 500mg/100ml Ns) 100 mls @ 100 mls/hr IVPB Q8 [facility] Last Admin: 04/20/17 09:35 Dose: 100 mls/hr Norepinephrine Bitartrate 8 mg (/ Dextrose) 508 mls @ 83.82 mls/hr IV .Q6H4M ONE PRN Reason: 22 MCG/MIN Stop: 04/20/17 16:58 Last Admin: 04/20/17 11:09 Dose: 83.82 mls/hr Insulin Human Lispro (Humalog) 0 units SC ACHS [facility] PRN Reason: Protocol Last Admin: 04/20/17 11:13 Dose: 1 unit Loperamide HCl (Imodium) 2 mg PO QID PRN PRN Reason: profuse ileostomy output - Labs Labs: 04/20/17 04:50 04/20/17 04:50 PT 15.1 SECONDS (9.6-11.2) H 04/19/17 06:00 INR 1.45 (0.92-1.08) H 04/19/17 06:00 APTT 46.9 SECONDS (23.3-32.5) H 04/19/17 06:00 - Constitutional Appears: Non-toxic, Chronically Ill - Head Exam Head Exam: NORMAL INSPECTION - Eye Exam Eye Exam: Normal appearance - ENT Exam ENT Exam: Mucous Membranes Dry - Neck Exam Neck Exam: Full ROM - Respiratory Exam Respiratory Exam: Decreased Breath Sounds - Cardiovascular Exam Cardiovascular Exam: REGULAR RHYTHM - GI/Abdominal Exam GI & Abdominal Exam: Hypoactive Bowel Sounds - Rectal Exam Rectal Exam: Deferred - Extremities Exam Extremities Exam: absent: Pedal Edema - Skin Skin Exam: Normal Color Assessment and Plan (1) Elevated troponin Assessment & Plan: subendocardial ischemia. medical therapy Status: Acute (2) Septic shock Assessment & Plan: continue antibiotics. Status: Acute
[2017-04-20] MEDS ORDERED: Norepinephrine 8 MG in Dextrose 5% In Water 500 ML IV ONE (18:07)
--- NOTE | 2017-04-20 19:31 | CP.PCM.PN ---
Subjective - Date & Time of Evaluation Date of Evaluation: 04/20/17 Time of Evaluation: 07:00 - Subjective Subjective: more responsive s/p debridement iv rx in progress Objective - Vital Signs/Intake and Output Vital Signs (last 24 hours): Temp Pulse Resp BP Pulse Ox 97.4 F L 94 H 24 124/92 H 100 04/20/17 16:00 04/20/17 18:00 04/20/17 18:00 04/20/17 18:00 04/20/17 18:00 Intake and Output: 04/20/17 04/21/17 18:59 06:59 Intake Total 2785 Output Total 2200 Balance 585 - Medications Medications: Current Medications Acetaminophen (Tylenol 325mg Tab) 650 mg PO Q6 PRN PRN Reason: Pain, moderate (4-7) Last Admin: 04/15/17 00:41 Dose: 650 mg Albuterol/Ipratropium (Duoneb 3 Mg/0.5 Mg (3 Ml) Ud) 3 ml INH RQ6 [facility] Last Admin: 04/20/17 18:59 Dose: 3 ml Aspirin (Aspirin) 325 mg PO DAILY [facility] Last Admin: 04/20/17 09:38 Dose: 325 mg Atorvastatin Calcium (Lipitor) 50 mg PO DAILY [facility] Last Admin: 04/20/17 09:35 Dose: 50 mg Enoxaparin Sodium (Lovenox) 30 mg SC DAILY [facility] PRN Reason: Protocol Last Admin: 04/20/17 09:36 Dose: 30 mg Famotidine (Pepcid) 20 mg PO BID [facility] Last Admin: 04/20/17 16:17 Dose: 20 mg Ferrous Gluconate (Fergon) 324 mg PO TID [facility] Last Admin: 04/20/17 16:17 Dose: 324 mg Aztreonam 1 gm/ Sodium (Chloride) 100 mls @ 100 mls/hr IVPB Q8 [facility] Last Admin: 04/20/17 16:17 Dose: 100 mls/hr Micafungin Sodium 100 mg/ (Sodium Chloride) 100 mls @ 100 mls/hr IVPB DAILY [facility] Last Admin: 04/20/17 09:36 Dose: 100 mls/hr Metronidazole (Flagyl 500mg/100ml Ns) 100 mls @ 100 mls/hr IVPB Q8 [facility] Last Admin: 04/20/17 16:17 Dose: 100 mls/hr Norepinephrine Bitartrate 8 mg (/ Dextrose) 508 mls @ 57.15 mls/hr IV .Q8H54M ONE PRN Reason: 15 MCG/MIN Stop: 04/21/17 03:00 Last Admin: 04/20/17 18:33 Dose: 57.15 mls/hr Insulin Human Lispro (Humalog) 0 units SC ACHS [facility] PRN Reason: Protocol Last Admin: 04/20/17 16:18 Dose: 1 unit Loperamide HCl (Imodium) 2 mg PO QID PRN PRN Reason: profuse ileostomy output Last Admin: 04/20/17 16:17 Dose: 2 mg - Labs Labs: 04/20/17 04:50 04/20/17 04:50 PT 15.1 SECONDS (9.6-11.2) H 04/19/17 06:00 INR 1.45 (0.92-1.08) H 04/19/17 06:00 APTT 46.9 SECONDS (23.3-32.5) H 04/19/17 06:00 Assessment and Plan (1) Septic shock Status: Acute (2) Bacteremia Status: Acute (3) Bacteremia Status: Acute (4) Fever Status: Acute (5) CHF (congestive heart failure) Status: Acute (6) Dementia Status: Acute (7) PVD (peripheral vascular disease) Status: Acute
[2017-04-21] MEDS: Albuterol-Ipratrop 3 mg / 0.5 (3 ml) UD INH SCH ×5 (00:59→19:31)
[2017-04-21] MEDS: metroNIDAZOLE 500mg/100ml NS 100 ML IVPB SCH ×3 (01:22→17:11)
[2017-04-21] MEDS: Aztreonam 1 GM in Sodium Chloride 0.9% 100 ML IVPB SCH ×3 (02:22→17:16)
[2017-04-21] MEDS ORDERED: Norepinephrine 8 MG in Dextrose 5% In Water 500 ML IV ONE ×2 (03:32→15:52)
[2017-04-21 05:36] LABS: HEMATOCRIT 23.1 % (35.0-51.0); MEAN CELL VOLUME 82.8 fl (80.0-94.0); MEAN CORPUSCULAR HEMOGLOBIN 27.1 pg (27.0-31.0); MEAN CORPUSCULAR HGB CONC 32.7 g/dL (33.0-37.0); RED CELL DISTRIBUTION WIDTH 16.7 % (11.5-14.5)
[2017-04-21 05:41] LABS: WHITE BLOOD COUNT 22.2 K/uL (4.8-10.8)
[2017-04-21 06:43] LABS: ALB/GLOB RATIO 0.7 (1.0-2.1); BILIRUBIN,TOTAL 0.7 mg/dl (0.2-1.3); POTASSIUM 3.6 MMOL/L (3.6-5.0)
[2017-04-21] MEDS: Insulin Lispro (humaLOG) 100 Units/ml Inj SC SCH ×4 (07:24→22:00)
--- NOTE | 2017-04-21 07:47 | CP.PCM.PN ---
Addendum entered and electronically signed by Martinez Kearney DO 04/21/17 16:51: Wound vac was changed this afternoon. Sacral wound examined. Currently wound measures [id number]. Central portion of wound had some fibrinous exudate which was cleaned off. Wound had erythematous boders, no crepitus was appreciated. Patient tolerated procedure well. Original Note: <Martinez Kearney - Last Filed: 04/21/17 07:48> Subjective - Date & Time of Evaluation Date of Evaluation: 04/21/17 Time of Evaluation: 07:00 - Subjective Subjective: Gen Surg: Dr. Becker Patient seen and examined this morning at bedside. Reported no complaints. Patient having dark stool output from ileostomy, output has decreased from ~ 3.6L yesterday to ~1.7L today. On Levophed. Will change wound vac at bedside today. Objective - Vital Signs/Intake and Output Vital Signs (last 24 hours): Temp Pulse Resp BP Pulse Ox 98 F 92 H 19 106/59 L 100 04/21/17 07:44 04/21/17 07:44 04/21/17 07:44 04/21/17 07:44 04/21/17 07:44 Intake and Output: 04/21/17 04/21/17 06:59 18:59 Intake Total 1160 Balance 1160 - Medications Medications: Current Medications Acetaminophen (Tylenol 325mg Tab) 650 mg PO Q6 PRN PRN Reason: Pain, moderate (4-7) Last Admin: 04/15/17 00:41 Dose: 650 mg Albuterol/Ipratropium (Duoneb 3 Mg/0.5 Mg (3 Ml) Ud) 3 ml INH RQ6 [facility] Last Admin: 04/21/17 07:37 Dose: Not Given Aspirin (Aspirin) 325 mg PO DAILY [facility] Last Admin: 04/20/17 09:38 Dose: 325 mg Atorvastatin Calcium (Lipitor) 50 mg PO DAILY [facility] Last Admin: 04/20/17 09:35 Dose: 50 mg Enoxaparin Sodium (Lovenox) 30 mg SC DAILY [facility] PRN Reason: Protocol Last Admin: 04/20/17 09:36 Dose: 30 mg Famotidine (Pepcid) 20 mg PO BID [facility] Last Admin: 04/20/17 16:17 Dose: 20 mg Ferrous Gluconate (Fergon) 324 mg PO TID [facility] Last Admin: 04/20/17 16:17 Dose: 324 mg Aztreonam 1 gm/ Sodium (Chloride) 100 mls @ 100 mls/hr IVPB Q8 [facility] Last Admin: 04/21/17 02:22 Dose: 100 mls/hr Micafungin Sodium 100 mg/ (Sodium Chloride) 100 mls @ 100 mls/hr IVPB DAILY [facility] Last Admin: 04/20/17 09:36 Dose: 100 mls/hr Metronidazole (Flagyl 500mg/100ml Ns) 100 mls @ 100 mls/hr IVPB Q8 [facility] Last Admin: 04/21/17 01:22 Dose: 100 mls/hr Norepinephrine Bitartrate 8 mg (/ Dextrose) 508 mls @ 57.15 mls/hr IV .[id number] ONE; 15 MCG/MIN PRN Reason: Protocol Stop: 04/21/17 12:25 Last Admin: 04/21/17 03:35 Dose: 15 mcg/min, 57.15 mls/hr Insulin Human Lispro (Humalog) 0 units SC ACHS [facility] PRN Reason: Protocol Last Admin: 04/21/17 07:24 Dose: 1 unit Loperamide HCl (Imodium) 2 mg PO QID PRN PRN Reason: profuse ileostomy output Last Admin: 04/20/17 16:17 Dose: 2 mg Pantoprazole Sodium (Protonix Ec Tab) 40 mg PO DAILY [facility] - Labs Labs: 04/21/17 05:00 04/21/17 05:00 PT 15.1 SECONDS (9.6-11.2) H 04/19/17 06:00 INR 1.45 (0.92-1.08) H 04/19/17 06:00 APTT 46.9 SECONDS (23.3-32.5) H 04/19/17 06:00 - Constitutional Appears: No Acute Distress - Head Exam Head Exam: NORMOCEPHALIC - Eye Exam Eye Exam: Normal appearance - ENT Exam ENT Exam: Mucous Membranes Moist - Respiratory Exam Respiratory Exam: NORMAL BREATHING PATTERN - Cardiovascular Exam Cardiovascular Exam: +S1, +S2 - GI/Abdominal Exam GI & Abdominal Exam: Soft - Extremities Exam Extremities Exam: absent: Pedal Edema - Neurological Exam Neurological Exam: Alert, Awake, Oriented x3 - Psychiatric Exam Psychiatric exam: Normal Mood - Skin Skin Exam: Dry, Warm Assessment and Plan - Assessment and Plan (Free Text) Assessment: This is a 76M with a stage 4 decubitus ulcer and shock possibly septic in nature Will change wound vac today GI Ppx: Protonix Hgb 7.6 WBC trending down: 24.9 down to 22.[address] Becker <Adolfo Becker - Last Filed: 04/23/17 18:45> Objective - Vital Signs/Intake and Output Vital Signs (last 24 hours): Temp Pulse Resp BP Pulse Ox 97.8 F 78 27 H 99/63 L 100 04/23/17 16:00 04/23/17 18:00 04/23/17 18:00 04/23/17 18:00 04/23/17 18:00 Intake and Output: 04/23/17 04/23/17 06:59 18:59 Intake Total 2192 2256 Output Total 1550 1720 Balance 642 536 - Medications Medications: Current Medications Acetaminophen (Tylenol 325mg Tab) 650 mg PO Q6 PRN PRN Reason: Pain, moderate (4-7) Last Admin: 04/22/17 17:07 Dose: 650 mg Albuterol/Ipratropium (Duoneb 3 Mg/0.5 Mg (3 Ml) Ud) 3 ml INH RQ6 [facility] Last Admin: 04/23/17 13:00 Dose: 3 ml Aspirin (Aspirin) 325 mg PO DAILY [facility] Last Admin: 04/23/17 09:38 Dose: 325 mg Atorvastatin Calcium (Lipitor) 50 mg PO DAILY [facility] Last Admin: 04/23/17 09:42 Dose: 50 mg Famotidine (Pepcid) 20 mg PO BID [facility] Last Admin: 04/23/17 17:05 Dose: Not Given Ferrous Gluconate (Fergon) 324 mg PO TID [facility] Last Admin: 04/23/17 17:03 Dose: Not Given Aztreonam 1 gm/ Sodium (Chloride) 100 mls @ 100 mls/hr IVPB Q8 [facility] Last Admin: 04/23/17 17:03 Dose: 100 mls/hr Micafungin Sodium 100 mg/ (Sodium Chloride) 100 mls @ 100 mls/hr IVPB DAILY [facility] Last Admin: 04/23/17 09:42 Dose: 100 mls/hr Metronidazole (Flagyl 500mg/100ml Ns) 100 mls @ 100 mls/hr IVPB Q8 [facility] Last Admin: 04/23/17 17:04 Dose: 100 mls/hr Vancomycin HCl 1 gm/ Sodium (Chloride) 250 mls @ 250 mls/hr IVPB Q24H [facility] Last Admin: 04/22/17 17:17 Dose: 250 mls/hr Lacosamide 200mg/20ml 100 mg/ (Sodium Chloride) 110 mls @ 110 mls/hr IVPB BID [facility] Last Admin: 04/23/17 17:47 Dose: 110 mls/hr Norepinephrine Bitartrate 8 mg (/ Dextrose) 508 mls @ 38.1 mls/hr IV .[id number] ONE; 10 MCG/MIN PRN Reason: Protocol Stop: 04/23/17 21:38 Last Admin: 04/23/17 09:40 Dose: 7.5 mcg/min, 28.57 mls/hr Insulin Human Lispro (Humalog) 0 units SC ACHS [facility] PRN Reason: Protocol Last Admin: 04/23/17 17:04 Dose: Not Given Loperamide HCl (Imodium) 2 mg PO QID PRN PRN Reason: profuse ileostomy output Last Admin: 04/23/17 09:40 Dose: 2 mg Lorazepam (Ativan) 1 mg IVP Q6 PRN PRN Reason: seizures Pantoprazole Sodium (Protonix Ec Tab) 40 mg PO DAILY [facility] Last Admin: 04/23/17 09:42 Dose: 40 mg - Labs Labs: 04/23/17 05:30 04/23/17 05:30 PT 15.3 SECONDS (9.6-11.2) H 04/22/17 05:30 INR 1.47 (0.92-1.08) H 04/22/17 05:30 APTT 41.8 SECONDS (23.3-32.5) H 04/22/17 05:30 Attending/Attestation - Attestation I have personally seen and examined this patient.: Yes I have fully participated in the care of the patient.: Yes I have reviewed all pertinent clinical information, including history, physical exam and plan: Yes Notes (Text): 06/04/17 18:45 Pt was seen and examined at bedside on 04/21/17 Agree with above note and assessment Pt with improving clinically Wound vac change Wound care consult Plan d/w pt in detail.
[2017-04-21] MEDS: Enoxaparin 30 mg Syringe SC SCH (08:32)
[2017-04-21] MEDS: Micafungin 100 MG in Sodium Chloride 0.9% 100 ML IVPB SCH (08:33)
[2017-04-21] MEDS: Pantoprazole 40 mg EC Tab PO SCH (09:00)
--- NOTE | 2017-04-21 14:48 | CP.PCM.PN ---
Subjective - Date & Time of Evaluation Date of Evaluation: 04/21/17 Time of Evaluation: 08:46 - Subjective Subjective: Patient seen and examined at bedside with attending. No acute events overnight. Afebrile. Wound vac/ileostomy in place. Has pain in ulcerated area, controlled with medications. Denies leg pain, chest pain, nausea, vomiting, fevers, or chills. No dizziness, numbness/tingling. Objective - Vital Signs/Intake and Output Vital Signs (last 24 hours): Temp Pulse Resp BP Pulse Ox 98 F 88 22 109/75 100 04/21/17 12:30 04/21/17 12:30 04/21/17 12:30 04/21/17 12:30 04/21/17 12:30 Intake and Output: 04/21/17 04/21/17 06:59 18:59 Intake Total 1160 Balance 1160 - Medications Medications: Current Medications Acetaminophen (Tylenol 325mg Tab) 650 mg PO Q6 PRN PRN Reason: Pain, moderate (4-7) Last Admin: 04/15/17 00:41 Dose: 650 mg Albuterol/Ipratropium (Duoneb 3 Mg/0.5 Mg (3 Ml) Ud) 3 ml INH RQ6 [facility] Last Admin: 04/21/17 13:06 Dose: Not Given Aspirin (Aspirin) 325 mg PO DAILY [facility] Last Admin: 04/21/17 08:36 Dose: 325 mg Atorvastatin Calcium (Lipitor) 50 mg PO DAILY [facility] Last Admin: 04/21/17 08:32 Dose: 50 mg Enoxaparin Sodium (Lovenox) 30 mg SC DAILY [facility] PRN Reason: Protocol Last Admin: 04/21/17 08:32 Dose: 30 mg Famotidine (Pepcid) 20 mg PO BID [facility] Last Admin: 04/21/17 08:33 Dose: 20 mg Ferrous Gluconate (Fergon) 324 mg PO TID [facility] Last Admin: 04/21/17 08:31 Dose: 324 mg Aztreonam 1 gm/ Sodium (Chloride) 100 mls @ 100 mls/hr IVPB Q8 [facility] Last Admin: 04/21/17 08:35 Dose: 100 mls/hr Micafungin Sodium 100 mg/ (Sodium Chloride) 100 mls @ 100 mls/hr IVPB DAILY [facility] Last Admin: 04/21/17 08:33 Dose: 100 mls/hr Metronidazole (Flagyl 500mg/100ml Ns) 100 mls @ 100 mls/hr IVPB Q8 [facility] Last Admin: 04/21/17 08:34 Dose: 100 mls/hr Insulin Human Lispro (Humalog) 0 units SC ACHS [facility] PRN Reason: Protocol Last Admin: 04/21/17 07:24 Dose: 1 unit Loperamide HCl (Imodium) 2 mg PO QID PRN PRN Reason: profuse ileostomy output Last Admin: 04/20/17 16:17 Dose: 2 mg Pantoprazole Sodium (Protonix Ec Tab) 40 mg PO DAILY [facility] - Labs Labs: 04/21/17 05:00 04/21/17 05:00 PT 15.1 SECONDS (9.6-11.2) H 04/19/17 06:00 INR 1.45 (0.92-1.08) H 04/19/17 06:00 APTT 46.9 SECONDS (23.3-32.5) H 04/19/17 06:00 - Constitutional Appears: Non-toxic, No Acute Distress - Head Exam Head Exam: ATRAUMATIC, NORMAL INSPECTION, NORMOCEPHALIC - Eye Exam Eye Exam: Normal appearance - Neck Exam Neck Exam: Normal Inspection - Respiratory Exam Respiratory Exam: Clear to Ausculation Bilateral, NORMAL BREATHING PATTERN - Cardiovascular Exam Cardiovascular Exam: REGULAR RHYTHM, RRR, +S1, +S2. absent: Murmur - GI/Abdominal Exam GI & Abdominal Exam: Soft, Normal Bowel Sounds. absent: Tenderness - Extremities Exam Extremities Exam: Normal Inspection - Neurological Exam Neurological Exam: Alert, Awake - Psychiatric Exam Psychiatric exam: Normal Affect, Normal Mood - Skin Skin Exam: Dry, Intact, Normal Color, Warm Assessment and Plan (1) Decubitus skin ulcer Assessment & Plan: Surgery on board s/p debridement. Draining appropriately. Afebrile. C/w recommendations at this time including wound vac Status: Acute (2) Septic shock Assessment & Plan: Afebrile. Downtrending WBC No fever chills Still requiring good amount of levophed Continue to monitor in ICU, appreciate hadoop software engineer input Continue ABx per ID management Status: Acute (3) Anemia Assessment & Plan: Hgb 7.2 s/p 2 units PRBC yesterday Continue to monitor, CBC in am Status: Acute
[2017-04-21] MEDS ORDERED: Sodium Chloride 0.9% 1,000 ML IV SCH (15:45)
--- NOTE | 2017-04-21 16:11 | CP.CCUPN ---
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 Hypotensive again despite Levophed, and has recd 1 of 2 units PRBCS ordered. Afebrile, no fever spikes. BP 114/72 HR 92, 100% SPO2 on nasal cannula. Ileostomy output continue at a high volume. No active bleeding evident. 24H I/O's= 3945/2200ml ROS: as above, no other pertinent negs or positives on 10 system review. PMFSH: all nursing and historical notes reviewed, no new pertinent data relevant to current problems. No other distress noted: EXAM- HEENT: no icterus, pupils equal and reactive NECK: no visible JVD, supple, carotids equal upstroke bilat/no bruits CHEST: decreased BS bases, no wheezes HEART: regular, distant, S1S2, no murmur audible, no rubs. ABD: soft, no increased distention, no focal tenderness, no HSM. BS hypoactive , EXT: LUE PICC; no edema, multiple bilateral areas of pressure-induced appearing - skin ulcerated wounds that some are located circumferentially and along the anterior tibial line, no peripheral/ digital cyanosis, no calf tenderness or palpable cords, distal pulses (PT and DP) non-palpable. NEURO: no gross focal motor deficits SKIN: no rashes LABS: WBC= 12.2 HGB= 7.6 PLTs= 396K Na= 131 K= 3.6 HCO3= 15 BUN/Cr= 105/2.2 BS= 141 MAJOR PROBLEMS NOW: 1. Septic Shock with Gram + bacteremia 2 Skin Wounds 2. s/p Ileostomy after repair of Incarc hernia 3. ACS, r/o NSTEMI 4. Azotemia, r/o acute on CKD, versus VIPIN 5. Multiple Decubiti / Pressure Wounds / Cellulitis of LEs 6. Acute Anemia, r/o occult GI bleed. PLAN: 1. More PRBCs today. Consider GI consultation. 2. Check PT/ PTT. May need correction. 3. IVF Hydration, account and compensate for ileostomy fluid losses. 4. Ongoing wound and decub care, [facility] bed.
--- NOTE | 2017-04-21 17:43 | CP.PCM.PN ---
Subjective - Date & Time of Evaluation Date of Evaluation: 04/21/17 Time of Evaluation: 07:00 - Subjective Subjective: confused in icu mottled extremities no pain wounds debrided Objective - Vital Signs/Intake and Output Vital Signs (last 24 hours): Temp Pulse Resp BP Pulse Ox 97.6 F 101 H 24 111/52 L 100 04/21/17 16:00 04/21/17 16:00 04/21/17 16:00 04/21/17 16:00 04/21/17 16:00 Intake and Output: 04/21/17 04/21/17 06:59 18:59 Intake Total 1160 Balance 1160 - Medications Medications: Current Medications Acetaminophen (Tylenol 325mg Tab) 650 mg PO Q6 PRN PRN Reason: Pain, moderate (4-7) Last Admin: 04/15/17 00:41 Dose: 650 mg Albuterol/Ipratropium (Duoneb 3 Mg/0.5 Mg (3 Ml) Ud) 3 ml INH RQ6 [facility] Last Admin: 04/21/17 13:06 Dose: Not Given Aspirin (Aspirin) 325 mg PO DAILY [facility] Last Admin: 04/21/17 08:36 Dose: 325 mg Atorvastatin Calcium (Lipitor) 50 mg PO DAILY [facility] Last Admin: 04/21/17 08:32 Dose: 50 mg Enoxaparin Sodium (Lovenox) 30 mg SC DAILY [facility] PRN Reason: Protocol Last Admin: 04/21/17 08:32 Dose: 30 mg Famotidine (Pepcid) 20 mg PO BID [facility] Last Admin: 04/21/17 17:12 Dose: 20 mg Ferrous Gluconate (Fergon) 324 mg PO TID [facility] Last Admin: 04/21/17 17:16 Dose: 324 mg Aztreonam 1 gm/ Sodium (Chloride) 100 mls @ 100 mls/hr IVPB Q8 [facility] Last Admin: 04/21/17 17:16 Dose: 100 mls/hr Micafungin Sodium 100 mg/ (Sodium Chloride) 100 mls @ 100 mls/hr IVPB DAILY [facility] Last Admin: 04/21/17 08:33 Dose: 100 mls/hr Metronidazole (Flagyl 500mg/100ml Ns) 100 mls @ 100 mls/hr IVPB Q8 [facility] Last Admin: 04/21/17 17:11 Dose: 100 mls/hr Norepinephrine Bitartrate 8 mg (/ Dextrose) 508 mls @ 9.52 mls/hr IV .Q24H ONE PRN Reason: 2.5 MCG/MIN Stop: 04/22/17 15:51 Last Admin: 04/21/17 17:00 Dose: 9.52 mls/hr Insulin Human Lispro (Humalog) 0 units SC ACHS [facility] PRN Reason: Protocol Last Admin: 04/21/17 11:30 Dose: Not Given Loperamide HCl (Imodium) 2 mg PO QID PRN PRN Reason: profuse ileostomy output Last Admin: 04/20/17 16:17 Dose: 2 mg Pantoprazole Sodium (Protonix Ec Tab) 40 mg PO DAILY [facility] Last Admin: 04/21/17 09:00 Dose: Not Given - Labs Labs: 04/21/17 05:00 04/21/17 05:00 PT 15.1 SECONDS (9.6-11.2) H 04/19/17 06:00 INR 1.45 (0.92-1.08) H 04/19/17 06:00 APTT 46.9 SECONDS (23.3-32.5) H 04/19/17 06:00 - Constitutional Appears: Confused, Cachectic, Chronically Ill - Head Exam Head Exam: NORMOCEPHALIC - Eye Exam Eye Exam: PERRL. absent: Scleral icterus - ENT Exam ENT Exam: Mucous Membranes Dry - Neck Exam Neck Exam: absent: Lymphadenopathy - Respiratory Exam Respiratory Exam: Decreased Breath Sounds, Rhonchi Assessment and Plan (1) Septic shock Status: Acute (2) Bacteremia Status: Acute (3) Bacteremia Status: Acute (4) Fever Status: Acute (5) CHF (congestive heart failure) Status: Acute (6) Dementia Status: Acute (7) PVD (peripheral vascular disease) Status: Acute
--- NOTE | 2017-04-21 20:40 | CP.CCUPN ---
CCU Subjective - Physician Review Subjective (Free Text): 04/21/17 20:36 Called to patient bedside as patient with facial twitching. L sided facial twitching noted with patient being altered mental status. VSS. Likely consistent with new onset seizures. Seizures terminated with 1 mg IV ativan. Will order PRN Ativan. Will order CMP, CBC, Prolactin, and repeat INR as well as NCHCT once seizure resolves. If continued seizures, consider loading with AED. Will need neuro consult in AM. CCU Objective - Vital Signs / Intake & Output Intake and Output (Last 8hrs): Intake & Output 04/21/17 04/21/17 04/21/17 06:59 14:59 22:59 Intake Total 1160 Output Total 2700 Balance 1160 -2700 Intake: Intake, Piggyback 920 Oral 240 Output: Stool 2700 - Physical Exam Head: Positive for: Atraumatic, Normocephalic Pupils: Positive for: PERRL Extroacular Muscles: Positive for: EOMI Conjunctiva: Positive for: Normal. Negative for: Injected, Icteric Mouth: Positive for: Moist Mucous Membranes. Negative for: Dry, Drooling Pharnyx: Positive for: Normal. Negative for: ERYTHEMA Nose (External): Positive for: Atraumatic. Negative for: Abrasion, Contusion Neck: Positive for: Normal Range of Motion Respiratory/Chest: Positive for: Clear to Auscultation, Good Air Exchange. Negative for: Respiratory Distress, Accessory Muscle Use, Rales, Rhonchi, Tachypneic, Tender to Palpation Cardiovascular: Positive for: Regular Rate and Rhythm, Normal S1, S2, Peripheal Pulses Present. Negative for: Murmurs, Tachycardic, Bradycardic Abdomen: Positive for: Distention, Normal Bowel Sounds, Ostomy Tubes, Other ( iliostomy). Negative for: Tenderness Back: Positive for: Other (Stage 4 decubitus ulcer) Upper Extremity: Positive for: Normal Inspection Lower Extremity: Positive for: Normal Inspection Psychiatric: Positive for: Alert, Oriented x 3, Lethargic, Other (respond only to touch). Negative for: Anxious, Agitated - Medications Active Medications: Active Medications Generic Name Dose Route Start Last Admin Trade Name Freq PRN Reason Stop Dose Admin Acetaminophen 650 mg 04/14/17 20:25 04/15/17 00:41 Tylenol 325mg Tab PO 650 mg Q6 PRN Administration Pain, moderate (4-7) Albuterol/Ipratropium 3 ml 04/18/17 20:00 04/21/17 19:31 Duoneb 3 Mg/0.5 Mg (3 Ml) Ud INH 3 ml RQ6 SUBHASH Administration Aspirin 325 mg 04/17/17 09:00 04/21/17 08:36 Aspirin PO 325 mg DAILY SU[facility] Administration Atorvastatin Calcium 50 mg 04/15/17 09:00 04/21/17 08:32 Lipitor PO 50 mg DAILY SU[facility] Administration Enoxaparin Sodium 30 mg 04/15/17 09:00 04/21/17 08:32 Lovenox SC 30 mg DAILY SU[facility] Administration Protocol Famotidine 20 mg 04/15/17 09:00 04/21/17 17:12 Pepcid PO 20 mg BID SUBHASH Administration Ferrous Gluconate 324 mg 04/15/17 09:00 04/21/17 17:16 Fergon PO 324 mg TID SU[facility] Administration Aztreonam 1 gm/ Sodium 100 mls @ 100 mls/hr 04/14/17 23:00 04/21/17 17:16 Chloride IVPB 100 mls/hr Q8 [facility] Administration Micafungin Sodium 100 mg/ 100 mls @ 100 mls/hr 04/17/17 15:45 04/21/17 08:33 Sodium Chloride IVPB 100 mls/hr DAILY [facility] Administration Metronidazole 100 mls @ 100 mls/hr 04/19/17 17:00 04/21/17 17:11 Flagyl 500mg/100ml Ns IVPB 100 mls/hr Q8 [facility] Administration Norepinephrine Bitartrate 8 mg 508 mls @ 9.52 mls/hr 04/21/17 15:52 04/21/17 17:00 / Dextrose IV 04/22/17 15:51 9.52 mls/hr .Q24H ONE Administration 2.5 MCG/MIN Vancomycin HCl 1 gm/ Sodium 250 mls @ 250 mls/hr 04/21/17 18:15 04/21/17 19: 54 Chloride IVPB Not Given Q24H [facility] Insulin Human Lispro 0 units 04/15/17 07:30 04/21/17 16:30 Humalog SC Not Given ACHS [facility] Protocol Loperamide HCl 2 mg 04/20/17 13:19 04/20/17 16:17 Imodium PO 2 mg QID PRN Administration profuse ileostomy output Lorazepam 1 mg 04/21/17 20:10 Ativan IVP 04/21/17 20:11 STAT STA Lorazepam 1 mg 04/21/17 20:30 Ativan IVP Q6 PRN seizures Pantoprazole Sodium 40 mg 04/21/17 09:00 04/21/17 09:00 Protonix Ec Tab PO Not Given DAILY SUBHASH - Patient Studies Lab Studies: Microbiology Studies 04/16/17 05:30 Blood Culture - Final Blood-Venous NO GROWTH AFTER 5 DAYS Gram Stain - Final TEST NOT PERFORMED Lab Studies 04/21/17 04/21/17 04/21/17 Range/Units 20:14 17:23 10:52 WBC (4.8-10.8) K/uL RBC (4.40-5.90) Mil/uL Hgb (12.0-18.0) g/dL Hct (35.0-51.0) % MCV (80.0-94.0) fl MCH (27.0-31.0) pg MCHC (33.0-37.0) g/dL RDW (11.5-14.5) % Plt Count (130-400) K/uL Sodium (132-148) mmol/l Potassium (3.6-5.0) MMOL/L Chloride (98-107) mmol/L Carbon Dioxide (22-30) mmol/L Anion Gap (10-20) BUN (9-20) mg/dl Creatinine (0.8-1.5) mg/dL Est GFR ( Amer) Est GFR (Non-Af Amer) POC Glucose (mg/dL) 160 H 131 H 167 H (65-110) mg/dL Random Glucose (75-110) mg/dL Calcium (8.4-10.2) mg/dL Total Bilirubin (0.2-1.3) mg/dl AST (17-59) U/L ALT (21-72) U/L Alkaline Phosphatase (38-126) U/L Total Protein (6.3-8.2) G/DL Albumin (3.5-5.0) g/dL Globulin (2.2-3.9) gm/dL Albumin/Globulin Ratio (1.0-2.1) Vancomycin Trough (5.0-10.0) ug/mL Blood Type Antibody Screen Crossmatch BBK History Checked 04/21/17 04/21/17 04/21/17 Range/Units 05:36 05:00 05:00 WBC (4.8-10.8) K/uL RBC (4.40-5.90) Mil/uL Hgb (12.0-18.0) g/dL Hct (35.0-51.0) % MCV (80.0-94.0) fl MCH (27.0-31.0) pg MCHC (33.0-37.0) g/dL RDW (11.5-14.5) % Plt Count (130-400) K/uL Sodium 131 L (132-148) mmol/l Potassium 3.6 (3.6-5.0) MMOL/L Chloride 102 (98-107) mmol/L Carbon Dioxide 15 L (22-30) mmol/L Anion Gap 18 (10-20) BUN 105 H* (9-20) mg/dl Creatinine 2.2 H (0.8-1.5) mg/dL Est GFR ( Amer) 35 Est GFR (Non-Af Amer) 29 POC Glucose (mg/dL) 167 H (65-110) mg/dL Random Glucose 141 H (75-110) mg/dL Calcium 8.0 L (8.4-10.2) mg/dL Total Bilirubin 0.7 (0.2-1.3) mg/dl AST 34 (17-59) U/L ALT 39 (21-72) U/L Alkaline Phosphatase 98 (38-126) U/L Total Protein 6.0 L (6.3-8.2) G/DL Albumin 2.5 L (3.5-5.0) g/dL Globulin 3.5 (2.2-3.9) gm/dL Albumin/Globulin Ratio 0.7 L (1.0-2.1) Vancomycin Trough 23.1 H (5.0-10.0) ug/mL Blood Type Antibody Screen Crossmatch BBK History Checked 04/21/17 04/20/17 04/20/17 Range/Units 05:00 22:03 06:33 WBC 22.2 H (4.8-10.8) K/uL RBC 2.79 L (4.40-5.90) Mil/uL Hgb 7.6 L (12.0-18.0) g/dL Hct 23.1 L (35.0-51.0) % MCV 82.8 (80.0-94.0) fl MCH 27.1 (27.0-31.0) pg MCHC 32.7 L (33.0-37.0) g/dL RDW 16.7 H (11.5-14.5) % Plt Count 396 (130-400) K/uL Sodium (132-148) mmol/l Potassium (3.6-5.0) MMOL/L Chloride (98-107) mmol/L Carbon Dioxide (22-30) mmol/L Anion Gap (10-20) BUN (9-20) mg/dl Creatinine (0.8-1.5) mg/dL Est GFR ( Amer) Est GFR (Non-Af Amer) POC Glucose (mg/dL) 160 H (65-110) mg/dL Random Glucose (75-110) mg/dL Calcium (8.4-10.2) mg/dL Total Bilirubin (0.2-1.3) mg/dl AST (17-59) U/L ALT (21-72) U/L Alkaline Phosphatase (38-126) U/L Total Protein (6.3-8.2) G/DL Albumin (3.5-5.0) g/dL Globulin (2.2-3.9) gm/dL Albumin/Globulin Ratio (1.0-2.1) Vancomycin Trough (5.0-10.0) ug/mL Blood Type O POSITIVE Antibody Screen Negative Crossmatch See Detail BBK History Checked Patient has bt Laboratory Results - last 24 hr 04/20/17 04/20/17 04/21/17 06:33 22:03 05:00 WBC 22.2 H RBC 2.79 L Hgb 7.6 L Hct 23.1 L MCV 82.8 MCH 27.1 MCHC 32.7 L RDW 16.7 H Plt Count 396 Sodium Potassium Chloride Carbon Dioxide Anion Gap BUN Creatinine Est GFR ( Amer) Est GFR (Non-Af Amer) POC Glucose (mg/dL) 160 H Random Glucose Calcium Total Bilirubin AST ALT Alkaline Phosphatase Total Protein Albumin Globulin Albumin/Globulin Ratio Vancomycin Trough Blood Type O POSITIVE Antibody Screen Negative Crossmatch See Detail BBK History Checked Patient has bt 04/21/17 04/21/17 04/21/17 05:00 05:00 05:36 WBC RBC Hgb Hct MCV MCH MCHC RDW Plt Count Sodium 131 L Potassium 3.6 Chloride 102 Carbon Dioxide 15 L Anion Gap 18 BUN 105 H* Creatinine 2.2 H Est GFR ( Amer) 35 Est GFR (Non-Af Amer) 29 POC Glucose (mg/dL) 167 H Random Glucose 141 H Calcium 8.0 L Total Bilirubin 0.7 AST 34 ALT 39 Alkaline Phosphatase 98 Total Protein 6.0 L Albumin 2.5 L Globulin 3.5 Albumin/Globulin Ratio 0.7 L Vancomycin Trough 23.1 H Blood Type Antibody Screen Crossmatch BBK History Checked 04/21/17 04/21/17 04/21/17 10:52 17:23 20:14 WBC RBC Hgb Hct MCV MCH MCHC RDW Plt Count Sodium Potassium Chloride Carbon Dioxide Anion Gap BUN Creatinine Est GFR ( Amer) Est GFR (Non-Af Amer) POC Glucose (mg/dL) 167 H 131 H 160 H Random Glucose Calcium Total Bilirubin AST ALT Alkaline Phosphatase Total Protein Albumin Globulin Albumin/Globulin Ratio Vancomycin Trough Blood Type Antibody Screen Crossmatch BBK History Checked Fingerstick Blood Sugar Results: 130 Critical Care Progress Note - Nutrition Nutrition: Nutrition Category Date Time Status Heart Healthy Diet [DIET] Diets 04/20/17 Lunch Active
[2017-04-21 20:55] LABS: BASO # 0.1 K/uL (0.0-0.2); BASO % 0.4 % (0.0-2.0); EOS # 0.2 K/uL (0.0-0.7); EOS % 1.1 % (0.0-4.0); HEMATOCRIT 23.8 % (35.0-51.0); LYMPH # 1.6 K/uL (1.0-4.3); LYMPH % 7.1 % (20.0-40.0); MEAN CELL VOLUME 84.2 fl (80.0-94.0); MEAN CORPUSCULAR HEMOGLOBIN 27.8 pg (27.0-31.0); MEAN PLATELET VOLUME 7.1 fl (7.2-11.7); MONO # 1.5 K/uL (0.0-0.8); MONO % 6.6 % (0.0-10.0); NEUT # 19.3 K/uL (1.8-7.0); NEUT % 84.8 % (50.0-75.0); PLATELET COUNT 359 K/uL (130-400); RED CELL DISTRIBUTION WIDTH 16.2 % (11.5-14.5); WHITE BLOOD COUNT 22.8 K/uL (4.8-10.8)
[2017-04-21 21:11] LABS: ALB/GLOB RATIO 0.7 (1.0-2.1); BILIRUBIN,TOTAL 0.8 mg/dl (0.2-1.3); CALCIUM 7.8 mg/dL (8.4-10.2); POTASSIUM 3.2 MMOL/L (3.6-5.0); TOTAL PROTEIN 5.7 G/DL (6.3-8.2)
--- NOTE | 2017-04-21 21:42 | CT ---
EXAM: CT Head Without Intravenous Contrast CLINICAL HISTORY: 76 years old, male; Signs and symptoms; Other: Seizure, new onset; Additional info: Seizures, new TECHNIQUE: Axial computed tomography images of the head/brain without intravenous contrast. This CT exam was performed using one or more of the following dose reduction techniques: automated exposure control, adjustment of the mA and/or kV according to patient size, and/or use of iterative reconstruction technique. Coronal and sagittal reformatted images were created and reviewed. EXAM DATE/TIME: 04/21/2017 8:57 PM COMPARISON: CT - HEAD W/O CONTRAST 04/11/2017 6:04:10 PM FINDINGS: Artifacts: Streak artifact degrades image quality. Motion artifact degrades image quality. Brain: There is prominence of sulci gyri and ventricles. There is no midline shift. There is decreased attenuation in periventricular white matter. There is right cerebellar encephalomalacia There is right frontoparietal encephalomalacia with compensatory dilatation of right lateral ventricle. There is left occipital encephalomalacia. There is an old right basal ganglia lacunar infarct There are no focal masses. There are no focal hemorrhages. Brito-white differentiation is visualized. Ventricles: See above Bones: Cranial vault is intact. Soft tissues: unremarkable Sinuses: There is no acute sinusitis. Ears and mastoids: Middle ears and mastoids are unremarkable. Orbits: Orbital contents are unremarkable. 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
[2017-04-21 22:24] LABS: NEUTROPHIL 89 % (42-75); TOTAL CELLS COUNTED 100
[2017-04-21] MEDS ORDERED: Potassium Chloride 30 MEQ in Sodium Chloride 0.9% 1,000 ML IV SCH (22:45)
[2017-04-22] MEDS: Albuterol-Ipratrop 3 mg / 0.5 (3 ml) UD INH SCH ×4 (01:00→20:07)
[2017-04-22] MEDS: metroNIDAZOLE 500mg/100ml NS 100 ML IVPB SCH ×3 (02:48→17:01)
[2017-04-22] MEDS: Aztreonam 1 GM in Sodium Chloride 0.9% 100 ML IVPB SCH ×3 (02:48→17:00)
[2017-04-22] MEDS: Norepinephrine 8 MG in Dextrose 5% In Water 500 ML IV ONE ×2 (06:56→17:19)
[2017-04-22 06:59] LABS: BASO # 0.1 K/uL (0.0-0.2); BASO % 0.4 % (0.0-2.0); EOS # 0.1 K/uL (0.0-0.7); EOS % 0.4 % (0.0-4.0); HEMATOCRIT 28.1 % (35.0-51.0); LYMPH # 1.5 K/uL (1.0-4.3); LYMPH % 6.9 % (20.0-40.0); MEAN CELL VOLUME 85.3 fl (80.0-94.0); MEAN CORPUSCULAR HEMOGLOBIN 27.8 pg (27.0-31.0); MEAN CORPUSCULAR HGB CONC 32.6 g/dL (33.0-37.0); MEAN PLATELET VOLUME 7.6 fl (7.2-11.7); MONO # 1.4 K/uL (0.0-0.8); MONO % 6.2 % (0.0-10.0); NEUT % 86.1 % (50.0-75.0); RED CELL DISTRIBUTION WIDTH 16.7 % (11.5-14.5); WHITE BLOOD COUNT 22.1 K/uL (4.8-10.8)
[2017-04-22 07:18] LABS: PARTIAL THROMBOPLASTIN TIME 41.8 SECONDS (23.3-32.5)
[2017-04-22 07:27] LABS: ALB/GLOB RATIO 0.7 (1.0-2.1); BILIRUBIN,TOTAL 0.8 mg/dl (0.2-1.3); CALCIUM 8.1 mg/dL (8.4-10.2); POTASSIUM 3.6 MMOL/L (3.6-5.0); TOTAL PROTEIN 5.8 G/DL (6.3-8.2)
[2017-04-22] MEDS: Insulin Lispro (humaLOG) 100 Units/ml Inj SC SCH ×4 (07:30→21:32)
--- NOTE | 2017-04-22 07:55 | CP.PCM.PN ---
Subjective - Date & Time of Evaluation Date of Evaluation: 04/22/17 Time of Evaluation: 07:53 - Subjective Subjective: Gen Sx: Dr Becker Pt S&E. FABIOLA. No complaints at this time. Ostomy w/ less output, 1000cc, still dark. Wound vac stopped working over night. Appears it may have been dropped as female portion of power adapter is dislodged. A new wound vac needs to be ordered. It is ok to leave currently dressing/seal in place and reattached when new vac arrives. Set to same settings as previous, 175mmHg continuous with no thera-flow. Objective - Vital Signs/Intake and Output Vital Signs (last 24 hours): Temp Pulse Resp BP Pulse Ox 98.5 F 94 H 21 107/59 L 100 04/22/17 04:00 04/22/17 06:00 04/22/17 06:00 04/22/17 06:00 04/22/17 06:00 Intake and Output: 04/22/17 04/22/17 06:59 18:59 Intake Total 1000 Output Total 1000 Balance 0 - Medications Medications: Current Medications Acetaminophen (Tylenol 325mg Tab) 650 mg PO Q6 PRN PRN Reason: Pain, moderate (4-7) Last Admin: 04/15/17 00:41 Dose: 650 mg Albuterol/Ipratropium (Duoneb 3 Mg/0.5 Mg (3 Ml) Ud) 3 ml INH RQ6 [facility] Last Admin: 04/22/17 07:15 Dose: 3 ml Aspirin (Aspirin) 325 mg PO DAILY [facility] Last Admin: 04/21/17 08:36 Dose: 325 mg Atorvastatin Calcium (Lipitor) 50 mg PO DAILY [facility] Last Admin: 04/21/17 08:32 Dose: 50 mg Enoxaparin Sodium (Lovenox) 30 mg SC DAILY [facility] PRN Reason: Protocol Last Admin: 04/21/17 08:32 Dose: 30 mg Famotidine (Pepcid) 20 mg PO BID [facility] Last Admin: 04/21/17 17:12 Dose: 20 mg Ferrous Gluconate (Fergon) 324 mg PO TID [facility] Last Admin: 04/21/17 17:16 Dose: 324 mg Aztreonam 1 gm/ Sodium (Chloride) 100 mls @ 100 mls/hr IVPB Q8 [facility] Last Admin: 04/22/17 02:48 Dose: 100 mls/hr Micafungin Sodium 100 mg/ (Sodium Chloride) 100 mls @ 100 mls/hr IVPB DAILY [facility] Last Admin: 04/21/17 08:33 Dose: 100 mls/hr Metronidazole (Flagyl 500mg/100ml Ns) 100 mls @ 100 mls/hr IVPB Q8 [facility] Last Admin: 04/22/17 02:48 Dose: 100 mls/hr Vancomycin HCl 1 gm/ Sodium (Chloride) 250 mls @ 250 mls/hr IVPB Q24H [facility] Last Admin: 04/21/17 19:54 Dose: Not Given Potassium Chloride 30 meq/ (Sodium Chloride) 1,015 mls @ 75 mls/hr IV .[id number] [facility] Stop: 04/22/17 22:39 Last Admin: 04/22/17 03:45 Dose: 75 mls/hr Norepinephrine Bitartrate 8 mg (/ Dextrose) 508 mls @ 57.15 mls/hr IV .[id number] ONE; 15 MCG/MIN PRN Reason: Protocol Stop: 04/22/17 15:27 Last Admin: 04/22/17 06:56 Dose: 15 mcg/min, 57.15 mls/hr Insulin Human Lispro (Humalog) 0 units SC ACHS [facility] PRN Reason: Protocol Last Admin: 04/21/17 22:00 Dose: Not Given Loperamide HCl (Imodium) 2 mg PO QID PRN PRN Reason: profuse ileostomy output Last Admin: 04/20/17 16:17 Dose: 2 mg Lorazepam (Ativan) 1 mg IVP Q6 PRN PRN Reason: seizures Pantoprazole Sodium (Protonix Ec Tab) 40 mg PO DAILY [facility] Last Admin: 04/21/17 09:00 Dose: Not Given - Labs Labs: 04/22/17 05:30 04/21/17 20:52 PT 15.3 SECONDS (9.6-11.2) H 04/22/17 05:30 INR 1.47 (0.92-1.08) H 04/22/17 05:30 APTT 41.8 SECONDS (23.3-32.5) H 04/22/17 05:30 - Constitutional Appears: No Acute Distress - Respiratory Exam Respiratory Exam: absent: Accessory Muscle Use, Respiratory Distress - Cardiovascular Exam Cardiovascular Exam: Tachycardia - GI/Abdominal Exam GI & Abdominal Exam: Soft. absent: Tenderness - Neurological Exam Neurological Exam: Awake - Skin Skin Exam: Normal Color Assessment and Plan - Assessment and Plan (Free Text) Assessment: 76M w/ stage 4 decubitus ulcer Plan: new wound vac ordered via nursing staff will replace existing - please page assembler surgical garment if any issues connecting new system will change dressing on monday d/w Dr Rosita Montejo DO, PGY2
[2017-04-22] MEDS: Micafungin 100 MG in Sodium Chloride 0.9% 100 ML IVPB SCH (09:13)
[2017-04-22] MEDS: Enoxaparin 30 mg Syringe SC SCH (09:13)
[2017-04-22] MEDS: Pantoprazole 40 mg EC Tab PO SCH (09:14)
--- NOTE | 2017-04-22 09:42 | PN ---
DATE: 04/22/2017 The patient seen and examined. Interim events noted. Consults noted and appreciated. Case discusse d with loaders. The patient had an episode of seizure. The patient is sleepy, arousable, does n ot want to get in conversation, feels tired, chest pain controlled with current pain medication. PHYSICAL EXAMINATION: GENERAL: The patient is in no acute distress. VITAL SIGNS: Stable, afebrile, blood pressure is maintained on vasopressors. HEART: S1, S2 normal, regular. LUNGS: Good bilateral air exchange. ABDOMEN: Soft, nontender. EXTREMITIES: No calf swelling, no tenderness, no acute ischemia. CENTRAL NERVOUS SYSTEM: Essentially unchanged. SKIN: The patient has a wound VAC on the back. DIAGNOSTIC DATA: Available diagnostic data reviewed. Telemetry monitoring does not show a significa nt arrhythmia. White count remains elevated at 32. Overall, the patient's general medical condition is still critically sick . PLAN: As ordered. Eros Chowdary MD cc: [id number] TT: 04/22/2017 09:41:31 Confirmation # [id number] Dictation # [id number] manisha
--- NOTE | 2017-04-22 13:44 | CP.CCUPN ---
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 He remains dependent on Levophed at 15mcg/min. PRBCs overnight. Afebrile, no fever spikes. BP 114/72 HR 92, 100% SPO2 on nasal cannula. Ileostomy output continues at a high volume. No active bleeding evident. 24H I/O's= neg 2.7 L. ROS: as above, no other pertinent negs or positives on 10 system review. PMFSH: all nursing and historical notes reviewed, no new pertinent data relevant to current problems. No other distress noted: EXAM- HEENT: no icterus, pupils equal and reactive NECK: no visible JVD, supple, carotids equal upstroke bilat/no bruits CHEST: decreased BS bases, no wheezes HEART: regular, distant, S1S2, no murmur audible, no rubs. ABD: soft, no increased distention, no focal tenderness, no HSM. BS hypoactive , ileostomy and rigged drainage system intact. EXT: LUE PICC; no edema, multiple bilateral areas of pressure-induced appearing - skin ulcerated wounds that some are located circumferentially and along the anterior tibial line, no peripheral/ digital cyanosis, no calf tenderness or palpable cords, distal pulses (PT and DP) non-palpable. NEURO: no gross focal motor deficits SKIN: no rashes LABS: WBC= 22.2 HGB= 9.2 PLTs= 349K INR= 1.6 Na= 125 K= 3.2 HCO3= 15 BUN/Cr= 104/2.2 BS= 295 MAJOR PROBLEMS NOW: 1. Seizure Disorder; New Onset vs NCSE previously undetected clinically 2. Septic Shock with Gram + bacteremia 2 Skin Wounds 3. s/p Ileostomy after repair of Incarc hernia 4. ACS, r/o NSTEMI 5. Azotemia with occult GI Bleed 6. Acute Anemia, r/o occult GI bleed. 7. Multiple Decubiti / Pressure Wounds / Cellulitis of LEs PLAN: 1. Discussed with PMD, for formal Neuro eval. CT brain negative. ?? other metabolic abnormality resulting in seizure activity ( uremic BUN level??) 2. Increase IVF hydration. K supplemented. 3. Would correct INR a bit. 4. NGT out due to clogged tube, he did tolerate some PO assisted feedings with pureed diet. 5. Ongoing wound and decub care, [place] bed.
--- NOTE | 2017-04-22 15:54 | CON ---
DATE: 04/22/2017 CHIEF COMPLAINT: Seizure. HISTORY OF PRESENT ILLNESS: This is a 76-year-old man with past medical history of cerebral infarct with residual left-sided hemiplegia, depression, anxiety, arthritis, diabetes, hypertension, hyperlip idemia who came in for an ileostomy. At [facility], had surgery for sacral decubitus and had unde rlying sepsis and septic shock with gram positive bacteremia secondary to skin wounds. He had some e lectrolyte derangements in terms of elevated BUN and creatinine as well as acute anemia and was consu lted for seizure. A CAT scan of the head showed old right cerebellar encephalomalacia, right frontal parietal encephalomalacia and left occipital encephalomalacia. No acute abnormalities. Currently, no further seizures. The patient has transient cerebral hypoperfusion secondary to low blood pressur e, has elevated BUN and creatinine and electrolyte derangements such as low sodium. The patient had a breakthrough seizure. The patient is on aspirin and Lipitor for stroke prevention. PAST MEDICAL HISTORY: History of hypertension, coronary artery disease, history of cerebral infarct with left-sided hemiplegia, history of incarcerated hernia, hypertension, hyperlipidemia, dementia. REVIEW OF SYSTEMS: A 14-point review of systems is negative except for the HPI. FAMILY HISTORY: Noncontributory. SOCIAL HISTORY: No illicit drug use, smoking, or ETOH abuse. ALLERGIES: PENICILLINS, SULFA. MEDICATIONS: Reviewed by nurse reconciliation sheet. PHYSICAL EXAMINATION: VITAL SIGNS: Temperature 98, pulse rate of 93, blood pressure 98/59, respiratory rate 19, and oxygen saturation 100% via nasal cannula. GENERAL: The patient is drowsy, in no acute distress. HEENT: Atraumatic, normocephalic. PERRLA. Extraocular muscles intact. NECK: Supple, no JVD, no adenopathy noted. LUNGS: Decreased breath sounds bilaterally. HEART: S1, S2, normal rate and rhythm. No murmurs, rubs, or gallops. ABDOMEN: Soft, no increased distension, no focal tenderness. No hepatosplenomegaly. Bowel sounds a re hypoactive, ileostomy and rigged drainage system are intact. EXTREMITIES: No clubbing, no cyanosis. He has multiple areas of pressures ____. Peripheral pulses 2+ felt bilaterally except the dorsalis pedis is difficult to palpate. NEUROLOGIC: The patient is drowsy, in no acute distress. Opens eyes to voice. Speech is hypophonic . Follows simple commands at a slow pace. Cranial nerves II-XII are intact. MOTOR: Has chronic left side hemiplegia, right side is intact. Plantars equivocal. Sensory: Withd raws to localized noxious stimulus. Light touch is intact. DEEP TENDON REFLEXES: Are 1+ throughout and absent at the ankles, 1 at the knees. Coordination and gait deferred for now. LABORATORY DATA: WBC is 22.1, hemoglobin 9.2, hematocrit 28.1 with a platelet count of 349. Sodium is 127, potassium 3.6, chloride 99, carbon dioxide 15, BUN of 104, creatinine 2.1. Random glucose 25 6. ASSESSMENT AND PLAN: This is a 76-year-old man with a history of cerebrovascular accident with resid ual left hemiplegia, hypertension, diabetes, dyslipidemia, arthritis, anxiety, depression, dementia, who had a history of an incarcerated hernia, status post ileostomy and currently has been undergoing surgery for his pressure sores. He has underlying sepsis and septic shock. Has had elevated BUN and creatinine and metabolic derangements along with acute anemia. I was consulted for seizures. The jai denis's seizures are likely secondary to cerebral hypoperfusion from low blood pressure as well as m etabolic derangements superimposed on underlying old encephalomalacia infarcts in the brain which deana es the patient susceptible to seizures. At this time, recommend: 1. Vimpat 100 mg IV q. 12, which is good since it will make him less sedated and give him more seizu re prophylaxis. 2. Continue with aspirin and Lipitor for stroke prevention. 3. Monitor electrolytes and correct accordingly. 4. Keep his blood pressure up at least above systolic of 120 to perfuse the brain thoroughly in his case. 5. I will recommend a nephrology consult given increased elevation of BUN and creatinine that could put him into uremic encephalopathy as well. 6. At this time, continue with current present medical management. Deep venous thrombosis and gastr ointestinal prophylaxis should be continued. No further neurological workup is necessary. Continue with seizure precautions. Thank you for this consult. Please reconsult as necessary. Andre Goldman MD cc: [phone] TT: 04/22/2017 15:53:55 Confirmation # [id number] Dictation # [id number] dn
[2017-04-22] MEDS: Lacosamide 200mg/20ml 100 MG in Sodium Chloride 0.9% 100 ML IVPB SCH (17:04)
[2017-04-23] MEDS: Aztreonam 1 GM in Sodium Chloride 0.9% 100 ML IVPB SCH ×3 (00:51→17:03)
[2017-04-23] MEDS: metroNIDAZOLE 500mg/100ml NS 100 ML IVPB SCH ×3 (00:55→17:04)
[2017-04-23] MEDS: Albuterol-Ipratrop 3 mg / 0.5 (3 ml) UD INH SCH ×4 (01:00→19:10)
[2017-04-23 07:12] LABS: HEMATOCRIT 25.2 % (35.0-51.0); MEAN CELL VOLUME 86.8 fl (80.0-94.0); MEAN CORPUSCULAR HEMOGLOBIN 28.6 pg (27.0-31.0); MEAN CORPUSCULAR HGB CONC 32.9 g/dL (33.0-37.0); WHITE BLOOD COUNT 19.1 K/uL (4.8-10.8)
[2017-04-23 07:21] LABS: ALB/GLOB RATIO 0.7 (1.0-2.1); BILIRUBIN,TOTAL 0.6 mg/dl (0.2-1.3); CALCIUM 8.3 mg/dL (8.4-10.2); POTASSIUM 4.1 MMOL/L (3.6-5.0); TOTAL PROTEIN 5.6 G/DL (6.3-8.2)
[2017-04-23] MEDS ORDERED: Norepinephrine 8 MG in Dextrose 5% In Water 500 ML IV ONE (08:19)
--- NOTE | 2017-04-23 08:59 | PN ---
DATE: 04/23/2017 The patient is seen and examined. Interim events noted. Consults noted and appreciated. Intensivis t and neurology consult and intervention noted and appreciated. The patient remains in intensive car e unit. The patient is awake, responsive, feels okay. No chest pain, no shortness of breath. Compl ains of generalized weakness. PHYSICAL EXAMINATION: GENERAL: The patient is in no acute distress. VITAL SIGNS: Stable. Blood pressure is 123/61. HEART: S1, S2 normal, regular. LUNGS: Good bilateral air exchange. ABDOMEN: Soft, nontender. EXTREMITIES: No edema, no calf swelling, no tenderness, no acute ischemia. CENTRAL NERVOUS SYSTEM: Essentially unchanged. Decubitus is present on the sacrum. DIAGNOSTIC DATA: Available diagnostic data reviewed. Telemetry monitoring does not show significant arrhythmia. Overall, the patient's general medical condition is slowly improving. PLAN: As ordered. Eros Chowdary MD cc: [id number] TT: 04/23/2017 08:59:07 Confirmation # [id number] Dictation # [id number]
[2017-04-23] MEDS: Pantoprazole 40 mg EC Tab PO SCH (09:42)
[2017-04-23] MEDS: Micafungin 100 MG in Sodium Chloride 0.9% 100 ML IVPB SCH (09:42)
[2017-04-23] MEDS: Lacosamide 200mg/20ml 100 MG in Sodium Chloride 0.9% 100 ML IVPB SCH ×2 (10:17→17:47)
--- NOTE | 2017-04-23 12:04 | CP.PCM.PN ---
Subjective - Date & Time of Evaluation Date of Evaluation: 04/23/17 Time of Evaluation: 12:02 - Subjective Subjective: General Surgery - Dr. Becker Pt S&E. FABIOLA. Pt denies any complaints at his time. Wound vac in place to suction with no leak, 20cc output/24hrs. Objective - Vital Signs/Intake and Output Vital Signs (last 24 hours): Temp Pulse Resp BP Pulse Ox 97.5 F L 70 15 95/63 L 99 04/23/17 07:51 04/23/17 10:00 04/23/17 10:00 04/23/17 10:00 04/23/17 10:00 Intake and Output: 04/23/17 04/23/17 06:59 18:59 Intake Total 2192 400 Output Total 1550 1120 Balance 642 -720 - Medications Medications: Current Medications Acetaminophen (Tylenol 325mg Tab) 650 mg PO Q6 PRN PRN Reason: Pain, moderate (4-7) Last Admin: 04/22/17 17:07 Dose: 650 mg Albuterol/Ipratropium (Duoneb 3 Mg/0.5 Mg (3 Ml) Ud) 3 ml INH RQ6 [facility] Last Admin: 04/23/17 07:14 Dose: Not Given Aspirin (Aspirin) 325 mg PO DAILY [facility] Last Admin: 04/23/17 09:38 Dose: 325 mg Atorvastatin Calcium (Lipitor) 50 mg PO DAILY [facility] Last Admin: 04/23/17 09:42 Dose: 50 mg Famotidine (Pepcid) 20 mg PO BID [facility] Last Admin: 04/23/17 09:42 Dose: 20 mg Ferrous Gluconate (Fergon) 324 mg PO TID [facility] Last Admin: 04/23/17 09:39 Dose: 324 mg Aztreonam 1 gm/ Sodium (Chloride) 100 mls @ 100 mls/hr IVPB Q8 [facility] Last Admin: 04/23/17 09:39 Dose: 100 mls/hr Micafungin Sodium 100 mg/ (Sodium Chloride) 100 mls @ 100 mls/hr IVPB DAILY [facility] Last Admin: 04/23/17 09:42 Dose: 100 mls/hr Metronidazole (Flagyl 500mg/100ml Ns) 100 mls @ 100 mls/hr IVPB Q8 [facility] Last Admin: 04/23/17 09:39 Dose: 100 mls/hr Vancomycin HCl 1 gm/ Sodium (Chloride) 250 mls @ 250 mls/hr IVPB Q24H [facility] Last Admin: 04/22/17 17:17 Dose: 250 mls/hr Lacosamide 200mg/20ml 100 mg/ (Sodium Chloride) 110 mls @ 110 mls/hr IVPB BID [facility] Last Admin: 04/23/17 10:17 Dose: 110 mls/hr Norepinephrine Bitartrate 8 mg (/ Dextrose) 508 mls @ 38.1 mls/hr IV .[id number] ONE; 10 MCG/MIN PRN Reason: Protocol Stop: 04/23/17 21:38 Last Admin: 04/23/17 09:40 Dose: 7.5 mcg/min, 28.57 mls/hr Potassium Chloride 20 meq/ (Sodium Chloride) 1,010 mls @ 100 mls/hr IV .Q10H6M [facility] Stop: 04/23/17 14:36 Insulin Human Lispro (Humalog) 0 units SC ACHS [facility] PRN Reason: Protocol Last Admin: 04/22/17 21:32 Dose: Not Given Loperamide HCl (Imodium) 2 mg PO QID PRN PRN Reason: profuse ileostomy output Last Admin: 04/23/17 09:40 Dose: 2 mg Lorazepam (Ativan) 1 mg IVP Q6 PRN PRN Reason: seizures Pantoprazole Sodium (Protonix Ec Tab) 40 mg PO DAILY [facility] Last Admin: 04/23/17 09:42 Dose: 40 mg - Labs Labs: 04/23/17 05:30 04/23/17 05:30 PT 15.3 SECONDS (9.6-11.2) H 04/22/17 05:30 INR 1.47 (0.92-1.08) H 04/22/17 05:30 APTT 41.8 SECONDS (23.3-32.5) H 04/22/17 05:30 - Constitutional Appears: No Acute Distress - Head Exam Head Exam: ATRAUMATIC, NORMAL INSPECTION, NORMOCEPHALIC - Eye Exam Eye Exam: Normal appearance - Respiratory Exam Respiratory Exam: NORMAL BREATHING PATTERN. absent: Respiratory Distress - GI/Abdominal Exam Additional comments: ileostomy in place w/ soft brown stool - Rectal Exam Additional comments: sacral wound vac in place, draining seropurulent fluid - Neurological Exam Neurological Exam: Alert, Oriented x3 - Psychiatric Exam Psychiatric exam: Normal Affect, Normal Mood - Skin Skin Exam: Dry, Intact Assessment and Plan - Assessment and Plan (Free Text) Assessment: 76M w/ stage 4 decubitus ulcer s/p debridement and wound vac Plan: Continue wound vac to suction, monitor output Will change again Monday d/w Dr Rosita Montalvo PGY2
[2017-04-23] MEDS: Insulin Lispro (humaLOG) 100 Units/ml Inj SC SCH ×3 (12:12→22:50)
--- NOTE | 2017-04-23 13:45 | CP.PCM.PN ---
Subjective - Date & Time of Evaluation Date of Evaluation: 04/23/17 Time of Evaluation: 07:00 - Subjective Subjective: lethargic on rounds iv rx in progress s/p debridement of decubitus c diff + Objective - Vital Signs/Intake and Output Vital Signs (last 24 hours): Temp Pulse Resp BP Pulse Ox 98 F 71 16 103/61 100 04/23/17 12:00 04/23/17 13:00 04/23/17 13:00 04/23/17 13:00 04/23/17 13:00 Intake and Output: 04/23/17 04/23/17 06:59 18:59 Intake Total 2192 400 Output Total 1550 1120 Balance 642 -720 - Medications Medications: Current Medications Acetaminophen (Tylenol 325mg Tab) 650 mg PO Q6 PRN PRN Reason: Pain, moderate (4-7) Last Admin: 04/22/17 17:07 Dose: 650 mg Albuterol/Ipratropium (Duoneb 3 Mg/0.5 Mg (3 Ml) Ud) 3 ml INH RQ6 [facility] Last Admin: 04/23/17 13:00 Dose: 3 ml Aspirin (Aspirin) 325 mg PO DAILY [facility] Last Admin: 04/23/17 09:38 Dose: 325 mg Atorvastatin Calcium (Lipitor) 50 mg PO DAILY [facility] Last Admin: 04/23/17 09:42 Dose: 50 mg Famotidine (Pepcid) 20 mg PO BID [facility] Last Admin: 04/23/17 09:42 Dose: 20 mg Ferrous Gluconate (Fergon) 324 mg PO TID [facility] Last Admin: 04/23/17 12:12 Dose: Not Given Aztreonam 1 gm/ Sodium (Chloride) 100 mls @ 100 mls/hr IVPB Q8 [facility] Last Admin: 04/23/17 09:39 Dose: 100 mls/hr Micafungin Sodium 100 mg/ (Sodium Chloride) 100 mls @ 100 mls/hr IVPB DAILY [facility] Last Admin: 04/23/17 09:42 Dose: 100 mls/hr Metronidazole (Flagyl 500mg/100ml Ns) 100 mls @ 100 mls/hr IVPB Q8 [facility] Last Admin: 04/23/17 09:39 Dose: 100 mls/hr Vancomycin HCl 1 gm/ Sodium (Chloride) 250 mls @ 250 mls/hr IVPB Q24H [facility] Last Admin: 04/22/17 17:17 Dose: 250 mls/hr Lacosamide 200mg/20ml 100 mg/ (Sodium Chloride) 110 mls @ 110 mls/hr IVPB BID [facility] Last Admin: 04/23/17 10:17 Dose: 110 mls/hr Norepinephrine Bitartrate 8 mg (/ Dextrose) 508 mls @ 38.1 mls/hr IV .[id number] ONE; 10 MCG/MIN PRN Reason: Protocol Stop: 04/23/17 21:38 Last Admin: 04/23/17 09:40 Dose: 7.5 mcg/min, 28.57 mls/hr Potassium Chloride 20 meq/ (Sodium Chloride) 1,010 mls @ 100 mls/hr IV .Q10H6M [facility] Stop: 04/23/17 14:36 Last Admin: 04/23/17 13:35 Dose: 100 mls/hr Insulin Human Lispro (Humalog) 0 units SC ACHS [facility] PRN Reason: Protocol Last Admin: 04/23/17 12:12 Dose: Not Given Loperamide HCl (Imodium) 2 mg PO QID PRN PRN Reason: profuse ileostomy output Last Admin: 04/23/17 09:40 Dose: 2 mg Lorazepam (Ativan) 1 mg IVP Q6 PRN PRN Reason: seizures Pantoprazole Sodium (Protonix Ec Tab) 40 mg PO DAILY [facility] Last Admin: 04/23/17 09:42 Dose: 40 mg - Labs Labs: 04/23/17 05:30 04/23/17 05:30 PT 15.3 SECONDS (9.6-11.2) H 04/22/17 05:30 INR 1.47 (0.92-1.08) H 04/22/17 05:30 APTT 41.8 SECONDS (23.3-32.5) H 04/22/17 05:30 - Constitutional Appears: Confused, Cachectic, Chronically Ill - Head Exam Head Exam: NORMOCEPHALIC - Eye Exam Eye Exam: PERRL - ENT Exam ENT Exam: Mucous Membranes Dry - Neck Exam Neck Exam: absent: Lymphadenopathy - Respiratory Exam Respiratory Exam: Decreased Breath Sounds, Rhonchi - Cardiovascular Exam Cardiovascular Exam: REGULAR RHYTHM, +S1, +S2 - GI/Abdominal Exam GI & Abdominal Exam: Distended, Soft. absent: Tenderness - Rectal Exam Rectal Exam: Deferred - Exam Exam: NORMAL INSPECTION - Extremities Exam Extremities Exam: absent: Pedal Edema - Back Exam Back Exam: absent: CVA tenderness (L) Assessment and Plan (1) Septic shock Status: Acute (2) Bacteremia Status: Acute (3) Bacteremia Status: Acute (4) Fever Status: Acute (5) CHF (congestive heart failure) Status: Acute (6) Dementia Status: Acute (7) PVD (peripheral vascular disease) Status: Acute - Assessment and Plan (Free Text) Assessment: cont rx poor progjnosis
--- NOTE | 2017-04-23 16:49 | CP.CCUPN ---
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 He remains dependent on Levophed at 10mcg/min. Last PRBCs 2 days ago. Afebrile, no fever spikes. SBPs ,ost;y abpve 100, HR 82, 100% SPO2 on nasal cannula. Ileostomy output continues at a high volume. No active bleeding evident. 24H I/O's= 5762/1550ml ROS: as above, no other pertinent negs or positives on 10 system review. PMFSH: all nursing and historical notes reviewed, no new pertinent data relevant to current problems. No other distress noted: EXAM- HEENT: no icterus, pupils equal and reactive NECK: no visible JVD, supple, carotids equal upstroke bilat/no bruits CHEST: decreased BS bases, no wheezes HEART: regular, distant, S1S2, no murmur audible, no rubs. ABD: soft, no increased distention, no focal tenderness, no HSM. BS hypoactive , ileostomy and rigged drainage system intact. EXT: LUE PICC; no edema, multiple bilateral areas of pressure-induced appearing - skin ulcerated wounds that some are located circumferentially and along the anterior tibial line, no peripheral/ digital cyanosis, no calf tenderness or palpable cords, distal pulses (PT and DP) non-palpable. NEURO: no gross focal motor deficits SKIN: no rashes LABS: WBC= 19.1 HGB= 8.3 PLTs= 348K INR= 1.47 Na= 135 K= 4.1 HCO3= 15 BUN/Cr= 89/1.6 BS= 103 MAJOR PROBLEMS NOW: 1. Seizure Disorder; New Onset vs NCSE previously undetected clinically 2. Septic Shock with Gram + bacteremia 2 Skin Wounds 3. s/p Ileostomy after repair of Incarc hernia 4. ACS, r/o NSTEMI 5. Azotemia with occult GI Bleed 6. Acute Anemia, r/o occult GI bleed. 7. Multiple Decubiti / Pressure Wounds / Cellulitis of LEs PLAN: 1. CT brain negative. Other ? metabolic abnormality resulting in seizure activity ( uremic BUN level??). Vimpat started. 2. Vasopressor on wean, increased IVF hydration. K supplemented and improved, BUN/cr as well. 3. NGT out 2 days ago due to clogged tube, he did tolerate some PO assisted feedings with pureed diet. 4. [facility]
[2017-04-24] MEDS: Aztreonam 1 GM in Sodium Chloride 0.9% 100 ML IVPB SCH ×3 (00:18→17:40)
[2017-04-24] MEDS: Norepinephrine 8 MG in Dextrose 5% In Water 500 ML IV SCH ×2 (00:30→15:10)
[2017-04-24] MEDS: metroNIDAZOLE 500mg/100ml NS 100 ML IVPB SCH ×3 (01:11→17:40)
[2017-04-24] MEDS: Albuterol-Ipratrop 3 mg / 0.5 (3 ml) UD INH SCH ×5 (02:00→19:13)
[2017-04-24] MEDS: Sodium Chloride 0.9% 1,000 ML IV SCH (05:00)
[2017-04-24 05:26] LABS: ALB/GLOB RATIO 0.6 (1.0-2.1); ALKALINE PHOSPHATASE 86 U/L (38-126); ALT/SGPT 35 U/L (21-72); AST/SGOT 27 U/L (17-59); BILIRUBIN,TOTAL 0.5 mg/dl (0.2-1.3); BLOOD UREA NITROGEN 72 mg/dl (9-20); CALCIUM 7.8 mg/dL (8.4-10.2); CARBON DIOXIDE 15 mmol/L (22-30); CHLORIDE 111 mmol/L (98-107); GFR AFRICAN-AMERICAN > 60; GLUCOSE,RANDOM 252 mg/dL (75-110); POTASSIUM 4.2 MMOL/L (3.6-5.0); SODIUM 134 mmol/l (132-148); TOTAL PROTEIN 4.9 G/DL (6.3-8.2)
[2017-04-24 05:32] LABS: MEAN CELL VOLUME 88.4 fl (80.0-94.0); MEAN CORPUSCULAR HEMOGLOBIN 28.6 pg (27.0-31.0); MEAN CORPUSCULAR HGB CONC 32.3 g/dL (33.0-37.0); RED CELL DISTRIBUTION WIDTH 17.2 % (11.5-14.5); WHITE BLOOD COUNT 17.5 K/uL (4.8-10.8)
[2017-04-24] MEDS: Insulin Lispro (humaLOG) 100 Units/ml Inj SC SCH ×5 (07:31→22:59)
--- NOTE | 2017-04-24 08:47 | CP.PCM.PN ---
<Vidya Chand - Last Filed: 04/24/17 09:46> Subjective - Date & Time of Evaluation Date of Evaluation: 04/24/17 Time of Evaluation: 06:30 - Subjective Subjective: General surgery progress note for Dr. Becker Pt s/e at bedside in the ICU. NAEO. Patient denies any pain, fevers, chills, nausea, vomiting, or any other symptoms. Patient's wound vac is functioning well with approximately 20cc's of sero-sanguinous fluid output/24 hours. Afebrile, VSS except for hypotension of 90/44 this AM with levophed drip at 12.5mcg/min Objective - Vital Signs/Intake and Output Vital Signs (last 24 hours): Temp Pulse Resp BP Pulse Ox 98.0 F 73 16 90/44 L 100 04/24/17 07:43 04/24/17 07:43 04/24/17 07:43 04/24/17 07:43 04/24/17 07:43 Intake and Output: 04/24/17 04/24/17 06:59 18:59 Intake Total 1654 Output Total 1200 Balance 454 - Medications Medications: Current Medications Acetaminophen (Tylenol 325mg Tab) 650 mg PO Q6 PRN PRN Reason: Pain, moderate (4-7) Last Admin: 04/22/17 17:07 Dose: 650 mg Albuterol/Ipratropium (Duoneb 3 Mg/0.5 Mg (3 Ml) Ud) 3 ml INH RQ6 [facility] Last Admin: 04/24/17 08:35 Dose: 3 ml Aspirin (Aspirin) 325 mg PO DAILY [facility] Last Admin: 04/23/17 09:38 Dose: 325 mg Atorvastatin Calcium (Lipitor) 50 mg PO DAILY [facility] Last Admin: 04/23/17 09:42 Dose: 50 mg Famotidine (Pepcid) 20 mg PO BID [facility] Last Admin: 04/23/17 17:05 Dose: Not Given Ferrous Gluconate (Fergon) 324 mg PO TID [facility] Last Admin: 04/23/17 17:03 Dose: Not Given Aztreonam 1 gm/ Sodium (Chloride) 100 mls @ 100 mls/hr IVPB Q8 [facility] Last Admin: 04/24/17 00:18 Dose: 100 mls/hr Micafungin Sodium 100 mg/ (Sodium Chloride) 100 mls @ 100 mls/hr IVPB DAILY [facility] Last Admin: 04/23/17 09:42 Dose: 100 mls/hr Metronidazole (Flagyl 500mg/100ml Ns) 100 mls @ 100 mls/hr IVPB Q8 [facility] Last Admin: 04/24/17 01:11 Dose: 100 mls/hr Vancomycin HCl 1 gm/ Sodium (Chloride) 250 mls @ 250 mls/hr IVPB Q24H [facility] Last Admin: 04/22/17 17:17 Dose: 250 mls/hr Lacosamide 200mg/20ml 100 mg/ (Sodium Chloride) 110 mls @ 110 mls/hr IVPB BID [facility] Last Admin: 04/23/17 17:47 Dose: 110 mls/hr Norepinephrine Bitartrate 8 mg (/ Dextrose) 508 mls @ 38.1 mls/hr IV .[id number] [facility]; 10 MCG/MIN PRN Reason: Protocol Last Titration: 04/24/17 06:00 Dose: 12.5 mcg/min, 47.62 mls/hr Sodium Chloride (Sodium Chloride 0.9%) 1,000 mls @ 100 mls/hr IV .Q10H [facility] Stop: 04/25/17 04:47 Last Admin: 04/24/17 05:00 Dose: 100 mls/hr Insulin Human Lispro (Humalog) 0 units SC ACHS [facility] PRN Reason: Protocol Last Admin: 04/24/17 07:31 Dose: Not Given Loperamide HCl (Imodium) 2 mg PO QID PRN PRN Reason: profuse ileostomy output Last Admin: 04/23/17 09:40 Dose: 2 mg Lorazepam (Ativan) 1 mg IVP Q6 PRN PRN Reason: seizures Pantoprazole Sodium (Protonix Ec Tab) 40 mg PO DAILY [facility] Last Admin: 04/23/17 09:42 Dose: 40 mg - Labs Labs: 04/24/17 06:20 04/24/17 04:20 PT 15.3 SECONDS (9.6-11.2) H 04/22/17 05:30 INR 1.47 (0.92-1.08) H 04/22/17 05:30 APTT 41.8 SECONDS (23.3-32.5) H 04/22/17 05:30 - Constitutional Appears: Well, Non-toxic, No Acute Distress - Head Exam Head Exam: ATRAUMATIC, NORMOCEPHALIC - Eye Exam Eye Exam: Normal appearance. absent: Conjunctival injection, Scleral icterus - ENT Exam ENT Exam: Mucous Membranes Moist, Normal Oropharynx - Respiratory Exam Respiratory Exam: NORMAL BREATHING PATTERN. absent: Accessory Muscle Use, Respiratory Distress - Cardiovascular Exam Cardiovascular Exam: RRR - GI/Abdominal Exam GI & Abdominal Exam: Soft. absent: Distended, Tenderness Additional comments: Ileostomy patent and productive of dark brown liquid stool - Extremities Exam Extremities Exam: absent: Calf Tenderness, Pedal Edema, Tenderness Additional comments: Numerous areas of skin discoloration/breakdown on bilateral lower extremities - Back Exam Back Exam: absent: rash noted Additional comments: Sacral decubitus ulcer present with wound vac intact and suctioning well with mild leaking of sero-sanguinous fluid from inferior pole of dressing. - Neurological Exam Neurological Exam: Alert, Awake, Oriented x3 - Psychiatric Exam Psychiatric exam: Normal Affect, Normal Mood - Skin Skin Exam: Dry, Warm Additional comments: sacral decubitus wound with intact wound vac applied. Numerous areas of skin discoloration/breakdown on bilateral lower extremities Assessment and Plan - Assessment and Plan (Free Text) Assessment: 76M w/ stage 4 decubitus ulcer s/p debridement and wound vac Afebrile, hypotensive this AM on 12.5mcg/min levophed Wound vac functioning well WBC trending down to 17.5 down from 19.1 hgb dropped to 6.3 from 8.3 yesterday Pathology from debridement 04/19: extensively nectrotic/acutely inflamed skin and fibroadipose tissue. Aggregates of fungal organisms on skin surface Plan: Continue wound vac to suction, monitor output Continue management per the ICU team: Administer 2 units PRBC Continue IV antibiotics per ID d/w Dr Rosita Chand, PGY1 <Adolfo eBcker - Last Filed: 04/24/17 19:34> Objective - Vital Signs/Intake and Output Vital Signs (last 24 hours): Temp Pulse Resp BP Pulse Ox 98.5 F 80 21 99/50 L 100 04/24/17 16:00 04/24/17 16:00 04/24/17 16:00 04/24/17 16:00 04/24/17 16:00 Intake and Output: 04/24/17 04/25/17 18:59 06:59 Intake Total 800.00 Balance 800.00 - Medications Medications: Current Medications Acetaminophen (Tylenol 325mg Tab) 650 mg PO Q6 PRN PRN Reason: Pain, moderate (4-7) Last Admin: 04/22/17 17:07 Dose: 650 mg Albuterol/Ipratropium (Duoneb 3 Mg/0.5 Mg (3 Ml) Ud) 3 ml INH RQ6 [facility] Last Admin: 04/24/17 19:13 Dose: 3 ml Aspirin (Aspirin) 325 mg PO DAILY [facility] Last Admin: 04/24/17 11:06 Dose: Not Given Atorvastatin Calcium (Lipitor) 50 mg PO DAILY [facility] Last Admin: 04/24/17 11:27 Dose: 50 mg Ferrous Gluconate (Fergon) 324 mg PO TID [facility] Last Admin: 04/24/17 17:36 Dose: Not Given Aztreonam 1 gm/ Sodium (Chloride) 100 mls @ 100 mls/hr IVPB Q8 [facility] Last Admin: 04/24/17 17:40 Dose: 100 mls/hr Micafungin Sodium 100 mg/ (Sodium Chloride) 100 mls @ 100 mls/hr IVPB DAILY [facility] Last Admin: 04/24/17 11:26 Dose: 100 mls/hr Metronidazole (Flagyl 500mg/100ml Ns) 100 mls @ 100 mls/hr IVPB Q8 [facility] Last Admin: 04/24/17 17:40 Dose: 100 mls/hr Vancomycin HCl 1 gm/ Sodium (Chloride) 250 mls @ 250 mls/hr IVPB Q24H [facility] Last Admin: 04/22/17 17:17 Dose: 250 mls/hr Norepinephrine Bitartrate 8 mg (/ Dextrose) 508 mls @ 38.1 mls/hr IV .[id number] [facility]; 10 MCG/MIN PRN Reason: Protocol Last Admin: 04/24/17 15:10 Dose: 10 mcg/min, 38.1 mls/hr Sodium Chloride (Sodium Chloride 0.9%) 1,000 mls @ 100 mls/hr IV .Q10H [facility] Stop: 04/25/17 04:47 Last Admin: 04/24/17 05:00 Dose: 100 mls/hr Lacosamide 200mg/20ml 100 mg/ (Sodium Chloride) 110 mls @ 110 mls/hr IVPB Q12 [facility] Insulin Human Lispro (Humalog) 0 units SC ACHS [facility] PRN Reason: Protocol Last Admin: 04/24/17 17:38 Dose: Not Given Lorazepam (Ativan) 1 mg IVP Q6 PRN PRN Reason: seizures Pantoprazole Sodium (Protonix Inj) 40 mg IVP DAILY [facility] Last Admin: 04/24/17 11:32 Dose: 40 mg - Labs Labs: 04/24/17 06:20 04/24/17 04:20 PT 15.3 SECONDS (9.6-11.2) H 04/22/17 05:30 INR 1.47 (0.92-1.08) H 04/22/17 05:30 APTT 41.8 SECONDS (23.3-32.5) H 04/22/17 05:30 Attending/Attestation - Attestation I have personally seen and examined this patient.: Yes I have fully participated in the care of the patient.: Yes I have reviewed all pertinent clinical information, including history, physical exam and plan: Yes Notes (Text): 04/24/17 19:32 Pt was seen and examined at bedside on 04/24/17 Agree with above note and assessment. Pt with Upper GI Bleed. GI consult Serial abdominal exam H/H Plan d.w pt in detail.
--- NOTE | 2017-04-24 09:21 | PN ---
DATE: 04/24/2017 The patient is seen and examined. Interim events noted. Consults noted and appreciated. The patien t remains in intensive care unit. Case discussed with book agent. Attempt was made over the weeken d to reach out to the patient's primary care physician and family friend, a physician, but the number provided by family was apparently not correct. Case was discussed with Dr. Stearns who was initially primary care physician for this patient. The patient is awake, responsive, feels okay, feels ____. Denies any specific complaint of pain, alt aram does appear very weak. PHYSICAL EXAMINATION: GENERAL: The patient is in intensive care unit in no acute distress. VITAL SIGNS: Stable. He remains on vasopressor. HEART: S1, S2 normal, regular. LUNGS: Good bilateral air exchange. ABDOMEN: Soft, nontender. EXTREMITIES: No edema, no calf swelling, no tenderness, no acute ischemia. CENTRAL NERVOUS SYSTEM: Essentially unchanged. DIAGNOSTIC DATA: Available diagnostic data reviewed. Telemetry monitoring does not show significant arrhythmias. Overall, the patient seems to be slowly improving. Blood pressures are maintained, but still require s vasopressor. PLAN: As ordered. Eros Chowdary MD cc: [id number] TT: 04/24/2017 09:20:42 Confirmation # [id number] Dictation # [id number]
--- NOTE | 2017-04-24 09:29 | PN ---
DATE: 04/24/2017 The patient seen and examined. Interim events noted. Consults noted, appreciated. Cardiology follo wup and intervention noted and appreciated. The patient remains in progressive care unit on telemetr y monitoring. The patient feels okay. No chest pain, no shortness of breath, no dizziness, no loss of consciousness. PHYSICAL EXAMINATION: GENERAL: The patient is in no acute distress. VITAL SIGNS: Stable. HEART: S1, S2 normal, regular. LUNGS: Good bilateral air exchange. ABDOMEN: Soft. EXTREMITIES: No edema, no calf swelling, no tenderness, no acute ischemia. CENTRAL NERVOUS SYSTEM: Essentially unchanged. DIAGNOSTIC DATA: Available diagnostic data reviewed. Today's INR is still pending. Yesterday's INR was 1.1. Overall, patient's general medical condition is stable. No active bleeding. PLAN: As ordered. Eros Chowdary MD cc: [id number] TT: 04/24/2017 09:28:27 Confirmation # [id number] Dictation # [id number] mn
--- NOTE | 2017-04-24 11:10 | CP.PCM.PN ---
Subjective - Date & Time of Evaluation Date of Evaluation: 04/24/17 Time of Evaluation: 07:00 - Subjective Subjective: weak but arousable NAD Objective - Vital Signs/Intake and Output Vital Signs (last 24 hours): Temp Pulse Resp BP Pulse Ox 98.0 F 88 16 86/62 L 98 04/24/17 07:43 04/24/17 10:00 04/24/17 10:00 04/24/17 10:00 04/24/17 10:00 Intake and Output: 04/24/17 04/24/17 06:59 18:59 Intake Total 1654 142.86 Output Total 1200 Balance 454 142.86 - Medications Medications: Current Medications Acetaminophen (Tylenol 325mg Tab) 650 mg PO Q6 PRN PRN Reason: Pain, moderate (4-7) Last Admin: 04/22/17 17:07 Dose: 650 mg Albuterol/Ipratropium (Duoneb 3 Mg/0.5 Mg (3 Ml) Ud) 3 ml INH RQ6 [facility] Last Admin: 04/24/17 08:35 Dose: 3 ml Aspirin (Aspirin) 325 mg PO DAILY [facility] Last Admin: 04/23/17 09:38 Dose: 325 mg Atorvastatin Calcium (Lipitor) 50 mg PO DAILY [facility] Last Admin: 04/23/17 09:42 Dose: 50 mg Ferrous Gluconate (Fergon) 324 mg PO TID [facility] Last Admin: 04/23/17 17:03 Dose: Not Given Aztreonam 1 gm/ Sodium (Chloride) 100 mls @ 100 mls/hr IVPB Q8 [facility] Last Admin: 04/24/17 00:18 Dose: 100 mls/hr Micafungin Sodium 100 mg/ (Sodium Chloride) 100 mls @ 100 mls/hr IVPB DAILY [facility] Last Admin: 04/23/17 09:42 Dose: 100 mls/hr Metronidazole (Flagyl 500mg/100ml Ns) 100 mls @ 100 mls/hr IVPB Q8 [facility] Last Admin: 04/24/17 01:11 Dose: 100 mls/hr Vancomycin HCl 1 gm/ Sodium (Chloride) 250 mls @ 250 mls/hr IVPB Q24H [facility] Last Admin: 04/22/17 17:17 Dose: 250 mls/hr Lacosamide 200mg/20ml 100 mg/ (Sodium Chloride) 110 mls @ 110 mls/hr IVPB BID [facility] Last Admin: 04/23/17 17:47 Dose: 110 mls/hr Norepinephrine Bitartrate 8 mg (/ Dextrose) 508 mls @ 38.1 mls/hr IV .[id number] [facility]; 10 MCG/MIN PRN Reason: Protocol Last Titration: 04/24/17 09:00 Dose: 10 mcg/min, 38.1 mls/hr Sodium Chloride (Sodium Chloride 0.9%) 1,000 mls @ 100 mls/hr IV .Q10H [facility] Stop: 04/25/17 04:47 Last Admin: 04/24/17 05:00 Dose: 100 mls/hr Insulin Human Lispro (Humalog) 0 units SC ACHS [facility] PRN Reason: Protocol Last Admin: 04/24/17 07:31 Dose: Not Given Loperamide HCl (Imodium) 2 mg PO QID PRN PRN Reason: profuse ileostomy output Last Admin: 04/23/17 09:40 Dose: 2 mg Lorazepam (Ativan) 1 mg IVP Q6 PRN PRN Reason: seizures Pantoprazole Sodium (Protonix Ec Tab) 40 mg PO DAILY [facility] Last Admin: 04/23/17 09:42 Dose: 40 mg - Labs Labs: 04/24/17 06:20 04/24/17 04:20 PT 15.3 SECONDS (9.6-11.2) H 04/22/17 05:30 INR 1.47 (0.92-1.08) H 04/22/17 05:30 APTT 41.8 SECONDS (23.3-32.5) H 04/22/17 05:30 - Constitutional Appears: No Acute Distress - Head Exam Head Exam: NORMOCEPHALIC - Eye Exam Eye Exam: PERRL. absent: Scleral icterus - ENT Exam ENT Exam: Mucous Membranes Dry, Normal External Ear Exam - Neck Exam Neck Exam: absent: Lymphadenopathy - Respiratory Exam Respiratory Exam: Decreased Breath Sounds - Cardiovascular Exam Cardiovascular Exam: REGULAR RHYTHM - GI/Abdominal Exam GI & Abdominal Exam: Distended, Soft - Rectal Exam Rectal Exam: Deferred Additional comments: ileostomy - Exam Exam: NORMAL INSPECTION - Extremities Exam Extremities Exam: absent: Pedal Edema - Back Exam Back Exam: absent: CVA tenderness (L), CVA tenderness (R) - Neurological Exam Neurological Exam: Alert, Awake Assessment and Plan (1) Septic shock Status: Acute (2) Bacteremia Status: Acute (3) Bacteremia Status: Acute (4) Fever Status: Acute (5) CHF (congestive heart failure) Status: Acute (6) Dementia Status: Acute (7) PVD (peripheral vascular disease) Status: Acute
[2017-04-24] MEDS: Micafungin 100 MG in Sodium Chloride 0.9% 100 ML IVPB SCH (11:26)
--- NOTE | 2017-04-24 13:48 | PN ---
DATE: 04/24/2017 The patient in ICU, bed 432. TIME SPENT: 35 minutes. The patient is seen and evaluated at the bedside. A 76-year-old male admitted with gram-positive bacteremia, seizure disorder, noted to have multiple decubitus and pressure ulcers. Events since admission reviewed. Received 2 units of packed red blood cells due to low hemoglobin and hypotension. Overnight, still with a low hemoglobin. Two further units of packed red blood cells ordered. This morning, alert, awake, follows commands, appropriate. Denies headache. No shortness of breath, chest pain or palpitation. No abdominal pain. Noted to have dark stool through the ileostomy. Multiple decubitus ulcers also noted. PHYSICAL EXAMINATION: VITAL SIGNS: Temperature 98, heart rate 80, regular, blood pressure 91/58, mean arterial pressure 69, respiratory rate 18, saturating 100%. Intake 3910, output 2920, positive 990. HEENT: Pupils equal, round, reactive to light and accommodation. Extraocular muscles intact. Conjunctivae pale. Sclerae white. NECK: Supple, no JVD. Carotid upstroke bilaterally with no bruit. CHEST: Bilateral breath sounds. Clear to auscultation. HEART: Rhythm regular. S1, S2 normal intensity. No audible murmur or rub. ABDOMEN: Bowel sounds present, soft. Ileostomy in place, noted to have tarry stools. EXTREMITIES: Left upper extremity PICC line in place. No edema. Multiple bilateral areas of pressure-induced appearing skin ulcerated wounds. Some are located circumferentially and along the anterior tibial area. No peripheral or digital cyanosis. No calf tenderness. NEUROLOGIC: Nonfocal. SKIN: Without rash. LABORATORY DATA: WBC 17.5, hemoglobin 6.1, repeat hemoglobin 6.3, platelet count 350. PT 15._ INR 1.47, PTT 41.8. SMA-7: Sodium 134, potassium 4.2, chloride of 111, CO2 15, blood urea nitrogen 72, creatinine 1.1. Lactic acid pending. Calcium 7.8, total bilirubin 0.5, AST 27, ALT 35, alkaline phosphatase 86, total protein 4.9, albumin 1.9. Urinalysis: Leuk esterase small, WBC 7 Vancomycin trough level 23.1, random level on 04/24 is 18.8. Serology: C. diff antigen negative. ASSESSMENT: 1. 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 2. Septic shock with gram-positive bacteremia, secondary to skin wounds. 3. 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 Bleeding noted through the ileostomy with a drop in hemoglobin. Pending GI evaluation, reevaluation by surgery. 4. Acute anemia, secondary to gastrointestinal bleed. Transfusion of packed red blood cells in progress. Continue proton pump inhibitor. 5. Multiple decubiti/pressure wounds/cellulitis of the lower extremity. 6. Hypertension, secondary to hypovolemia, secondary to gastrointestinal blood loss. PLAN: Ongoing wound and decubitus care. [place]ron bed. Vasopressor to maintain a systolic pressure above 100. Continue antibiotic, metronidazole 500 mg IV q. 8, micafungin 100 mg IV daily, vancomycin 1 gram IV q. 24 hours, lorazepam 1 mg IV q. 6 p.r.n. for seizure, lacosamide 200 mg in 20 mL twice daily, ferrous sulfate 324 mg p.o. 3 times daily, also on aztreonam 1 gram IV q. 8, Lipitor 50 mg p.o. daily, aspirin 325 mg p.o. daily, hold due to suspected gastrointestinal bleed with a drop in the hemoglobin. Reno Vieira MD cc: [id number] TT: 04/24/2017 13:48:11 Confirmation # [id number] Dictation # [id number] en MTDD
[2017-04-24] MEDS: Lacosamide 200mg/20ml 100 MG in Sodium Chloride 0.9% 100 ML IVPB SCH (14:56)
--- NOTE | 2017-04-24 15:32 | CP.PCM.CON ---
History of Present Illness - History of Present Illness History of Present Illness: Gi consult requested by MICU- Patient seen in MICU. Patient is non verbal. History obtained from chart. This is a 76 yr old M with extensive medical and surgical history as per chart, including CAD s/p 4 stents, HTN, CVA, residual weakness, CHF with EF 22% and pulm HTN, who was admitted to [facility] in February for SBP and anemia. He has history of LANRE and had EGD done with Dr Cuca samuels on 02/2017 showing mild gatsritis. No biopsy was done. He was also found to have 6 cm pancreatic cysts and ascits but no further work up was done. He was discharged and then had incarcerated hernia in the interim s/p 2 surgeries with an Ileostomy, and the hospital course was complicated with septic shock with Acute Respiratory failure requiring Intubation. He was brought to [facility] for rehab where he was found to be lethargic and source was septic shock due to sacral decubiti ulcers s/p debridement with bacteremia and fungemia on anti fungals and antibiotics. GI consulted for drop in Hb. Seen at bedside. Woundvac with slight blood and discharge. Ileostomy full of stool which is dark. s/p 4 units PRBC. Review of Systems - Review of Systems Review of Systems: Unable to assess HPI due to non verbal state Past Patient History - Infectious Disease Hx of Infectious Diseases: None - Past Medical History & Family History Past Medical History?: Yes - Past Social History Smoking Status: Never Smoked - CARDIAC Hx Cardiac Disorders: Yes Hx Congestive Heart Failure: Yes Hx Hypercholesterolemia: Yes Hx Hypertension: Yes Hx Pacemaker: No Hx Peripheral Edema: Yes (LLE +1, pitting) - PULMONARY Hx Respiratory Disorders: Yes Hx Chronic Obstructive Pulmonary Disease (COPD): Yes Hx Pneumonia: Yes - NEUROLOGICAL Hx Neurological Disorder: Yes (CVA) HX Cerebrovascular Accident: Yes - HEENT Hx HEENT Problems: Yes Hx Glaucoma: Yes - RENAL Hx Chronic Kidney Disease: Yes Hx Kidney Stones: Yes - ENDOCRINE/METABOLIC Hx Endocrine Disorders: Yes (DM) Hx Diabetes Mellitus Type 1: Yes - HEMATOLOGICAL/ONCOLOGICAL Hx Anemia: Yes Hx Human Immunodeficiency Virus (HIV): No - INTEGUMENTARY Hx Dermatological Problems: Yes (sacral ulcer) - MUSCULOSKELETAL/RHEUMATOLOGICAL Hx Musculoskeletal Disorders: Yes Hx Arthritis: Yes Hx Falls: No Hx Fractures: Yes (R hip) - GASTROINTESTINAL Hx Gastrointestinal Disorders: Yes Hx Bowel Surgery: Yes Hx Colostomy: Yes Other/Comment: 03/17/2017 - exploratory lap, small bowel resection. 03/18/2017 - returned to OR for washout, end ileostomy, abdominal closure with bridging strattice mesh. h/o abdominal hernia - GENITOURINARY/GYNECOLOGICAL Hx Genitourinary Disorders: No - PSYCHIATRIC Hx Psychophysiologic Disorder: Yes Hx Anxiety: Yes Hx Depression: Yes - SURGICAL HISTORY Hx Surgeries: Yes Hx Coronary Stent: Yes Hx Joint Replacement: Yes (hip) - ANESTHESIA Hx Anesthesia: Yes Hx Anesthesia Reactions: No (took 1 week to wake up from sx per child) Hx Malignant Hyperthermia: No Meds Allergies/Adverse Reactions: Allergies Allergy/AdvReac Type Severity Reaction Status Date / Time Penicillins Allergy URTICARIA Verified 03/30/17 22:34 Sulfa (Sulfonamide Allergy URTICARIA Verified 03/30/17 22:34 Antibiotics) - Medications Medications: Current Medications Acetaminophen (Tylenol 325mg Tab) 650 mg PO Q6 PRN PRN Reason: Pain, moderate (4-7) Last Admin: 04/22/17 17:07 Dose: 650 mg Albuterol/Ipratropium (Duoneb 3 Mg/0.5 Mg (3 Ml) Ud) 3 ml INH RQ6 [facility] Last Admin: 04/24/17 08:35 Dose: 3 ml Aspirin (Aspirin) 325 mg PO DAILY [facility] Last Admin: 04/24/17 11:06 Dose: Not Given Atorvastatin Calcium (Lipitor) 50 mg PO DAILY [facility] Last Admin: 04/24/17 11:27 Dose: 50 mg Ferrous Gluconate (Fergon) 324 mg PO TID [facility] Last Admin: 04/24/17 11:27 Dose: 324 mg Aztreonam 1 gm/ Sodium (Chloride) 100 mls @ 100 mls/hr IVPB Q8 [facility] Last Admin: 04/24/17 11:26 Dose: 100 mls/hr Micafungin Sodium 100 mg/ (Sodium Chloride) 100 mls @ 100 mls/hr IVPB DAILY [facility] Last Admin: 04/24/17 11:26 Dose: 100 mls/hr Metronidazole (Flagyl 500mg/100ml Ns) 100 mls @ 100 mls/hr IVPB Q8 [facility] Last Admin: 04/24/17 11:22 Dose: 100 mls/hr Vancomycin HCl 1 gm/ Sodium (Chloride) 250 mls @ 250 mls/hr IVPB Q24H [facility] Last Admin: 04/22/17 17:17 Dose: 250 mls/hr Lacosamide 200mg/20ml 100 mg/ (Sodium Chloride) 110 mls @ 110 mls/hr IVPB BID [facility] Last Admin: 04/24/17 14:56 Dose: 110 mls/hr Norepinephrine Bitartrate 8 mg (/ Dextrose) 508 mls @ 38.1 mls/hr IV .[id number] [facility]; 10 MCG/MIN PRN Reason: Protocol Last Titration: 04/24/17 09:00 Dose: 10 mcg/min, 38.1 mls/hr Sodium Chloride (Sodium Chloride 0.9%) 1,000 mls @ 100 mls/hr IV .Q10H [facility] Stop: 04/25/17 04:47 Last Admin: 04/24/17 05:00 Dose: 100 mls/hr Insulin Human Lispro (Humalog) 0 units SC ACHS [facility] PRN Reason: Protocol Last Admin: 04/24/17 11:34 Dose: 1 unit Lorazepam (Ativan) 1 mg IVP Q6 PRN PRN Reason: seizures Pantoprazole Sodium (Protonix Inj) 40 mg IVP DAILY [facility] Last Admin: 04/24/17 11:32 Dose: 40 mg Physical Exam - Constitutional Appears: No Acute Distress, Older Than Stated Age, Confused, Cachectic, Chronically Ill - Head Exam Head Exam: ATRAUMATIC, NORMAL INSPECTION, NORMOCEPHALIC - Eye Exam Eye Exam: EOMI, Normal appearance, PERRL - Respiratory Exam Respiratory Exam: Clear to Auscultation Bilateral, NORMAL BREATHING PATTERN - Cardiovascular Exam Cardiovascular Exam: REGULAR RHYTHM, RRR, +S1, +S2 - GI/Abdominal Exam GI & Abdominal Exam: Distended, Soft Additional comments: Bowel sounds hypoactive with ileostomy in place with dark stool - Rectal Exam Rectal Exam: Deferred - Psychiatric Exam Psychiatric exam: Flat Affect Results - Vital Signs Recent Vital Signs: Last Vital Signs Temp 98.0 F 04/24/17 12:00 Pulse 74 04/24/17 14:00 Resp 19 04/24/17 14:00 BP 98/57 L 04/24/17 14:00 Pulse Ox 100 04/24/17 14:00 - Labs Result Diagrams: 04/24/17 06:20 04/24/17 04:20 Labs: Laboratory Results - last 24 hr 04/20/17 04/23/17 04/23/17 06:33 16:16 21:15 WBC RBC Hgb Hct MCV MCH MCHC RDW Plt Count Sodium Potassium Chloride Carbon Dioxide Anion Gap BUN Creatinine Est GFR ( Amer) Est GFR (Non-Af Amer) POC Glucose (mg/dL) 108 81 Random Glucose Calcium Total Bilirubin AST ALT Alkaline Phosphatase Total Protein Albumin Globulin Albumin/Globulin Ratio Random Vancomycin Blood Type Antibody Screen Crossmatch See Detail BBK History Checked 04/24/17 04/24/17 04/24/17 04:20 04:20 04:20 WBC 17.5 H RBC 2.14 L Hgb 6.1 L* D Hct 19.0 L MCV 88.4 MCH 28.6 MCHC 32.3 L RDW 17.2 H Plt Count 350 Sodium 134 Potassium 4.2 Chloride 111 H Carbon Dioxide 15 L Anion Gap 12 BUN 72 H Creatinine 1.1 Est GFR ( Amer) > 60 Est GFR (Non-Af Amer) > 60 POC Glucose (mg/dL) Random Glucose 252 H Calcium 7.8 L Total Bilirubin 0.5 AST 27 ALT 35 Alkaline Phosphatase 86 Total Protein 4.9 L Albumin 1.9 L Globulin 3.0 Albumin/Globulin Ratio 0.6 L Random Vancomycin 18.8 Blood Type Antibody Screen Crossmatch BBK History Checked 04/24/17 04/24/17 04/24/17 05:55 06:00 06:20 WBC RBC Hgb 6.3 L* Hct MCV MCH MCHC RDW Plt Count Sodium Potassium Chloride Carbon Dioxide Anion Gap BUN Creatinine Est GFR ( Amer) Est GFR (Non-Af Amer) POC Glucose (mg/dL) 131 H Random Glucose Calcium Total Bilirubin AST ALT Alkaline Phosphatase Total Protein Albumin Globulin Albumin/Globulin Ratio Random Vancomycin Blood Type O POSITIVE Antibody Screen Negative Crossmatch See Detail BBK History Checked Patient has bt 04/24/17 10:59 WBC RBC Hgb Hct MCV MCH MCHC RDW Plt Count Sodium Potassium Chloride Carbon Dioxide Anion Gap BUN Creatinine Est GFR ( Amer) Est GFR (Non-Af Amer) POC Glucose (mg/dL) 170 H Random Glucose Calcium Total Bilirubin AST ALT Alkaline Phosphatase Total Protein Albumin Globulin Albumin/Globulin Ratio Random Vancomycin Blood Type Antibody Screen Crossmatch BBK History Checked Assessment & Plan - Assessment and Plan (Free Text) Assessment: 76 yr old M with multiple medical comorbidities as stated in H and P admitted for rehab found to be in septic shock with bacterimia and fungemia from sacral decibiti ulcers. GI consult requested for anemia, drop in hb without overt GIB. Had EGD in February 2017 showing mild gastritis at [place]. Ileostomy done at outside hospital last month. EF 22% with severe pulm HTN. History of cardiac stents and stroke- was on plavix till last month as per chart. Anemia may be multi factorial due to sepsis and hemolysis, losing blood from wound. Should send hemolysis labs and consider hematology consult. His Hb trend in last 4 months has been dropping Hb by 2 gms/dl every few weeks without overt GI bleeding. Plan: - Trend Hb/Hct daily and transfuse as needed - Cradiac status is tenous- should not overload - Goal Hb as per hematology and MICU - No s/s of overt H/Hct - FOBT will not help in bed ridden patient who was on iron supplements- will be positive - Antibiotics and anti fungals as per ID - Sacral decubiti ulcer management as per surgical team - Ileostomy management as per surgery - No GI endoscopic intervention planned on this patient currently. - GI / DVT prophylaxis
[2017-04-25] MEDS: Albuterol-Ipratrop 3 mg / 0.5 (3 ml) UD INH SCH ×6 (01:06→20:01)
[2017-04-25] MEDS: Aztreonam 1 GM in Sodium Chloride 0.9% 100 ML IVPB SCH ×3 (01:26→18:33)
[2017-04-25] MEDS: metroNIDAZOLE 500mg/100ml NS 100 ML IVPB SCH ×3 (01:33→18:34)
[2017-04-25] MEDS: Sodium Chloride 0.9% 1,000 ML IV SCH (01:34)
[2017-04-25] MEDS: Lacosamide 200mg/20ml 100 MG in Sodium Chloride 0.9% 100 ML IVPB SCH ×2 (03:00→11:33)
[2017-04-25] MEDS ORDERED: Norepinephrine 8 MG in Dextrose 5% In Water 500 ML IV ONE (03:32)
[2017-04-25 05:42] LABS: HEMATOCRIT 18.8 % (35.0-51.0); MEAN CELL VOLUME 86.6 fl (80.0-94.0); MEAN CORPUSCULAR HGB CONC 32.4 g/dL (33.0-37.0); RED CELL DISTRIBUTION WIDTH 16.8 % (11.5-14.5); WHITE BLOOD COUNT 14.3 K/uL (4.8-10.8)
[2017-04-25 05:59] LABS: ALB/GLOB RATIO 0.7 (1.0-2.1); ALKALINE PHOSPHATASE 72 U/L (38-126); ALT/SGPT 29 U/L (21-72); AST/SGOT 21 U/L (17-59); BILIRUBIN,TOTAL 0.7 mg/dl (0.2-1.3); BLOOD UREA NITROGEN 53 mg/dl (9-20); CALCIUM 7.7 mg/dL (8.4-10.2); CARBON DIOXIDE 14 mmol/L (22-30); CHLORIDE 113 mmol/L (98-107); GFR AFRICAN-AMERICAN > 60; GLUCOSE,RANDOM 257 mg/dL (75-110); POTASSIUM 3.9 MMOL/L (3.6-5.0); SODIUM 134 mmol/l (132-148); TOTAL PROTEIN 4.8 G/DL (6.3-8.2)
[2017-04-25] MEDS: Insulin Lispro (humaLOG) 100 Units/ml Inj SC SCH ×4 (07:41→22:29)
[2017-04-25] MEDS: Micafungin 100 MG in Sodium Chloride 0.9% 100 ML IVPB SCH (08:14)
--- NOTE | 2017-04-25 10:04 | CP.PCM.PN ---
<Martinez Kearney - Last Filed: 04/25/17 10:06> Subjective - Date & Time of Evaluation Date of Evaluation: 04/25/17 Time of Evaluation: 07:45 - Subjective Subjective: Patient seen and examined this morning. States he feels cold and weak. Patient' s hemoglobin is 6.1 this morning. Ileostomy bag noted to be filled with melanotic liquid stool. Discussed case with GI, plan on scoping patient today. Wound vac is intact, no leak noted. Objective - Vital Signs/Intake and Output Vital Signs (last 24 hours): Temp Pulse Resp BP Pulse Ox 97.6 F 80 18 87/56 L 100 04/25/17 08:00 04/25/17 08:00 04/25/17 08:00 04/25/17 08:00 04/25/17 08:00 Intake and Output: 04/25/17 04/25/17 06:59 18:59 Intake Total 1947 Output Total 600 Balance 1347 - Medications Medications: Current Medications Acetaminophen (Tylenol 325mg Tab) 650 mg PO Q6 PRN PRN Reason: Pain, moderate (4-7) Last Admin: 04/22/17 17:07 Dose: 650 mg Albuterol/Ipratropium (Duoneb 3 Mg/0.5 Mg (3 Ml) Ud) 3 ml INH RQ6 [facility] Last Admin: 04/25/17 09:00 Dose: 3 ml Aspirin (Aspirin) 325 mg PO DAILY [facility] Last Admin: 04/24/17 11:06 Dose: Not Given Atorvastatin Calcium (Lipitor) 50 mg PO DAILY [facility] Last Admin: 04/25/17 08:15 Dose: 50 mg Ferrous Gluconate (Fergon) 324 mg PO TID [facility] Last Admin: 04/25/17 08:15 Dose: 324 mg Aztreonam 1 gm/ Sodium (Chloride) 100 mls @ 100 mls/hr IVPB Q8 [facility] Last Admin: 04/25/17 08:08 Dose: 100 mls/hr Micafungin Sodium 100 mg/ (Sodium Chloride) 100 mls @ 100 mls/hr IVPB DAILY [facility] Last Admin: 04/25/17 08:14 Dose: 100 mls/hr Metronidazole (Flagyl 500mg/100ml Ns) 100 mls @ 100 mls/hr IVPB Q8 [facility] Last Admin: 04/25/17 08:14 Dose: 100 mls/hr Vancomycin HCl 1 gm/ Sodium (Chloride) 250 mls @ 250 mls/hr IVPB Q24H [facility] Last Admin: 04/24/17 21:19 Dose: 250 mls/hr Lacosamide 200mg/20ml 100 mg/ (Sodium Chloride) 110 mls @ 110 mls/hr IVPB Q12 [facility] Last Admin: 04/25/17 03:00 Dose: 110 mls/hr Norepinephrine Bitartrate 8 mg (/ Dextrose) 508 mls @ 38.1 mls/hr IV .[id number] ONE; 10 MCG/MIN PRN Reason: Protocol Stop: 04/25/17 16:51 Last Titration: 04/25/17 05:00 Dose: 7.5 mcg/min, 28.57 mls/hr Insulin Human Lispro (Humalog) 0 units SC ACHS [facility] PRN Reason: Protocol Last Admin: 04/25/17 07:41 Dose: Not Given Pantoprazole Sodium (Protonix Inj) 40 mg IVP DAILY [facility] Last Admin: 04/25/17 08:15 Dose: 40 mg - Labs Labs: 04/25/17 04:20 04/25/17 04:20 PT 15.3 SECONDS (9.6-11.2) H 04/22/17 05:30 INR 1.47 (0.92-1.08) H 04/22/17 05:30 APTT 41.8 SECONDS (23.3-32.5) H 04/22/17 05:30 - Constitutional Appears: No Acute Distress - Head Exam Head Exam: NORMOCEPHALIC - Eye Exam Additional comments: conjunctival pallor - Respiratory Exam Respiratory Exam: NORMAL BREATHING PATTERN - Cardiovascular Exam Cardiovascular Exam: +S1, +S2 - GI/Abdominal Exam GI & Abdominal Exam: Soft - Neurological Exam Neurological Exam: Alert, Awake - Psychiatric Exam Psychiatric exam: Flat Affect - Skin Skin Exam: Pallor Assessment and Plan - Assessment and Plan (Free Text) Assessment: 76M w/ stage 4 decubitus ulcer s/p debridement and wound vac Afebrile, hypotensive this AM Wound vac functioning well WBC trending down to 14.3 from 17.5 hgb remains at 6.1 Pathology from debridement 04/19: extensively nectrotic/acutely inflamed skin and fibroadipose tissue. Aggregates of fungal organisms on skin surface Plan: Continue wound vac to suction, monitor output Continue management per the ICU team Recommend tranfusions prn Wound vac properly sealed, no leak noted Wound vac change tomorrow Follow up GI recs Continue IV antibiotics per ID Further recs per Dr. Becker <Adolfo Becker - Last Filed: 04/30/17 22:13> Objective - Vital Signs/Intake and Output Vital Signs (last 24 hours): Temp Pulse Resp BP Pulse Ox 99.5 F 105 H 23 92/47 L 99 04/29/17 04:00 04/29/17 06:00 04/29/17 06:00 04/29/17 06:00 04/29/17 04:00 - Labs Labs: 04/28/17 18:15 04/28/17 18:15 PT 19.0 Seconds (9.8-13.1) H 04/28/17 05:00 INR 1.7 (0.9-1.2) H 04/28/17 05:00 APTT 33.9 Seconds (25.6-37.1) 04/28/17 05:00 Attending/Attestation - Attestation I have personally seen and examined this patient.: Yes I have fully participated in the care of the patient.: Yes I have reviewed all pertinent clinical information, including history, physical exam and plan: Yes Notes (Text): 04/30/17 22:11 Pt was seen and examined at bedside on 04/25/2017 Agree with above note and assessment Pt with Upper GI bleed GI consult for EGD Plan d.w pt's family in detail Risk and benefit explained in detail. C/w current mx
--- NOTE | 2017-04-25 11:43 | CP.PCM.CON ---
History of Present Illness - History of Present Illness History of Present Illness: This is a 76 yrs old male who had a herniorrhaphy at [facility], after which he had peritonitis and was septic. He recovered, and was sent to the acute rehab, but there developed sepsis again, became hypotensive and was transferred to the ICU. Pt's hgb was found to be 6.1gms, and he has been transfused 4 units of packed cells already, He has a large amount of blood in the ileostomy bag. His count is still only 6.1. LDH and haptoglobin are normal so there is no evidence of hemolysis. He is again hypotensive and very weak. Spoke to the vp account director who will do the endoscopy tomorrow, because pt ate some oatmeal today. He has a past h/o HTN, CHF, Pulmonary hypertention, COPD, DM2, CVA, hypercholesterolemia, hyperlipidemia, [place] . Past Patient History - Infectious Disease Hx of Infectious Diseases: None - Past Medical History & Family History Past Medical History?: Yes - Past Social History Smoking Status: Never Smoked - CARDIAC Hx Cardiac Disorders: Yes Hx Congestive Heart Failure: Yes Hx Hypercholesterolemia: Yes Hx Hypertension: Yes Hx Pacemaker: No Hx Peripheral Edema: Yes (LLE +1, pitting) - PULMONARY Hx Respiratory Disorders: Yes Hx Chronic Obstructive Pulmonary Disease (COPD): Yes Hx Pneumonia: Yes - NEUROLOGICAL Hx Neurological Disorder: Yes (CVA) HX Cerebrovascular Accident: Yes - HEENT Hx HEENT Problems: Yes Hx Glaucoma: Yes - RENAL Hx Chronic Kidney Disease: Yes Hx Kidney Stones: Yes - ENDOCRINE/METABOLIC Hx Endocrine Disorders: Yes (DM) Hx Diabetes Mellitus Type 1: Yes - HEMATOLOGICAL/ONCOLOGICAL Hx Anemia: Yes Hx Human Immunodeficiency Virus (HIV): No - INTEGUMENTARY Hx Dermatological Problems: Yes (sacral ulcer) - MUSCULOSKELETAL/RHEUMATOLOGICAL Hx Musculoskeletal Disorders: Yes Hx Arthritis: Yes Hx Falls: No Hx Fractures: Yes (R hip) - GASTROINTESTINAL Hx Gastrointestinal Disorders: Yes Hx Bowel Surgery: Yes Hx Colostomy: Yes Other/Comment: 03/17/2017 - exploratory lap, small bowel resection. 03/18/2017 - returned to OR for washout, end ileostomy, abdominal closure with bridging strattice mesh. h/o abdominal hernia - GENITOURINARY/GYNECOLOGICAL Hx Genitourinary Disorders: No - PSYCHIATRIC Hx Psychophysiologic Disorder: Yes Hx Anxiety: Yes Hx Depression: Yes - SURGICAL HISTORY Hx Surgeries: Yes Hx Coronary Stent: Yes Hx Joint Replacement: Yes (hip) - ANESTHESIA Hx Anesthesia: Yes Hx Anesthesia Reactions: No (took 1 week to wake up from sx per child) Hx Malignant Hyperthermia: No Meds Allergies/Adverse Reactions: Allergies Allergy/AdvReac Type Severity Reaction Status Date / Time Penicillins Allergy URTICARIA Verified 03/30/17 22:34 Sulfa (Sulfonamide Allergy URTICARIA Verified 03/30/17 22:34 Antibiotics) - Medications Medications: Current Medications Acetaminophen (Tylenol 325mg Tab) 650 mg PO Q6 PRN PRN Reason: Pain, moderate (4-7) Last Admin: 04/22/17 17:07 Dose: 650 mg Albuterol/Ipratropium (Duoneb 3 Mg/0.5 Mg (3 Ml) Ud) 3 ml INH RQ6 [facility] Last Admin: 04/25/17 09:00 Dose: 3 ml Aspirin (Aspirin) 325 mg PO DAILY [facility] Last Admin: 04/25/17 10:19 Dose: Not Given Atorvastatin Calcium (Lipitor) 50 mg PO DAILY [facility] Last Admin: 04/25/17 08:15 Dose: 50 mg Ferrous Gluconate (Fergon) 324 mg PO TID [facility] Last Admin: 04/25/17 08:15 Dose: 324 mg Aztreonam 1 gm/ Sodium (Chloride) 100 mls @ 100 mls/hr IVPB Q8 [facility] Last Admin: 04/25/17 08:08 Dose: 100 mls/hr Micafungin Sodium 100 mg/ (Sodium Chloride) 100 mls @ 100 mls/hr IVPB DAILY [facility] Last Admin: 04/25/17 08:14 Dose: 100 mls/hr Metronidazole (Flagyl 500mg/100ml Ns) 100 mls @ 100 mls/hr IVPB Q8 [facility] Last Admin: 04/25/17 08:14 Dose: 100 mls/hr Vancomycin HCl 1 gm/ Sodium (Chloride) 250 mls @ 250 mls/hr IVPB Q24H [facility] Last Admin: 04/24/17 21:19 Dose: 250 mls/hr Lacosamide 200mg/20ml 100 mg/ (Sodium Chloride) 110 mls @ 110 mls/hr IVPB Q12 [facility] Last Admin: 04/25/17 03:00 Dose: 110 mls/hr Norepinephrine Bitartrate 8 mg (/ Dextrose) 508 mls @ 38.1 mls/hr IV .[id number] ONE; 10 MCG/MIN PRN Reason: Protocol Stop: 04/25/17 16:51 Last Titration: 04/25/17 05:00 Dose: 7.5 mcg/min, 28.57 mls/hr Insulin Human Lispro (Humalog) 0 units SC ACHS [facility] PRN Reason: Protocol Last Admin: 04/25/17 07:41 Dose: Not Given Pantoprazole Sodium (Protonix Inj) 40 mg IVP DAILY [facility] Last Admin: 04/25/17 08:15 Dose: 40 mg Physical Exam - Additional Findings Additional findings: Physical exam; Pt appears very weak, and pale neck; supple, no adenopathy Chest; air entry good, scattered rales Heart; RSR, no murmur Abd; Soft, no mass no h/s megal, slightly distended, with evidence ofblood in the ileotomy.y Results - Vital Signs Recent Vital Signs: Last Vital Signs Temp 97.6 F 04/25/17 08:00 Pulse 80 04/25/17 08:00 Resp 18 04/25/17 08:00 BP 87/56 L 04/25/17 08:00 Pulse Ox 100 04/25/17 08:00 - Labs Result Diagrams: 04/25/17 04:20 04/25/17 04:20 Labs: Laboratory Results - last 24 hr 04/20/17 04/21/17 04/24/17 06:33 20:52 06:00 WBC RBC Hgb Hct MCV MCH MCHC RDW Plt Count Haptoglobin Sodium Potassium Chloride Carbon Dioxide Anion Gap BUN Creatinine Est GFR ( Amer) Est GFR (Non-Af Amer) POC Glucose (mg/dL) Random Glucose Calcium Total Bilirubin AST ALT Alkaline Phosphatase Lactate Dehydrogenase Total Protein Albumin Globulin Albumin/Globulin Ratio Prolactin 22.4 H Blood Type O POSITIVE Antibody Screen Negative Crossmatch See Detail See Detail BBK History Checked Patient has bt 04/24/17 04/24/17 04/24/17 16:01 16:25 16:25 WBC RBC Hgb Hct MCV MCH MCHC RDW Plt Count Haptoglobin 185 Sodium Potassium Chloride Carbon Dioxide Anion Gap BUN Creatinine Est GFR ( Amer) Est GFR (Non-Af Amer) POC Glucose (mg/dL) 120 H Random Glucose Calcium Total Bilirubin AST ALT Alkaline Phosphatase Lactate Dehydrogenase 348 Total Protein Albumin Globulin Albumin/Globulin Ratio Prolactin Blood Type Antibody Screen Crossmatch BBK History Checked 04/24/17 04/25/17 04/25/17 21:17 04:20 04:20 WBC 14.3 H RBC 2.17 L Hgb 6.1 L* Hct 18.8 L MCV 86.6 MCH 28.0 MCHC 32.4 L RDW 16.8 H Plt Count 280 Haptoglobin Sodium 134 Potassium 3.9 Chloride 113 H Carbon Dioxide 14 L Anion Gap 11 BUN 53 H Creatinine 0.9 Est GFR ( Amer) > 60 Est GFR (Non-Af Amer) > 60 POC Glucose (mg/dL) 148 H Random Glucose 257 H Calcium 7.7 L Total Bilirubin 0.7 AST 21 ALT 29 Alkaline Phosphatase 72 Lactate Dehydrogenase Total Protein 4.8 L Albumin 1.9 L Globulin 2.9 Albumin/Globulin Ratio 0.7 L Prolactin Blood Type Antibody Screen Crossmatch BBK History Checked 04/25/17 04/25/17 04:43 11:10 WBC RBC Hgb Hct MCV MCH MCHC RDW Plt Count Haptoglobin Sodium Potassium Chloride Carbon Dioxide Anion Gap BUN Creatinine Est GFR ( Amer) Est GFR (Non-Af Amer) POC Glucose (mg/dL) 149 H 159 H Random Glucose Calcium Total Bilirubin AST ALT Alkaline Phosphatase Lactate Dehydrogenase Total Protein Albumin Globulin Albumin/Globulin Ratio Prolactin Blood Type Antibody Screen Crossmatch BBK History Checked Assessment & Plan - Assessment and Plan (Free Text) Assessment: Impression; Anemia secondary to acute bleeding. To have endoscopy tomorrow. Plan: Plan; While we are waiting for the vp account directorjayne. will transfuse with packed cells and fresh frozen plasma as n - Date & Time Date: 04/25/17 Time: 11:54
--- NOTE | 2017-04-25 12:32 | CP.PCM.PN ---
Subjective - Date & Time of Evaluation Date of Evaluation: 04/25/17 Time of Evaluation: 12:00 - Subjective Subjective: Patient seen today in MICU. Awake but confused. Hypotensive and on FFP and antibiotics. Blood in ileostomy bag mixed with stool. No blood through rectum. Discussed in detail with exercise planner, flight agent, and daughter Objective - Vital Signs/Intake and Output Vital Signs (last 24 hours): Temp Pulse Resp BP Pulse Ox 97.6 F 80 18 87/56 L 100 04/25/17 08:00 04/25/17 08:00 04/25/17 08:00 04/25/17 08:00 04/25/17 08:00 Intake and Output: 04/25/17 04/25/17 06:59 18:59 Intake Total 1947 Output Total 600 Balance 1347 - Medications Medications: Current Medications Acetaminophen (Tylenol 325mg Tab) 650 mg PO Q6 PRN PRN Reason: Pain, moderate (4-7) Last Admin: 04/22/17 17:07 Dose: 650 mg Albuterol/Ipratropium (Duoneb 3 Mg/0.5 Mg (3 Ml) Ud) 3 ml INH RQ6 [facility] Last Admin: 04/25/17 09:00 Dose: 3 ml Aspirin (Aspirin) 325 mg PO DAILY [facility] Last Admin: 04/25/17 10:19 Dose: Not Given Atorvastatin Calcium (Lipitor) 50 mg PO DAILY [facility] Last Admin: 04/25/17 08:15 Dose: 50 mg Ferrous Gluconate (Fergon) 324 mg PO TID [facility] Last Admin: 04/25/17 08:15 Dose: 324 mg Aztreonam 1 gm/ Sodium (Chloride) 100 mls @ 100 mls/hr IVPB Q8 [facility] Last Admin: 04/25/17 08:08 Dose: 100 mls/hr Micafungin Sodium 100 mg/ (Sodium Chloride) 100 mls @ 100 mls/hr IVPB DAILY [facility] Last Admin: 04/25/17 08:14 Dose: 100 mls/hr Metronidazole (Flagyl 500mg/100ml Ns) 100 mls @ 100 mls/hr IVPB Q8 [facility] Last Admin: 04/25/17 08:14 Dose: 100 mls/hr Vancomycin HCl 1 gm/ Sodium (Chloride) 250 mls @ 250 mls/hr IVPB Q24H [facility] Last Admin: 04/24/17 21:19 Dose: 250 mls/hr Lacosamide 200mg/20ml 100 mg/ (Sodium Chloride) 110 mls @ 110 mls/hr IVPB Q12 [facility] Last Admin: 04/25/17 11:33 Dose: 110 mls/hr Norepinephrine Bitartrate 8 mg (/ Dextrose) 508 mls @ 38.1 mls/hr IV .[id number] ONE; 10 MCG/MIN PRN Reason: Protocol Stop: 04/25/17 16:51 Last Titration: 04/25/17 05:00 Dose: 7.5 mcg/min, 28.57 mls/hr Insulin Human Lispro (Humalog) 0 units SC ACHS [facility] PRN Reason: Protocol Last Admin: 04/25/17 11:33 Dose: Not Given Pantoprazole Sodium (Protonix Inj) 40 mg IVP DAILY [facility] Last Admin: 04/25/17 08:15 Dose: 40 mg - Labs Labs: 04/25/17 04:20 04/25/17 04:20 PT 15.3 SECONDS (9.6-11.2) H 04/22/17 05:30 INR 1.47 (0.92-1.08) H 04/22/17 05:30 APTT 41.8 SECONDS (23.3-32.5) H 04/22/17 05:30 - Constitutional Appears: Well, No Acute Distress, Cachectic - Head Exam Head Exam: ATRAUMATIC, NORMAL INSPECTION, NORMOCEPHALIC Additional comments: pallor + - ENT Exam ENT Exam: Mucous Membranes Moist - Respiratory Exam Respiratory Exam: Clear to Ausculation Bilateral, NORMAL BREATHING PATTERN - Cardiovascular Exam Cardiovascular Exam: REGULAR RHYTHM, RRR, +S1, +S2 - GI/Abdominal Exam GI & Abdominal Exam: Soft, Normal Bowel Sounds Additional comments: Ileostomy bag stool mixed with dark blood - Rectal Exam Additional comments: No blood per rectum Wound vac in place - Neurological Exam Neurological Exam: Alert, Awake - Psychiatric Exam Psychiatric exam: Normal Mood - Skin Skin Exam: Intact, Normal Color Assessment and Plan - Assessment and Plan (Free Text) Assessment: 76 yr old M with multiple medical comorbidities as stated in H and P admitted for rehab found to be in septic shock with bacterimia and fungemia from sacral decibiti ulcers. GI consult requested for anemia, drop in hb. Had EGD in February 2017 showing mild gastritis at [place]. Ileostomy done at outside hospital last month. EF 22% with severe pulm HTN as per chart and past admissions. No cardiac or pulm evaluation done as per MICU in this admission. History of cardiac stents and stroke- was on plavix till last month as per chart. Anemia may be multi factorial due to sepsis and hemolysis, losing blood from wound. Appreciate hematology input. This am patient is hypotensive and there is dark stool in ileostomy bag. His Hb trend in last 4 months has been dropping Hb by 2 gms/dl every few weeks without overt GI bleeding. He is s/p 4 u PRBC and Hb is still 6.3. I discussed in detail with the Viola at phone no [phone] and with daughter Arianna at phone no [phone] regarding need for urgent scope. Patient was not NPO and had oatmeal this am. He is at high risk of aspiration as per anesthesiologist. He also has cardiac and pulmonary comorbodities. Family was explained that in event of giving anesthesia for EGd and not being able to hold secretions he will be intubated for airway protection. It may also put stress on his heart. cardiac and pulmonary evaluation is pending. Family has not reached a decision regarding taking aggressive measures. I have tentatively booked the patient for EGD in am if family agrees. Family wants to discuss his comorbidities and infections with PMD Dr Chowdary and exercise planner. I have reached out to both to communicate with the family regarding comorbidities, goals of care and prognosis. Plan: - Trend Hb/Hct daily and transfuse as needed - Cardiac status is tenous- should not overload - Goal Hb as per hematology and MICU - Discussed in detail with flight agent, exercise planner and PMD - discussed with daughter Arianna and Viola risks and benefits. Risk including and not limited to anesthesia induced airway distress leading to intubation and or cardiac arrest. - Has history of perforated ulcer with ex lap and bypass. Need to get details of ileostomy surgery - Antibiotics and anti fungals as per ID - Sacral decubiti ulcer management as per surgical team - Ileostomy management as per surgery - No GI endoscopic intervention planned on this patient currently. - Goals of care to be discussed with family by MICU - GI / DVT prophylaxis
--- NOTE | 2017-04-25 14:39 | CP.PCM.PN ---
Subjective - Date & Time of Evaluation Date of Evaluation: 04/25/17 Time of Evaluation: 07:37 - Subjective Subjective: Patient seen and examined at bedside with attending and power regulator. No acute events overnight. Afebrile. Wound vac/ileostomy in place, blood noted in ileostomy bag. Wound pain controlled, no other complaints of pain at this time. Feels weak. Still requiring pressors. Objective - Vital Signs/Intake and Output Vital Signs (last 24 hours): Temp Pulse Resp BP Pulse Ox 97.6 F 77 16 100/59 L 100 04/25/17 12:00 04/25/17 14:00 04/25/17 14:00 04/25/17 14:00 04/25/17 14:00 Intake and Output: 04/25/17 04/25/17 06:59 18:59 Intake Total 1947 1003.71 Output Total 600 150 Balance 1347 853.71 - Medications Medications: Current Medications Acetaminophen (Tylenol 325mg Tab) 650 mg PO Q6 PRN PRN Reason: Pain, moderate (4-7) Last Admin: 04/22/17 17:07 Dose: 650 mg Albuterol/Ipratropium (Duoneb 3 Mg/0.5 Mg (3 Ml) Ud) 3 ml INH RQ6 [facility] Last Admin: 04/25/17 13:55 Dose: 3 ml Aspirin (Aspirin) 325 mg PO DAILY [facility] Last Admin: 04/25/17 10:19 Dose: Not Given Atorvastatin Calcium (Lipitor) 50 mg PO DAILY [facility] Last Admin: 04/25/17 08:15 Dose: 50 mg Ferrous Gluconate (Fergon) 324 mg PO TID [facility] Last Admin: 04/25/17 13:44 Dose: Not Given Aztreonam 1 gm/ Sodium (Chloride) 100 mls @ 100 mls/hr IVPB Q8 [facility] Last Admin: 04/25/17 08:08 Dose: 100 mls/hr Micafungin Sodium 100 mg/ (Sodium Chloride) 100 mls @ 100 mls/hr IVPB DAILY [facility] Last Admin: 04/25/17 08:14 Dose: 100 mls/hr Metronidazole (Flagyl 500mg/100ml Ns) 100 mls @ 100 mls/hr IVPB Q8 [facility] Last Admin: 04/25/17 08:14 Dose: 100 mls/hr Vancomycin HCl 1 gm/ Sodium (Chloride) 250 mls @ 250 mls/hr IVPB Q24H [facility] Last Admin: 04/24/17 21:19 Dose: 250 mls/hr Lacosamide 200mg/20ml 100 mg/ (Sodium Chloride) 110 mls @ 110 mls/hr IVPB Q12 [facility] Last Admin: 04/25/17 11:33 Dose: 110 mls/hr Norepinephrine Bitartrate 8 mg (/ Dextrose) 508 mls @ 38.1 mls/hr IV .[id number] ONE; 10 MCG/MIN PRN Reason: Protocol Stop: 04/25/17 16:51 Last Titration: 04/25/17 08:15 Dose: 5 mcg/min, 19.05 mls/hr Insulin Human Lispro (Humalog) 0 units SC ACHS [facility] PRN Reason: Protocol Last Admin: 04/25/17 11:33 Dose: Not Given Pantoprazole Sodium (Protonix Inj) 40 mg IVP DAILY [facility] Last Admin: 04/25/17 08:15 Dose: 40 mg - Labs Labs: 04/25/17 04:20 04/25/17 04:20 PT 15.3 SECONDS (9.6-11.2) H 04/22/17 05:30 INR 1.47 (0.92-1.08) H 04/22/17 05:30 APTT 41.8 SECONDS (23.3-32.5) H 04/22/17 05:30 - Constitutional Appears: Non-toxic, No Acute Distress - Head Exam Head Exam: NORMAL INSPECTION - Eye Exam Eye Exam: Normal appearance - Respiratory Exam Respiratory Exam: Clear to Ausculation Bilateral, NORMAL BREATHING PATTERN - Cardiovascular Exam Cardiovascular Exam: REGULAR RHYTHM, +S1, +S2. absent: Murmur - GI/Abdominal Exam GI & Abdominal Exam: Soft, Normal Bowel Sounds. absent: Tenderness Additional comments: blood noted in ileostomy bag - Extremities Exam Extremities Exam: Normal Inspection - Neurological Exam Neurological Exam: Alert, Awake - Psychiatric Exam Psychiatric exam: Normal Affect, Normal Mood - Skin Skin Exam: Dry, Pallor Assessment and Plan (1) Anemia Assessment & Plan: Hgb 6.1 today Heme/onc on board GI on board patient with continued anemia despite multiple pRBC transfusions Will receive 2U today GI plans for possible scope (requests cardiology/pulmonary clearance - consulted appreciate recommendations) Scheduled for scope tomorrow Status: Acute (2) Decubitus skin ulcer Assessment & Plan: Surgery on board s/p debridement. Draining appropriately. Afebrile. C/w recommendations at this time including wound vac Status: Acute (3) Septic shock Assessment & Plan: Afebrile. Downtrending WBC No fever chills Still requiring levophed Continue to monitor in ICU, appreciate power regulator input Continue ABx per ID management Status: Acute
[2017-04-25] MEDS ORDERED: Potassium Chloride 20 MEQ in Sodium Chloride 0.45% 1,000 ML IV SCH (19:00)
[2017-04-25] MEDS ORDERED: Potassium Ch 20mEq in D5-1/2NS 1,000 ML IV SCH (20:15)
--- NOTE | 2017-04-25 22:42 | CP.PCM.PN ---
Subjective - Date & Time of Evaluation Date of Evaluation: 04/25/17 Time of Evaluation: 10:40 - Subjective Subjective: Asked for statement regarding cardiovascular risk assessment for EGD. Patient has a history of CAD with previous coroanry stenting. He has severe LV dysfunction, and has been managed for sepsis, and anemia. The patient has various comorbidities which increase his risk, although EGD is a low risk procedure. There is no specific cardiovascular contraindication to the planned EGD, although patient has tenuous respiratory status. Objective - Vital Signs/Intake and Output Vital Signs (last 24 hours): Temp Pulse Resp BP Pulse Ox 97.8 F 80 16 98/56 L 100 04/25/17 22:00 04/25/17 22:00 04/25/17 22:00 04/25/17 22:00 04/25/17 22:00 Intake and Output: 04/25/17 04/26/17 18:59 06:59 Intake Total 1656.11 322 Output Total 550 Balance 1106.11 322 - Medications Medications: Current Medications Acetaminophen (Tylenol 325mg Tab) 650 mg PO Q6 PRN PRN Reason: Pain, moderate (4-7) Last Admin: 04/22/17 17:07 Dose: 650 mg Aspirin (Aspirin) 325 mg PO DAILY [facility] Last Admin: 04/25/17 10:19 Dose: Not Given Atorvastatin Calcium (Lipitor) 50 mg PO DAILY [facility] Last Admin: 04/25/17 08:15 Dose: 50 mg Ferrous Gluconate (Fergon) 324 mg PO TID [facility] Last Admin: 04/25/17 16:09 Dose: Not Given Aztreonam 1 gm/ Sodium (Chloride) 100 mls @ 100 mls/hr IVPB Q8 [facility] Last Admin: 04/25/17 18:33 Dose: 100 mls/hr Micafungin Sodium 100 mg/ (Sodium Chloride) 100 mls @ 100 mls/hr IVPB DAILY [facility] Last Admin: 04/25/17 08:14 Dose: 100 mls/hr Vancomycin HCl 1 gm/ Sodium (Chloride) 250 mls @ 250 mls/hr IVPB Q24H [facility] Last Admin: 04/25/17 18:34 Dose: 250 mls/hr Potassium Chloride/Dextrose/Sod Cl (Potassium Chl 20 Meq In D5-1/2ns) 1,000 mls @ 100 mls/hr IV .Q10H [facility] Stop: 04/26/17 06:14 Insulin Human Lispro (Humalog) 0 units SC ACHS [facility] PRN Reason: Protocol Last Admin: 04/25/17 22:29 Dose: Not Given Pantoprazole Sodium (Protonix Inj) 40 mg IVP DAILY [facility] Last Admin: 04/25/17 08:15 Dose: 40 mg - Labs Labs: 04/25/17 04:20 04/25/17 04:20 PT 15.3 SECONDS (9.6-11.2) H 04/22/17 05:30 INR 1.47 (0.92-1.08) H 04/22/17 05:30 APTT 41.8 SECONDS (23.3-32.5) H 04/22/17 05:30 Assessment and Plan (1) Elevated troponin Status: Acute (2) Septic shock Status: Acute
[2017-04-26] MEDS: Aztreonam 1 GM in Sodium Chloride 0.9% 100 ML IVPB SCH ×3 (01:00→17:48)
[2017-04-26 05:23] LABS: BASO # 0.1 K/uL (0.0-0.2); BASO % 0.9 % (0.0-2.0); EOS # 0.4 K/uL (0.0-0.7); EOS % 3.1 % (0.0-4.0); HEMATOCRIT 25.6 % (35.0-51.0); LYMPH # 1.1 K/uL (1.0-4.3); MEAN CELL VOLUME 88.4 fl (80.0-94.0); MEAN CORPUSCULAR HEMOGLOBIN 28.6 pg (27.0-31.0); MEAN CORPUSCULAR HGB CONC 32.3 g/dL (33.0-37.0); MEAN PLATELET VOLUME 7.2 fl (7.2-11.7); MONO # 0.6 K/uL (0.0-0.8); PLATELET COUNT 186 K/uL (130-400); RED CELL DISTRIBUTION WIDTH 15.9 % (11.5-14.5); WHITE BLOOD COUNT 12.1 K/uL (4.8-10.8)
[2017-04-26 05:24] LABS: ALB/GLOB RATIO 0.7 (1.0-2.1); ALKALINE PHOSPHATASE 70 U/L (38-126); ALT/SGPT 28 U/L (21-72); AST/SGOT 24 U/L (17-59); BILIRUBIN,TOTAL 0.5 mg/dl (0.2-1.3); BLOOD UREA NITROGEN 43 mg/dl (9-20); CALCIUM 7.8 mg/dL (8.4-10.2); CARBON DIOXIDE 17 mmol/L (22-30); CHLORIDE 118 mmol/L (98-107); GFR AFRICAN-AMERICAN > 60; GLUCOSE,RANDOM 100 mg/dL (75-110); POTASSIUM 3.8 MMOL/L (3.6-5.0); SODIUM 142 mmol/l (132-148)
[2017-04-26 06:21] LABS: PARTIAL THROMBOPLASTIN TIME 33.8 Seconds (25.6-37.1)
[2017-04-26] MEDS: Insulin Lispro (humaLOG) 100 Units/ml Inj SC SCH ×4 (06:53→22:00)
[2017-04-26 07:02] LABS: EOSINOPHIL 2 % (0-7); NEUTROPHIL 93 % (42-75); TOTAL CELLS COUNTED 100
[2017-04-26] MEDS ORDERED: Etomidate 20 mg/10ml Inj IV ONE (07:54)
[2017-04-26] MEDS ORDERED: Propofol 10 mg/ml Inj (20 ML) ONE (07:55)
[2017-04-26] MEDS ORDERED: Lactated Ringer's 500 ML IV ONE (08:02)
--- NOTE | 2017-04-26 08:20 | PN ---
DATE: 04/25/2017 LOCATION: The patient in ICU, bed 432 TIME SPENT: 35 minutes. The patient is seen and examined at the bedside. A 76-year-old male with a history significant for hypertension, diabetes mellitus type 2, hyperlipidemia, congestive heart failure, chronic obstructive pulmonary disease, pulmonary hypertension, status post iliac and small bowel resection 03/18/____ followed by ileostomy, abdominal culture with bridging with mesh. Admitted to acute rehab. Developed sepsis. Noted to be hypotensive with multiple sacral decubiti stage IV with gram positive bacteremia and fungemia. Seen by ID. On multiple broad-spectrum antibiotics including vancomycin, metronidazole, micafungin, aztreonam. The patient is known to have anemia. Has been on iron supplement since admission, received 5 units of packed red blood cells and a unit of fresh frozen plasma. Noted to have tarry stools since 04/24. Seen by GI consult and general surgery consult. The patient is scheduled for endoscopy to evaluate the source of GI bleeding. Remains alert, awake, follows commands, appropriate. Denies headache, shortness of breath, chest pain, palpitation. No abdominal discomfort. PHYSICAL EXAMINATION: VITAL SIGNS: Temperature 97.6, heart rate 74 and regular, blood pressure 103/59 , on Levophed; respiratory rate 16, saturating 100% on oxygen 2 liters nasal cannula. Intake 3307, output 1450, positive balance ____. HEAD, EYE, EAR, NOSE, THROAT: Pupils reactive. Conjunctivae pale. Sclerae anicteric. No nystagmus. NECK: Supple. No jugular venous distention. No carotid bruit. CHEST: Bilateral breath sounds. Clear to auscultation. HEART: Rhythm regular. S1, S2 normal intensity. No S3, S4 gallop. No audible murmur. ABDOMEN: Bowel sounds present, soft. Ileostomy in place. Noted to have tarry stools. EXTREMITIES: PICC line present on left upper extremity. No edema. Multiple bilateral areas of pressure-induced appearing skin ulcerated wounds. Some are located circumferentially and along the anterior tibial area. No peripheral or digital cyanosis. No palpable cords. Dorsalis pedis palpable, reduced in intensity. NEUROLOGICAL: moves_ upper and lower extremities but appear weak. SKIN: Without any rash, but noted to have excoriation. LABORATORY DATA: WBC 14.3, hemoglobin 6.1, hematocrit 18.8, platelet count 280. PT 15.3, INR 1.47, PTT 41.8. SMA-7: Sodium 134, potassium 3.9, chloride 113, CO2 of 14, anion gap 7, BUN 53, creatinine 0.9, glucose 81, calcium 7.7, total bilirubin 0.7, AST 21, ALT 29, alkaline phosphatase 72, total protein 4.8 , albumin 1.9. Urinalysis: RBC 1, WBC 7, yeast occasional. Random vanco level 18.8. Serology ____ negative. CURRENT MEDICATIONS: Tylenol 650 q.6 p.r.n., DuoNeb 3 mL q.6, aspirin 325 mg p.o. daily, Lipitor 50 mg p.o. daily, aztreonam 1 gram IV q.8, ferrous gluconate at 325 mg 3 times daily. IMPRESSION: 1. Status post septic shock with gram positive bacteremia, source multiple skin wounds. 2. Hypovolemic hypotension, secondary to gastrointestinal hemorrhage. 3. 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 4. Acute anemia secondary to gastrointestinal bleed. Transfusion of packed red blood cells in progress to keep hemoglobin around 10, hematocrit 30. Continue proton pump inhibitor. Appreciate hematology input. Seen by gastrointestinal. Scheduled for endoscopy in the morning. Keep n.p.o. for the procedure. The patient is higher risk for the procedure given his cardiomyopathy, low ejection fraction and reportedly with pulmonary hypertension. Cardiology and pulmonary evaluation in progress to assess the severity of pulmonary hypertension and the risk of the procedure. 5. Multiple decubiti pressure wounds, cellulitis of the lower extremity. Seen by infectious disease. Continue current antibiotics. Continue antibiotic metronidazole, vancomycin, micafungin, and aztreonam.. Maintain systolic pressure 100 or above. Lorazepam 1 mg intravenous q.6 p.r.n. for seizure. ___ _ 200 mg twice daily. Hold aspirin. Lipitor 50 mg p.o. daily. Deep venous thrombosis prophylaxis, with anticoagulation on hold due to gastrointestinal bleeding. Reno Vieira MD cc: [id number] TT: 04/25/2017 17:54:30 Confirmation # [id number] Dictation # [id number] [facility]
--- NOTE | 2017-04-26 09:04 | CP.PCM.PN ---
<Madelyn Montalvo - Last Filed: 04/26/17 09:01> Subjective - Date & Time of Evaluation Date of Evaluation: 04/26/17 Time of Evaluation: 09:01 - Subjective Subjective: General Surgery - Dr. Becker pt S&E. FABIOLA. Yesterday wound vac was changed at bedside and wound was further debrided, pt. tolerated well. This morning pt undergoing EGD for concern of UGIB. NO F/C, SOb/Cp. Objective - Vital Signs/Intake and Output Vital Signs (last 24 hours): Temp Pulse Resp BP Pulse Ox 97.6 F 74 14 115/70 100 04/26/17 07:55 04/26/17 07:55 04/26/17 07:55 04/26/17 07:55 04/26/17 07:55 Intake and Output: 04/26/17 04/26/17 06:59 18:59 Intake Total 1373 50 Output Total 1350 Balance 23 50 - Medications Medications: Current Medications Acetaminophen (Tylenol 325mg Tab) 650 mg PO Q6 PRN PRN Reason: Pain, moderate (4-7) Last Admin: 04/22/17 17:07 Dose: 650 mg Aspirin (Aspirin) 325 mg PO DAILY [facility] Last Admin: 04/25/17 10:19 Dose: Not Given Atorvastatin Calcium (Lipitor) 50 mg PO DAILY [facility] Last Admin: 04/25/17 08:15 Dose: 50 mg Ferrous Gluconate (Fergon) 324 mg PO TID [facility] Last Admin: 04/25/17 16:09 Dose: Not Given Aztreonam 1 gm/ Sodium (Chloride) 100 mls @ 100 mls/hr IVPB Q8 [facility] Last Admin: 04/26/17 01:00 Dose: 100 mls/hr Micafungin Sodium 100 mg/ (Sodium Chloride) 100 mls @ 100 mls/hr IVPB DAILY [facility] Last Admin: 04/25/17 08:14 Dose: 100 mls/hr Vancomycin HCl 1 gm/ Sodium (Chloride) 250 mls @ 250 mls/hr IVPB Q24H [facility] Last Admin: 04/25/17 18:34 Dose: 250 mls/hr Insulin Human Lispro (Humalog) 0 units SC ACHS [facility] PRN Reason: Protocol Last Admin: 04/26/17 06:53 Dose: Not Given Pantoprazole Sodium (Protonix Inj) 40 mg IVP DAILY [facility] Last Admin: 04/25/17 08:15 Dose: 40 mg - Labs Labs: 04/26/17 04:10 04/26/17 04:10 PT 17.3 Seconds (9.8-13.1) H 04/26/17 04:00 INR 1.5 (0.9-1.2) H 04/26/17 04:00 APTT 33.8 Seconds (25.6-37.1) 04/26/17 04:00 - Constitutional Appears: No Acute Distress - Head Exam Head Exam: ATRAUMATIC, NORMAL INSPECTION, NORMOCEPHALIC - Eye Exam Eye Exam: Normal appearance - ENT Exam ENT Exam: Mucous Membranes Moist - Respiratory Exam Respiratory Exam: NORMAL BREATHING PATTERN. absent: Respiratory Distress - GI/Abdominal Exam GI & Abdominal Exam: Soft. absent: Distended, Guarding - Neurological Exam Neurological Exam: Alert - Psychiatric Exam Psychiatric exam: Normal Affect, Normal Mood - Skin Skin Exam: Dry, Intact Assessment and Plan - Assessment and Plan (Free Text) Assessment: 76M w/ stage 4 decubitus ulcer s/p debridement and wound vac Plan: Continue to monitor wound vac, will change again Monday F/U EGD DW Dr Rosita Montalvo PGy2 <Adolfo Becker - Last Filed: 04/30/17 22:16> Objective - Vital Signs/Intake and Output Vital Signs (last 24 hours): Temp Pulse Resp BP Pulse Ox 99.5 F 105 H 23 92/47 L 99 04/29/17 04:00 04/29/17 06:00 04/29/17 06:00 04/29/17 06:00 04/29/17 04:00 - Labs Labs: 04/28/17 18:15 04/28/17 18:15 PT 19.0 Seconds (9.8-13.1) H 04/28/17 05:00 INR 1.7 (0.9-1.2) H 04/28/17 05:00 APTT 33.9 Seconds (25.6-37.1) 04/28/17 05:00 Attending/Attestation - Attestation I have personally seen and examined this patient.: Yes I have fully participated in the care of the patient.: Yes I have reviewed all pertinent clinical information, including history, physical exam and plan: Yes Notes (Text): 04/30/17 22:15 Pt was seen and examined at bedside on 04/26/2017 Agree with above note and assessment Pt with Upper GI bleed F/U EGD Plan d.w pt's family in detail
[2017-04-26] MEDS: Micafungin 100 MG in Sodium Chloride 0.9% 100 ML IVPB SCH (10:03)
--- NOTE | 2017-04-26 11:07 | CP.CCUPN ---
CCU Subjective - Physician Review Subjective (Free Text): AUDIO VISUAL TECHNICIAN PROGRESS NOTE Patient examined, interim events reviewed: No further seizure activity, awake and responsive, just underwent EGD. He remains dependent on Levophed at 2.5mcg/min. Recd 3 units PRBCs and 2 units FFP yesterday. Afebrile, no fever spikes. SBPs 100-110s, HR 72, 100% SPO2 on RA. Ileostomy output last 24H= 1300ml. No active bleeding evident. 24H I/O's= 3029/1900ml ROS: as above, no other pertinent negs or positives on 10 system review. PMFSH: all nursing and historical notes reviewed, no new pertinent data relevant to current problems. No other distress noted: EXAM- HEENT: no icterus, pupils equal and reactive NECK: no visible JVD, supple, carotids equal upstroke bilat/no bruits CHEST: decreased BS bases, no wheezes HEART: regular, distant, S1S2, no murmur audible, no rubs. ABD: soft, no increased distention, no focal tenderness, no HSM. BS hypoactive , ileostomy and drainage system intact. EXT: LUE PICC; no edema, multiple bilateral areas of pressure-induced appearing - skin ulcerated wounds that some are located circumferentially and along the anterior tibial line, no peripheral/ digital cyanosis, no calf tenderness or palpable cords, distal pulses (PT and DP) non-palpable. NEURO: no gross focal motor deficits SKIN: no rashes LABS: WBC= 12.1 HGB= 8.3 PLTs= 186K INR= 1.5 Na= 142 K= 3.8 HCO3= 17 BUN/Cr= 43/0.8 BS= 140 MAJOR PROBLEMS NOW: 1. Seizure Disorder; New Onset vs NCSE previously undetected clinically 2. Septic Shock with Gram + bacteremia 2 Skin Wounds 3. s/p Ileostomy after repair of Incarc hernia 4. ACS 5. Azotemia with occult GI Bleed 6. Acute Anemia, r/o occult GI bleed. 7. Multiple Decubiti / Pressure Wounds / Cellulitis of LEs PLAN: 1. Vimpat started, no recurrent seizure activity noted. 2. Vasopressors almost off, continue present IVFs. 3. PPi drip as per GI, just ordered. 4. Enteral nutritional support has been problematic, due to difficulty with NGT insertion and tube clogging, necessitating its removal. He did tolerate small amounts of PO feeding with pureed diet. Remains NPO since EGD. 5. Ongoing wound and decub care, Clinitron bed. 6. May need Diaz cathter to prevent urine lakage onto decub wounds.
[2017-04-26] MEDS: Pantoprazole 40 MG in Sodium Chloride 0.9% 100 ML IVPB SCH ×3 (11:58→22:08)
[2017-04-26] MEDS: Norepinephrine 8 MG in Dextrose 5% In Water 500 ML IV ONE (12:30)
[2017-04-26] MEDS: Lactated Ringer's 1,000 ML IV SCH (13:30)
--- NOTE | 2017-04-26 15:49 | CP.PCM.PN ---
Subjective - Date & Time of Evaluation Date of Evaluation: 04/26/17 Time of Evaluation: 07:26 - Subjective Subjective: Patient seen and evaluated at bedside with attending. GI, Certified Health Education Specialist, Surgical team, and Daughter at bedside for EGD. No acute events overnight. Afebrile. Wound vac/ileostomy in place, blood that was in ileostomy bag improved. Wound vac changed yesterday. Wound pain controlled, no other complaints of pain at this time. Feels weak. Still requiring pressors. Objective - Vital Signs/Intake and Output Vital Signs (last 24 hours): Temp Pulse Resp BP Pulse Ox 97.6 F 75 14 98/60 L 100 04/26/17 11:45 04/26/17 15:00 04/26/17 15:00 04/26/17 15:00 04/26/17 15:00 Intake and Output: 04/26/17 04/26/17 06:59 18:59 Intake Total 1373 250 Output Total 1350 Balance 23 250 - Medications Medications: Current Medications Acetaminophen (Tylenol 325mg Tab) 650 mg PO Q6 PRN PRN Reason: Pain, moderate (4-7) Last Admin: 04/22/17 17:07 Dose: 650 mg Aspirin (Aspirin) 325 mg PO DAILY [facility] Last Admin: 04/26/17 10:01 Dose: Not Given Atorvastatin Calcium (Lipitor) 50 mg PO DAILY [facility] Last Admin: 04/26/17 10:03 Dose: Not Given Ferrous Gluconate (Fergon) 324 mg PO TID [facility] Last Admin: 04/26/17 12:00 Dose: Not Given Aztreonam 1 gm/ Sodium (Chloride) 100 mls @ 100 mls/hr IVPB Q8 [facility] Last Admin: 04/26/17 10:03 Dose: 100 mls/hr Micafungin Sodium 100 mg/ (Sodium Chloride) 100 mls @ 100 mls/hr IVPB DAILY [facility] Last Admin: 04/26/17 10:03 Dose: 100 mls/hr Vancomycin HCl 1 gm/ Sodium (Chloride) 250 mls @ 250 mls/hr IVPB Q24H [facility] Last Admin: 04/25/17 18:34 Dose: 250 mls/hr Pantoprazole Sodium 40 mg/ (Sodium Chloride) 100 mls @ 20 mls/hr IVPB Q5H [facility] PRN Reason: 8 MG/HR Last Admin: 04/26/17 11:58 Dose: 20 mls/hr Metronidazole (Flagyl 500mg/100ml Ns) 100 mls @ 100 mls/hr IVPB Q8 [facility] Norepinephrine Bitartrate 8 mg (/ Dextrose) 508 mls @ 9.52 mls/hr IV .Q24H ONE ; 2.5 MCG/MIN PRN Reason: Protocol Stop: 04/27/17 12:21 Lactated Ringer's (Lactated Ringer's) 1,000 mls @ 100 mls/hr IV .Q10H [facility] Insulin Human Lispro (Humalog) 0 units SC ACHS [facility] PRN Reason: Protocol Last Admin: 04/26/17 11:59 Dose: Not Given - Labs Labs: 04/26/17 04:10 04/26/17 04:10 PT 17.3 Seconds (9.8-13.1) H 04/26/17 04:00 INR 1.5 (0.9-1.2) H 04/26/17 04:00 APTT 33.8 Seconds (25.6-37.1) 04/26/17 04:00 - Constitutional Appears: Non-toxic, No Acute Distress - Head Exam Head Exam: ATRAUMATIC, NORMAL INSPECTION, NORMOCEPHALIC - Eye Exam Eye Exam: Normal appearance - Respiratory Exam Respiratory Exam: Clear to Ausculation Bilateral, NORMAL BREATHING PATTERN - Cardiovascular Exam Cardiovascular Exam: REGULAR RHYTHM, +S1, +S2. absent: Murmur - GI/Abdominal Exam GI & Abdominal Exam: Soft, Normal Bowel Sounds. absent: Tenderness - Extremities Exam Extremities Exam: Normal Inspection - Neurological Exam Neurological Exam: Alert, Awake - Psychiatric Exam Psychiatric exam: Normal Affect, Normal Mood - Skin Skin Exam: Dry, Intact, Normal Color, Warm Assessment and Plan (1) Anemia Assessment & Plan: Hgb 8.3 today (s/p 2U pRBC yesterday) Heme/onc on board GI on board patient with continued anemia despite multiple pRBC transfusions EGD today at bedside, follow up results Status: Acute (2) Decubitus skin ulcer Assessment & Plan: Surgery on board s/p debridement. Draining appropriately. Afebrile. C/w recommendations at this time including wound vac Status: Acute (3) Septic shock Assessment & Plan: Afebrile. Downtrending WBC No fever chills Still requiring levophed Continue to monitor in ICU, appreciate strategic development manager input Continue ABx per ID management Status: Acute
[2017-04-26] MEDS ORDERED: Dextrose 50% SYRINGE Inj (50 ml) ONE (16:55)
[2017-04-26] MEDS ORDERED: Dextrose 50% SYRINGE Inj (50 ml) IVP ONE (17:00)
[2017-04-26] MEDS: metroNIDAZOLE 500mg/100ml NS 100 ML IVPB SCH (17:48)
--- NOTE | 2017-04-26 18:52 | CP.PCM.PN ---
Subjective - Date & Time of Evaluation Date of Evaluation: 04/26/17 Time of Evaluation: 09:00 - Subjective Subjective: weak and bedridden found to have large gastric ulcers no bleeding at present iv antibiotics in progress for infected sacrum will need CT sacrum when stable to r/o OM prognosis remains poor Objective - Vital Signs/Intake and Output Vital Signs (last 24 hours): Temp Pulse Resp BP Pulse Ox 97.2 F L 73 12 100/44 L 97 04/26/17 16:00 04/26/17 16:00 04/26/17 16:00 04/26/17 16:00 04/26/17 16:00 Intake and Output: 04/26/17 04/26/17 06:59 18:59 Intake Total 1373 1250 Output Total 1350 500 Balance 23 750 - Medications Medications: Current Medications Acetaminophen (Tylenol 325mg Tab) 650 mg PO Q6 PRN PRN Reason: Pain, moderate (4-7) Last Admin: 04/22/17 17:07 Dose: 650 mg Aspirin (Aspirin) 325 mg PO DAILY [facility] Last Admin: 04/26/17 10:01 Dose: Not Given Atorvastatin Calcium (Lipitor) 50 mg PO DAILY [facility] Last Admin: 04/26/17 10:03 Dose: Not Given Ferrous Gluconate (Fergon) 324 mg PO TID [facility] Last Admin: 04/26/17 17:48 Dose: 324 mg Aztreonam 1 gm/ Sodium (Chloride) 100 mls @ 100 mls/hr IVPB Q8 [facility] Last Admin: 04/26/17 17:48 Dose: 100 mls/hr Micafungin Sodium 100 mg/ (Sodium Chloride) 100 mls @ 100 mls/hr IVPB DAILY [facility] Last Admin: 04/26/17 10:03 Dose: 100 mls/hr Vancomycin HCl 1 gm/ Sodium (Chloride) 250 mls @ 250 mls/hr IVPB Q24H [facility] Last Admin: 04/25/17 18:34 Dose: 250 mls/hr Pantoprazole Sodium 40 mg/ (Sodium Chloride) 100 mls @ 20 mls/hr IVPB Q5H [facility] PRN Reason: 8 MG/HR Last Admin: 04/26/17 16:30 Dose: 20 mls/hr Metronidazole (Flagyl 500mg/100ml Ns) 100 mls @ 100 mls/hr IVPB Q8 [facility] Last Admin: 04/26/17 17:48 Dose: 100 mls/hr Norepinephrine Bitartrate 8 mg (/ Dextrose) 508 mls @ 9.52 mls/hr IV .Q24H ONE ; 2.5 MCG/MIN PRN Reason: Protocol Stop: 04/27/17 12:21 Last Admin: 04/26/17 12:30 Dose: 2.5 mcg/min, 9.52 mls/hr Lactated Ringer's (Lactated Ringer's) 1,000 mls @ 100 mls/hr IV .Q10H [facility] Last Admin: 04/26/17 13:30 Dose: 100 mls/hr Lacosamide 200mg/20ml 100 mg/ (Sodium Chloride) 110 mls @ 110 mls/hr IVPB Q12H [facility] Insulin Human Lispro (Humalog) 0 units SC ACHS [facility] PRN Reason: Protocol Last Admin: 04/26/17 17:48 Dose: Not Given - Labs Labs: 04/26/17 04:10 04/26/17 04:10 PT 17.3 Seconds (9.8-13.1) H 04/26/17 04:00 INR 1.5 (0.9-1.2) H 04/26/17 04:00 APTT 33.8 Seconds (25.6-37.1) 04/26/17 04:00 Assessment and Plan (1) Septic shock Status: Acute (2) Bacteremia Status: Acute (3) Bacteremia Status: Acute (4) Fever Status: Acute (5) CHF (congestive heart failure) Status: Acute (6) Dementia Status: Acute (7) PVD (peripheral vascular disease) Status: Acute
[2017-04-26] MEDS: Lacosamide 200mg/20ml 100 MG in Sodium Chloride 0.9% 100 ML IVPB SCH (20:03)
[2017-04-27] MEDS: Aztreonam 1 GM in Sodium Chloride 0.9% 100 ML IVPB SCH ×3 (00:31→16:13)
[2017-04-27] MEDS: metroNIDAZOLE 500mg/100ml NS 100 ML IVPB SCH ×3 (00:31→16:18)
[2017-04-27] MEDS: Pantoprazole 40 MG in Sodium Chloride 0.9% 100 ML IVPB SCH ×2 (03:12→08:27)
[2017-04-27] MEDS: Lactated Ringer's 1,000 ML IV SCH (04:00)
[2017-04-27] MEDS: Insulin Lispro (humaLOG) 100 Units/ml Inj SC SCH ×4 (06:49→22:19)
[2017-04-27] MEDS: Lacosamide 200mg/20ml 100 MG in Sodium Chloride 0.9% 100 ML IVPB SCH ×2 (07:06→19:33)
[2017-04-27 07:15] LABS: BASO # 0.1 K/uL (0.0-0.2); BASO % 0.9 % (0.0-2.0); EOS # 0.5 K/uL (0.0-0.7); EOS % 3.3 % (0.0-4.0); HEMATOCRIT 25.1 % (35.0-51.0); LYMPH # 0.9 K/uL (1.0-4.3); LYMPH % 6.3 % (20.0-40.0); MEAN CELL VOLUME 89.8 fl (80.0-94.0); MEAN CORPUSCULAR HEMOGLOBIN 28.9 pg (27.0-31.0); MEAN CORPUSCULAR HGB CONC 32.2 g/dL (33.0-37.0); MEAN PLATELET VOLUME 7.5 fl (7.2-11.7); MONO # 0.7 K/uL (0.0-0.8); MONO % 4.6 % (0.0-10.0); NEUT # 12.5 K/uL (1.8-7.0); NEUT % 84.9 % (50.0-75.0); NRBC % 0.1 % (0.0-0.0); RED CELL DISTRIBUTION WIDTH 16.1 % (11.5-14.5); WHITE BLOOD COUNT 14.7 K/uL (4.8-10.8)
[2017-04-27 07:35] LABS: ALKALINE PHOSPHATASE 66 U/L (38-126); ALT/SGPT 29 U/L (21-72); AST/SGOT 23 U/L (17-59); BILIRUBIN,TOTAL 0.5 mg/dl (0.2-1.3); BLOOD UREA NITROGEN 31 mg/dl (9-20); CALCIUM 7.8 mg/dL (8.4-10.2); CARBON DIOXIDE 18 mmol/L (22-30); CHLORIDE 118 mmol/L (98-107); GFR AFRICAN-AMERICAN > 60; GLUCOSE,RANDOM 74 mg/dL (75-110); POTASSIUM 3.7 MMOL/L (3.6-5.0); SODIUM 141 mmol/l (132-148); TOTAL PROTEIN 4.8 G/DL (6.3-8.2)
[2017-04-27 07:45] LABS: ALB/GLOB RATIO 0.7 (1.0-2.1)
[2017-04-27] MEDS ORDERED: Phytonadione 10 mg/ml Inj (Adult) IVPB ONE (08:10)
--- NOTE | 2017-04-27 08:25 | CP.CCUPN ---
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 Output from ileostomy now showing dark liquid stool and tinged with dark maroon blood. He denies any abdominal pain or discomfort, no N/V. Episodic hypoglycemia noted and given D50W boluses. Afebrile, no fever spikes. SBPs as low as the 70s, HR 89, 100% SPO2 on RA. Ileostomy output last 24H= 1000ml. 24H I/O's= 3016/2200ml ROS: as above, no other pertinent negs or positives on 10 system review. PMFSH: all nursing and historical notes reviewed, no new pertinent data relevant to current problems. No other distress noted: EXAM- HEENT: no icterus, pupils equal and reactive NECK: no visible JVD, supple, carotids equal upstroke bilat/no bruits CHEST: decreased BS bases, no wheezes HEART: regular, distant, S1S2, no murmur audible, no rubs. ABD: soft, no increased distention, no focal tenderness, no HSM. BS hypoactive , ileostomy and drainage system intact. EXT: LUE PICC; no edema, multiple bilateral areas of pressure-induced appearing - skin ulcerated wounds that some are located circumferentially and along the anterior tibial line, no peripheral/ digital cyanosis, no calf tenderness or palpable cords, distal pulses (PT and DP) non-palpable. NEURO: no gross focal motor deficits SKIN: no rashes LABS: WBC= 14.7 HGB= 8.1 PLTs= 217K INR= 1.5 yesterday Na= 141 K= 3.7 HCO3= 18 BUN/Cr= 31/0.7 BS= 74 MAJOR PROBLEMS NOW: 1. Acute on Chronic disease Anemia with occult GIB. 2. Seizure Disorder; New Onset vs NCSE previously undetected clinically 3. s/p Septic Shock with Gram + bacteremia 2 Skin Wounds 4. s/p Ileostomy after repair of Incarc hernia 5. Multiple Decubiti / Pressure Wounds / Cellulitis of LEs PLAN: 1. Serial CBCs, next one at 12Noon today, with repeat coags. HGb not more marginally lower than yesterdays value, and BUN not significantly more elevated despite ongoing IVFs. Ileostomy output may be ongoing transit of old blood. PPi drip as per GI. 2. Vit K ordered. 3. Additional PRBCs ordered today given persistent hypotension and Vasopressor dependency. ?? Utility for bleeding scan: discuss with Surg and GI. Including todays count, will have been transfused 10 units PRBCs over the past 7 days. 4. Saw Vimpat discontinued , and re-started, no recurrent seizure activity noted. 5. Ongoing wound and decub care, Clinitron bed; Diaz catheter to prevent urine leakage onto decub wounds.
[2017-04-27] MEDS: Micafungin 100 MG in Sodium Chloride 0.9% 100 ML IVPB SCH (08:26)
[2017-04-27] MEDS: Norepinephrine 8 MG in Dextrose 5% In Water 500 ML IV ONE ×2 (08:30→08:58)
[2017-04-27 08:47] LABS: PARTIAL THROMBOPLASTIN TIME 37.4 Seconds (25.6-37.1)
--- NOTE | 2017-04-27 08:51 | CP.PCM.PN ---
Subjective - Date & Time of Evaluation Date of Evaluation: 04/27/17 Time of Evaluation: 07:29 - Subjective Subjective: Patient seen and evaluated at bedside with attending. Spoke with client care manager. No acute events overnight. Afebrile. s/p EGD yesterday noted ulcer though no active bleeding. Wound vac/ileostomy in place, dark liquid in ileostomy bag. No complaints of pain at this time. Feels weak. Still requiring pressors. Objective - Vital Signs/Intake and Output Vital Signs (last 24 hours): Temp Pulse Resp BP Pulse Ox 97.7 F 89 19 73/52 L 100 04/27/17 08:00 04/27/17 08:00 04/27/17 08:00 04/27/17 08:00 04/27/17 08:00 Intake and Output: 04/27/17 04/27/17 06:59 18:59 Intake Total 1216 5 Output Total 1000 Balance 216 5 - Medications Medications: Current Medications Acetaminophen (Tylenol 325mg Tab) 650 mg PO Q6 PRN PRN Reason: Pain, moderate (4-7) Last Admin: 04/22/17 17:07 Dose: 650 mg Aspirin (Aspirin) 325 mg PO DAILY [facility] Last Admin: 04/27/17 08:48 Dose: Not Given Atorvastatin Calcium (Lipitor) 40 mg PO DAILY [facility] Atorvastatin Calcium (Lipitor) 10 mg PO DAILY [facility] Ferrous Gluconate (Fergon) 324 mg PO TID [facility] Last Admin: 04/27/17 08:19 Dose: 324 mg Aztreonam 1 gm/ Sodium (Chloride) 100 mls @ 100 mls/hr IVPB Q8 [facility] Last Admin: 04/27/17 08:18 Dose: 100 mls/hr Micafungin Sodium 100 mg/ (Sodium Chloride) 100 mls @ 100 mls/hr IVPB DAILY [facility] Last Admin: 04/27/17 08:26 Dose: 100 mls/hr Vancomycin HCl 1 gm/ Sodium (Chloride) 250 mls @ 250 mls/hr IVPB Q24H [facility] Last Admin: 04/26/17 19:41 Dose: 250 mls/hr Pantoprazole Sodium 40 mg/ (Sodium Chloride) 100 mls @ 20 mls/hr IVPB Q5H [facility] PRN Reason: 8 MG/HR Last Admin: 04/27/17 08:27 Dose: 20 mls/hr Metronidazole (Flagyl 500mg/100ml Ns) 100 mls @ 100 mls/hr IVPB Q8 [facility] Last Admin: 04/27/17 08:21 Dose: 100 mls/hr Norepinephrine Bitartrate 8 mg (/ Dextrose) 508 mls @ 9.52 mls/hr IV .Q24H ONE ; 2.5 MCG/MIN PRN Reason: Protocol Stop: 04/27/17 12:21 Last Admin: 04/27/17 08:30 Dose: 2.5 mcg/min, 9.52 mls/hr Lactated Ringer's (Lactated Ringer's) 1,000 mls @ 100 mls/hr IV .Q10H [facility] Last Admin: 04/27/17 04:00 Dose: 100 mls/hr Lacosamide 200mg/20ml 100 mg/ (Sodium Chloride) 110 mls @ 110 mls/hr IVPB Q12H [facility] Last Admin: 04/27/17 07:06 Dose: 110 mls/hr Phytonadione 10 mg/ Dextrose 51 mls @ 153 mls/hr IV ONCE ONE Stop: 04/27/17 09:19 Insulin Human Lispro (Humalog) 0 units SC ACHS [facility] PRN Reason: Protocol Last Admin: 04/27/17 06:49 Dose: Not Given - Labs Labs: 04/27/17 06:58 04/27/17 06:58 PT 18.0 Seconds (9.8-13.1) H 04/27/17 06:58 INR 1.6 (0.9-1.2) H 04/27/17 06:58 APTT 37.4 Seconds (25.6-37.1) H 04/27/17 06:58 - Constitutional Appears: Non-toxic, No Acute Distress - Head Exam Head Exam: ATRAUMATIC, NORMAL INSPECTION, NORMOCEPHALIC - Eye Exam Eye Exam: Normal appearance - Neck Exam Neck Exam: Normal Inspection - Respiratory Exam Respiratory Exam: Clear to Ausculation Bilateral, NORMAL BREATHING PATTERN - Cardiovascular Exam Cardiovascular Exam: REGULAR RHYTHM, +S1, +S2. absent: Murmur - GI/Abdominal Exam GI & Abdominal Exam: Soft, Normal Bowel Sounds. absent: Tenderness Additional comments: ileostomy bag with dark fluid noted - Extremities Exam Extremities Exam: Normal Inspection - Neurological Exam Neurological Exam: Alert, Awake - Psychiatric Exam Psychiatric exam: Normal Affect, Normal Mood - Skin Skin Exam: Dry, Intact, Normal Color, Warm Assessment and Plan (1) Anemia Assessment & Plan: Hgb 8.1 today (s/p EGD yesterday with ulcers noted though not actively bleeding) On PPI drip Possibly old blood in ileostomy bag, follow up closely, no significant change in Hgb Heme/onc on board GI on board patient with continued anemia despite multiple pRBC transfusions Status: Acute (2) Decubitus skin ulcer Assessment & Plan: Surgery on board s/p debridement. Draining appropriately. Afebrile. C/w recommendations at this time including wound vac Status: Acute (3) Septic shock Assessment & Plan: Afebrile. Downtrending WBC though increased to 14k today No fever chills Still requiring levophed Continue to monitor in ICU, appreciate client care manager input Continue ABx per ID management Status: Acute
[2017-04-27] MEDS ORDERED: Phytonadione 10 MG in Dextrose 5% In Water 50 ML IV ONE (09:00)
--- NOTE | 2017-04-27 09:44 | CP.PCM.PN ---
<Martinez Kearney - Last Filed: 04/27/17 09:48> Subjective - Date & Time of Evaluation Date of Evaluation: 04/27/17 Time of Evaluation: 07:25 - Subjective Subjective: Patient seen and examined this morning. Patient reports feeling weak. Ileostomy bag filled with loose melanotic liquid stool. Wound vac in place, no leak noted. On pressor support. Patient is less interactive during interviews has flat affect. Objective - Vital Signs/Intake and Output Vital Signs (last 24 hours): Temp Pulse Resp BP Pulse Ox 97.7 F 89 19 73/52 L 100 04/27/17 08:00 04/27/17 08:00 04/27/17 08:00 04/27/17 08:00 04/27/17 08:00 Intake and Output: 04/27/17 04/27/17 06:59 18:59 Intake Total 1216 12.5 Output Total 1000 Balance 216 12.5 - Medications Medications: Current Medications Acetaminophen (Tylenol 325mg Tab) 650 mg PO Q6 PRN PRN Reason: Pain, moderate (4-7) Last Admin: 04/22/17 17:07 Dose: 650 mg Aspirin (Aspirin) 325 mg PO DAILY [facility] Last Admin: 04/27/17 08:48 Dose: Not Given Atorvastatin Calcium (Lipitor) 40 mg PO DAILY [facility] Atorvastatin Calcium (Lipitor) 10 mg PO DAILY [facility] Ferrous Gluconate (Fergon) 324 mg PO TID [facility] Last Admin: 04/27/17 08:19 Dose: 324 mg Aztreonam 1 gm/ Sodium (Chloride) 100 mls @ 100 mls/hr IVPB Q8 [facility] Last Admin: 04/27/17 08:18 Dose: 100 mls/hr Micafungin Sodium 100 mg/ (Sodium Chloride) 100 mls @ 100 mls/hr IVPB DAILY [facility] Last Admin: 04/27/17 08:26 Dose: 100 mls/hr Vancomycin HCl 1 gm/ Sodium (Chloride) 250 mls @ 250 mls/hr IVPB Q24H [facility] Last Admin: 04/26/17 19:41 Dose: 250 mls/hr Pantoprazole Sodium 40 mg/ (Sodium Chloride) 100 mls @ 20 mls/hr IVPB Q5H [facility] PRN Reason: 8 MG/HR Last Admin: 04/27/17 08:27 Dose: 20 mls/hr Metronidazole (Flagyl 500mg/100ml Ns) 100 mls @ 100 mls/hr IVPB Q8 [facility] Last Admin: 04/27/17 08:21 Dose: 100 mls/hr Norepinephrine Bitartrate 8 mg (/ Dextrose) 508 mls @ 9.52 mls/hr IV .Q24H ONE ; 2.5 MCG/MIN PRN Reason: Protocol Stop: 04/27/17 12:21 Last Admin: 04/27/17 08:58 Dose: 2.5 mcg/min, 9.52 mls/hr Lactated Ringer's (Lactated Ringer's) 1,000 mls @ 100 mls/hr IV .Q10H [facility] Last Admin: 04/27/17 04:00 Dose: 100 mls/hr Lacosamide 200mg/20ml 100 mg/ (Sodium Chloride) 110 mls @ 110 mls/hr IVPB Q12H [facility] Last Admin: 04/27/17 07:06 Dose: 110 mls/hr Insulin Human Lispro (Humalog) 0 units SC ACHS [facility] PRN Reason: Protocol Last Admin: 04/27/17 06:49 Dose: Not Given - Labs Labs: 04/27/17 06:58 04/27/17 06:58 PT 18.0 Seconds (9.8-13.1) H 04/27/17 06:58 INR 1.6 (0.9-1.2) H 04/27/17 06:58 APTT 37.4 Seconds (25.6-37.1) H 04/27/17 06:58 - Constitutional Appears: Chronically Ill - Head Exam Head Exam: NORMOCEPHALIC - ENT Exam ENT Exam: Mucous Membranes Moist - Respiratory Exam Respiratory Exam: NORMAL BREATHING PATTERN - Cardiovascular Exam Cardiovascular Exam: +S1, +S2 - GI/Abdominal Exam GI & Abdominal Exam: Soft Additional comments: melanotic loose stool in ileostomy bag - Rectal Exam Rectal Exam: NORMAL INSPECTION - Neurological Exam Neurological Exam: Alert, Awake, Oriented x3 - Psychiatric Exam Psychiatric exam: Flat Affect - Skin Skin Exam: Dry, Pallor Assessment and Plan - Assessment and Plan (Free Text) Assessment: 76M w/ stage 4 decubitus ulcer s/p debridement and wound vac s/p EGD Plan: Wound care management per wound care nurse B/l lower extremity wounds per podiatry, recs appreciated Patient scheduled for IR embolization today At this moment in time patient is refusing surgical intervention. If IR intervention does not improve patient's condition, will speak with patient and patient's family about benefits vs risks of surgical intervention. Medical management per ICU team Will continue to monitor patient closely d/w Dr Rosita Kearney PGY-1 <Adolfo Becker - Last Filed: 04/30/17 22:20> Objective - Vital Signs/Intake and Output Vital Signs (last 24 hours): Temp Pulse Resp BP Pulse Ox 99.5 F 105 H 23 92/47 L 99 04/29/17 04:00 04/29/17 06:00 04/29/17 06:00 04/29/17 06:00 04/29/17 04:00 - Labs Labs: 04/28/17 18:15 04/28/17 18:15 PT 19.0 Seconds (9.8-13.1) H 04/28/17 05:00 INR 1.7 (0.9-1.2) H 04/28/17 05:00 APTT 33.9 Seconds (25.6-37.1) 04/28/17 05:00 Attending/Attestation - Attestation I have personally seen and examined this patient.: Yes I have fully participated in the care of the patient.: Yes I have reviewed all pertinent clinical information, including history, physical exam and plan: Yes Notes (Text): 04/30/17 22:18 Pt was seen and examined at bedside on 04/27/2017 Agree with above note and assessment Pt with Upper GI bleed EGD report reviewed Spoken to GI physician in detail Pt is refusing any surgical intervention at present IR consult for Angiography Plan d.w pt's family in detail Risk and benefit explained in detail.
--- NOTE | 2017-04-27 10:23 | CP.PCM.PN ---
Subjective - Date & Time of Evaluation Date of Evaluation: 04/27/17 Time of Evaluation: 08:45 - Subjective Subjective: Patient seen at bedside in MICU. On low dose levophed. Alert, awake. s/p EGD yesterday which show cratered ulcers in duodenal bulb with protrubent vessel s/p epinephrine, two resolution clips, and gold probe cautery of vessel and ulcers. Biopsies were taken from edge of ulcers. This am he had bright red blood again in ileostomy bag. On PPI drip and getting FFP Objective - Vital Signs/Intake and Output Vital Signs (last 24 hours): Temp Pulse Resp BP Pulse Ox 97.7 F 89 19 73/52 L 100 04/27/17 08:00 04/27/17 08:00 04/27/17 08:00 04/27/17 08:00 04/27/17 08:00 Intake and Output: 04/27/17 04/27/17 06:59 18:59 Intake Total 1216 12.5 Output Total 1000 Balance 216 12.5 - Medications Medications: Current Medications Acetaminophen (Tylenol 325mg Tab) 650 mg PO Q6 PRN PRN Reason: Pain, moderate (4-7) Last Admin: 04/22/17 17:07 Dose: 650 mg Aspirin (Aspirin) 325 mg PO DAILY [facility] Last Admin: 04/27/17 08:48 Dose: Not Given Atorvastatin Calcium (Lipitor) 40 mg PO DAILY [facility] Atorvastatin Calcium (Lipitor) 10 mg PO DAILY [facility] Ferrous Gluconate (Fergon) 324 mg PO TID [facility] Last Admin: 04/27/17 08:19 Dose: 324 mg Aztreonam 1 gm/ Sodium (Chloride) 100 mls @ 100 mls/hr IVPB Q8 [facility] Last Admin: 04/27/17 08:18 Dose: 100 mls/hr Micafungin Sodium 100 mg/ (Sodium Chloride) 100 mls @ 100 mls/hr IVPB DAILY [facility] Last Admin: 04/27/17 08:26 Dose: 100 mls/hr Vancomycin HCl 1 gm/ Sodium (Chloride) 250 mls @ 250 mls/hr IVPB Q24H [facility] Last Admin: 04/26/17 19:41 Dose: 250 mls/hr Pantoprazole Sodium 40 mg/ (Sodium Chloride) 100 mls @ 20 mls/hr IVPB Q5H [facility] PRN Reason: 8 MG/HR Last Admin: 04/27/17 08:27 Dose: 20 mls/hr Metronidazole (Flagyl 500mg/100ml Ns) 100 mls @ 100 mls/hr IVPB Q8 [facility] Last Admin: 04/27/17 08:21 Dose: 100 mls/hr Norepinephrine Bitartrate 8 mg (/ Dextrose) 508 mls @ 9.52 mls/hr IV .Q24H ONE ; 2.5 MCG/MIN PRN Reason: Protocol Stop: 04/27/17 12:21 Last Admin: 04/27/17 08:58 Dose: 2.5 mcg/min, 9.52 mls/hr Lactated Ringer's (Lactated Ringer's) 1,000 mls @ 100 mls/hr IV .Q10H [facility] Last Admin: 04/27/17 04:00 Dose: 100 mls/hr Lacosamide 200mg/20ml 100 mg/ (Sodium Chloride) 110 mls @ 110 mls/hr IVPB Q12H [facility] Last Admin: 04/27/17 07:06 Dose: 110 mls/hr Insulin Human Lispro (Humalog) 0 units SC ACHS [facility] PRN Reason: Protocol Last Admin: 04/27/17 06:49 Dose: Not Given - Labs Labs: 04/27/17 06:58 04/27/17 06:58 PT 18.0 Seconds (9.8-13.1) H 04/27/17 06:58 INR 1.6 (0.9-1.2) H 04/27/17 06:58 APTT 37.4 Seconds (25.6-37.1) H 04/27/17 06:58 - Constitutional Appears: Well, No Acute Distress - Head Exam Head Exam: ATRAUMATIC, NORMAL INSPECTION, NORMOCEPHALIC - ENT Exam ENT Exam: Mucous Membranes Moist, Normal Exam - Neck Exam Neck Exam: Full ROM, Normal Inspection. absent: Lymphadenopathy - Respiratory Exam Respiratory Exam: Clear to Ausculation Bilateral, NORMAL BREATHING PATTERN - Cardiovascular Exam Cardiovascular Exam: REGULAR RHYTHM, RRR, +S1, +S2 - GI/Abdominal Exam GI & Abdominal Exam: Soft, Hyperactive Bowel Sounds Additional comments: Ileostomy with red blood - Rectal Exam Rectal Exam: Deferred - Neurological Exam Neurological Exam: Alert, Awake - Psychiatric Exam Psychiatric exam: Normal Affect, Normal Mood - Skin Skin Exam: Dry, Intact Assessment and Plan - Assessment and Plan (Free Text) Assessment: 76 yr old M with multiple medical comorbidities as stated in H and P admitted for rehab found to be in septic shock with bacterimia and fungemia from sacral decibiti ulcers. GI consult requested for anemia, drop in hb. Had EGD in February 2017 showing mild gastritis at [facility]. Ileostomy done at outside hospital last month. EF 22% with severe pulm HTN as per chart and past admissions. s/p EGD at bedside yesterday am that showed deep cratered friable ulcers in duodenal bulb with protrubent vessel s/p epinephrine, two resolution clips and gold probe. ( See full report in chart). On PPI drip this am has bright red blood in ileostomy bag. Discussed with surgeon Dr Becker and torts law professor and it was deemed appropriate to send him to IR for GDA embolization. Plan: - Continue PPI drip - Trend HB/Hct and transfuse as per cardian resp status - Goal Hb as per hematology and MICU - Discussed in detail with surgeon, IR, torts law professor and PMD - Recommend IR embolization - Antibiotics and anti fungals as per ID - Sacral decubiti ulcer management as per surgical team - Ileostomy management as per surgery - No GI endoscopic intervention planned on this patient currently. - Goals of care to be discussed with family by MICU - GI / DVT prophylaxis
[2017-04-27 12:45] LABS: BASO # 0.2 K/uL (0.0-0.2); BASO % 1.1 % (0.0-2.0); EOS # 0.2 K/uL (0.0-0.7); LYMPH # 1.1 K/uL (1.0-4.3); LYMPH % 6.3 % (20.0-40.0); MEAN CELL VOLUME 89.6 fl (80.0-94.0); MEAN CORPUSCULAR HEMOGLOBIN 29.4 pg (27.0-31.0); MEAN CORPUSCULAR HGB CONC 32.8 g/dL (33.0-37.0); MEAN PLATELET VOLUME 7.8 fl (7.2-11.7); MONO # 0.7 K/uL (0.0-0.8); MONO % 4.1 % (0.0-10.0); NEUT # 14.8 K/uL (1.8-7.0); NEUT % 87.5 % (50.0-75.0); NRBC % 0.1 % (0.0-0.0); RED CELL DISTRIBUTION WIDTH 16.6 % (11.5-14.5); WHITE BLOOD COUNT 16.9 K/uL (4.8-10.8)
[2017-04-27 12:49] LABS: HEMATOCRIT 19.3 % (35.0-51.0)
[2017-04-27] MEDS ORDERED: Lidocaine 1% Inj (20ml) ONE (12:58)
[2017-04-27 13:16] LABS: PARTIAL THROMBOPLASTIN TIME 36.7 Seconds (25.6-37.1)
[2017-04-27] MEDS ORDERED: Etomidate 20 mg/10ml Inj IV ONE ×2 (13:17→14:06)
[2017-04-27] MEDS ORDERED: Midazolam 2 MG/2 ML VIAL ONE ×2 (13:17→14:04)
[2017-04-27] MEDS ORDERED: Iodixanol 320 MG/ML 100 ML BOTTLE IV ONE (13:19)
--- NOTE | 2017-04-27 14:57 | PCM.SURG1 ---
Surgeon's Initial Post Op Note - Surgeon's Notes Surgeon: Nathan Yeung MD Sample Sewer: None Type of Anesthesia: IV Sedation Pre-Operative Diagnosis: GI BLEED Operative Findings: Mesenteric angiogram showed vasospams branches of celiac artery including the GDA. No active extravasation seen. GDA embolized with interlock microcoils. Hemostasis right femoral artery with compression. Post-Operative Diagnosis: GI BLEED Operation Performed: GDA angiogram,. embolization of GDA Specimen/Specimens Removed: None Estimated Blood Loss: EBL {In ML}: 5 Blood Products Given: N/A Drains Used: No Drains Post-Op Condition: Critical Date of Surgery/Procedure: 04/27/17 Time of Surgery/Procedure: 14:55
[2017-04-27] MEDS ORDERED: Dextrose 50% SYRINGE Inj (50 ml) ONE (16:00)
[2017-04-27] MEDS ORDERED: Dextrose 50% SYRINGE Inj (50 ml) IVP ONE (16:06)
[2017-04-27] MEDS ORDERED: Dextrose 5%/Lactated Ringer's 1,000 ML IV SCH (16:15)
--- NOTE | 2017-04-27 16:39 | CP.PCM.CON ---
History of Present Illness - History of Present Illness History of Present Illness: 76M seen at bedside with pmhx of HTN, CAD, CVA, incarcerated hernia, stage 4 decubital ulcer, ileostomy bag, s/p embolization, seen at bedside in ICU after podiatry consultation. Patient was admitted to ICU on 04/14/17. Patient is unable to respond to verbal questioning at this time but is accompanied by his at bedside who is able to answer questions. Patient's states that he has been in and out of multiple hospitals since february. Patient's says that he has had the discolorated lesions on his legs for about a month now but they have started getting worse. Patient's states that they have been keeping the prevlon offloading boots on his feet at all times when he is in bed but the lesions on his heels are getting worse. Patient's states that the patient has not gotten out of bed in months. Patient's denies the patient has any n /f/v/d/c/sob. PMH: HTN, CAD, CVA, incarcerated hernia, Pulmonary hypertention, COPD, DM2, hypercholesterolemia, hyperlipidemia, SC PSH: Ileostomy (poss bowel resection) Social: denies tobacco, alcohol and illicit drugs Allergies: PCN, Sulfa Review of Systems - Constitutional Constitutional: As Per HPI Past Patient History - Infectious Disease Hx of Infectious Diseases: None - Past Medical History & Family History Past Medical History?: Yes - Past Social History Smoking Status: Never Smoked - CARDIAC Hx Cardiac Disorders: Yes Hx Congestive Heart Failure: Yes Hx Hypercholesterolemia: Yes Hx Hypertension: Yes Hx Pacemaker: No Hx Peripheral Edema: Yes (LLE +1, pitting) - PULMONARY Hx Respiratory Disorders: Yes Hx Chronic Obstructive Pulmonary Disease (COPD): Yes Hx Pneumonia: Yes - NEUROLOGICAL Hx Neurological Disorder: Yes (CVA) HX Cerebrovascular Accident: Yes - HEENT Hx HEENT Problems: Yes Hx Glaucoma: Yes - RENAL Hx Chronic Kidney Disease: Yes Hx Kidney Stones: Yes - ENDOCRINE/METABOLIC Hx Endocrine Disorders: Yes (DM) Hx Diabetes Mellitus Type 1: Yes - HEMATOLOGICAL/ONCOLOGICAL Hx Anemia: Yes Hx Human Immunodeficiency Virus (HIV): No - INTEGUMENTARY Hx Dermatological Problems: Yes (sacral ulcer) - MUSCULOSKELETAL/RHEUMATOLOGICAL Hx Musculoskeletal Disorders: Yes Hx Arthritis: Yes Hx Falls: No Hx Fractures: Yes (R hip) - GASTROINTESTINAL Hx Gastrointestinal Disorders: Yes Hx Bowel Surgery: Yes Hx Colostomy: Yes Other/Comment: 03/17/2017 - exploratory lap, small bowel resection. 03/18/2017 - returned to OR for washout, end ileostomy, abdominal closure with bridging strattice mesh. h/o abdominal hernia - GENITOURINARY/GYNECOLOGICAL Hx Genitourinary Disorders: No - PSYCHIATRIC Hx Psychophysiologic Disorder: Yes Hx Anxiety: Yes Hx Depression: Yes - SURGICAL HISTORY Hx Surgeries: Yes Hx Coronary Stent: Yes Hx Joint Replacement: Yes (hip) - ANESTHESIA Hx Anesthesia: Yes Hx Anesthesia Reactions: No (took 1 week to wake up from sx per child) Hx Malignant Hyperthermia: No Meds Allergies/Adverse Reactions: Allergies Allergy/AdvReac Type Severity Reaction Status Date / Time Penicillins Allergy URTICARIA Verified 03/30/17 22:34 Sulfa (Sulfonamide Allergy URTICARIA Verified 03/30/17 22:34 Antibiotics) - Medications Medications: Current Medications Acetaminophen (Tylenol 325mg Tab) 650 mg PO Q6 PRN PRN Reason: Pain, moderate (4-7) Last Admin: 04/22/17 17:07 Dose: 650 mg Aspirin (Aspirin) 325 mg PO DAILY [facility] Last Admin: 04/27/17 08:48 Dose: Not Given Atorvastatin Calcium (Lipitor) 40 mg PO DAILY [facility] Last Admin: 04/27/17 11:48 Dose: Not Given Atorvastatin Calcium (Lipitor) 10 mg PO DAILY [facility] Last Admin: 04/27/17 11:49 Dose: Not Given Ferrous Gluconate (Fergon) 324 mg PO TID [facility] Last Admin: 04/27/17 16:17 Dose: Not Given Aztreonam 1 gm/ Sodium (Chloride) 100 mls @ 100 mls/hr IVPB Q8 [facility] Last Admin: 04/27/17 16:13 Dose: 100 mls/hr Micafungin Sodium 100 mg/ (Sodium Chloride) 100 mls @ 100 mls/hr IVPB DAILY [facility] Last Admin: 04/27/17 08:26 Dose: 100 mls/hr Vancomycin HCl 1 gm/ Sodium (Chloride) 250 mls @ 250 mls/hr IVPB Q24H [facility] Last Admin: 04/26/17 19:41 Dose: 250 mls/hr Metronidazole (Flagyl 500mg/100ml Ns) 100 mls @ 100 mls/hr IVPB Q8 [facility] Last Admin: 04/27/17 16:18 Dose: 100 mls/hr Lacosamide 200mg/20ml 100 mg/ (Sodium Chloride) 110 mls @ 110 mls/hr IVPB Q12H [facility] Last Admin: 04/27/17 07:06 Dose: 110 mls/hr Dextrose/Lactated Ringer's (Dextrose 5%/Lactated Ringer's) 1,000 mls @ 100 mls/ hr IV .Q10H [facility] Stop: 04/28/17 16:07 Last Admin: 04/27/17 16:17 Dose: 100 mls/hr Insulin Human Lispro (Humalog) 0 units SC ACHS [facility] PRN Reason: Protocol Last Admin: 04/27/17 16:18 Dose: Not Given Pantoprazole Sodium (Protonix Inj) 40 mg IVP Q12 [facility] Silver Sulfadiazine (Silvadene 1% 20 Gm) 0 ea TOP DAILY [facility] Physical Exam - Constitutional Appears: Non-toxic, No Acute Distress - Extremities Exam Additional comments: Lower extremity exam: Vasc: nonpalpable / non-dopplerable pedal pulses b/l, TG warm to cool, CFT < 4 sec to all digits neuro: grossly diminished derm: superficial necrotic lesions on the anterior shins extending proximally to the tibial tuberosity b/l, superficial ulceration of L 4th interspace with no drainage, no purulence, no malodor, dry eschar on tip of toe, slightly macerated. left medial foot noted superficial necrotic lesion with whitish area to the lesion, no malodor, no purulence, no underlying abscess or fluctuance, dry necrotic heel eschar consistent with deep tissue injury noted on bilateral heels L > R, no ascending cellulitis, no edema ortho: diminished ROM, no pain on palpation to necrotic skin lesions of foot b/l - Neurological Exam Neurological exam: Alert Results - Vital Signs Recent Vital Signs: Last Vital Signs Temp 96 F L 04/27/17 13:44 Pulse 92 H 04/27/17 13:44 Resp 22 04/27/17 13:44 BP 70/36 L 04/27/17 12:00 Pulse Ox 92 L 04/27/17 13:44 - Labs Result Diagrams: 04/27/17 12:30 04/27/17 06:58 Labs: Laboratory Results - last 24 hr 04/26/17 04/26/17 04/26/17 16:58 17:49 21:36 WBC RBC Hgb Hct MCV MCH MCHC RDW Plt Count MPV Neut % (Auto) Lymph % (Auto) Bartholomew % (Auto) Eos % (Auto) Baso % (Auto) Neut # Lymph # Bartholomew # Eos # Baso # PT INR APTT Sodium Potassium Chloride Carbon Dioxide Anion Gap BUN Creatinine Est GFR ( Amer) Est GFR (Non-Af Amer) POC Glucose (mg/dL) 40 L 178 H 132 H Random Glucose Calcium Total Bilirubin AST ALT Alkaline Phosphatase Total Protein Albumin Globulin Albumin/Globulin Ratio Vancomycin Trough Blood Type Antibody Screen Crossmatch BBK History Checked 04/27/17 04/27/17 04/27/17 06:21 06:58 06:58 WBC 14.7 H RBC 2.79 L Hgb 8.1 L Hct 25.1 L MCV 89.8 MCH 28.9 MCHC 32.2 L RDW 16.1 H Plt Count 217 MPV 7.5 Neut % (Auto) 84.9 H Lymph % (Auto) 6.3 L Bartholomew % (Auto) 4.6 Eos % (Auto) 3.3 Baso % (Auto) 0.9 Neut # 12.5 H Lymph # 0.9 L Bartholomew # 0.7 Eos # 0.5 Baso # 0.1 PT 18.0 H INR 1.6 H APTT 37.4 H Sodium Potassium Chloride Carbon Dioxide Anion Gap BUN Creatinine Est GFR ( Amer) Est GFR (Non-Af Amer) POC Glucose (mg/dL) 63 L Random Glucose Calcium Total Bilirubin AST ALT Alkaline Phosphatase Total Protein Albumin Globulin Albumin/Globulin Ratio Vancomycin Trough Blood Type Antibody Screen Crossmatch BBK History Checked 04/27/17 04/27/17 04/27/17 06:58 06:58 11:00 WBC RBC Hgb Hct MCV MCH MCHC RDW Plt Count MPV Neut % (Auto) Lymph % (Auto) Bartholomew % (Auto) Eos % (Auto) Baso % (Auto) Neut # Lymph # Bartholomew # Eos # Baso # PT INR APTT Sodium 141 Potassium 3.7 Chloride 118 H Carbon Dioxide 18 L Anion Gap 9 L BUN 31 H Creatinine 0.7 L Est GFR ( Amer) > 60 Est GFR (Non-Af Amer) > 60 POC Glucose (mg/dL) 127 H Random Glucose 74 L Calcium 7.8 L Total Bilirubin 0.5 AST 23 ALT 29 Alkaline Phosphatase 66 Total Protein 4.8 L Albumin 1.9 L Globulin 2.9 Albumin/Globulin Ratio 0.7 L Vancomycin Trough 25.4 H Blood Type Antibody Screen Crossmatch BBK History Checked 04/27/17 04/27/17 04/27/17 12:30 12:30 12:30 WBC 16.9 H RBC 2.15 L Hgb 6.3 L* Hct 19.3 L MCV 89.6 MCH 29.4 MCHC 32.8 L RDW 16.6 H Plt Count 268 MPV 7.8 Neut % (Auto) 87.5 H Lymph % (Auto) 6.3 L Bartholomew % (Auto) 4.1 Eos % (Auto) 1.0 Baso % (Auto) 1.1 Neut # 14.8 H Lymph # 1.1 Bartholomew # 0.7 Eos # 0.2 Baso # 0.2 PT 21.1 H INR 1.8 H APTT 36.7 Sodium Potassium Chloride Carbon Dioxide Anion Gap BUN Creatinine Est GFR ( Amer) Est GFR (Non-Af Amer) POC Glucose (mg/dL) Random Glucose Calcium Total Bilirubin AST ALT Alkaline Phosphatase Total Protein Albumin Globulin Albumin/Globulin Ratio Vancomycin Trough Blood Type O POSITIVE Antibody Screen Negative Crossmatch See Detail BBK History Checked Patient has bt 04/27/17 16:01 WBC RBC Hgb Hct MCV MCH MCHC RDW Plt Count MPV Neut % (Auto) Lymph % (Auto) Bartholomew % (Auto) Eos % (Auto) Baso % (Auto) Neut # Lymph # Bartholomew # Eos # Baso # PT INR APTT Sodium Potassium Chloride Carbon Dioxide Anion Gap BUN Creatinine Est GFR ( Amer) Est GFR (Non-Af Amer) POC Glucose (mg/dL) 53 L Random Glucose Calcium Total Bilirubin AST ALT Alkaline Phosphatase Total Protein Albumin Globulin Albumin/Globulin Ratio Vancomycin Trough Blood Type Antibody Screen Crossmatch BBK History Checked Assessment & Plan - Assessment and Plan (Free Text) Assessment: 76 y/o male seen at bedside in ICU for necrotic heel wounds secondary to deep tissue injury and superficial ulcerations secondary to PAD Plan: patient evaluated and chart reviewed discussed in detail with attending Dr. Garcia labs and vitals reviewed; WBC 16.9 Pt. to continue IV abx as per ID applied betadine, DSD to left foot Rx silvadene cream to apply daily continue offloading prevlon boots to LE at all times while bedbound f/u wound cx, fungal cx vascular studies performed in 01/06 show severe tibial disease L worse than R podiatry will continue to follow while patient remains in house
--- NOTE | 2017-04-27 18:13 | CP.PCM.PN ---
Subjective - Date & Time of Evaluation Date of Evaluation: 04/27/17 Time of Evaluation: 09:00 - Subjective Subjective: Patient reports feeling weak. Ileostomy bag filled with loose melanotic liquid stool. Wound vac in place Objective - Vital Signs/Intake and Output Vital Signs (last 24 hours): Temp Pulse Resp BP Pulse Ox 96 F L 92 H 22 70/36 L 92 L 04/27/17 13:44 04/27/17 13:44 04/27/17 13:44 04/27/17 12:00 04/27/17 13:44 Intake and Output: 04/27/17 04/27/17 06:59 18:59 Intake Total 1216 1062.5 Output Total 1000 1500 Balance 216 -437.5 - Medications Medications: Current Medications Acetaminophen (Tylenol 325mg Tab) 650 mg PO Q6 PRN PRN Reason: Pain, moderate (4-7) Last Admin: 04/22/17 17:07 Dose: 650 mg Aspirin (Aspirin) 325 mg PO DAILY [facility] Last Admin: 04/27/17 08:48 Dose: Not Given Atorvastatin Calcium (Lipitor) 40 mg PO DAILY [facility] Last Admin: 04/27/17 11:48 Dose: Not Given Atorvastatin Calcium (Lipitor) 10 mg PO DAILY [facility] Last Admin: 04/27/17 11:49 Dose: Not Given Ferrous Gluconate (Fergon) 324 mg PO TID [facility] Last Admin: 04/27/17 16:17 Dose: Not Given Aztreonam 1 gm/ Sodium (Chloride) 100 mls @ 100 mls/hr IVPB Q8 [facility] Last Admin: 04/27/17 16:13 Dose: 100 mls/hr Micafungin Sodium 100 mg/ (Sodium Chloride) 100 mls @ 100 mls/hr IVPB DAILY [facility] Last Admin: 04/27/17 08:26 Dose: 100 mls/hr Vancomycin HCl 1 gm/ Sodium (Chloride) 250 mls @ 250 mls/hr IVPB Q24H [facility] Last Admin: 04/26/17 19:41 Dose: 250 mls/hr Metronidazole (Flagyl 500mg/100ml Ns) 100 mls @ 100 mls/hr IVPB Q8 [facility] Last Admin: 04/27/17 16:18 Dose: 100 mls/hr Lacosamide 200mg/20ml 100 mg/ (Sodium Chloride) 110 mls @ 110 mls/hr IVPB Q12H [facility] Last Admin: 04/27/17 07:06 Dose: 110 mls/hr Dextrose/Lactated Ringer's (Dextrose 5%/Lactated Ringer's) 1,000 mls @ 100 mls/ hr IV .Q10H [facility] Stop: 04/28/17 16:07 Last Admin: 04/27/17 16:17 Dose: 100 mls/hr Insulin Human Lispro (Humalog) 0 units SC ACHS [facility] PRN Reason: Protocol Last Admin: 04/27/17 16:18 Dose: Not Given Pantoprazole Sodium (Protonix Inj) 40 mg IVP Q12 [facility] Silver Sulfadiazine (Silvadene 1% 20 Gm) 0 ea TOP DAILY [facility] - Labs Labs: 04/27/17 12:30 04/27/17 06:58 PT 21.1 Seconds (9.8-13.1) H 04/27/17 12:30 INR 1.8 (0.9-1.2) H 04/27/17 12:30 APTT 36.7 Seconds (25.6-37.1) 04/27/17 12:30 - Constitutional Appears: Toxic, Cachectic, Chronically Ill - Head Exam Head Exam: NORMOCEPHALIC - Eye Exam Eye Exam: PERRL. absent: Scleral icterus - ENT Exam ENT Exam: Mucous Membranes Dry - Neck Exam Neck Exam: absent: Lymphadenopathy - Respiratory Exam Respiratory Exam: Decreased Breath Sounds - Cardiovascular Exam Cardiovascular Exam: REGULAR RHYTHM - GI/Abdominal Exam GI & Abdominal Exam: Distended, Guarding, Tenderness - Rectal Exam Rectal Exam: Deferred - Exam Exam: NORMAL INSPECTION - Extremities Exam Extremities Exam: absent: Pedal Edema - Back Exam Back Exam: absent: CVA tenderness (L), CVA tenderness (R) - Neurological Exam Neurological Exam: Alert - Psychiatric Exam Psychiatric exam: Depressed Assessment and Plan (1) Septic shock Status: Acute (2) Bacteremia Status: Acute (3) Bacteremia Status: Acute (4) Fever Status: Acute (5) CHF (congestive heart failure) Status: Acute (6) Dementia Status: Acute (7) PVD (peripheral vascular disease) Status: Acute
[2017-04-27] MEDS: Norepinephrine 8 MG in Dextrose 5% In Water 500 ML IV SCH (22:00)
[2017-04-27] MEDS ORDERED: Sodium Chloride 0.9% 250 ML IV SCH (22:15)
[2017-04-27] MEDS ORDERED: Sodium Chloride 0.9% 500 ML IV SCH (22:15)
[2017-04-28] MEDS: metroNIDAZOLE 500mg/100ml NS 100 ML IVPB SCH ×3 (00:45→20:18)
[2017-04-28] MEDS: Aztreonam 1 GM in Sodium Chloride 0.9% 100 ML IVPB SCH ×3 (01:48→20:15)
[2017-04-28] MEDS: Dextrose 5%/0.9% NS 1,000 ML IV SCH ×2 (04:30→18:00)
[2017-04-28 05:26] LABS: BASO # 0.2 K/uL (0.0-0.2); BASO % 0.9 % (0.0-2.0); EOS # 0.1 K/uL (0.0-0.7); EOS % 0.7 % (0.0-4.0); LYMPH # 1.6 K/uL (1.0-4.3); LYMPH % 8.9 % (20.0-40.0); MEAN CELL VOLUME 91.3 fl (80.0-94.0); MEAN CORPUSCULAR HGB CONC 32.8 g/dL (33.0-37.0); MEAN PLATELET VOLUME 8.1 fl (7.2-11.7); MONO # 1.1 K/uL (0.0-0.8); MONO % 6.4 % (0.0-10.0); NEUT # 14.7 K/uL (1.8-7.0); NEUT % 83.1 % (50.0-75.0); RED CELL DISTRIBUTION WIDTH 15.4 % (11.5-14.5); WHITE BLOOD COUNT 17.7 K/uL (4.8-10.8)
[2017-04-28 05:33] LABS: ALB/GLOB RATIO 0.7 (1.0-2.1); ALKALINE PHOSPHATASE 59 U/L (38-126); ALT/SGPT 29 U/L (21-72); AST/SGOT 21 U/L (17-59); BILIRUBIN,TOTAL 0.6 mg/dl (0.2-1.3); BLOOD UREA NITROGEN 33 mg/dl (9-20); CALCIUM 7.1 mg/dL (8.4-10.2); CARBON DIOXIDE 17 mmol/L (22-30); CHLORIDE 113 mmol/L (98-107); GFR AFRICAN-AMERICAN > 60; GLUCOSE,RANDOM 236 mg/dL (75-110); POTASSIUM 4.2 MMOL/L (3.6-5.0); SODIUM 136 mmol/l (132-148); TOTAL PROTEIN 4.5 G/DL (6.3-8.2)
[2017-04-28 05:45] LABS: PARTIAL THROMBOPLASTIN TIME 33.9 Seconds (25.6-37.1)
[2017-04-28] MEDS ORDERED: Sodium Chloride 0.9% 500 ML IV ONE ×2 (06:14→09:54)
[2017-04-28] MEDS: Insulin Lispro (humaLOG) 100 Units/ml Inj SC SCH ×4 (07:35→22:00)
[2017-04-28] MEDS: Lacosamide 200mg/20ml 100 MG in Sodium Chloride 0.9% 100 ML IVPB SCH ×2 (07:40→20:27)
[2017-04-28] MEDS ORDERED: Sodium Chloride 0.9% 500 ML IV SCH (07:45)
[2017-04-28] MEDS: Micafungin 100 MG in Sodium Chloride 0.9% 100 ML IVPB SCH (08:13)
--- NOTE | 2017-04-28 08:35 | CP.PCM.PN ---
Subjective - Date & Time of Evaluation Date of Evaluation: 04/28/17 Time of Evaluation: 08:35 - Subjective Subjective: Pt continues to have bleeding in the ileotomy and his hgb today is kelly 5.9gms. . He was transfused 2 units of PRBC yesterday, along with 2 units of plasma.. there is a possibility that pt may need to be explored. In that case he needs 2 more units of PRBC, and 2 units FFP. He shahid very critically ill and surgical team is waiting for the family to call back re him going to surgery Objective - Vital Signs/Intake and Output Vital Signs (last 24 hours): Temp Pulse Resp BP Pulse Ox 98.1 F 88 18 90/58 L 100 04/28/17 04:00 04/28/17 06:00 04/28/17 06:00 04/28/17 06:00 04/28/17 06:00 Intake and Output: 04/28/17 04/28/17 06:59 18:59 Intake Total 2573 Output Total 1700 Balance 873 - Medications Medications: Current Medications Acetaminophen (Tylenol 325mg Tab) 650 mg PO Q6 PRN PRN Reason: Pain, moderate (4-7) Last Admin: 04/22/17 17:07 Dose: 650 mg Aspirin (Aspirin) 325 mg PO DAILY [facility] Last Admin: 04/28/17 08:09 Dose: Not Given Atorvastatin Calcium (Lipitor) 40 mg PO DAILY [facility] Last Admin: 04/28/17 08:12 Dose: Not Given Atorvastatin Calcium (Lipitor) 10 mg PO DAILY [facility] Last Admin: 04/28/17 08:13 Dose: Not Given Ferrous Gluconate (Fergon) 324 mg PO TID [facility] Last Admin: 04/27/17 16:17 Dose: Not Given Aztreonam 1 gm/ Sodium (Chloride) 100 mls @ 100 mls/hr IVPB Q8 [facility] Last Admin: 04/28/17 08:10 Dose: 100 mls/hr Micafungin Sodium 100 mg/ (Sodium Chloride) 100 mls @ 100 mls/hr IVPB DAILY [facility] Last Admin: 04/28/17 08:13 Dose: 100 mls/hr Vancomycin HCl 1 gm/ Sodium (Chloride) 250 mls @ 250 mls/hr IVPB Q24H [facility] Last Admin: 04/27/17 18:27 Dose: Not Given Metronidazole (Flagyl 500mg/100ml Ns) 100 mls @ 100 mls/hr IVPB Q8 [facility] Last Admin: 04/28/17 08:12 Dose: 100 mls/hr Lacosamide 200mg/20ml 100 mg/ (Sodium Chloride) 110 mls @ 110 mls/hr IVPB Q12H [facility] Last Admin: 04/28/17 07:40 Dose: 110 mls/hr Norepinephrine Bitartrate 8 mg (/ Dextrose) 508 mls @ 38.1 mls/hr IV .[id number] [facility]; 10 MCG/MIN PRN Reason: Protocol Last Titration: 04/28/17 02:45 Dose: 10 mcg/min, 38.1 mls/hr Dextrose/Sodium Chloride (Dextrose 5%/0.9% Ns 1000 Ml) 1,000 mls @ 100 mls/hr IV .Q10H [facility] Stop: 04/29/17 04:06 Last Admin: 04/28/17 04:30 Dose: 100 mls/hr Sodium Chloride (Sodium Chloride 0.9%) 500 mls @ 0 mls/hr IV .Q0M [facility] PRN Reason: As Directed Last Admin: 04/28/17 08:00 Dose: 500 mls/hr Insulin Human Lispro (Humalog) 0 units SC ACHS [facility] PRN Reason: Protocol Last Admin: 04/28/17 07:35 Dose: 1 unit Pantoprazole Sodium (Protonix Inj) 40 mg IVP Q12 [facility] Last Admin: 04/27/17 22:08 Dose: 40 mg Silver Sulfadiazine (Silvadene 1% 20 Gm) 0 ea TOP DAILY [facility] - Labs Labs: 04/28/17 05:00 04/28/17 05:00 PT 19.0 Seconds (9.8-13.1) H 04/28/17 05:00 INR 1.7 (0.9-1.2) H 04/28/17 05:00 APTT 33.9 Seconds (25.6-37.1) 04/28/17 05:00
[2017-04-28] MEDS ORDERED: Silver Sulfadiazine 1% Cream (20 gm) TOP SCH (09:00)
[2017-04-28] MEDS ORDERED: Etomidate 20 mg/10ml Inj IV ONE (09:03)
[2017-04-28] MEDS ORDERED: Sodium Chloride 0.9% 250 ML IV ONE ×2 (09:18)
--- NOTE | 2017-04-28 09:36 | CP.PCM.PN ---
Subjective - Date & Time of Evaluation Date of Evaluation: 04/28/17 Time of Evaluation: 07:30 - Subjective Subjective: Patient seen and evaluated at bedside with attending. Spoke with health nurse/ consultatnts. No acute events overnight though patient continues to have alexsandra bleeding from ileostomy bag. Denies pain. Continues to require pressors. Afebrile. s/p Embolization yesterday. Feels weak. Objective - Vital Signs/Intake and Output Vital Signs (last 24 hours): Temp Pulse Resp BP Pulse Ox 98.1 F 88 18 90/58 L 100 04/28/17 04:00 04/28/17 06:00 04/28/17 06:00 04/28/17 06:00 04/28/17 06:00 Intake and Output: 04/28/17 04/28/17 06:59 18:59 Intake Total 2573 50 Output Total 1700 Balance 873 50 - Medications Medications: Current Medications Acetaminophen (Tylenol 325mg Tab) 650 mg PO Q6 PRN PRN Reason: Pain, moderate (4-7) Last Admin: 04/22/17 17:07 Dose: 650 mg Aspirin (Aspirin) 325 mg PO DAILY [facility] Last Admin: 04/28/17 08:09 Dose: Not Given Atorvastatin Calcium (Lipitor) 40 mg PO DAILY [facility] Last Admin: 04/28/17 08:12 Dose: Not Given Atorvastatin Calcium (Lipitor) 10 mg PO DAILY [facility] Last Admin: 04/28/17 08:13 Dose: Not Given Ferrous Gluconate (Fergon) 324 mg PO TID [facility] Last Admin: 04/28/17 08:27 Dose: Not Given Aztreonam 1 gm/ Sodium (Chloride) 100 mls @ 100 mls/hr IVPB Q8 [facility] Last Admin: 04/28/17 08:10 Dose: 100 mls/hr Micafungin Sodium 100 mg/ (Sodium Chloride) 100 mls @ 100 mls/hr IVPB DAILY [facility] Last Admin: 04/28/17 08:13 Dose: 100 mls/hr Vancomycin HCl 1 gm/ Sodium (Chloride) 250 mls @ 250 mls/hr IVPB Q24H [facility] Last Admin: 04/27/17 18:27 Dose: Not Given Metronidazole (Flagyl 500mg/100ml Ns) 100 mls @ 100 mls/hr IVPB Q8 [facility] Last Admin: 04/28/17 08:12 Dose: 100 mls/hr Lacosamide 200mg/20ml 100 mg/ (Sodium Chloride) 110 mls @ 110 mls/hr IVPB Q12H [facility] Last Admin: 04/28/17 07:40 Dose: 110 mls/hr Norepinephrine Bitartrate 8 mg (/ Dextrose) 508 mls @ 38.1 mls/hr IV .[id number] [facility]; 10 MCG/MIN PRN Reason: Protocol Last Titration: 04/28/17 02:45 Dose: 10 mcg/min, 38.1 mls/hr Dextrose/Sodium Chloride (Dextrose 5%/0.9% Ns 1000 Ml) 1,000 mls @ 100 mls/hr IV .Q10H [facility] Stop: 04/29/17 04:06 Last Admin: 04/28/17 04:30 Dose: 100 mls/hr Sodium Chloride (Sodium Chloride 0.9%) 500 mls @ 0 mls/hr IV .Q0M [facility] PRN Reason: As Directed Last Admin: 04/28/17 08:00 Dose: 500 mls/hr Insulin Human Lispro (Humalog) 0 units SC ACHS [facility] PRN Reason: Protocol Last Admin: 04/28/17 07:35 Dose: 1 unit Pantoprazole Sodium (Protonix Inj) 40 mg IVP Q12 [facility] Last Admin: 04/28/17 08:30 Dose: 40 mg Silver Sulfadiazine (Silvadene 1% 20 Gm) 0 ea TOP DAILY [facility] Last Admin: 04/28/17 08:26 Dose: 3 applic - Labs Labs: 04/28/17 05:00 04/28/17 05:00 PT 19.0 Seconds (9.8-13.1) H 04/28/17 05:00 INR 1.7 (0.9-1.2) H 04/28/17 05:00 APTT 33.9 Seconds (25.6-37.1) 04/28/17 05:00 - Constitutional Appears: Non-toxic, No Acute Distress, Chronically Ill - Head Exam Head Exam: ATRAUMATIC, NORMAL INSPECTION, NORMOCEPHALIC - Eye Exam Eye Exam: Normal appearance - Respiratory Exam Respiratory Exam: Clear to Ausculation Bilateral, NORMAL BREATHING PATTERN - Cardiovascular Exam Cardiovascular Exam: REGULAR RHYTHM, +S1, +S2. absent: Murmur - GI/Abdominal Exam GI & Abdominal Exam: Soft, Normal Bowel Sounds. absent: Tenderness Additional comments: ileostomy bag with alexsandra red blood noted - Extremities Exam Extremities Exam: Normal Inspection - Neurological Exam Neurological Exam: Alert, Awake - Psychiatric Exam Psychiatric exam: Flat Affect - Skin Skin Exam: Pallor Assessment and Plan (1) Anemia Assessment & Plan: Hgb 5.9 today (s/p EGD 2 days ago with ulcers noted though not actively bleeding at that time, s/p embolization yesterday) On PPI drip Heme/onc on board, appreciate input, continue replacement as needed GI on board considering repeat scope Surgery considering exploratory patient with continued anemia despite multiple pRBC transfusions Bleeding scan ordered this am Status: Acute (2) Decubitus skin ulcer Assessment & Plan: Surgery on board s/p debridement. Draining appropriately. Afebrile. C/w recommendations at this time including wound vac Status: Acute (3) Septic shock Assessment & Plan: Afebrile. uptrending WBC over last 2 days No fever chills Still requiring levophed Continue to monitor in ICU, appreciate health nurse input Continue ABx per ID management Status: Acute
--- NOTE | 2017-04-28 10:12 | CP.PCM.PN ---
Subjective - Date & Time of Evaluation Date of Evaluation: 04/28/17 Time of Evaluation: 10:07 - Subjective Subjective: 76 y/o male seen at bedside in ICU for necrotic pressure ulcer of the heel b/l and necrotic eschars bilaterally. Pt appears to be resting comfortably in NAD and is alert and awake. Pt appears to be weak and is responding to verbal stimuli. Pt's dressing remains clean, dry and intact. Multipodus boots are intact to LE b/l Objective - Vital Signs/Intake and Output Vital Signs (last 24 hours): Temp Pulse Resp BP Pulse Ox 98.1 F 88 18 90/58 L 100 04/28/17 04:00 04/28/17 06:00 04/28/17 06:00 04/28/17 06:00 04/28/17 06:00 Intake and Output: 04/28/17 04/28/17 06:59 18:59 Intake Total 2573 250 Output Total 1700 Balance 873 250 - Medications Medications: Current Medications Acetaminophen (Tylenol 325mg Tab) 650 mg PO Q6 PRN PRN Reason: Pain, moderate (4-7) Last Admin: 04/22/17 17:07 Dose: 650 mg Aspirin (Aspirin) 325 mg PO DAILY [facility] Last Admin: 04/28/17 08:09 Dose: Not Given Atorvastatin Calcium (Lipitor) 40 mg PO DAILY [facility] Last Admin: 04/28/17 08:12 Dose: Not Given Atorvastatin Calcium (Lipitor) 10 mg PO DAILY [facility] Last Admin: 04/28/17 08:13 Dose: Not Given Ferrous Gluconate (Fergon) 324 mg PO TID [facility] Last Admin: 04/28/17 08:27 Dose: Not Given Aztreonam 1 gm/ Sodium (Chloride) 100 mls @ 100 mls/hr IVPB Q8 [facility] Last Admin: 04/28/17 08:10 Dose: 100 mls/hr Micafungin Sodium 100 mg/ (Sodium Chloride) 100 mls @ 100 mls/hr IVPB DAILY [facility] Last Admin: 04/28/17 08:13 Dose: 100 mls/hr Vancomycin HCl 1 gm/ Sodium (Chloride) 250 mls @ 250 mls/hr IVPB Q24H [facility] Last Admin: 04/27/17 18:27 Dose: Not Given Metronidazole (Flagyl 500mg/100ml Ns) 100 mls @ 100 mls/hr IVPB Q8 [facility] Last Admin: 04/28/17 08:12 Dose: 100 mls/hr Lacosamide 200mg/20ml 100 mg/ (Sodium Chloride) 110 mls @ 110 mls/hr IVPB Q12H [facility] Last Admin: 04/28/17 07:40 Dose: 110 mls/hr Norepinephrine Bitartrate 8 mg (/ Dextrose) 508 mls @ 38.1 mls/hr IV .[id number] [facility]; 10 MCG/MIN PRN Reason: Protocol Last Titration: 04/28/17 02:45 Dose: 10 mcg/min, 38.1 mls/hr Dextrose/Sodium Chloride (Dextrose 5%/0.9% Ns 1000 Ml) 1,000 mls @ 100 mls/hr IV .Q10H [facility] Stop: 04/29/17 04:06 Last Admin: 04/28/17 04:30 Dose: 100 mls/hr Sodium Chloride (Sodium Chloride 0.9%) 500 mls @ 0 mls/hr IV .Q0M [facility] PRN Reason: As Directed Last Admin: 04/28/17 08:00 Dose: 500 mls/hr Insulin Human Lispro (Humalog) 0 units SC ACHS [facility] PRN Reason: Protocol Last Admin: 04/28/17 07:35 Dose: 1 unit Pantoprazole Sodium (Protonix Inj) 40 mg IVP Q12 [facility] Last Admin: 04/28/17 08:30 Dose: 40 mg Silver Sulfadiazine (Silvadene 1% 20 Gm) 0 ea TOP DAILY [facility] Last Admin: 04/28/17 08:26 Dose: 3 applic - Labs Labs: 04/28/17 05:00 04/28/17 05:00 PT 19.0 Seconds (9.8-13.1) H 04/28/17 05:00 INR 1.7 (0.9-1.2) H 04/28/17 05:00 APTT 33.9 Seconds (25.6-37.1) 04/28/17 05:00 - Constitutional Appears: Well, Non-toxic, No Acute Distress - Extremities Exam Additional comments: VASC: DP/PT pulses are non-palpable, FRAME HAND: < 4 sec to all digits, TG: warm to cool DERM: Superficial necrotic lesions noted distal to the knee extending to ankle on anterior estevez b/l, dry necrotic ulcer on the heels b/l (L>R), superficial ulceration of L 4th interspace, no active drainage, no probe to bone, no tunneling, no undermining, no malodor noted, no purulence NEURO: Grossly intact ORTHO: pain on palpation to necrotic skin lesions of foot b/l - Neurological Exam Neurological Exam: Alert, Awake Assessment and Plan - Assessment and Plan (Free Text) Assessment: 76 y/o male seen at bedside in ICU for necrotic heel wounds secondary to deep tissue injury and superficial ulceration secondary to PAD Plan: Pt evaluated and chart reviewed Pt discussed with attending Dr. Garcia Labs and vitals reviewed; WBC: 17.7 (16.9 previously) Pt to continue IV abx as per ID Dressing changed bilaterally using silvadine, betadine, DSD and kerlix Continue offloading boots to LE b/l Wound cx: pending Podiatry to follow the pt while in-house
--- NOTE | 2017-04-28 11:06 | PCM.ANES ---
Anesthesia Emergent Intubation - Diagnosis Working Diagnosis:: SEPTIC SHOCK - Consult Reason for Consult:: septic shock - Intubation Attempts Previous Number of Intubation Attempts:: 0 - Pre-Intubation Vital Signs Blood Pressure: 90/49 Heart Rate: 85 Respiratory Rate: 24 O2 Sat: 98 FIO2: 30 Oxygen Delivery Method: Nasal Cannula Level Of Consciousness: Lethargic - Airway Management Oropharyngeal Area Suctioned: Yes Inhalation: No Rapid Sequence: No Cricoid Pressure: Yes Possible Aspiration: No - Method of Intubation Intubation Method: Oral ETT ETT Size: 8 Lipline@: 22 Easy: Yes Atramatic: Yes - Intubation Devices Adal Blade Size Used: 3 Jennifer Forcepts Used: No Swan Scope Used: No Fiber Optic Scope: No - Placement Confirmation Breath Sounds Present & Equal Bilaterally: Yes Gurgling Sounds Not Audible at Epigastrum: No Positive EtCO2: Yes Portable CXR: No Recommendations: Ventilator, Chest X Ray, ABG - Post-Intubation Vital Signs Blood Pressure: 73/51 Heart Rate: 93 Respiratory Rate: 12 O2 Sat: 100 FIO2: 100
[2017-04-28 12:17] LABS: ABG ALLEN TEST YES; ABG MECHANICAL RATE 12; ARTERIAL BLOOD GAS HCO3 15.6 mmol/L (21-28); ARTERIAL BLOOD GAS MODE PRVC/AC; ARTERIAL BLOOD GAS O2 CAPACITY 10.9 mL/dL (16-24); ARTERIAL BLOOD GAS O2 CONTENT 8.6 ML/dL (15-23); ARTERIAL BLOOD GAS PH 7.29 (7.35-7.45); ARTERIAL BLOOD GAS PO2 38 mm/Hg (80-100); ARTERIAL BLOOD HGB O2 SAT 75.7 % (95.0-98.0); CARBOXYHEMOGLOBIN 1.9 % (0.5-1.5); HHB 20.5 % (0.0-5.0)
[2017-04-28] MEDS ORDERED: Iohexol 300 100 ML IJ ONE (13:15)
[2017-04-28] MEDS ORDERED: Sodium Chloride 0.9% 50 ML IV ONE (13:15)
--- NOTE | 2017-04-28 13:17 | RAD ---
HISTORY: post intubation COMPARISON: 04/14/2017 FINDINGS: LUNGS: Atelectasis/ suboptimal inspiratory effort resulting in lower lobe infiltrates left greater than right PLEURA: Small left pleural effusion a new finding. CARDIOVASCULAR: Normal. OSSEOUS STRUCTURES: No significant abnormalities. VISUALIZED UPPER ABDOMEN: Normal. OTHER FINDINGS: Satisfactory position of endotracheal tube and venous access catheter. IMPRESSION: Lower lobe infiltrates/atelectasis and new left pleural effusion.
--- NOTE | 2017-04-28 13:40 | CP.PCM.PN ---
Subjective - Date & Time of Evaluation Date of Evaluation: 04/28/17 Time of Evaluation: 08:00 - Subjective Subjective: events noted intubated in ICU for OR Objective - Vital Signs/Intake and Output Vital Signs (last 24 hours): Temp Pulse Resp BP Pulse Ox 97.7 F 93 H 20 113/58 L 100 04/28/17 12:00 04/28/17 12:00 04/28/17 12:00 04/28/17 12:00 04/28/17 12:00 Intake and Output: 04/28/17 04/28/17 06:59 18:59 Intake Total 2573 300 Output Total 1700 Balance 873 300 - Medications Medications: Current Medications Acetaminophen (Tylenol 325mg Tab) 650 mg PO Q6 PRN PRN Reason: Pain, moderate (4-7) Last Admin: 04/22/17 17:07 Dose: 650 mg Atorvastatin Calcium (Lipitor) 40 mg PO DAILY [facility] Last Admin: 04/28/17 08:12 Dose: Not Given Atorvastatin Calcium (Lipitor) 10 mg PO DAILY [facility] Last Admin: 04/28/17 08:13 Dose: Not Given Ferrous Gluconate (Fergon) 324 mg PO TID [facility] Last Admin: 04/28/17 12:40 Dose: Not Given Aztreonam 1 gm/ Sodium (Chloride) 100 mls @ 100 mls/hr IVPB Q8 [facility] Last Admin: 04/28/17 08:10 Dose: 100 mls/hr Micafungin Sodium 100 mg/ (Sodium Chloride) 100 mls @ 100 mls/hr IVPB DAILY [facility] Last Admin: 04/28/17 08:13 Dose: 100 mls/hr Vancomycin HCl 1 gm/ Sodium (Chloride) 250 mls @ 250 mls/hr IVPB Q24H [facility] Last Admin: 04/27/17 18:27 Dose: Not Given Metronidazole (Flagyl 500mg/100ml Ns) 100 mls @ 100 mls/hr IVPB Q8 [facility] Last Admin: 04/28/17 08:12 Dose: 100 mls/hr Lacosamide 200mg/20ml 100 mg/ (Sodium Chloride) 110 mls @ 110 mls/hr IVPB Q12H [facility] Last Admin: 04/28/17 07:40 Dose: 110 mls/hr Norepinephrine Bitartrate 8 mg (/ Dextrose) 508 mls @ 38.1 mls/hr IV .[id number] [facility]; 10 MCG/MIN PRN Reason: Protocol Last Titration: 04/28/17 02:45 Dose: 10 mcg/min, 38.1 mls/hr Dextrose/Sodium Chloride (Dextrose 5%/0.9% Ns 1000 Ml) 1,000 mls @ 100 mls/hr IV .Q10H [facility] Stop: 04/29/17 04:06 Last Admin: 04/28/17 04:30 Dose: 100 mls/hr Sodium Chloride (Sodium Chloride 0.9%) 500 mls @ 0 mls/hr IV .Q0M [facility] PRN Reason: As Directed Last Admin: 04/28/17 08:00 Dose: 500 mls/hr Norepinephrine Bitartrate 8 mg (/ Dextrose) 258 mls @ 4.83 mls/hr IV .Q24H [facility] PRN Reason: 2.5 MCG/MIN Stop: 04/29/17 13:10 Insulin Human Lispro (Humalog) 0 units SC ACHS [facility] PRN Reason: Protocol Last Admin: 04/28/17 12:41 Dose: Not Given Pantoprazole Sodium (Protonix Inj) 40 mg IVP Q12 [facility] Last Admin: 04/28/17 08:30 Dose: 40 mg Silver Sulfadiazine (Silvadene 1% 20 Gm) 0 ea TOP DAILY [facility] Last Admin: 04/28/17 08:26 Dose: 3 applic - Labs Labs: 04/28/17 05:00 04/28/17 05:00 PT 19.0 Seconds (9.8-13.1) H 04/28/17 05:00 INR 1.7 (0.9-1.2) H 04/28/17 05:00 APTT 33.9 Seconds (25.6-37.1) 04/28/17 05:00 - Constitutional Appears: Non-toxic, Chronically Ill - Head Exam Head Exam: NORMOCEPHALIC - Eye Exam Eye Exam: PERRL. absent: Scleral icterus - ENT Exam ENT Exam: Mucous Membranes Dry, Normal External Ear Exam - Neck Exam Neck Exam: absent: Lymphadenopathy - Respiratory Exam Respiratory Exam: Decreased Breath Sounds, Clear to Ausculation Bilateral - Cardiovascular Exam Cardiovascular Exam: REGULAR RHYTHM, +S1, +S2 - GI/Abdominal Exam GI & Abdominal Exam: Distended, Soft. absent: Tenderness - Rectal Exam Rectal Exam: Deferred - Exam Exam: NORMAL INSPECTION - Extremities Exam Extremities Exam: absent: Pedal Edema - Back Exam Back Exam: absent: CVA tenderness (R), NORMAL INSPECTION - Neurological Exam Neurological Exam: CN II-XII Intact. absent: Alert - Skin Skin Exam: Dry Assessment and Plan (1) Septic shock Status: Acute (2) Bacteremia Status: Acute (3) Bacteremia Status: Acute (4) Fever Status: Acute (5) CHF (congestive heart failure) Status: Acute (6) Dementia Status: Acute (7) PVD (peripheral vascular disease) Status: Acute
--- NOTE | 2017-04-28 15:08 | CT ---
PROCEDURE: CT Abdomen and Pelvis with contrast HISTORY: ischemic ileitis COMPARISON: CT abdomen and pelvis performed at [facility] on 03/04/17 TECHNIQUE: Contrast dose: 95 mL Omnipaque 300 Radiation dose: Total exam DLP = 1188.77 mGy-cm. This CT exam was performed using one or more of the following dose reduction techniques: Automated exposure control, adjustment of the mA and/or kV according to patient size, and/or use of iterative reconstruction technique. FINDINGS: Examination limited by paucity of intra-abdominal/intrapelvic fat as well as patient motion and streak artifact. LOWER THORAX: Bilateral pleural effusions and associated consolidations. No visible pneumothorax. Small hiatal hernia/distal esophageal wall thickening. LIVER: 2.2 cm cystic appearing right hepatic lobe lesion. Additional too small to characterize left hepatic lobe lesion measuring approximately 4 mm. Probable mild central intrahepatic biliary ductal dilatation. GALLBLADDER AND BILE DUCTS: Gallstones. PANCREAS: Atrophic. Fluid collection measuring approximately 4.9 x 2.8 cm between the uncinate process and pancreatic head of uncertain clinical significance. SPLEEN: Unremarkable. ADRENALS: Bilateral adrenal gland hypertrophy. KIDNEYS AND URETERS: Striated appearance of the right kidney. Atrophic appearance of the left kidney with coarse calcification and 4.3 cm low-density lesion, indeterminate. VASCULATURE: Dense atherosclerotic calcifications. No aortic aneurysm. BOWEL: The stomach incompletely distended. Lack of oral contrast limits evaluation for bowel pathology. Right lower quadrant ostomy. Dilated bowel loops are noted to the level of the ostomy; correlate clinically for adynamic ileus versus obstruction. Markedly thick-walled small bowel loops consistent with provided history of ileitis. Wall thickening of the right colon may reflect colitis (i.e. Inflammatory, infectious, ischemic). APPENDIX: The appendix is not visualized. PERITONEUM: No definite free air however markedly limited evaluation. Small free fluid. LYMPH NODES: No bulky adenopathy. BLADDER: Diaz catheter within a decompressed urinary bladder which contains evidence of air is [place] high-density material; correlate clinically for recent contrast-enhanced examination. REPRODUCTIVE: Bilateral hydroceles. BONES: Streak artifact from right hip arthroplasty markedly limits evaluation of the pelvis. Severe scoliosis convex to the left. OTHER FINDINGS: Bilateral fat containing inguinal hernias. Anasarca. Metallic densities are noted adjacent to the gallbladder fossa. IMPRESSION: Markedly limited study as above. Bilateral pleural effusions and associated consolidations. Right lower quadrant ostomy Markedly thick-walled right lower quadrant small bowel loops consistent with provided history of ileitis. Wall thickening of the right colon may reflect colitis (i.e. Inflammatory, infectious, ischemic). Dilated bowel loops are noted to the level of the ostomy; correlate clinically for adynamic ileus versus obstruction. Cystic structure identified between the pancreatic head and earl hepatis of uncertain significance. Striated appearance of the right kidney. Differential considerations include pyelonephritis, tubular necrosis, or sequela of vascular insults/infarct or infiltrating process. Correlate clinically. Atrophic appearance of the left kidney with coarse calcification and 4.3 cm low-density lesion, indeterminate. 2.2 cm cystic appearing right hepatic lobe lesion. Additional too small to characterize left hepatic lobe lesion measuring approximately 4 mm. Probable mild central intrahepatic biliary ductal dilatation. Cholelithiasis. Diaz catheter within a decompressed urinary bladder which contains evidence of air is [place] high-density material likely related to recent contrast procedure. Metallic densities are noted adjacent to the gallbladder fossa. Additional findings as above including anasarca and small free fluid.
--- NOTE | 2017-04-28 15:40 | PN ---
DATE: 04/28/2017 LOCATION: The patient is in ICU, bed 432. TIME SPENT: 45 minutes. The patient is seen and evaluated at the bedside. Events overnight reviewed. Status post endoscopy. Noted ulcer at duodenal bulb with a protuberant vessel , status post cauterization and clips, continued to bleed with drop in hemoglobin. Given 2 units of packed red blood cells, fresh frozen plasma as recommended by hematology consult. Underwent an angiogram, status post embolization through right groin, not successful. Noted to have persistent bleeding. Remained hypotensive. Increasing dose of Levophed. Also on proton pump inhibitor drip. This morning, continues to be hypotensive on Levophed, increasing dose ,IV fluid, proton pump inhibitor. Discussed with PMD. Discussed with GI. 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 Noted to have ischemia, inflammatory changes at__ 20 and 30 cm with further drop in the hemoglobin in spite of multiple transfusion. Seen by surgery. The patient is awaiting for CAT scan of the abdomen and pelvis and to go to OR for further exploration and control of bleeding site, if feasible. Continues to have bleeding through the ileostomy bag. The patient is intubated, is noted to be more lethargic and waiting to go to OR. VITAL SIGNS: Temperature 97.7, heart rate 93 regular, blood pressure 90-113/49- 58, on IV fluid, Ringers' lactate at 150 mL per hour, transfusion of packed red blood cells, fresh frozen plasma, Levophed at 12 mcg per minute. Intubated on mechanical ventilation AC/PRVC, rate of 12, tidal volume 450, FiO2 100%, saturating 100, peak airway pressure 8, mean airway pressure 5, end tidal CO2 of 21. PHYSICAL EXAMINATION: HEENT: Pupils reactive. Conjunctivae are pale. Sclerae are anicteric. Endotracheal tube in place. No secretion noted. Mild ulceration at the lower lip. CHEST: Bilateral breath sounds diminished intensity. HEART: Rhythm regular. S1, S2 normal. ABDOMEN: Bowel sounds present, diminished in intensity. Bleeding with melanotic stool through the ileostomy. EXTREMITIES: Dorsalis peripheral pulses are diminished in intensity, warm to cool, capillary refill less than 4 seconds. Superficial necrotic lesions noted distal to the knee, extending to the ankle on anterior estevez bilateral. Dry necrotic ulcer on both heels, left more than right. Superficial ulceration of left fourth interspace. No active drainage. No probe to bone, no tunneling, no undermining. No malodor noted. No purulence, as noted in podiatry note as well. NEUROLOGIC: Remains lethargic. Opens eyes on calling his name. Slow to respond. CURRENT MEDICATIONS: Tylenol 650 q. 6 p.r.n., atorvastatin 40 mg daily, Lipitor 10 mg daily,vancomycin, micafungin, aztreonam 1 gram IV q. 8 hours, D5 half normal at 150 mL per hour, ferrous sulfate 325 mg p.o. 3 times daily, Accu- Chek with regular insulin coverage, lacosamide 200 mg in 20 mL at 110 mL q. 12 hours, Protonix drip 40 mg IV q. 12, desmopressin 17 mcg intravenous piggyback over 30 minutes, Wound culture positive for Staphylococcus aureus. Blood culture positive for growing bacteria. Urine positive for yeast. Blood culture, coagulase negative staphylococcus. LABORATORY DATA: ABG: pH 7.29, pCO2 29, pO2 38, saturation 75.7. Venous blood gas, FiO2 increased to 100%. Lactate level 2.4. Chest x-ray: Endotracheal tube in place, PICC line in place. Bilateral pleural effusions with more on the left with atelectasis. WBC ____, hemoglobin 5.9, platelet count 224. WBC 17.7. SMA-7: Sodium 136, potassium 4.2, chloride 113, CO2 17, anion gap 10. Blood urea nitrogen 33, creatinine 0.9, glucose 171. Lactic acid 2.1. Total bilirubin 0.6, AST 21, ALT 29, alkaline phosphatase 59, total protein 4.5, albumin 1.9. IMPRESSION: 1. Shock _ pressor dependent, on IV fluid, Levophed, multiple transfusions of packed red blood cells and fresh frozen plasma. 2. 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 Still continues with bleeding. Seen by surgery. To go to OR for exploratory laparotomy. 3. Staph coagulase negative, Staph aureus bacteremia/sepsis, on antibiotic as per ID, on Levophed, IV fluid. 4. Multiple ulcers, stage IV, on right back, on both heels, as well as multiple skin excoriations,on IV antibiotic as per ID consult, local wound care. appreciate wound care follow up.. 5. History of incarcerated hernia, status post herniorrhaphy, postop complicated with peritonitis. 6. Status post small bowel resection and with ileostomy, now with suspected bleeding from the ileostomy anastomosis and/or due to ischemic colitis, chronic inflammation.. 7. History of congestive heart failure, coronary artery disease, status post stent, history of pulmonary hypertension. The patient's clinical condition remains critically ill. Prognosis remains guarded., give underlying comorbid conditions Status post transfusion of multiple packed red blood cells with fresh frozen plasma and packed red blood cells, DDAVP, platelet count is normal. Remains hypotensive, on increasing dose of Levophed. Increased risk for OR procedure; however, given the gravity of his clinical condition and continuous bleeding, needs exploratory laparotomy. Discussed with family, aware of the risk and benefits involved with the procedure. Reno Vieira MD cc: [id number] TT: 04/28/2017 15:39:52 Confirmation # [id number] Dictation # [id number] marko SALVADOR
[2017-04-28] MEDS: Norepinephrine 8 MG in Dextrose 5% In Water 500 ML IV SCH (15:43)
[2017-04-28] MEDS ORDERED: Calcium Gluconate 4.65 mEq/10 ml Inj IV ONE (17:20)
[2017-04-28 19:02] LABS: HEMATOCRIT 14.8 % (35.0-51.0); MEAN CELL VOLUME 89.6 fl (80.0-94.0); MEAN CORPUSCULAR HEMOGLOBIN 29.5 pg (27.0-31.0); MEAN CORPUSCULAR HGB CONC 32.9 g/dL (33.0-37.0); RED CELL DISTRIBUTION WIDTH 14.6 % (11.5-14.5); WHITE BLOOD COUNT 15.8 K/uL (4.8-10.8)
[2017-04-28 19:11] LABS: BLOOD UREA NITROGEN 30 mg/dl (9-20); CARBON DIOXIDE 17 mmol/L (22-30); CHLORIDE 108 mmol/L (98-107); GFR AFRICAN-AMERICAN > 60; GLUCOSE,RANDOM 180 mg/dL (75-110); PHOSPHOROUS 5.7 mg/dl (2.5-4.5); POTASSIUM 3.8 MMOL/L (3.6-5.0); SODIUM 141 mmol/l (132-148)
[2017-04-28 19:30] LABS: CALCIUM 5.8 mg/dL (8.4-10.2)
[2017-04-28] MEDS ORDERED: Calcium Chloride 1000 mg/10 ml Syringe IV ONE (19:50)
[2017-04-28] MEDS ORDERED: Magnesium Sulfate 2 gm/50 ml 2 GM/50 ML BAG IVPB ONE (20:00)
--- NOTE | 2017-04-28 20:37 | CP.PCM.PN ---
<Vidya Chand - Last Filed: 04/28/17 20:50> Subjective - Date & Time of Evaluation Date of Evaluation: 04/28/17 Time of Evaluation: 07:30 - Subjective Subjective: General Surgery progress note for Dr. Becker Pt s/e at bedside this AM in [facility] ICU. Patient continues to have sanguinous output from the ileostomy and blood pressure continues to be low. Levophed increased to 10mcg/min. Patient underwent an IR embolization of the gastroduodenal ulcer yesterday and received 1 unit of PRBC and 2 units of FFP yesterday and hgb came back at 5.9 this AM down from 6.3 yesterday. Patient is lethargic but grimaces when stomach is pressed on. Wound vac is still functioning well. Objective - Vital Signs/Intake and Output Vital Signs (last 24 hours): Temp Pulse Resp BP Pulse Ox 97.7 F 93 H 20 113/58 L 100 04/28/17 12:00 04/28/17 12:00 04/28/17 12:00 04/28/17 12:00 04/28/17 12:00 Intake and Output: 04/28/17 04/29/17 18:59 06:59 Intake Total 808 Balance 808 - Medications Medications: Current Medications Acetaminophen (Tylenol 325mg Tab) 650 mg PO Q6 PRN PRN Reason: Pain, moderate (4-7) Last Admin: 04/22/17 17:07 Dose: 650 mg Atorvastatin Calcium (Lipitor) 40 mg PO DAILY [facility] Last Admin: 04/28/17 08:12 Dose: Not Given Atorvastatin Calcium (Lipitor) 10 mg PO DAILY [facility] Last Admin: 04/28/17 08:13 Dose: Not Given Calcium Chloride (Calcium Chloride) 1,000 mg IV ONCE ONE Stop: 04/28/17 19:51 Ferrous Gluconate (Fergon) 324 mg PO TID [facility] Last Admin: 04/28/17 20:18 Dose: Not Given Aztreonam 1 gm/ Sodium (Chloride) 100 mls @ 100 mls/hr IVPB Q8 [facility] Last Admin: 04/28/17 20:15 Dose: 100 mls/hr Micafungin Sodium 100 mg/ (Sodium Chloride) 100 mls @ 100 mls/hr IVPB DAILY [facility] Last Admin: 04/28/17 08:13 Dose: 100 mls/hr Vancomycin HCl 1 gm/ Sodium (Chloride) 250 mls @ 250 mls/hr IVPB Q24H [facility] Last Admin: 04/28/17 20:21 Dose: 250 mls/hr Metronidazole (Flagyl 500mg/100ml Ns) 100 mls @ 100 mls/hr IVPB Q8 [facility] Last Admin: 04/28/17 20:18 Dose: 100 mls/hr Lacosamide 200mg/20ml 100 mg/ (Sodium Chloride) 110 mls @ 110 mls/hr IVPB Q12H [facility] Last Admin: 04/28/17 20:27 Dose: 110 mls/hr Norepinephrine Bitartrate 8 mg (/ Dextrose) 508 mls @ 38.1 mls/hr IV .[id number] [facility]; 10 MCG/MIN PRN Reason: Protocol Last Titration: 04/28/17 18:28 Dose: 12.5 mcg/min, 47.62 mls/hr Dextrose/Sodium Chloride (Dextrose 5%/0.9% Ns 1000 Ml) 1,000 mls @ 100 mls/hr IV .Q10H [facility] Stop: 04/29/17 04:06 Last Admin: 04/28/17 18:00 Dose: 100 mls/hr Sodium Chloride (Sodium Chloride 0.9%) 500 mls @ 0 mls/hr IV .Q0M [facility] PRN Reason: As Directed Last Admin: 04/28/17 08:00 Dose: 500 mls/hr Norepinephrine Bitartrate 8 mg (/ Dextrose) 258 mls @ 4.83 mls/hr IV .Q24H ONE PRN Reason: 2.5 MCG/MIN Stop: 04/29/17 13:10 Magnesium Sulfate (Magnesium Sulfate 2 Gm/50 Ml Water) 2 gm in 50 mls @ 50 mls/ hr IVPB ONCE ONE PRN Reason: 2 GM/HR Stop: 04/28/17 20:59 Insulin Human Lispro (Humalog) 0 units SC ACHS [facility] PRN Reason: Protocol Last Admin: 04/28/17 16:30 Dose: Not Given Pantoprazole Sodium (Protonix Inj) 40 mg IVP Q12 [facility] Last Admin: 04/28/17 08:30 Dose: 40 mg Silver Sulfadiazine (Silvadene 1% 20 Gm) 0 ea TOP DAILY [facility] Last Admin: 04/28/17 08:26 Dose: 3 applic - Labs Labs: 04/28/17 18:15 04/28/17 18:15 PT 19.0 Seconds (9.8-13.1) H 04/28/17 05:00 INR 1.7 (0.9-1.2) H 04/28/17 05:00 APTT 33.9 Seconds (25.6-37.1) 04/28/17 05:00 - Constitutional Appears: Older Than Stated Age, Cachectic, Chronically Ill - Head Exam Head Exam: ATRAUMATIC, NORMOCEPHALIC - Eye Exam Eye Exam: Normal appearance. absent: Conjunctival injection, Scleral icterus - ENT Exam ENT Exam: Mucous Membranes Dry, Normal Oropharynx - Respiratory Exam Respiratory Exam: Chest Wall Tenderness. absent: Accessory Muscle Use, Respiratory Distress - Cardiovascular Exam Cardiovascular Exam: RRR - GI/Abdominal Exam GI & Abdominal Exam: Soft, Tenderness. absent: Distended Additional comments: Ileostomy pink, patent, and productive of dark red/brown liquid - Extremities Exam Extremities Exam: absent: Calf Tenderness, Pedal Edema Additional comments: Multiple red areas of skin breakdown on the lower legs - Neurological Exam Neurological Exam: Altered, Awake, Oriented x3 - Psychiatric Exam Psychiatric exam: Normal Affect, Normal Mood - Skin Skin Exam: Dry, Normal Color, Warm Assessment and Plan - Assessment and Plan (Free Text) Assessment: 76M w/Upper GI bleed and stage 4 decubitus ulcer s/p debridement with wound vac Hgb: 5.9 down from 6.4 Platelets: 224 INR: 1.[address] Vázquez that showed ileitis of the distal ileum 20cm proximal to the ileostomy and numerous AVM's throughout the ileum. The AVM's were cauterized during the scope CT of abdomen and pelvis with IV contrast: Ileitis, possible R colitis Plan: At this time, surgical intervention is not recommended. 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, and complete resection of potential bleeding areas would be very extensive Continue to administer blood products in a 1:1:1 proportion in attempt to resuscitate the patient Administer desmopressin in attempt to restore coagulopathic properties Insert NGT to LIWS to assess for gastric bleed Wound care management per wound care nurse B/l lower extremity wounds per podiatry, recs appreciated Will continue to monitor patient closely Patient discussed and examined with Dr Rosita Chand, PGY1 <Adolfo Becker - Last Filed: 04/30/17 22:32> Objective - Vital Signs/Intake and Output Vital Signs (last 24 hours): Temp Pulse Resp BP Pulse Ox 99.5 F 105 H 23 92/47 L 99 04/29/17 04:00 04/29/17 06:00 04/29/17 06:00 04/29/17 06:00 04/29/17 04:00 - Labs Labs: 04/28/17 18:15 04/28/17 18:15 PT 19.0 Seconds (9.8-13.1) H 04/28/17 05:00 INR 1.7 (0.9-1.2) H 04/28/17 05:00 APTT 33.9 Seconds (25.6-37.1) 04/28/17 05:00 Attending/Attestation - Attestation I have personally seen and examined this patient.: Yes I have fully participated in the care of the patient.: Yes I have reviewed all pertinent clinical information, including history, physical exam and plan: Yes Notes (Text): 04/30/17 22:22 Pt was seen and examined at bedside on 04/28/2017 Agree with above note and assessment Pt with Upper GI bleed Endoscopy through Ileostomy reviewed Pt has bleeding due to AVM in proximal small bowel No evidence of bleeding from Gastric ulcer Pt is poor candidate for any surgical intervention No surgical intervention is possible for multiple proximal small bowel AVMs Plan lina pt's family in detail Risk and benefit explained in detail.
[2017-04-28] MEDS ORDERED: Calcium Gluconate 4.6 MEQ in Sodium Chloride 0.9% 100 ML IV ONE (20:45)
[2017-04-29] MEDS: metroNIDAZOLE 500mg/100ml NS 100 ML IVPB SCH ×2 (00:23→08:39)
[2017-04-29] MEDS: Aztreonam 1 GM in Sodium Chloride 0.9% 100 ML IVPB SCH ×2 (00:24→08:34)
[2017-04-29 05:26] LABS: ABG ALLEN TEST YES; ABG MECHANICAL RATE 12; ARTERIAL BLOOD GAS HCO3 14.4 mmol/L (21-28); ARTERIAL BLOOD GAS MODE A/C; ARTERIAL BLOOD GAS O2 CAPACITY 7.5 mL/dL (16-24); ARTERIAL BLOOD GAS O2 CONTENT 7.5 ML/dL (15-23); ARTERIAL BLOOD GAS PH 7.35 (7.35-7.45); ARTERIAL BLOOD GAS PO2 350 mm/Hg (80-100); ARTERIAL BLOOD HGB O2 SAT 96.2 % (95.0-98.0); ATERIAL BLOOD GAS PEEP 0; CARBOXYHEMOGLOBIN 1.4 % (0.5-1.5); HHB 0.3 % (0.0-5.0); METHEMOGLOBIN 2.2 % (0.0-3.0)
[2017-04-29 06:13] VITALS: TEMP 99.5; O2SAT 99
[2017-04-29 06:19] VITALS: BP 92/47; PULSE 105; RESP 23
--- NOTE | 2017-04-29 07:49 | CP.PCM.PN ---
<Abel Mcarthur - Last Filed: 04/29/17 12:06> Subjective - Date & Time of Evaluation Date of Evaluation: 04/29/17 Time of Evaluation: 07:05 - Subjective Subjective: SURGERY PROGRESS NOTE FOR DR. BECKER 76M seen and examined at bedside. Patient is intubated and on pressors. Objective - Vital Signs/Intake and Output Vital Signs (last 24 hours): Temp Pulse Resp BP Pulse Ox 99.5 F 105 H 23 92/47 L 99 04/29/17 04:00 04/29/17 06:00 04/29/17 06:00 04/29/17 06:00 04/29/17 04:00 Intake and Output: 04/29/17 04/29/17 06:59 18:59 Intake Total 1764 Output Total 700 Balance 1064 - Medications Medications: Current Medications Acetaminophen (Tylenol 325mg Tab) 650 mg PO Q6 PRN PRN Reason: Pain, moderate (4-7) Last Admin: 04/22/17 17:07 Dose: 650 mg Atorvastatin Calcium (Lipitor) 40 mg PO DAILY [facility] Last Admin: 04/28/17 08:12 Dose: Not Given Atorvastatin Calcium (Lipitor) 10 mg PO DAILY [facility] Last Admin: 04/28/17 08:13 Dose: Not Given Calcium Chloride (Calcium Chloride) 1,000 mg IV ONCE ONE Stop: 04/28/17 19:51 Ferrous Gluconate (Fergon) 324 mg PO TID [facility] Last Admin: 04/28/17 20:18 Dose: Not Given Aztreonam 1 gm/ Sodium (Chloride) 100 mls @ 100 mls/hr IVPB Q8 [facility] Last Admin: 04/29/17 00:24 Dose: 100 mls/hr Micafungin Sodium 100 mg/ (Sodium Chloride) 100 mls @ 100 mls/hr IVPB DAILY [facility] Last Admin: 04/28/17 08:13 Dose: 100 mls/hr Vancomycin HCl 1 gm/ Sodium (Chloride) 250 mls @ 250 mls/hr IVPB Q24H [facility] Last Admin: 04/28/17 20:21 Dose: 250 mls/hr Metronidazole (Flagyl 500mg/100ml Ns) 100 mls @ 100 mls/hr IVPB Q8 [facility] Last Admin: 04/29/17 00:23 Dose: 100 mls/hr Lacosamide 200mg/20ml 100 mg/ (Sodium Chloride) 110 mls @ 110 mls/hr IVPB Q12H [facility] Last Admin: 04/28/17 20:27 Dose: 110 mls/hr Sodium Chloride (Sodium Chloride 0.9%) 500 mls @ 0 mls/hr IV .Q0M [facility] PRN Reason: As Directed Last Admin: 04/28/17 08:00 Dose: 500 mls/hr Norepinephrine Bitartrate 8 mg (/ Dextrose) 258 mls @ 4.83 mls/hr IV .Q24H ONE ; 2.5 MCG/MIN PRN Reason: Protocol Stop: 04/29/17 13:10 Insulin Human Lispro (Humalog) 0 units SC ACHS [facility] PRN Reason: Protocol Last Admin: 04/28/17 22:00 Dose: Not Given Pantoprazole Sodium (Protonix Inj) 40 mg IVP Q12 [facility] Last Admin: 04/28/17 08:30 Dose: 40 mg Silver Sulfadiazine (Silvadene 1% 20 Gm) 0 ea TOP DAILY [facility] Last Admin: 04/28/17 08:26 Dose: 3 applic - Labs Labs: 04/28/17 18:15 04/28/17 18:15 PT 19.0 Seconds (9.8-13.1) H 04/28/17 05:00 INR 1.7 (0.9-1.2) H 04/28/17 05:00 APTT 33.9 Seconds (25.6-37.1) 04/28/17 05:00 - Respiratory Exam Additional comments: patient is intubated - Cardiovascular Exam Cardiovascular Exam: REGULAR RHYTHM, +S1, +S2 - GI/Abdominal Exam Additional comments: stoma patent, ostomy content dark red (sanguinous) fluid - Back Exam Additional comments: stage 4 sacral decub, wound vac in place - Neurological Exam Neurological Exam: absent: Alert, Awake Assessment and Plan - Assessment and Plan (Free Text) Assessment: 76M stage 4 decubitus ulcer s/p debridement with wound vac, upper GI bleed Plan: Patient is poor candidate for surgical intervention Management as per ICU Discussed with Dr. Rosita Mcarthur, PGY1 <Adolfo Becker - Last Filed: 04/30/17 22:31> Objective - Vital Signs/Intake and Output Vital Signs (last 24 hours): Temp Pulse Resp BP Pulse Ox 99.5 F 105 H 23 92/47 L 99 04/29/17 04:00 04/29/17 06:00 04/29/17 06:00 04/29/17 06:00 04/29/17 04:00 - Labs Labs: 04/28/17 18:15 04/28/17 18:15 PT 19.0 Seconds (9.8-13.1) H 04/28/17 05:00 INR 1.7 (0.9-1.2) H 04/28/17 05:00 APTT 33.9 Seconds (25.6-37.1) 04/28/17 05:00 Attending/Attestation - Attestation I have personally seen and examined this patient.: No I have fully participated in the care of the patient.: Yes I have reviewed all pertinent clinical information, including history, physical exam and plan: Yes Notes (Text): 04/30/17 22:27 Pt with Upper GI bleed Endoscopy through Ileostomy reviewed Pt has bleeding due to AVM in proximal small bowel No evidence of bleeding from Gastric ulcer Pt is poor candidate for any surgical intervention No surgical intervention is possible for multiple proximal small bowel AVMs Please call second surgical opinion if indicated. Plan d.w PMD in detail
--- NOTE | 2017-04-29 07:53 | PN ---
DATE: 04/29/2017 The patient seen and examined. Interim events noted. Consults noted and appreciated. Gastroenterol ogy, surgery and nursing program director intervention noted and appreciated. Case was discussed with gastroenter ologist and nursing program director. The patient remains in intensive care unit on ventilator. He is awake, but not able to provide informative history or review of systems. PHYSICAL EXAMINATION: GENERAL: The patient is orally intubated on mechanical ventilation via endotracheal tube, tolerating current vent setting without any acute respiratory distress. VITAL SIGNS: Temperature afebrile, pulse 111, respirations 16, blood pressure 89/60. HEENT: Pupils reacting to light. HEART: S1, S2 normal, regular. LUNGS: Good bilateral air exchange. ABDOMEN: Soft, nontender. The patient has ileostomy tube with alexsandra blood. Bowel sounds are plus. No sign of acute abdomen. No guarding, no rigidity, no rebound. EXTREMITIES: No edema, no calf swelling, no tenderness, no acute ischemia. CENTRAL NERVOUS SYSTEM: Essentially unchanged. DIAGNOSTIC DATA: Available diagnostic data reviewed. Telemetry monitoring shows tachycardia. Hemoglobin, however, is down to 4.9. Overall, the patient is critically sick. Outcome is poor. ____. The patient's prognosis is very po or. Family ____. PLAN: As ordered. Eros Chowdary MD cc: [id number] TT: 04/29/2017 07:52:33 Confirmation # [id number] Dictation # [id number]
--- NOTE | 2017-04-29 08:08 | CP.PCM.PN ---
Subjective - Date & Time of Evaluation Date of Evaluation: 04/29/17 Time of Evaluation: 08:05 - Subjective Subjective: Pt comtinues to have fresh blood in the ileostomy bag. Results of ileosdcopy done yesterday were noted, and the embolization done by IR. His hgb last night was 4.9. He is being transfused packed cells and fres frozen plasma, PT /INR are still elevated. Will give 2 units of cryoprecipitate today.and 2 more units of PRBC if hgb is less than 6.5gms Objective - Vital Signs/Intake and Output Vital Signs (last 24 hours): Temp Pulse Resp BP Pulse Ox 99.5 F 105 H 23 92/47 L 99 04/29/17 04:00 04/29/17 06:00 04/29/17 06:00 04/29/17 06:00 04/29/17 04:00 Intake and Output: 04/29/17 04/29/17 06:59 18:59 Intake Total 1764 Output Total 700 Balance 1064 - Medications Medications: Current Medications Acetaminophen (Tylenol 325mg Tab) 650 mg PO Q6 PRN PRN Reason: Pain, moderate (4-7) Last Admin: 04/22/17 17:07 Dose: 650 mg Atorvastatin Calcium (Lipitor) 40 mg PO DAILY [facility] Last Admin: 04/28/17 08:12 Dose: Not Given Atorvastatin Calcium (Lipitor) 10 mg PO DAILY [facility] Last Admin: 04/28/17 08:13 Dose: Not Given Calcium Chloride (Calcium Chloride) 1,000 mg IV ONCE ONE Stop: 04/28/17 19:51 Ferrous Gluconate (Fergon) 324 mg PO TID [facility] Last Admin: 04/28/17 20:18 Dose: Not Given Aztreonam 1 gm/ Sodium (Chloride) 100 mls @ 100 mls/hr IVPB Q8 [facility] Last Admin: 04/29/17 00:24 Dose: 100 mls/hr Micafungin Sodium 100 mg/ (Sodium Chloride) 100 mls @ 100 mls/hr IVPB DAILY [facility] Last Admin: 04/28/17 08:13 Dose: 100 mls/hr Vancomycin HCl 1 gm/ Sodium (Chloride) 250 mls @ 250 mls/hr IVPB Q24H [facility] Last Admin: 04/28/17 20:21 Dose: 250 mls/hr Metronidazole (Flagyl 500mg/100ml Ns) 100 mls @ 100 mls/hr IVPB Q8 [facility] Last Admin: 04/29/17 00:23 Dose: 100 mls/hr Lacosamide 200mg/20ml 100 mg/ (Sodium Chloride) 110 mls @ 110 mls/hr IVPB Q12H [facility] Last Admin: 04/28/17 20:27 Dose: 110 mls/hr Sodium Chloride (Sodium Chloride 0.9%) 500 mls @ 0 mls/hr IV .Q0M [facility] PRN Reason: As Directed Last Admin: 04/28/17 08:00 Dose: 500 mls/hr Norepinephrine Bitartrate 8 mg (/ Dextrose) 258 mls @ 4.83 mls/hr IV .Q24H ONE ; 2.5 MCG/MIN PRN Reason: Protocol Stop: 04/29/17 13:10 Insulin Human Lispro (Humalog) 0 units SC ACHS [facility] PRN Reason: Protocol Last Admin: 04/28/17 22:00 Dose: Not Given Pantoprazole Sodium (Protonix Inj) 40 mg IVP Q12 [facility] Last Admin: 04/28/17 08:30 Dose: 40 mg Silver Sulfadiazine (Silvadene 1% 20 Gm) 0 ea TOP DAILY [facility] Last Admin: 04/28/17 08:26 Dose: 3 applic - Labs Labs: 04/28/17 18:15 04/28/17 18:15 PT 19.0 Seconds (9.8-13.1) H 04/28/17 05:00 INR 1.7 (0.9-1.2) H 04/28/17 05:00 APTT 33.9 Seconds (25.6-37.1) 04/28/17 05:00
--- NOTE | 2017-04-29 08:08 | CP.PCM.PN ---
Subjective - Date & Time of Evaluation Date of Evaluation: 04/29/17 Time of Evaluation: 07:47 - Subjective Subjective: Patient seen and examined. He remains in ICU critical care, intubated. He is able to respond to questions appropriately by nodding his head. He denies abdominal pain, fever/chills. Significant amounts of fresh red bloody output via ostomy present throughout the night. Vital signs from today show hypotension and tachycardia. Review of systems unable to be performed, patient intubated. Objective - Vital Signs/Intake and Output Vital Signs (last 24 hours): Temp Pulse Resp BP Pulse Ox 99.5 F 105 H 23 92/47 L 99 04/29/17 04:00 04/29/17 06:00 04/29/17 06:00 04/29/17 06:00 04/29/17 04:00 Intake and Output: 04/29/17 04/29/17 06:59 18:59 Intake Total 1764 Output Total 700 Balance 1064 - Medications Medications: Current Medications Acetaminophen (Tylenol 325mg Tab) 650 mg PO Q6 PRN PRN Reason: Pain, moderate (4-7) Last Admin: 04/22/17 17:07 Dose: 650 mg Atorvastatin Calcium (Lipitor) 40 mg PO DAILY [facility] Last Admin: 04/28/17 08:12 Dose: Not Given Atorvastatin Calcium (Lipitor) 10 mg PO DAILY [facility] Last Admin: 04/28/17 08:13 Dose: Not Given Calcium Chloride (Calcium Chloride) 1,000 mg IV ONCE ONE Stop: 04/28/17 19:51 Ferrous Gluconate (Fergon) 324 mg PO TID [facility] Last Admin: 04/28/17 20:18 Dose: Not Given Aztreonam 1 gm/ Sodium (Chloride) 100 mls @ 100 mls/hr IVPB Q8 [facility] Last Admin: 04/29/17 00:24 Dose: 100 mls/hr Micafungin Sodium 100 mg/ (Sodium Chloride) 100 mls @ 100 mls/hr IVPB DAILY [facility] Last Admin: 04/28/17 08:13 Dose: 100 mls/hr Vancomycin HCl 1 gm/ Sodium (Chloride) 250 mls @ 250 mls/hr IVPB Q24H [facility] Last Admin: 04/28/17 20:21 Dose: 250 mls/hr Metronidazole (Flagyl 500mg/100ml Ns) 100 mls @ 100 mls/hr IVPB Q8 [facility] Last Admin: 04/29/17 00:23 Dose: 100 mls/hr Lacosamide 200mg/20ml 100 mg/ (Sodium Chloride) 110 mls @ 110 mls/hr IVPB Q12H [facility] Last Admin: 04/28/17 20:27 Dose: 110 mls/hr Sodium Chloride (Sodium Chloride 0.9%) 500 mls @ 0 mls/hr IV .Q0M [facility] PRN Reason: As Directed Last Admin: 04/28/17 08:00 Dose: 500 mls/hr Norepinephrine Bitartrate 8 mg (/ Dextrose) 258 mls @ 4.83 mls/hr IV .Q24H ONE ; 2.5 MCG/MIN PRN Reason: Protocol Stop: 04/29/17 13:10 Insulin Human Lispro (Humalog) 0 units SC ACHS [facility] PRN Reason: Protocol Last Admin: 04/28/17 22:00 Dose: Not Given Pantoprazole Sodium (Protonix Inj) 40 mg IVP Q12 [facility] Last Admin: 04/28/17 08:30 Dose: 40 mg Silver Sulfadiazine (Silvadene 1% 20 Gm) 0 ea TOP DAILY [facility] Last Admin: 04/28/17 08:26 Dose: 3 applic - Labs Labs: 04/28/17 18:15 04/28/17 18:15 PT 19.0 Seconds (9.8-13.1) H 04/28/17 05:00 INR 1.7 (0.9-1.2) H 04/28/17 05:00 APTT 33.9 Seconds (25.6-37.1) 04/28/17 05:00 - Constitutional Appears: Non-toxic, No Acute Distress - Head Exam Head Exam: NORMAL INSPECTION - Eye Exam Eye Exam: EOMI, Normal appearance - ENT Exam ENT Exam: Mucous Membranes Dry Additional comments: Patient intubated - Respiratory Exam Additional comments: coarse breath sounds bilateral lung vera - Cardiovascular Exam Cardiovascular Exam: Tachycardia, +S1, +S2 - GI/Abdominal Exam GI & Abdominal Exam: Soft Additional comments: non tender to palpation in four quadrants midline surgical scar present LLQ ostomy present with copious amounts of fresh blood mixed with clot in bag - Extremities Exam Extremities Exam: Normal Inspection - Skin Skin Exam: Dry, Intact, Normal Color, Warm Assessment and Plan - Assessment and Plan (Free Text) Assessment: CAD s/p stent HTN CVA History of incarcerated hernia s/p ileostomy Sepsis, sacral decubitus ulcer Anemia - duodenal ulcer s/p EGD with endoclip/cautery and IR guided GDA embolization. GI bleeding with evidence of distal small bowel ischemia and AVM' s present on ileoscopy performed yesterday s/p cautery therapy. Plan: - Patient remains persistently hypotensive and tachycardic despite volume resuscitation with PRBC transfusion - Continue to monitor H/H, transfuse as necessary - Continue with PPI therapy - Distal small bowel ischemia visualized on ileoscopy performed yesterday, would continue with antibiotic therapy - At this point, patient has had multiple endoscopy attempts to control bleeding along with selective GDA embolization by IR with ongoing fresh bloody output via ostomy. Therefore, would recommend surgical intervention/ exploration for additional therapy. Case was discussed with Dr. Becker and Ricarda.
--- NOTE | 2017-04-29 08:27 | CP.CCUPN ---
CCU Subjective - Physician Review Events Since Last Encounter (Free Text): 04/29/17 08:25 Patient awake, on ventilator, on PRVC, TV 450, RR 12, FIO2 50%, no fever, on levophed, events reviewed CCU Objective - Vital Signs / Intake & Output Vital Signs (Last 4 hours): Vital Signs Pulse Resp BP 04/29/17 06:00 105 H 23 92/47 L 04/29/17 05:00 99 H 96 H 92/53 L Intake and Output (Last 8hrs): Intake & Output 04/28/17 04/29/17 04/29/17 22:59 06:59 14:59 Intake Total 4822 1100 Output Total 1050 700 Balance 3772 400 Intake: IV 2302 300 Intake, Piggyback 1000 100 Blood Product 1520 700 Output: Drainage 900 700 Right Lower Abdomen 900 700 Urine 150 Urethral (Diaz) 150 - Physical Exam Head: Positive for: Atraumatic, Normocephalic Pupils: Positive for: PERRL Extroacular Muscles: Positive for: EOMI Conjunctiva: Positive for: Normal. Negative for: Injected, Icteric Mouth: Positive for: Moist Mucous Membranes. Negative for: Dry, Drooling Pharnyx: Positive for: Normal. Negative for: ERYTHEMA Nose (External): Positive for: Atraumatic. Negative for: Abrasion, Contusion Neck: Positive for: Normal Range of Motion Respiratory/Chest: Positive for: Clear to Auscultation, Good Air Exchange. Negative for: Respiratory Distress, Accessory Muscle Use, Rales, Rhonchi, Tachypneic, Tender to Palpation Cardiovascular: Positive for: Regular Rate and Rhythm, Normal S1, S2, Peripheal Pulses Present. Negative for: Murmurs, Tachycardic, Bradycardic Abdomen: Positive for: Distention, Normal Bowel Sounds, Ostomy Tubes, Other ( iliostomy). Negative for: Tenderness Back: Positive for: Other (Stage 4 decubitus ulcer) Upper Extremity: Positive for: Normal Inspection Lower Extremity: Positive for: Normal Inspection Psychiatric: Positive for: Alert, Lethargic. Negative for: Anxious, Agitated - Medications Active Medications: Active Medications Generic Name Dose Route Start Last Admin Trade Name Freq PRN Reason Stop Dose Admin Acetaminophen 650 mg 04/14/17 20:25 04/22/17 17:07 Tylenol 325mg Tab PO 650 mg Q6 PRN Administration Pain, moderate (4-7) Atorvastatin Calcium 40 mg 04/27/17 09:00 04/28/17 08:12 Lipitor PO Not Given DAILY [facility] Atorvastatin Calcium 10 mg 04/27/17 09:00 04/28/17 08:13 Lipitor PO Not Given DAILY [facility] Calcium Chloride 1,000 mg 04/28/17 19:50 Calcium Chloride IV 04/28/17 19:51 ONCE ONE Ferrous Gluconate 324 mg 04/15/17 09:00 04/28/17 20:18 Fergon PO Not Given TID [facility] Aztreonam 1 gm/ Sodium 100 mls @ 100 mls/hr 04/14/17 23:00 04/29/17 00:24 Chloride IVPB 100 mls/hr Q8 [facility] Administration Micafungin Sodium 100 mg/ 100 mls @ 100 mls/hr 04/17/17 15:45 04/28/17 08:13 Sodium Chloride IVPB 100 mls/hr DAILY [facility] Administration Vancomycin HCl 1 gm/ Sodium 250 mls @ 250 mls/hr 04/21/17 18:15 04/28/17 20: 21 Chloride IVPB 250 mls/hr Q24H [facility] Administration Metronidazole 100 mls @ 100 mls/hr 04/26/17 17:00 04/29/17 00:23 Flagyl 500mg/100ml Ns IVPB 100 mls/hr Q8 [facility] Administration Lacosamide 200mg/20ml 100 mg/ 110 mls @ 110 mls/hr 04/26/17 17:45 04/28/17 20 :27 Sodium Chloride IVPB 110 mls/hr Q12H [facility] Administration Sodium Chloride 500 mls @ 0 mls/hr 04/28/17 07:45 04/28/17 08:00 Sodium Chloride 0.9% IV 500 mls/hr .Q0M [facility] Administration As Directed Norepinephrine Bitartrate 8 mg 258 mls @ 4.83 mls/hr 04/29/17 06:59 / Dextrose IV 04/29/17 13:10 .Q24H ONE Protocol 2.5 MCG/MIN Insulin Human Lispro 0 units 04/15/17 07:30 04/28/17 22:00 Humalog SC Not Given ACHS [facility] Protocol Pantoprazole Sodium 40 mg 04/27/17 21:00 04/28/17 08:30 Protonix Inj IVP 40 mg Q12 [facility] Administration Silver Sulfadiazine 0 ea 04/28/17 09:00 04/28/17 08:26 Silvadene 1% 20 Gm TOP 3 applic DAILY [facility] Administration - Patient Studies Lab Studies: Microbiology Studies 04/27/17 Unknown Gram Stain - Final Foot - Left 04/25/17 18:03 Gram Stain - Final Sacral Wound Culture - Final Staphylococcus Aureus Lab Studies 04/29/17 04/29/17 04/28/17 Range/Units 05:00 04:46 21:17 WBC (4.8-10.8) K/uL RBC (4.40-5.90) Mil/uL Hgb (12.0-18.0) g/dL Hct (35.0-51.0) % MCV (80.0-94.0) fl MCH (27.0-31.0) pg MCHC (33.0-37.0) g/dL RDW (11.5-14.5) % Plt Count (130-400) K/uL pCO2 20 L (35-45) mm/Hg pO2 350 H (80-100) mm/Hg HCO3 14.4 L (21-28) mmol/L ABG pH 7.35 (7.35-7.45) ABG Total CO2 11.6 L (22-28) mmol/L ABG O2 Saturation 99.7 H (95-98) % ABG O2 Content 7.5 L (15-23) ML/dL ABG Base Excess -13.6 L (-2.0-3.0) mmol/L ABG Hemoglobin 4.8 L (11.7-17.4) g/dL ABG Carboxyhemoglobin 1.4 (0.5-1.5) % POC ABG HHb (Measured) 0.3 (0.0-5.0) % ABG Methemoglobin 2.2 (0.0-3.0) % ABG O2 Capacity 7.5 L (16-24) mL/dL Stan Test Yes A-a O2 Difference 338.0 mm/Hg Hgb O2 Saturation 96.2 (95.0-98.0) % Vent Mode A/c Mechanical Rate 12 FiO2 100.0 % Tidal Volume 450 PEEP 0 Blood Gas Comments Crit Value Called To Dr araceli cerda Crit Value Called By Mac Crit Value Read Back Y Blood Gas Notified Time 526 Sodium (132-148) mmol/l Potassium (3.6-5.0) MMOL/L Chloride (98-107) mmol/L Carbon Dioxide (22-30) mmol/L Anion Gap (10-20) BUN (9-20) mg/dl Creatinine (0.8-1.5) mg/dL Est GFR ( Amer) Est GFR (Non-Af Amer) POC Glucose (mg/dL) 125 H 185 H (65-110) mg/dL Random Glucose (75-110) mg/dL Lactic Acid (0.7-2.1) MMOL/L Calcium (8.4-10.2) mg/dL Phosphorus (2.5-4.5) mg/dl Magnesium (1.6-2.3) MG/DL Random Vancomycin ug/mL Blood Type Antibody Screen Crossmatch BBK History Checked 04/28/17 04/28/17 04/28/17 Range/Units 18:15 18:15 18:01 WBC 15.8 H (4.8-10.8) K/uL RBC 1.65 L (4.40-5.90) Mil/uL Hgb 4.9 L* (12.0-18.0) g/dL Hct 14.8 L (35.0-51.0) % MCV 89.6 (80.0-94.0) fl MCH 29.5 (27.0-31.0) pg MCHC 32.9 L (33.0-37.0) g/dL RDW 14.6 H (11.5-14.5) % Plt Count 133 (130-400) K/uL pCO2 (35-45) mm/Hg pO2 (80-100) mm/Hg HCO3 (21-28) mmol/L ABG pH (7.35-7.45) ABG Total CO2 (22-28) mmol/L ABG O2 Saturation (95-98) % ABG O2 Content (15-23) ML/dL ABG Base Excess (-2.0-3.0) mmol/L ABG Hemoglobin (11.7-17.4) g/dL ABG Carboxyhemoglobin (0.5-1.5) % POC ABG HHb (Measured) (0.0-5.0) % ABG Methemoglobin (0.0-3.0) % ABG O2 Capacity (16-24) mL/dL Stan Test A-a O2 Difference mm/Hg Hgb O2 Saturation (95.0-98.0) % Vent Mode Mechanical Rate FiO2 % Tidal Volume PEEP Blood Gas Comments Crit Value Called To Crit Value Called By Crit Value Read Back Blood Gas Notified Time Sodium 141 (132-148) mmol/l Potassium 3.8 (3.6-5.0) MMOL/L Chloride 108 H (98-107) mmol/L Carbon Dioxide 17 L (22-30) mmol/L Anion Gap 20 (10-20) BUN 30 H (9-20) mg/dl Creatinine 1.0 (0.8-1.5) mg/dL Est GFR ( Amer) > 60 Est GFR (Non-Af Amer) > 60 POC Glucose (mg/dL) 218 H (65-110) mg/dL Random Glucose 180 H (75-110) mg/dL Lactic Acid (0.7-2.1) MMOL/L Calcium 5.8 L* (8.4-10.2) mg/dL Phosphorus 5.7 H (2.5-4.5) mg/dl Magnesium 1.0 L* (1.6-2.3) MG/DL Random Vancomycin ug/mL Blood Type Antibody Screen Crossmatch BBK History Checked 04/28/17 04/28/17 04/28/17 Range/Units 12:15 12:00 11:26 WBC (4.8-10.8) K/uL RBC (4.40-5.90) Mil/uL Hgb (12.0-18.0) g/dL Hct (35.0-51.0) % MCV (80.0-94.0) fl MCH (27.0-31.0) pg MCHC (33.0-37.0) g/dL RDW (11.5-14.5) % Plt Count (130-400) K/uL pCO2 29 L (35-45) mm/Hg pO2 38 L* (80-100) mm/Hg HCO3 15.6 L (21-28) mmol/L ABG pH 7.29 L (7.35-7.45) ABG Total CO2 14.8 L (22-28) mmol/L ABG O2 Saturation 78.7 L (95-98) % ABG O2 Content 8.6 L (15-23) ML/dL ABG Base Excess -11.5 L (-2.0-3.0) mmol/L ABG Hemoglobin 8.1 L (11.7-17.4) g/dL ABG Carboxyhemoglobin 1.9 H (0.5-1.5) % POC ABG HHb (Measured) 20.5 H (0.0-5.0) % ABG Methemoglobin 2.0 (0.0-3.0) % ABG O2 Capacity 10.9 L (16-24) mL/dL Stan Test Yes A-a O2 Difference 354.0 mm/Hg Hgb O2 Saturation 75.7 L (95.0-98.0) % Vent Mode Prvc/ac Mechanical Rate 12 FiO2 60.0 % Tidal Volume 450 PEEP Blood Gas Comments Prvc/ac12/vt450/60 Crit Value Called To Yong bullock m.d. Crit Value Called By Leticia Crit Value Read Back Y Blood Gas Notified Time 1216 Sodium (132-148) mmol/l Potassium (3.6-5.0) MMOL/L Chloride (98-107) mmol/L Carbon Dioxide (22-30) mmol/L Anion Gap (10-20) BUN (9-20) mg/dl Creatinine (0.8-1.5) mg/dL Est GFR ( Amer) Est GFR (Non-Af Amer) POC Glucose (mg/dL) 171 H (65-110) mg/dL Random Glucose (75-110) mg/dL Lactic Acid 2.1 (0.7-2.1) MMOL/L Calcium (8.4-10.2) mg/dL Phosphorus (2.5-4.5) mg/dl Magnesium (1.6-2.3) MG/DL Random Vancomycin ug/mL Blood Type Antibody Screen Crossmatch BBK History Checked 04/28/17 04/27/17 Range/Units 07:24 12:30 WBC (4.8-10.8) K/uL RBC (4.40-5.90) Mil/uL Hgb (12.0-18.0) g/dL Hct (35.0-51.0) % MCV (80.0-94.0) fl MCH (27.0-31.0) pg MCHC (33.0-37.0) g/dL RDW (11.5-14.5) % Plt Count (130-400) K/uL pCO2 (35-45) mm/Hg pO2 (80-100) mm/Hg HCO3 (21-28) mmol/L ABG pH (7.35-7.45) ABG Total CO2 (22-28) mmol/L ABG O2 Saturation (95-98) % ABG O2 Content (15-23) ML/dL ABG Base Excess (-2.0-3.0) mmol/L ABG Hemoglobin (11.7-17.4) g/dL ABG Carboxyhemoglobin (0.5-1.5) % POC ABG HHb (Measured) (0.0-5.0) % ABG Methemoglobin (0.0-3.0) % ABG O2 Capacity (16-24) mL/dL Stan Test A-a O2 Difference mm/Hg Hgb O2 Saturation (95.0-98.0) % Vent Mode Mechanical Rate FiO2 % Tidal Volume PEEP Blood Gas Comments Crit Value Called To Crit Value Called By Crit Value Read Back Blood Gas Notified Time Sodium (132-148) mmol/l Potassium (3.6-5.0) MMOL/L Chloride (98-107) mmol/L Carbon Dioxide (22-30) mmol/L Anion Gap (10-20) BUN (9-20) mg/dl Creatinine (0.8-1.5) mg/dL Est GFR ( Amer) Est GFR (Non-Af Amer) POC Glucose (mg/dL) (65-110) mg/dL Random Glucose (75-110) mg/dL Lactic Acid (0.7-2.1) MMOL/L Calcium (8.4-10.2) mg/dL Phosphorus (2.5-4.5) mg/dl Magnesium (1.6-2.3) MG/DL Random Vancomycin 17.0 ug/mL Blood Type O POSITIVE Antibody Screen Negative Crossmatch See Detail BBK History Checked Patient has bt Laboratory Results - last 24 hr 04/27/17 04/28/17 04/28/17 12:30 07:24 11:26 WBC RBC Hgb Hct MCV MCH MCHC RDW Plt Count pCO2 29 L pO2 38 L* HCO3 15.6 L ABG pH 7.29 L ABG Total CO2 14.8 L ABG O2 Saturation 78.7 L ABG O2 Content 8.6 L ABG Base Excess -11.5 L ABG Hemoglobin 8.1 L ABG Carboxyhemoglobin 1.9 H POC ABG HHb (Measured) 20.5 H ABG Methemoglobin 2.0 ABG O2 Capacity 10.9 L Stan Test Yes A-a O2 Difference 354.0 Hgb O2 Saturation 75.7 L Vent Mode Prvc/ac Mechanical Rate 12 FiO2 60.0 Tidal Volume 450 PEEP Blood Gas Comments Prvc/ac12/vt450/60 Crit Value Called To Yong bullock m.d. Crit Value Called By Leticia Crit Value Read Back Y Blood Gas Notified Time 1216 Sodium Potassium Chloride Carbon Dioxide Anion Gap BUN Creatinine Est GFR ( Amer) Est GFR (Non-Af Amer) POC Glucose (mg/dL) Random Glucose Lactic Acid Calcium Phosphorus Magnesium Random Vancomycin 17.0 Blood Type O POSITIVE Antibody Screen Negative Crossmatch See Detail BBK History Checked Patient has bt 04/28/17 04/28/17 04/28/17 12:00 12:15 18:01 WBC RBC Hgb Hct MCV MCH MCHC RDW Plt Count pCO2 pO2 HCO3 ABG pH ABG Total CO2 ABG O2 Saturation ABG O2 Content ABG Base Excess ABG Hemoglobin ABG Carboxyhemoglobin POC ABG HHb (Measured) ABG Methemoglobin ABG O2 Capacity Stan Test A-a O2 Difference Hgb O2 Saturation Vent Mode Mechanical Rate FiO2 Tidal Volume PEEP Blood Gas Comments Crit Value Called To Crit Value Called By Crit Value Read Back Blood Gas Notified Time Sodium Potassium Chloride Carbon Dioxide Anion Gap BUN Creatinine Est GFR ( Amer) Est GFR (Non-Af Amer) POC Glucose (mg/dL) 171 H 218 H Random Glucose Lactic Acid 2.1 Calcium Phosphorus Magnesium Random Vancomycin Blood Type Antibody Screen Crossmatch BBK History Checked 04/28/17 04/28/17 04/28/17 18:15 18:15 21:17 WBC 15.8 H RBC 1.65 L Hgb 4.9 L* Hct 14.8 L MCV 89.6 MCH 29.5 MCHC 32.9 L RDW 14.6 H Plt Count 133 pCO2 pO2 HCO3 ABG pH ABG Total CO2 ABG O2 Saturation ABG O2 Content ABG Base Excess ABG Hemoglobin ABG Carboxyhemoglobin POC ABG HHb (Measured) ABG Methemoglobin ABG O2 Capacity Stan Test A-a O2 Difference Hgb O2 Saturation Vent Mode Mechanical Rate FiO2 Tidal Volume PEEP Blood Gas Comments Crit Value Called To Crit Value Called By Crit Value Read Back Blood Gas Notified Time Sodium 141 Potassium 3.8 Chloride 108 H Carbon Dioxide 17 L Anion Gap 20 BUN 30 H Creatinine 1.0 Est GFR ( Amer) > 60 Est GFR (Non-Af Amer) > 60 POC Glucose (mg/dL) 185 H Random Glucose 180 H Lactic Acid Calcium 5.8 L* Phosphorus 5.7 H Magnesium 1.0 L* Random Vancomycin Blood Type Antibody Screen Crossmatch BBK History Checked 04/29/17 04/29/17 04:46 05:00 WBC RBC Hgb Hct MCV MCH MCHC RDW Plt Count pCO2 20 L pO2 350 H HCO3 14.4 L ABG pH 7.35 ABG Total CO2 11.6 L ABG O2 Saturation 99.7 H ABG O2 Content 7.5 L ABG Base Excess -13.6 L ABG Hemoglobin 4.8 L ABG Carboxyhemoglobin 1.4 POC ABG HHb (Measured) 0.3 ABG Methemoglobin 2.2 ABG O2 Capacity 7.5 L Stan Test Yes A-a O2 Difference 338.0 Hgb O2 Saturation 96.2 Vent Mode A/c Mechanical Rate 12 FiO2 100.0 Tidal Volume 450 PEEP 0 Blood Gas Comments Crit Value Called To Dr araceli cerda Crit Value Called By Crit Value Read Back Y Blood Gas Notified Time 526 Sodium Potassium Chloride Carbon Dioxide Anion Gap BUN Creatinine Est GFR ( Amer) Est GFR (Non-Af Amer) POC Glucose (mg/dL) 125 H Random Glucose Lactic Acid Calcium Phosphorus Magnesium Random Vancomycin Blood Type Antibody Screen Crossmatch BBK History Checked Fingerstick Blood Sugar Results: 135 Critical Care Progress Note - Nutrition Nutrition: Nutrition Category Date Time Status NPO Diet [DIET] Diets 04/27/17 Dinner Active Assessment/Plan - Assessment and Plan (Free Text) Assessment: A/P respiratory failure, GI bleeding, anemia, seizer disorder, sepsis, decubitus ulcer, s/p ileostomy after repair of incarcerated hernia, cellulitis - Ventilatory support - Transfusion as needed - surgery follow up - GI follow up - Continue meds - Pulmonary toilets Critical care 40 min
[2017-04-29] MEDS: Micafungin 100 MG in Sodium Chloride 0.9% 100 ML IVPB SCH (08:41)
--- NOTE | 2017-04-29 09:41 | CP.PCM.PN ---
Subjective - Date & Time of Evaluation Date of Evaluation: 04/29/17 Time of Evaluation: 08:40 - Subjective Subjective: 76 y/o male seen at bedside in ICU for f/u of bilateral heel eschars. Pt seen resting comfortably in bed at time of visit, is on ventilator at this time. He does appear to be awake, NAD and is able to respond to yes/no questions. Multipodus boots are intact to both feet. Pt denies any pain or discomfort to the feet today. Objective - Vital Signs/Intake and Output Vital Signs (last 24 hours): Temp Pulse Resp BP Pulse Ox 99.5 F 105 H 23 92/47 L 99 04/29/17 04:00 04/29/17 06:00 04/29/17 06:00 04/29/17 06:00 04/29/17 04:00 Intake and Output: 04/29/17 04/29/17 06:59 18:59 Intake Total 1764 Output Total 700 Balance 1064 - Medications Medications: Current Medications Acetaminophen (Tylenol 325mg Tab) 650 mg PO Q6 PRN PRN Reason: Pain, moderate (4-7) Last Admin: 04/22/17 17:07 Dose: 650 mg Atorvastatin Calcium (Lipitor) 40 mg PO DAILY [facility] Last Admin: 04/29/17 08:40 Dose: Not Given Atorvastatin Calcium (Lipitor) 10 mg PO DAILY [facility] Last Admin: 04/29/17 08:41 Dose: Not Given Calcium Chloride (Calcium Chloride) 1,000 mg IV ONCE ONE Stop: 04/28/17 19:51 Ferrous Gluconate (Fergon) 324 mg PO TID [facility] Last Admin: 04/29/17 08:41 Dose: Not Given Aztreonam 1 gm/ Sodium (Chloride) 100 mls @ 100 mls/hr IVPB Q8 [facility] Last Admin: 04/29/17 08:34 Dose: 100 mls/hr Micafungin Sodium 100 mg/ (Sodium Chloride) 100 mls @ 100 mls/hr IVPB DAILY [facility] Last Admin: 04/29/17 08:41 Dose: 100 mls/hr Vancomycin HCl 1 gm/ Sodium (Chloride) 250 mls @ 250 mls/hr IVPB Q24H [facility] Last Admin: 04/28/17 20:21 Dose: 250 mls/hr Metronidazole (Flagyl 500mg/100ml Ns) 100 mls @ 100 mls/hr IVPB Q8 [facility] Last Admin: 04/29/17 08:39 Dose: 100 mls/hr Lacosamide 200mg/20ml 100 mg/ (Sodium Chloride) 110 mls @ 110 mls/hr IVPB Q12H [facility] Last Admin: 04/28/17 20:27 Dose: 110 mls/hr Sodium Chloride (Sodium Chloride 0.9%) 500 mls @ 0 mls/hr IV .Q0M [facility] PRN Reason: As Directed Last Admin: 04/28/17 08:00 Dose: 500 mls/hr Norepinephrine Bitartrate 8 mg (/ Dextrose) 258 mls @ 4.83 mls/hr IV .Q24H ONE ; 2.5 MCG/MIN PRN Reason: Protocol Stop: 04/29/17 13:10 Insulin Human Lispro (Humalog) 0 units SC ACHS [facility] PRN Reason: Protocol Last Admin: 04/28/17 22:00 Dose: Not Given Pantoprazole Sodium (Protonix Inj) 40 mg IVP Q12 [facility] Last Admin: 04/29/17 08:42 Dose: 40 mg Silver Sulfadiazine (Silvadene 1% 20 Gm) 0 ea TOP DAILY [facility] Last Admin: 04/28/17 08:26 Dose: 3 applic - Labs Labs: 04/28/17 18:15 04/28/17 18:15 PT 19.0 Seconds (9.8-13.1) H 04/28/17 05:00 INR 1.7 (0.9-1.2) H 04/28/17 05:00 APTT 33.9 Seconds (25.6-37.1) 04/28/17 05:00 - Constitutional Appears: Non-toxic, No Acute Distress - Extremities Exam Extremities Exam: absent: Calf Tenderness Additional comments: VASC: DP/PT pulses are non-palpable, [employer]: < 4 sec to all digits, TG: warm to cool DERM: Superficial necrotic lesions noted distal to the knee extending to ankle on anterior estevez b/l, dry necrotic ulcer on the heels b/l (L>R), superficial ulceration of L 4th interspace, no active drainage, no probe to bone, no tunneling, no undermining, no malodor noted, no purulence NEURO: Grossly intact ORTHO: pain on palpation to necrotic skin lesions of foot b/l - Neurological Exam Neurological Exam: Alert, Awake - Psychiatric Exam Psychiatric exam: Normal Affect, Normal Mood Assessment and Plan - Assessment and Plan (Free Text) Assessment: 76 y/o male seen at bedside in ICU for necrotic heel wounds secondary to deep tissue injury and superficial ulceration secondary to PAD Plan: Pt S&E at bedside, chart reviewed Plan discussed with attending Dr. Garcia. Labs and vitals reviewed; WBC 15.8 today, afebrile c/w IV abx as per ID Dressing changed bilaterally using silvadine, betadine, DSD and kerlix Continue offloading boots to LE b/l Wound cx: pending Podiatry to follow the pt while in-house
--- NOTE | 2017-04-29 10:51 | CP.CCUPN ---
CCU Subjective - Physician Review Events Since Last Encounter (Free Text): 04/29/17 10:48 Patient had asystoly, no pulse, CPR and ACLS done as protocol, patient regain pulse, and family request DNR after discussing patient condition CCU Objective - Vital Signs / Intake & Output Intake and Output (Last 8hrs): Intake & Output 04/28/17 04/29/17 04/29/17 22:59 06:59 14:59 Intake Total 4822 1100 Output Total 1050 700 Balance 3772 400 Intake: IV 2302 300 Intake, Piggyback 1000 100 Blood Product 1520 700 Output: Drainage 900 700 Right Lower Abdomen 900 700 Urine 150 Urethral (Diaz) 150 - Medications Active Medications: Active Medications Generic Name Dose Route Start Last Admin Trade Name Freq PRN Reason Stop Dose Admin Acetaminophen 650 mg 04/14/17 20:25 04/22/17 17:07 Tylenol 325mg Tab PO 650 mg Q6 PRN Administration Pain, moderate (4-7) Atorvastatin Calcium 40 mg 04/27/17 09:00 04/29/17 08:40 Lipitor PO Not Given DAILY [facility] Atorvastatin Calcium 10 mg 04/27/17 09:00 04/29/17 08:41 Lipitor PO Not Given DAILY [facility] Calcium Chloride 1,000 mg 04/28/17 19:50 Calcium Chloride IV 04/28/17 19:51 ONCE ONE Ferrous Gluconate 324 mg 04/15/17 09:00 04/29/17 08:41 Fergon PO Not Given TID [facility] Aztreonam 1 gm/ Sodium 100 mls @ 100 mls/hr 04/14/17 23:00 04/29/17 08:34 Chloride IVPB 100 mls/hr Q8 [facility] Administration Micafungin Sodium 100 mg/ 100 mls @ 100 mls/hr 04/17/17 15:45 04/29/17 08:41 Sodium Chloride IVPB 100 mls/hr DAILY [facility] Administration Vancomycin HCl 1 gm/ Sodium 250 mls @ 250 mls/hr 04/21/17 18:15 04/28/17 20: 21 Chloride IVPB 250 mls/hr Q24H [facility] Administration Metronidazole 100 mls @ 100 mls/hr 04/26/17 17:00 04/29/17 08:39 Flagyl 500mg/100ml Ns IVPB 100 mls/hr Q8 [facility] Administration Lacosamide 200mg/20ml 100 mg/ 110 mls @ 110 mls/hr 04/26/17 17:45 04/28/17 20 :27 Sodium Chloride IVPB 110 mls/hr Q12H [facility] Administration Sodium Chloride 500 mls @ 0 mls/hr 04/28/17 07:45 04/28/17 08:00 Sodium Chloride 0.9% IV 500 mls/hr .Q0M [facility] Administration As Directed Norepinephrine Bitartrate 8 mg 258 mls @ 4.83 mls/hr 04/29/17 06:59 / Dextrose IV 04/29/17 13:10 .Q24H ONE Protocol 2.5 MCG/MIN Insulin Human Lispro 0 units 04/15/17 07:30 04/28/17 22:00 Humalog SC Not Given ACHS [facility] Protocol Pantoprazole Sodium 40 mg 04/27/17 21:00 04/29/17 08:42 Protonix Inj IVP 40 mg Q12 [facility] Administration Silver Sulfadiazine 0 ea 04/28/17 09:00 04/28/17 08:26 Silvadene 1% 20 Gm TOP 3 applic DAILY [facility] Administration - Patient Studies Lab Studies: Microbiology Studies 04/27/17 Unknown Gram Stain - Final Foot - Left Wound Culture - Preliminary 04/25/17 18:03 Gram Stain - Final Sacral Wound Culture - Final Staphylococcus Aureus Lab Studies 04/29/17 04/29/17 04/28/17 Range/Units 05:00 04:46 21:17 WBC (4.8-10.8) K/uL RBC (4.40-5.90) Mil/uL Hgb (12.0-18.0) g/dL Hct (35.0-51.0) % MCV (80.0-94.0) fl MCH (27.0-31.0) pg MCHC (33.0-37.0) g/dL RDW (11.5-14.5) % Plt Count (130-400) K/uL pCO2 20 L (35-45) mm/Hg pO2 350 H (80-100) mm/Hg HCO3 14.4 L (21-28) mmol/L ABG pH 7.35 (7.35-7.45) ABG Total CO2 11.6 L (22-28) mmol/L ABG O2 Saturation 99.7 H (95-98) % ABG O2 Content 7.5 L (15-23) ML/dL ABG Base Excess -13.6 L (-2.0-3.0) mmol/L ABG Hemoglobin 4.8 L (11.7-17.4) g/dL ABG Carboxyhemoglobin 1.4 (0.5-1.5) % POC ABG HHb (Measured) 0.3 (0.0-5.0) % ABG Methemoglobin 2.2 (0.0-3.0) % ABG O2 Capacity 7.5 L (16-24) mL/dL Stan Test Yes A-a O2 Difference 338.0 mm/Hg Hgb O2 Saturation 96.2 (95.0-98.0) % Vent Mode A/c Mechanical Rate 12 FiO2 100.0 % Tidal Volume 450 PEEP 0 Blood Gas Comments Crit Value Called To Dr araceli cerda Crit Value Called By Mac Crit Value Read Back Y Blood Gas Notified Time 526 Sodium (132-148) mmol/l Potassium (3.6-5.0) MMOL/L Chloride (98-107) mmol/L Carbon Dioxide (22-30) mmol/L Anion Gap (10-20) BUN (9-20) mg/dl Creatinine (0.8-1.5) mg/dL Est GFR ( Amer) Est GFR (Non-Af Amer) POC Glucose (mg/dL) 125 H 185 H (65-110) mg/dL Random Glucose (75-110) mg/dL Lactic Acid (0.7-2.1) MMOL/L Calcium (8.4-10.2) mg/dL Phosphorus (2.5-4.5) mg/dl Magnesium (1.6-2.3) MG/DL Blood Type Antibody Screen Crossmatch BBK History Checked 04/28/17 04/28/17 04/28/17 Range/Units 18:15 18:15 18:01 WBC 15.8 H (4.8-10.8) K/uL RBC 1.65 L (4.40-5.90) Mil/uL Hgb 4.9 L* (12.0-18.0) g/dL Hct 14.8 L (35.0-51.0) % MCV 89.6 (80.0-94.0) fl MCH 29.5 (27.0-31.0) pg MCHC 32.9 L (33.0-37.0) g/dL RDW 14.6 H (11.5-14.5) % Plt Count 133 (130-400) K/uL pCO2 (35-45) mm/Hg pO2 (80-100) mm/Hg HCO3 (21-28) mmol/L ABG pH (7.35-7.45) ABG Total CO2 (22-28) mmol/L ABG O2 Saturation (95-98) % ABG O2 Content (15-23) ML/dL ABG Base Excess (-2.0-3.0) mmol/L ABG Hemoglobin (11.7-17.4) g/dL ABG Carboxyhemoglobin (0.5-1.5) % POC ABG HHb (Measured) (0.0-5.0) % ABG Methemoglobin (0.0-3.0) % ABG O2 Capacity (16-24) mL/dL Stan Test A-a O2 Difference mm/Hg Hgb O2 Saturation (95.0-98.0) % Vent Mode Mechanical Rate FiO2 % Tidal Volume PEEP Blood Gas Comments Crit Value Called To Crit Value Called By Crit Value Read Back Blood Gas Notified Time Sodium 141 (132-148) mmol/l Potassium 3.8 (3.6-5.0) MMOL/L Chloride 108 H (98-107) mmol/L Carbon Dioxide 17 L (22-30) mmol/L Anion Gap 20 (10-20) BUN 30 H (9-20) mg/dl Creatinine 1.0 (0.8-1.5) mg/dL Est GFR ( Amer) > 60 Est GFR (Non-Af Amer) > 60 POC Glucose (mg/dL) 218 H (65-110) mg/dL Random Glucose 180 H (75-110) mg/dL Lactic Acid (0.7-2.1) MMOL/L Calcium 5.8 L* (8.4-10.2) mg/dL Phosphorus 5.7 H (2.5-4.5) mg/dl Magnesium 1.0 L* (1.6-2.3) MG/DL Blood Type Antibody Screen Crossmatch BBK History Checked 04/28/17 04/28/17 04/28/17 Range/Units 12:15 12:00 11:26 WBC (4.8-10.8) K/uL RBC (4.40-5.90) Mil/uL Hgb (12.0-18.0) g/dL Hct (35.0-51.0) % MCV (80.0-94.0) fl MCH (27.0-31.0) pg MCHC (33.0-37.0) g/dL RDW (11.5-14.5) % Plt Count (130-400) K/uL pCO2 29 L (35-45) mm/Hg pO2 38 L* (80-100) mm/Hg HCO3 15.6 L (21-28) mmol/L ABG pH 7.29 L (7.35-7.45) ABG Total CO2 14.8 L (22-28) mmol/L ABG O2 Saturation 78.7 L (95-98) % ABG O2 Content 8.6 L (15-23) ML/dL ABG Base Excess -11.5 L (-2.0-3.0) mmol/L ABG Hemoglobin 8.1 L (11.7-17.4) g/dL ABG Carboxyhemoglobin 1.9 H (0.5-1.5) % POC ABG HHb (Measured) 20.5 H (0.0-5.0) % ABG Methemoglobin 2.0 (0.0-3.0) % ABG O2 Capacity 10.9 L (16-24) mL/dL Stan Test Yes A-a O2 Difference 354.0 mm/Hg Hgb O2 Saturation 75.7 L (95.0-98.0) % Vent Mode Prvc/ac Mechanical Rate 12 FiO2 60.0 % Tidal Volume 450 PEEP Blood Gas Comments Prvc/ac12/vt450/60 Crit Value Called To Yong bullock m.d. Crit Value Called By Leticia Webster Value Read Back Y Blood Gas Notified Time 1216 Sodium (132-148) mmol/l Potassium (3.6-5.0) MMOL/L Chloride (98-107) mmol/L Carbon Dioxide (22-30) mmol/L Anion Gap (10-20) BUN (9-20) mg/dl Creatinine (0.8-1.5) mg/dL Est GFR ( Amer) Est GFR (Non-Af Amer) POC Glucose (mg/dL) 171 H (65-110) mg/dL Random Glucose (75-110) mg/dL Lactic Acid 2.1 (0.7-2.1) MMOL/L Calcium (8.4-10.2) mg/dL Phosphorus (2.5-4.5) mg/dl Magnesium (1.6-2.3) MG/DL Blood Type Antibody Screen Crossmatch BBK History Checked 04/27/17 Range/Units 12:30 WBC (4.8-10.8) K/uL RBC (4.40-5.90) Mil/uL Hgb (12.0-18.0) g/dL Hct (35.0-51.0) % MCV (80.0-94.0) fl MCH (27.0-31.0) pg MCHC (33.0-37.0) g/dL RDW (11.5-14.5) % Plt Count (130-400) K/uL pCO2 (35-45) mm/Hg pO2 (80-100) mm/Hg HCO3 (21-28) mmol/L ABG pH (7.35-7.45) ABG Total CO2 (22-28) mmol/L ABG O2 Saturation (95-98) % ABG O2 Content (15-23) ML/dL ABG Base Excess (-2.0-3.0) mmol/L ABG Hemoglobin (11.7-17.4) g/dL ABG Carboxyhemoglobin (0.5-1.5) % POC ABG HHb (Measured) (0.0-5.0) % ABG Methemoglobin (0.0-3.0) % ABG O2 Capacity (16-24) mL/dL Stan Test A-a O2 Difference mm/Hg Hgb O2 Saturation (95.0-98.0) % Vent Mode Mechanical Rate FiO2 % Tidal Volume PEEP Blood Gas Comments Crit Value Called To Crit Value Called By Crit Value Read Back Blood Gas Notified Time Sodium (132-148) mmol/l Potassium (3.6-5.0) MMOL/L Chloride (98-107) mmol/L Carbon Dioxide (22-30) mmol/L Anion Gap (10-20) BUN (9-20) mg/dl Creatinine (0.8-1.5) mg/dL Est GFR ( Amer) Est GFR (Non-Af Amer) POC Glucose (mg/dL) (65-110) mg/dL Random Glucose (75-110) mg/dL Lactic Acid (0.7-2.1) MMOL/L Calcium (8.4-10.2) mg/dL Phosphorus (2.5-4.5) mg/dl Magnesium (1.6-2.3) MG/DL Blood Type O POSITIVE Antibody Screen Negative Crossmatch See Detail BBK History Checked Patient has bt Laboratory Results - last 24 hr 04/27/17 04/28/17 04/28/17 12:30 11:26 12:00 WBC RBC Hgb Hct MCV MCH MCHC RDW Plt Count pCO2 29 L pO2 38 L* HCO3 15.6 L ABG pH 7.29 L ABG Total CO2 14.8 L ABG O2 Saturation 78.7 L ABG O2 Content 8.6 L ABG Base Excess -11.5 L ABG Hemoglobin 8.1 L ABG Carboxyhemoglobin 1.9 H POC ABG HHb (Measured) 20.5 H ABG Methemoglobin 2.0 ABG O2 Capacity 10.9 L Stan Test Yes A-a O2 Difference 354.0 Hgb O2 Saturation 75.7 L Vent Mode Prvc/ac Mechanical Rate 12 FiO2 60.0 Tidal Volume 450 PEEP Blood Gas Comments Prvc/ac12/vt450/60 Crit Value Called To Yong bullock m.d. Crit Value Called By Leticia Crit Value Read Back Y Blood Gas Notified Time 1216 Sodium Potassium Chloride Carbon Dioxide Anion Gap BUN Creatinine Est GFR ( Amer) Est GFR (Non-Af Amer) POC Glucose (mg/dL) 171 H Random Glucose Lactic Acid Calcium Phosphorus Magnesium Blood Type O POSITIVE Antibody Screen Negative Crossmatch See Detail BBK History Checked Patient has bt 04/28/17 04/28/17 04/28/17 12:15 18:01 18:15 WBC 15.8 H RBC 1.65 L Hgb 4.9 L* Hct 14.8 L MCV 89.6 MCH 29.5 MCHC 32.9 L RDW 14.6 H Plt Count 133 pCO2 pO2 HCO3 ABG pH ABG Total CO2 ABG O2 Saturation ABG O2 Content ABG Base Excess ABG Hemoglobin ABG Carboxyhemoglobin POC ABG HHb (Measured) ABG Methemoglobin ABG O2 Capacity Stan Test A-a O2 Difference Hgb O2 Saturation Vent Mode Mechanical Rate FiO2 Tidal Volume PEEP Blood Gas Comments Crit Value Called To Crit Value Called By Crit Value Read Back Blood Gas Notified Time Sodium Potassium Chloride Carbon Dioxide Anion Gap BUN Creatinine Est GFR ( Amer) Est GFR (Non-Af Amer) POC Glucose (mg/dL) 218 H Random Glucose Lactic Acid 2.1 Calcium Phosphorus Magnesium Blood Type Antibody Screen Crossmatch BBK History Checked 04/28/17 04/28/17 04/29/17 18:15 21:17 04:46 WBC RBC Hgb Hct MCV MCH MCHC RDW Plt Count pCO2 pO2 HCO3 ABG pH ABG Total CO2 ABG O2 Saturation ABG O2 Content ABG Base Excess ABG Hemoglobin ABG Carboxyhemoglobin POC ABG HHb (Measured) ABG Methemoglobin ABG O2 Capacity Stan Test A-a O2 Difference Hgb O2 Saturation Vent Mode Mechanical Rate FiO2 Tidal Volume PEEP Blood Gas Comments Crit Value Called To Crit Value Called By Crit Value Read Back Blood Gas Notified Time Sodium 141 Potassium 3.8 Chloride 108 H Carbon Dioxide 17 L Anion Gap 20 BUN 30 H Creatinine 1.0 Est GFR ( Amer) > 60 Est GFR (Non-Af Amer) > 60 POC Glucose (mg/dL) 185 H 125 H Random Glucose 180 H Lactic Acid Calcium 5.8 L* Phosphorus 5.7 H Magnesium 1.0 L* Blood Type Antibody Screen Crossmatch BBK History Checked 04/29/17 05:00 WBC RBC Hgb Hct MCV MCH MCHC RDW Plt Count pCO2 20 L pO2 350 H HCO3 14.4 L ABG pH 7.35 ABG Total CO2 11.6 L ABG O2 Saturation 99.7 H ABG O2 Content 7.5 L ABG Base Excess -13.6 L ABG Hemoglobin 4.8 L ABG Carboxyhemoglobin 1.4 POC ABG HHb (Measured) 0.3 ABG Methemoglobin 2.2 ABG O2 Capacity 7.5 L Stan Test Yes A-a O2 Difference 338.0 Hgb O2 Saturation 96.2 Vent Mode A/c Mechanical Rate 12 FiO2 100.0 Tidal Volume 450 PEEP 0 Blood Gas Comments Crit Value Called To Dr araceli cerda Crit Value Called By Mac Crit Value Read Back Y Blood Gas Notified Time 526 Sodium Potassium Chloride Carbon Dioxide Anion Gap BUN Creatinine Est GFR ( Amer) Est GFR (Non-Af Amer) POC Glucose (mg/dL) Random Glucose Lactic Acid Calcium Phosphorus Magnesium Blood Type Antibody Screen Crossmatch BBK History Checked Fingerstick Blood Sugar Results: 135 Critical Care Progress Note - Nutrition Nutrition: Nutrition Category Date Time Status NPO Diet [DIET] Diets 04/27/17 Dinner Active
--- NOTE | 2017-05-01 09:43 | VASCULAR ---
PROCEDURE: PROCEDURE: 1. Selective celiac artery angiogram and gastroduodenal artery angiogram 2. Embolization of gastroduodenal artery 3. Nonselective aortogram Medications: Patient sedated by anesthesiologist along with physiologic monitoring, 6 cc 2 percent lidocaine HISTORY: Gastrointestinal bleed, duodenal ulcer TECHNIQUE: Following informed consent and procedure time-out, the right groin was marked. The patient placed supine on the interventional table and the right groin was prepped and draped in the usual sterile fashion. The right common femoral artery was accessed with ultrasound guidance with micropuncture technique. A guidewire is advanced under fluoroscopic guidance into the abdominal aorta. An ultrasound image documenting needle position within the artery was permanently archived. Through a 5 Nauruan sheath, a flush catheter was positioned abdominal aorta nonselective aortogram was performed. A Sos 0 catheter was used to select the celiac artery and selective celiac artery angiogram was performed. A pro great the micro catheter was advanced into the Sos catheter and the gastroduodenal artery was catheterized. A selective left gastric artery angiogram was performed. Aortogram and celiac artery angiogram did not show any active bleed. Selective gastric to what artery angiogram also did not show any active bleed. There was of vaso constriction of the arteries likely from hypovolemia. Given findings of endoscopy report, the gastroduodenal artery was embolized. Multiple detachable Interlock micro coils were deployed within the gastro duodenal artery. Post embolization repeat arteriogram showed no for flow within the gastroduodenal artery. Catheters and guidewires removed. The 5 Nauruan vascular sheath was then pulled and hemostasis achieved with manual compression. There were no immediate complications. A dressing applied. IMPRESSION: Selective angiogram of the celiac artery and gastroduodenal artery did not show evidence of active bleeding. The gastroduodenal artery was embolized after discussing the case with patient's family and the pharmacy informaticist, who noted ulcers in the proximal duodenum.
== END 2017-04-29 11:15 | DRG 853 ==
LOC: H.ER 16:16 → H.ERHOLD 16:58 → H.TEL 19:09 → H.ICU/CCU 04-16 05:37
PROVIDERS: ADMIT Internal Medicine; ATTEND Internal Medicine
PROC: 02HV33Z Insertion of Infusion Device into Superior Vena Cava, Percutaneous Approach (ICD-10-PCS; 2017-04-18)
PROC: B548ZZA Ultrasonography of Superior Vena Cava, Guidance (ICD-10-PCS; 2017-04-18)
PROC: 2W15X6Z Compression of Back using Pressure Dressing (ICD-10-PCS; 2017-04-19)
PROC: 0QB10ZZ Excision of Sacrum, Open Approach (ICD-10-PCS; principal; 2017-04-19 17:30)
PROC: 30233N1 Transfusion of Nonautologous Red Blood Cells into Peripheral Vein, Percutaneous Approach (ICD-10-PCS; 2017-04-20)
PROC: 0DB98ZX Excision of Duodenum, Via Natural or Artificial Opening Endoscopic, Diagnostic (ICD-10-PCS; 2017-04-26)
PROC: 0DB68ZX Excision of Stomach, Via Natural or Artificial Opening Endoscopic, Diagnostic (ICD-10-PCS; 2017-04-26)
PROC: 0W3P8ZZ Control Bleeding in Gastrointestinal Tract, Via Natural or Artificial Opening Endoscopic (ICD-10-PCS; 2017-04-26)
PROC: 5A1935Z Respiratory Ventilation, Less than 24 Consecutive Hours (ICD-10-PCS; 2017-04-28)
PROC: 0BH17EZ Insertion of Endotracheal Airway into Trachea, Via Natural or Artificial Opening (ICD-10-PCS; 2017-04-28)
PROC: 0DBB8ZX Excision of Ileum, Via Natural or Artificial Opening Endoscopic, Diagnostic (ICD-10-PCS; 2017-04-28)
DX: A41.50 Gram-negative sepsis, unspecified (principal); R65.21 Severe sepsis with septic shock; L89.154 Pressure ulcer of sacral region, stage 4; K55.9 Vascular disorder of intestine, unspecified; I13.0 Hypertensive heart and chronic kidney disease with heart failure and stage 1 through stage 4 chronic kidney disease, or unspecified chronic kidney disease; K26.4 Chronic or unspecified duodenal ulcer with hemorrhage; J44.9 Chronic obstructive pulmonary disease, unspecified; I95.9 Hypotension, unspecified; I42.9 Cardiomyopathy, unspecified; I50.22 Chronic systolic (congestive) heart failure; F03.90 Unspecified dementia, unspecified severity, without behavioral disturbance, psychotic disturbance, mood disturbance, and anxiety; D62 Acute posthemorrhagic anemia; I69.354 Hemiplegia and hemiparesis following cerebral infarction affecting left non-dominant side; N39.0 Urinary tract infection, site not specified; L03.116 Cellulitis of left lower limb; L03.115 Cellulitis of right lower limb; E10.22 Type 1 diabetes mellitus with diabetic chronic kidney disease; E10.649 Type 1 diabetes mellitus with hypoglycemia without coma; E86.0 Dehydration; B95.61 Methicillin susceptible Staphylococcus aureus infection as the cause of diseases classified elsewhere; E78.00 Pure hypercholesterolemia, unspecified; E78.5 Hyperlipidemia, unspecified; E86.1 Hypovolemia; E87.6 Hypokalemia; G40.909 Epilepsy, unspecified, not intractable, without status epilepticus; H40.9 Unspecified glaucoma; I25.10 Atherosclerotic heart disease of native coronary artery without angina pectoris; I25.2 Old myocardial infarction; I27.2 Other secondary pulmonary hypertension; I73.9 Peripheral vascular disease, unspecified; K21.9 Gastro-esophageal reflux disease without esophagitis; L89.609 Pressure ulcer of unspecified heel, unspecified stage; N18.9 Chronic kidney disease, unspecified; Q27.33 Arteriovenous malformation of digestive system vessel; Z88.0 Allergy status to penicillin; Z88.2 Allergy status to sulfonamides; Z93.2 Ileostomy status; Z93.3 Colostomy status; Z95.5 Presence of coronary angioplasty implant and graft; Z96.641 Presence of right artificial hip joint; F32.9 Major depressive disorder, single episode, unspecified; F41.9 Anxiety disorder, unspecified; Z87.01 Personal history of pneumonia (recurrent)